=== PATIENT | female | born 2005 | race Caucasian/White ===

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

== ENCOUNTER 2025-01-28 19:41 | Outpatient (CLI) | payer BC, SELFPAY | END 2025-01-28 19:42 | disposition home or self-care (01) | LOC: AMB 01-31 10:42 | PROVIDERS: Visit Provider Family Medicine | DX: R45.851 Suicidal ideations (principal) | CPT/HCPCS: A0425; A0427 ==

== ENCOUNTER 2025-01-28 20:14 | Emergency (ER) | payer BC, SELFPAY ==
--- OUTSIDE RECORDS SUMMARY | 2025-01-28 20:16 | XMS_ITS | Encounter Summary ---
Author Organization [facility] Care Address [address] [place] [address] Phone Care Team Providers Care Meat Butcher Name Role Phone Che Williamson MD Primary Care Provider + [phone] Lynda Skelton MD Unavailable Chelsea Hensley MD Unavailable [phone] Prashanth Martinez MD Primary Care Provider [phone] Encounter Details Date Type Department Care Team (Late st Contact Info) Description 01/10/2021 Pharmacy Visit [facility] - Pharmacy - Surgery [address] [place] [address] Social History Tobacco Use Types Packs/Day Years Used Date Smoking Tobacco: Never Smokeless Tobacco: Never Alcohol Use Standard Drinks/Week Comments No 0 (1 standard drink = 0.6 oz pur e alcohol) Comments No Sex and Gender Information Value Date Recorded Sex Assigned at Female 07/13/2019 6:16 PM MANAGER TRANSFUSION Legal Sex Female 2:51 AM CDT Gender Identity Transgender Male 05/05/2019 1:23 PM CDT Sexual Orientation Pedraza 06/23/2023 10 :56 AM CDT documented as of this encounter Plan of Treatment Upcoming Encounters Date Type Department Care Team (Late st Contact Info) Description 04/21/2025 2:15 PM CDT Appointment [place] - [place] - [facility] [address] [phone] Prashanth Martinez MD [address] [place] [address] 05/02/2025 8:40 AM CDT Appointment [place] - [facility] - Ophthalmology - Optometry [address] [phone] Danuta Golden OD [address] [place] [address] documented as of this encounter Visit Diagnoses Not on filedocumented in this encounter Additional Health Concerns Infection Onset Date Last Indicated Resolved Time COVID-19 09/28/2021 09/28/2021 10/28/2021 9:44 PM MANAGER TRANSFUSION Assessment Noted Time PHQ-9 Depression Total Score: 9 11/25/19 18 2:15 PM CDT A fall risk assessment has been complete d for the patient 12/06/2020 2:18 PM CDT PHQ-2 Depression Total Score: 2 12/10/19 20 2:50 PM CDT documented as of this encounter Care Teams Meat Butcher Relationship Specialty Start Date End Date Che Williamson MD [address] [place] [address] PCP - General 08/27/12 03/20/22 Prashanth Martinez MD [address] [place] [address] PCP - General Pediatric Medicine 03/21/22 Lynda Skelton MD [facility] [place] [address] Provider Team Family Practice 06/10/17 Chelsea Hensley MD [address] [place], [place] [id number] Endocrinology 12/08/18 documented as of this encounter
--- OUTSIDE RECORDS SUMMARY | 2025-01-28 20:16 | XMS_ITS | Encounter Summary ---
Author Organization [facility] Care Address [address] [place] [address] Phone Care Team Providers Care Furnace Cooler Name Role Phone Che Williamson MD Primary Care Provider + [phone] Lynda Skelton MD Unavailable Franchesca Manley Unavailable Unavailable Chelsea Hensley MD Unavailable [phone] Prashanth Martinez MD Primary Care Provider [phone] Encounter Details Date Type Department Care Team (Late st Contact Info) Description 11/27/2018 Pharmacy Visit [facility] [address] [place] [address] Social History Tobacco Use Types Packs/Day Years Used Date Smoking Tobacco: Never Smokeless Tobacco: Never Alcohol Use Standard Drinks/Week Comments No 0 (1 standard drink = 0.6 oz pur e alcohol) Comments No Sex and Gender Information Value Date Recorded Sex Assigned at Female 07/13/2019 6:16 PM ONLINE BANKING SPECIALIST Legal Sex Female 2:51 AM CDT Gender Identity Transgender Male 05/05/2019 1:23 PM CDT Sexual Orientation Pedraza 06/23/2023 10 :56 AM CDT documented as of this encounter Plan of Treatment Upcoming Encounters Date Type Department Care Team (Late st Contact Info) Description 04/21/2025 2:15 PM CDT Appointment [place] - [facility] - Adolescent Clinic [address] [phone] Prashanth Martinez MD [address] [place] [address] 05/02/2025 8:40 AM CDT Appointment [facility] - Ophthalmology - Optometry [address] [phone] Danuta Golden OD [address] [place] [address] documented as of this encounter Visit Diagnoses Not on filedocumented in this encounter Additional Health Concerns Infection Onset Date Last Indicated Resolved Time COVID-19 09/28/2021 09/28/2021 10/28/2021 9:44 PM ONLINE BANKING SPECIALIST Assessment Noted Time PHQ-9 Depression Total Score: 9 11/25/19 18 2:15 PM CDT PHQ-2 Depression Total Score: 4 11/25/19 18 2:15 PM CDT documented as of this encounter Care Teams Furnace Cooler Relationship Specialty Start Date End Date Che Williamson MD [address] [place] [address] PCP - General 08/27/12 03/20/22 Prashanth Martinez MD [address] [place] [address] PCP - General Pediatric Medicine 03/21/22 Lynda Skelton MD [address] [place] [address] Provider Team Family Practice 06/10/17 Franchesca Manley 12/09/17 12/07/18 Chelsea Hensley MD [address] [place] [address] Endocrinology 12/08/18 documented as of this encounter
--- OUTSIDE RECORDS SUMMARY | 2025-01-28 20:16 | XMS_ITS | Encounter Summary ---
Author Organization [facility] Care Address [address] [place] [address] Phone Care Team Providers Care Proposal Development Manager Name Role Phone Che Williamson MD Primary Care Provider + [phone] Lynda Skelton MD Unavailable Franchesca Manley Unavailable Unavailable Chelsea Hensley MD Unavailable [phone] Prashanth Martinez MD Primary Care Provider Encounter Details Date Type Department Care Team (Late st Contact Info) Description 12/03/2018 Pharmacy Visit [facility] [address] [place] [address] Social History Tobacco Use Types Packs/Day Years Used Date Smoking Tobacco: Never Smokeless Tobacco: Never Alcohol Use Standard Drinks/Week Comments No 0 (1 standard drink = 0.6 oz pur e alcohol) Comments No Sex and Gender Information Value Date Recorded Sex Assigned at Female 07/13/2019 6:16 PM PRESIDENT AND CHIEF EXECUTIVE OFFICER Legal Sex Female 2:51 AM CDT Gender Identity Transgender Male 05/05/2019 1:23 PM CDT Sexual Orientation Pedraza 06/23/2023 10 :56 AM CDT documented as of this encounter Plan of Treatment Upcoming Encounters Date Type Department Care Team (Late st Contact Info) Description 04/21/2025 2:15 PM CDT Appointment [place] - [facility] - Adolescent Clinic [address] [phone] Prashanth Martinez MD [address] [place] [address] 05/02/2025 8:40 AM CDT Appointment [facility] - Ophthalmology - Optometry [address] [phone] Danuta Golden OD [address] [place] [address] documented as of this encounter Visit Diagnoses Not on filedocumented in this encounter Additional Health Concerns Infection Onset Date Last Indicated Resolved Time COVID-19 09/28/2021 09/28/2021 10/28/2021 9:44 PM PRESIDENT AND CHIEF EXECUTIVE OFFICER Assessment Noted Time PHQ-9 Depression Total Score: 9 11/25/19 18 2:15 PM CDT PHQ-2 Depression Total Score: 4 11/25/19 18 2:15 PM CDT documented as of this encounter Care Teams Proposal Development Manager Relationship Specialty Start Date End Date Che Williamson MD [address] [place] [address] PCP - General 08/27/12 03/20/22 Prashanth Martinez MD [address] [place] [address] PCP - General Pediatric Medicine 03/21/22 Lynda Skelton MD [address] [place] [address] Provider Team Family Practice 06/10/17 Franchesca Manley 12/09/17 12/07/18 Chelsea Hensley MD [address] [place] [address] Endocrinology 12/08/18 documented as of this encounter
--- OUTSIDE RECORDS SUMMARY | 2025-01-28 20:17 | XMS_ITS | Encounter Summary ---
Author Organization [facility] Care Address [address] [place] [address] Phone Care Team Providers Care Insole Stiffener Name Role Phone Che Williamson MD Primary Care Provider + [phone] Lynda Skelton MD Unavailable Chelsea Hensley MD Unavailable [phone] Prashanth Martinez MD Primary Care Provider [phone] Encounter Details Date Type Department Care Team (Late st Contact Info) Description 02/02/2021 Pharmacy Visit [facility] - Pharmacy - Specialty [address] [place] [address] Social History Tobacco Use Types Packs/Day Years Used Date Smoking Tobacco: Never Smokeless Tobacco: Never Alcohol Use Standard Drinks/Week Comments No 0 (1 standard drink = 0.6 oz pur e alcohol) Comments No Sex and Gender Information Value Date Recorded Sex Assigned at Female 07/13/2019 6:16 PM FLIGHT COMMUNICATIONS OPERATOR Legal Sex Female 2:51 AM CDT Gender Identity Transgender Male 05/05/2019 1:23 PM CDT Sexual Orientation Pedraza 06/23/2023 10 :56 AM CDT documented as of this encounter Plan of Treatment Upcoming Encounters Date Type Department Care Team (Late st Contact Info) Description 04/21/2025 2:15 PM CDT Appointment [place] [facility] [place] [facility] [address] [phone] Prashanth Martinez MD [address] [place] [address] 05/02/2025 8:40 AM CDT Appointment [place] [facility] - Optometry [address] [phone] Danuta Golden OD [address] [place] [address] documented as of this encounter Visit Diagnoses Not on filedocumented in this encounter Additional Health Concerns Infection Onset Date Last Indicated Resolved Time COVID-19 09/28/2021 09/28/2021 10/28/2021 9:44 PM FLIGHT COMMUNICATIONS OPERATOR Assessment Noted Time PHQ-9 Depression Total Score: 14 021 2:38 PM CDT A fall risk assessment has been complete d for the patient 01/31/2021 2:59 PM CDT PHQ-2 Depression Total Score: 5 01/25/20 21 2:38 PM CDT documented as of this encounter Care Teams Insole Stiffener Relationship Specialty Start Date End Date Che Williamson MD [address] [place] [address] PCP - General 08/27/12 03/20/22 Prashnath Martinez MD [address] [place] [address] PCP - General Pediatric Medicine 03/21/22 Lynda Skelton MD [facility] [place] [address] Provider Team Family Practice 06/10/17 Chelsea Hensley MD [address] [place] [address] Endocrinology 12/08/18 documented as of this encounter
--- OUTSIDE RECORDS SUMMARY | 2025-01-28 20:17 | XMS_ITS | Encounter Summary ---
Author Organization [facility] Care Address [address] [place] [address] Phone Care Team Providers Care Special Events Driver Name Role Phone Che Williamson MD Primary Care Provider + [phone] Lynda Skelton MD Unavailable Chelsea Hensley MD Unavailable [phone] Prashanth Martinez MD Primary Care Provider [phone] Encounter Details Date Type Department Care Team (Late st Contact Info) Description 01/07/2019 Pharmacy Visit [facility] - Pharmacy [address] [place] [address] Social History Tobacco Use Types Packs/Day Years Used Date Smoking Tobacco: Never Smokeless Tobacco: Never Alcohol Use Standard Drinks/Week Comments No 0 (1 standard drink = 0.6 oz pur e alcohol) Comments No Sex and Gender Information Value Date Recorded Sex Assigned at Female 07/13/2019 6:16 PM DETECTIVE YOUTH BUREAU Legal Sex Female 2:51 AM CDT Gender Identity Transgender Male 05/05/2019 1:23 PM CDT Sexual Orientation Pedraza 06/23/2023 10 :56 AM CDT documented as of this encounter Plan of Treatment Upcoming Encounters Date Type Department Care Team (Late st Contact Info) Description 04/21/2025 2:15 PM CDT Appointment [place] - [place] [facility] [address] [phone] Prashanth Martinez MD [address] [place] [address] 05/02/2025 8:40 AM CDT Appointment [facility] - Ophthalmology - Optometry [address] [phone] Danuta Golden OD [address] [place] [address] documented as of this encounter Visit Diagnoses Not on filedocumented in this encounter Additional Health Concerns Infection Onset Date Last Indicated Resolved Time COVID-19 09/28/2021 09/28/2021 10/28/2021 9:44 PM DETECTIVE YOUTH BUREAU Assessment Noted Time PHQ-9 Depression Total Score: 9 11/25/19 18 2:15 PM CDT PHQ-2 Depression Total Score: 4 11/25/19 18 2:15 PM CDT documented as of this encounter Care Teams Special Events Driver Relationship Specialty Start Date End Date Che Williamson MD [address] [place] [address] PCP - General 08/27/12 03/20/22 Prashanth Martinez MD [address] [place] [address] PCP - General Pediatric Medicine 03/21/22 Lynda Skelton MD [address] [place] [address] Provider Team Family Practice 06/10/17 Chelsea Hensley MD [address] [place] [address] Endocrinology 12/08/18 documented as of this encounter
--- OUTSIDE RECORDS SUMMARY | 2025-01-28 20:17 | XMS_ITS | Encounter Summary ---
Author Organization [facility] Care Address [address] [place] [address] Phone Care Team Providers Care Edger Machine Setter Name Role Phone Che Williamson MD Primary Care Provider + [phone] Lynda Skelton MD Unavailable Chelsea Hensley MD Unavailable [phone] Prashanth Martinez MD Primary Care Provider [phone] Encounter Details Date Type Department Care Team (Late st Contact Info) Description 01/08/2019 Pharmacy [facility] - Pharmacy - Specialty [address] [place] [address] Social History Tobacco Use Types Packs/Day Years Used Date Smoking Tobacco: Never Smokeless Tobacco: Never Alcohol Use Standard Drinks/Week Comments No 0 (1 standard drink = 0.6 oz pur e alcohol) Comments No Sex and Gender Information Value Date Recorded Sex Assigned at Female 07/13/2019 6:16 PM COMMISSIONING EDITOR Legal Sex Female 2:51 AM CDT Gender Identity Transgender Male 05/05/2019 1:23 PM CDT Sexual Orientation Pedraza 06/23/2023 10 :56 AM CDT documented as of this encounter Plan of Treatment Upcoming Encounters Date Type Department Care Team (Late st Contact Info) Description 04/21/2025 2:15 PM CDT Appointment [place] - [facility] - Adolescent Clinic [address] [phone] Prashanth Martinez MD [address] [place] [address] 05/02/2025 8:40 AM CDT Appointment [place] - [facility] - Ophthalmology - Optometry [address] [phone] Danuta Golden OD [address] [place] [address] documented as of this encounter Visit Diagnoses Not on filedocumented in this encounter Additional Health Concerns Infection Onset Date Last Indicated Resolved Time COVID-19 09/28/2021 09/28/2021 10/28/2021 9:44 PM COMMISSIONING EDITOR Assessment Noted Time PHQ-9 Depression Total Score: 9 11/25/19 18 2:15 PM CDT PHQ-2 Depression Total Score: 4 11/25/19 18 2:15 PM CDT documented as of this encounter Care Teams Edger Machine Setter Relationship Specialty Start Date End Date Che Williamson MD [address] [place] [address] PCP - General 08/27/12 03/20/22 Parshanth Martinez MD [address] [place] [address] PCP - General Pediatric Medicine 03/21/22 Lynda Skelton MD [address] [place] [address] Provider Team Family Practice 06/10/17 Chelsea Hensley MD [address] [place] [address] Endocrinology 12/08/18 documented as of this encounter
--- OUTSIDE RECORDS SUMMARY | 2025-01-28 20:17 | XMS_ITS | Encounter Summary ---
Author Organization [facility] Care Address [address] [place] [address] Phone Care Team Providers Care Food Tester Name Role Phone Che Williamson MD Primary Care Provider + [phone] Lynda Skelton MD Unavailable Chelsea Hensely MD Unavailable [phone] Prashanth Martinez MD Primary Care Provider [phone] Encounter Details Date Type Department Care Team (Late st Contact Info) Description 03/24/2019 Pharmacy Visit [facility] [address] [place] [address] Social History Tobacco Use Types Packs/Day Years Used Date Smoking Tobacco: Never Smokeless Tobacco: Never Alcohol Use Standard Drinks/Week Comments No 0 (1 standard drink = 0.6 oz pur e alcohol) Comments No Sex and Gender Information Value Date Recorded Sex Assigned at Female 07/13/2019 6:16 PM DIRECTOR CORRECTIONAL AGENCY Legal Sex Female 2:51 AM CDT Gender Identity Transgender Male 05/05/2019 1:23 PM CDT Sexual Orientation Pedraza 06/23/2023 10 :56 AM CDT documented as of this encounter Plan of Treatment Upcoming Encounters Date Type Department Care Team (Late st Contact Info) Description 04/21/2025 2:15 PM CDT Appointment [place] [facility] [address] [phone] Prashanth Martinez MD 200 [place] [address] 05/02/2025 8:40 AM CDT Appointment [place] - [facility] - Ophthalmology - Optometry [address] [phone] Danuta Golden OD 200 [place] [address] documented as of this encounter Visit Diagnoses Not on filedocumented in this encounter Additional Health Concerns Infection Onset Date Last Indicated Resolved Time COVID-19 09/28/2021 09/28/2021 10/28/2021 9:44 PM DIRECTOR CORRECTIONAL AGENCY Assessment Noted Time PHQ-9 Depression Total Score: 9 11/25/19 18 2:15 PM CDT PHQ-2 Depression Total Score: 4 11/25/19 18 2:15 PM CDT documented as of this encounter Care Teams Food Tester Relationship Specialty Start Date End Date Che Williamson MD [address] [place] [address] PCP - General 08/27/12 03/20/22 Prashanth Martinez MD 200 [place] [address] PCP - General Pediatric Medicine 03/21/22 Lynda Skelton MD [address] [place] [address] Provider Team Family Practice 06/10/17 Chelsea Hensley MD [address] [place] [address] Endocrinology 12/08/18 documented as of this encounter
--- OUTSIDE RECORDS SUMMARY | 2025-01-28 20:17 | XMS_ITS | Encounter Summary ---
Author Organization [facility] Care Address [address] [place] [address] Phone Care Team Providers Care Marine Pipefitter Name Role Phone Che Williamson MD Primary Care Provider + [phone] Lynda Skelton MD Unavailable [phone] Chelsea Hensley MD Unavailable [phone] Prashanth Martinez MD Primary Care Provider [phone] Encounter Details Date Type Department Care Team (Late st Contact Info) Description 05/25/2020 Pharmacy Visit [facility] [address] [place] [address] Social History Tobacco Use Types Packs/Day Years Used Date Smoking Tobacco: Never Smokeless Tobacco: Never Alcohol Use Standard Drinks/Week Comments No 0 (1 standard drink = 0.6 oz pur e alcohol) Comments No Sex and Gender Information Value Date Recorded Sex Assigned at Female 07/13/2019 6:16 PM DIRECTOR OF STRATEGIC INITIATIVES Legal Sex Female 2:51 AM CDT Gender Identity Transgender Male 05/05/2019 1:23 PM CDT Sexual Orientation Pedraza 06/23/2023 10 :56 AM CDT documented as of this encounter Plan of Treatment Upcoming Encounters Date Type Department Care Team (Late st Contact Info) Description 04/21/2025 2:15 PM CDT Appointment [place] - [facility] [address] [phone] Prashanth Martinez MD 200 [place] [address] 05/02/2025 8:40 AM CDT Appointment [place] [facility]ometry [address] [phone] Danuta Golden OD 200 [place] [address] documented as of this encounter Visit Diagnoses Not on filedocumented in this encounter Additional Health Concerns Infection Onset Date Last Indicated Resolved Time COVID-19 09/28/2021 09/28/2021 10/28/2021 9:44 PM DIRECTOR OF STRATEGIC INITIATIVES Assessment Noted Time PHQ-9 Depression Total Score: 9 11/25/19 18 2:15 PM CDT A fall risk assessment has been complete d for the patient 05/17/2020 3:45 PM CDT PHQ-2 Depression Total Score: 2 12/10/19 20 2:50 PM CDT documented as of this encounter Care Teams Marine Pipefitter Relationship Specialty Start Date End Date Che Williamson MD [address] [place] [address] PCP - General 08/27/12 03/20/22 Prashanth Martinez MD [address] [place] [address] PCP - General Pediatric Medicine 03/21/22 Lynda Skelton MD [facility] [place] [address] Provider Team Family Practice 06/10/17 Chelsea Hensley MD [address] [place] [address] Endocrinology 12/08/18 documented as of this encounter
--- OUTSIDE RECORDS SUMMARY | 2025-01-28 20:17 | XMS_ITS | Encounter Summary ---
Author Organization [facility] Care Address [address] [place] [address] Phone Care Team Providers Care Thinner Sprayer Name Role Phone Che Williamson MD Primary Care Provider + [phone] Lynda Skelton MD Unavailable Chelsea Hensley MD Unavailable [phone] Prashanth Martinez MD Primary Care Provider [phone] Encounter Details Date Type Department Care Team (Late st Contact Info) Description 12/10/2018 Pharmacy [facility] - Pharmacy - Specialty 200 [place] [address] Social History Tobacco Use Types Packs/Day Years Used Date Smoking Tobacco: Never Smokeless Tobacco: Never Alcohol Use Standard Drinks/Week Comments No 0 (1 standard drink = 0.6 oz pur e alcohol) Comments No Sex and Gender Information Value Date Recorded Sex Assigned at Female 07/13/2019 6:16 PM SAP PORTAL DEVELOPER Legal Sex Female 2:51 AM CDT Gender Identity Transgender Male 05/05/2019 1:23 PM CDT Sexual Orientation Pedraza 06/23/2023 10 :56 AM CDT documented as of this encounter Plan of Treatment Upcoming Encounters Date Type Department Care Team (Late st Contact Info) Description 04/21/2025 2:15 PM CDT Appointment [place] - [facility] [address] [phone] Prashanth Martinez MD 200 [place] [address] 05/02/2025 8:40 AM CDT Appointment [place] - [facility] - Ophthalmology - Optometry [address] [phone] Danuta Golden OD [address] [place] [address] documented as of this encounter Visit Diagnoses Not on filedocumented in this encounter Additional Health Concerns Infection Onset Date Last Indicated Resolved Time COVID-19 09/28/2021 09/28/2021 10/28/2021 9:44 PM SAP PORTAL DEVELOPER Assessment Noted Time PHQ-9 Depression Total Score: 9 11/25/19 18 2:15 PM CDT PHQ-2 Depression Total Score: 4 11/25/19 18 2:15 PM CDT documented as of this encounter Care Teams Thinner Sprayer Relationship Specialty Start Date End Date Che Williamson MD [address] [place] [address] PCP - General 08/27/12 03/20/22 Prashanth Martinez MD [address] [place] [address] PCP - General Pediatric Medicine 03/21/22 Lynda Skelton MD [address] [place] [address] Provider Team Family Practice 06/10/17 Chelsea Hensley MD [address] [place] [address] Endocrinology 12/08/18 documented as of this encounter
--- OUTSIDE RECORDS SUMMARY | 2025-01-28 20:17 | XMS_ITS | Encounter Summary ---
Author Organization [facility] Care Address [address] [place] [address] Phone Care Team Providers Care Fire Hydrant Operator Name Role Phone Che Williamson MD Primary Care Provider + [phone] Lynda Skelton MD Unavailable Chelsea Hensley MD Unavailable [phone] Prashanth Martinez MD Primary Care Provider [phone] Encounter Details Date Type Department Care Team (Late st Contact Info) Description 06/26/2020 Pharmacy Visit [facility] - Pharmacy - Specialty [address] [place] [address] Social History Tobacco Use Types Packs/Day Years Used Date Smoking Tobacco: Never Smokeless Tobacco: Never Alcohol Use Standard Drinks/Week Comments No 0 (1 standard drink = 0.6 oz pur e alcohol) Comments No Sex and Gender Information Value Date Recorded Sex Assigned at Female 07/13/2019 6:16 PM VOCATIONAL COUNSELOR Legal Sex Female 2:51 AM CDT Gender Identity Transgender Male 05/05/2019 1:23 PM CDT Sexual Orientation Pedraza 06/23/2023 10 :56 AM CDT documented as of this encounter Plan of Treatment Upcoming Encounters Date Type Department Care Team (Late st Contact Info) Description 04/21/2025 2:15 PM CDT Appointment [place] - [facility] [address] [phone] Prashanth Martinez MD [address] [place] [address] 05/02/2025 8:40 AM CDT Appointment [place] - [facility] - Ophthalmology - Optometry [address] [phone] Danuta Golden OD 200 [place] [address] documented as of this encounter Visit Diagnoses Not on filedocumented in this encounter Additional Health Concerns Infection Onset Date Last Indicated Resolved Time COVID-19 09/28/2021 09/28/2021 10/28/2021 9:44 PM VOCATIONAL COUNSELOR Assessment Noted Time PHQ-9 Depression Total Score: 9 11/25/19 18 2:15 PM CDT A fall risk assessment has been complete d for the patient 05/17/2020 3:45 PM CDT PHQ-2 Depression Total Score: 2 12/10/19 20 2:50 PM CDT documented as of this encounter Care Teams Fire Hydrant Operator Relationship Specialty Start Date End Date Che Williamson MD [address] [place] [address] PCP - General 08/27/12 03/20/22 Prashanth Martinez MD [address] [place] [address] PCP - General Pediatric Medicine 03/21/22 Lynda Skelton MD [facility] [place] [address] Provider Team Family Practice 06/10/17 Chelsea Hensley MD [address] [place] [address] Endocrinology 12/08/18 documented as of this encounter
--- OUTSIDE RECORDS SUMMARY | 2025-01-28 20:17 | XMS_ITS | Encounter Summary ---
Author Organization [facility] Care Address [address] [place] [address] Phone Care Team Providers Care Polisher Sand Name Role Phone Che Williamson MD Primary Care Provider + [phone] Lynda Skelton MD Unavailable Chelsea Hensley MD Unavailable [phone] Prashanth Martinez MD Primary Care Provider [phone] Encounter Details Date Type Department Care Team (Late st Contact Info) Description 04/02/2019 Pharmacy [facility] - Pharmacy - Specialty [address] [place] [address] Social History Tobacco Use Types Packs/Day Years Used Date Smoking Tobacco: Never Smokeless Tobacco: Never Alcohol Use Standard Drinks/Week Comments No 0 (1 standard drink = 0.6 oz pur e alcohol) Comments No Sex and Gender Information Value Date Recorded Sex Assigned at Female 07/13/2019 6:16 PM SMOOTH STUCCO RESURFACER Legal Sex Female 2:51 AM CDT Gender Identity Transgender Male 05/05/2019 1:23 PM CDT Sexual Orientation Pedraza 06/23/2023 10 :56 AM CDT documented as of this encounter Plan of Treatment Upcoming Encounters Date Type Department Care Team (Late st Contact Info) Description 04/21/2025 2:15 PM CDT Appointment [place] - [facility] [address] [phone] Prashanth Martinez MD [address] [place] [address] 05/02/2025 8:40 AM CDT Appointment [place] - [facility] - Ophthalmology - Optometry [address] [phone] Danuta Golden OD [address] [place] [address] documented as of this encounter Visit Diagnoses Not on filedocumented in this encounter Additional Health Concerns Infection Onset Date Last Indicated Resolved Time COVID-19 09/28/2021 09/28/2021 10/28/2021 9:44 PM SMOOTH STUCCO RESURFACER Assessment Noted Time PHQ-9 Depression Total Score: 9 11/25/19 18 2:15 PM CDT PHQ-2 Depression Total Score: 4 11/25/19 18 2:15 PM CDT documented as of this encounter Care Teams Polisher Sand Relationship Specialty Start Date End Date Che Williamson MD [address] [place] [address] PCP - General 08/27/12 03/20/22 Prashanth Martinez MD [address] [place] [address] PCP - General Pediatric Medicine 03/21/22 Lynda Skelton MD [address] [place] [address] Provider Team Family Practice 06/10/17 Chelsea Hensley MD [address] [place] [address] Endocrinology 12/08/18 documented as of this encounter
--- OUTSIDE RECORDS SUMMARY | 2025-01-28 20:17 | XMS_ITS | Encounter Summary ---
Author Organization [facility] Care Address [address] [place] [address] Phone Care Team Providers Care Mannequin Mounter Name Role Phone Che Williamson MD Primary Care Provider + [phone] Lynda Skelton MD Unavailable Chelsea Hensley MD Unavailable [phone] Prashanth Martinez MD Primary Care Provider [phone] Encounter Details Date Type Department Care Team (Late st Contact Info) Description 01/28/2019 Pharmacy [facility] - Pharmacy - Specialty 200 [place] [address] Social History Tobacco Use Types Packs/Day Years Used Date Smoking Tobacco: Never Smokeless Tobacco: Never Alcohol Use Standard Drinks/Week Comments No 0 (1 standard drink = 0.6 oz pur e alcohol) Comments No Sex and Gender Information Value Date Recorded Sex Assigned at Female 07/13/2019 6:16 PM RESIDENT ASSISTANT CNA Legal Sex Female 2:51 AM CDT Gender Identity Transgender Male 05/05/2019 1:23 PM CDT Sexual Orientation Pedraza 06/23/2023 10 :56 AM CDT documented as of this encounter Plan of Treatment Upcoming Encounters Date Type Department Care Team (Late st Contact Info) Description 04/21/2025 2:15 PM CDT Appointment [place] - [facility] [address] [phone] Prashanth Martinez MD 200 [place] [address] 05/02/2025 8:40 AM CDT Appointment [place] [facility] - Optometry [address] [phone] Danuta Golden OD [address] [place] [address] documented as of this encounter Visit Diagnoses Not on filedocumented in this encounter Additional Health Concerns Infection Onset Date Last Indicated Resolved Time COVID-19 09/28/2021 09/28/2021 10/28/2021 9:44 PM RESIDENT ASSISTANT CNA Assessment Noted Time PHQ-9 Depression Total Score: 9 11/25/19 18 2:15 PM CDT PHQ-2 Depression Total Score: 4 11/25/19 18 2:15 PM CDT documented as of this encounter Care Teams Mannequin Mounter Relationship Specialty Start Date End Date Che Williamson MD [address] [place] [address] PCP - General 08/27/12 03/20/22 Prashanth Martinez MD [address] [place] [address] PCP - General Pediatric Medicine 03/21/22 Lynda Skelton MD [address] [place] [address] Provider Team Family Practice 06/10/17 Chelsea Hensley MD [address] [place] [address] Endocrinology 12/08/18 documented as of this encounter
--- OUTSIDE RECORDS SUMMARY | 2025-01-28 20:17 | XMS_ITS | Encounter Summary ---
Author Organization [facility] Care Address [address] [place] [address] Phone Care Team Providers Care Executive Consultant Name Role Phone Che Williamson MD Primary Care Provider + [phone] Lynda Skelton MD Unavailable Chelsea Hensley MD Unavailable [phone] Prashanth Martinez MD Primary Care Provider [phone] Encounter Details Date Type Department Care Team (Late st Contact Info) Description 03/03/2019 Pharmacy [facility] - Pharmacy - Specialty 200 [place] [address] Social History Tobacco Use Types Packs/Day Years Used Date Smoking Tobacco: Never Smokeless Tobacco: Never Alcohol Use Standard Drinks/Week Comments No 0 (1 standard drink = 0.6 oz pur e alcohol) Comments No Sex and Gender Information Value Date Recorded Sex Assigned at Female 07/13/2019 6:16 PM TOWER EQUIPMENT REPAIRER Legal Sex Female 2:51 AM CDT Gender Identity Transgender Male 05/05/2019 1:23 PM CDT Sexual Orientation Pedraza 06/23/2023 10 :56 AM CDT documented as of this encounter Plan of Treatment Upcoming Encounters Date Type Department Care Team (Late st Contact Info) Description 04/21/2025 2:15 PM CDT Appointment [place] - [facility] [address] [phone] Prashanth Martinez MD 200 [place] [address] 05/02/2025 8:40 AM CDT Appointment [place] - [facility] - Ophthalmology - Optometry [address] [phone] Danuta Golden OD [address] [place] [address] documented as of this encounter Visit Diagnoses Not on filedocumented in this encounter Additional Health Concerns Infection Onset Date Last Indicated Resolved Time COVID-19 09/28/2021 09/28/2021 10/28/2021 9:44 PM TOWER EQUIPMENT REPAIRER Assessment Noted Time PHQ-9 Depression Total Score: 9 11/25/19 18 2:15 PM CDT PHQ-2 Depression Total Score: 4 11/25/19 18 2:15 PM CDT documented as of this encounter Care Teams Executive Consultant Relationship Specialty Start Date End Date Che Williamson MD [address] [place] [address] PCP - General 08/27/12 03/20/22 Prashanth Martinez MD [address] [place] [address] PCP - General Pediatric Medicine 03/21/22 Lynda Skelton MD [address] [place] [address] Provider Team Family Practice 06/10/17 Chelsea Hensley MD [address] [place] [address] Endocrinology 12/08/18 documented as of this encounter
--- OUTSIDE RECORDS SUMMARY | 2025-01-28 20:17 | XMS_ITS | Encounter Summary ---
Author Organization [facility] Care Address [address] [place] [address] Phone Care Team Providers Care Race Car Mechanic Name Role Phone Che Williamson MD Primary Care Provider + [phone] Lynda Skelton MD Unavailable Chelsea Hensley MD Unavailable [phone] Prashanth Martinez MD Primary Care Provider [phone] Encounter Details Date Type Department Care Team (Late st Contact Info) Description 06/09/2020 Pharmacy Visit [facility] - Pharmacy - Specialty [address] [place] [address] Social History Tobacco Use Types Packs/Day Years Used Date Smoking Tobacco: Never Smokeless Tobacco: Never Alcohol Use Standard Drinks/Week Comments No 0 (1 standard drink = 0.6 oz pur e alcohol) Comments No Sex and Gender Information Value Date Recorded Sex Assigned at Female 07/13/2019 6:16 PM TOP STOP ATTACHER Legal Sex Female 2:51 AM CDT Gender Identity Transgender Male 05/05/2019 1:23 PM CDT Sexual Orientation Pedraza 06/23/2023 10 :56 AM CDT documented as of this encounter Plan of Treatment Upcoming Encounters Date Type Department Care Team (Late st Contact Info) Description 04/21/2025 2:15 PM CDT Appointment [place] - [facility] [address] [phone] Prashanth Martinez MD [address] [place] [address] 05/02/2025 8:40 AM CDT Appointment [place] - [facility] - Ophthalmology - Optometry [address] [phone] Danuta Golden OD [address] [place] [address] documented as of this encounter Visit Diagnoses Not on filedocumented in this encounter Additional Health Concerns Infection Onset Date Last Indicated Resolved Time COVID-19 09/28/2021 09/28/2021 10/28/2021 9:44 PM TOP STOP ATTACHER Assessment Noted Time PHQ-9 Depression Total Score: 9 11/25/19 18 2:15 PM CDT A fall risk assessment has been complete d for the patient 05/17/2020 3:45 PM CDT PHQ-2 Depression Total Score: 2 12/10/19 20 2:50 PM CDT documented as of this encounter Care Teams Race Car Mechanic Relationship Specialty Start Date End Date Che Williamson MD [address] [place] [address] PCP - General 08/27/12 03/20/22 Prashanth Martinez MD [address] [place] [address] PCP - General Pediatric Medicine 03/21/22 Lynda Skelton MD [facility] [place] [address] Provider Team Family Practice 06/10/17 Chelsea Hensley MD [address] [place] [address] Endocrinology 12/08/18 documented as of this encounter
--- OUTSIDE RECORDS SUMMARY | 2025-01-28 20:17 | XMS_ITS | Encounter Summary ---
Author Organization [facility] Care Address [address] [place] [address] Phone Care Team Providers Care Supervisor Paint Name Role Phone Che Williamson MD Primary Care Provider + [phone] Lynda Skelton MD Unavailable Chelsea Hensley MD Unavailable [phone] Prashanth Martinez MD Primary Care Provider [phone] Encounter Details Date Type Department Care Team (Late st Contact Info) Description 12/09/[address] [facility] - Pharmacy - Specialty [address] [place] [address] Social History Tobacco Use Types Packs/Day Years Used Date Smoking Tobacco: Never Smokeless Tobacco: Never Alcohol Use Standard Drinks/Week Comments No 0 (1 standard drink = 0.6 oz pur e alcohol) Comments No Sex and Gender Information Value Date Recorded Sex Assigned at Female 07/13/2019 6:16 PM CHECKERER HAND Legal Sex Female 2:51 AM CDT Gender Identity Transgender Male 05/05/2019 1:23 PM CDT Sexual Orientation Pedraza 06/23/2023 10 :56 AM CDT documented as of this encounter Plan of Treatment Upcoming Encounters Date Type Department Care Team (Late st Contact Info) Description 04/21/2025 2:15 PM CDT Appointment [place] - [facility] [address] [phone] Prashanth Martinez MD 200 [place] [address] 05/02/2025 8:40 AM CDT Appointment [place] - [facility] - Ophthalmology - Optometry [address] [phone] Danuta Golden OD [address] [place] [address] documented as of this encounter Visit Diagnoses Not on filedocumented in this encounter Additional Health Concerns Infection Onset Date Last Indicated Resolved Time COVID-19 09/28/2021 09/28/2021 10/28/2021 9:44 PM CHECKERER HAND Assessment Noted Time PHQ-9 Depression Total Score: 9 11/25/19 18 2:15 PM CDT PHQ-2 Depression Total Score: 4 11/25/19 18 2:15 PM CDT documented as of this encounter Care Teams Supervisor Paint Relationship Specialty Start Date End Date Che Williamson MD [address] [place] [address] PCP - General 08/27/12 03/20/22 Prashanth Martinez MD [address] [place] [address] PCP - General Pediatric Medicine 03/21/22 Lynda Skelton MD [address] [place] [address] Provider Team Family Practice 06/10/17 Chelsea Hensley MD [address] [place] [address] Endocrinology 12/08/18 documented as of this encounter
--- OUTSIDE RECORDS SUMMARY | 2025-01-28 20:17 | XMS_ITS | Encounter Summary ---
Author Organization [facility] Care Address [address] [place] [address] Phone Care Team Providers Care Paving Plant Operator Name Role Phone Che Williamson MD Primary Care Provider + [phone] Lynda Skelton MD Unavailable [place] Hensley MD Unavailable [phone] Prashanth Martinez MD Primary Care Provider [phone] Encounter Details Date Type Department Care Team (Late st Contact Info) Description 02/17/2019 Pharmacy [facility] - Pharmacy - Specialty [address] [place] [address] Social History Tobacco Use Types Packs/Day Years Used Date Smoking Tobacco: Never Smokeless Tobacco: Never Alcohol Use Standard Drinks/Week Comments No 0 (1 standard drink = 0.6 oz pur e alcohol) Comments No Sex and Gender Information Value Date Recorded Sex Assigned at Female 07/13/2019 6:16 PM HOSE INSPECTOR AND PATCHER Legal Sex Female 2:51 AM CDT Gender Identity Transgender Male 05/05/2019 1:23 PM CDT Sexual Orientation Pedraza 06/23/2023 10 :56 AM CDT documented as of this encounter Plan of Treatment Upcoming Encounters Date Type Department Care Team (Late st Contact Info) Description 04/21/2025 2:15 PM CDT Appointment [place] [facility] [address] [phone] Prashanth Martinez MD 200 [place] [address] 05/02/2025 8:40 AM CDT Appointment [place] - [facility] - Ophthalmology - Optometry [address] [phone] Danuta Golden OD [address] [place] [address] documented as of this encounter Visit Diagnoses Not on filedocumented in this encounter Additional Health Concerns Infection Onset Date Last Indicated Resolved Time COVID-19 09/28/2021 09/28/2021 10/28/2021 9:44 PM HOSE INSPECTOR AND PATCHER Assessment Noted Time PHQ-9 Depression Total Score: 9 11/25/19 18 2:15 PM CDT PHQ-2 Depression Total Score: 4 11/25/19 18 2:15 PM CDT documented as of this encounter Care Teams Paving Plant Operator Relationship Specialty Start Date End Date Che Williamson MD [address] [place] [address] PCP - General 08/27/12 03/20/22 Prashanth Martinez MD [address] [place] [address] PCP - General Pediatric Medicine 03/21/22 Lynda Skelton MD [address] [place] [address] Provider Team Family Practice 06/10/17 [place] Hensley MD [address] [place] [address] Endocrinology 12/08/18 documented as of this encounter
--- OUTSIDE RECORDS SUMMARY | 2025-01-28 20:17 | XMS_ITS | Encounter Summary ---
Author Organization [facility] Care Address [address] [place] [address] Phone Care Team Providers Care Arch Pad Cementer Name Role Phone Che Williamson MD Primary Care Provider + [phone] Lynda Skelton MD Unavailable [place] Hensley MD Unavailable [phone] Prashanth Martinez MD Primary Care Provider [phone] Encounter Details Date Type Department Care Team (Late st Contact Info) Description 12/14/2018 Pharmacy [facility] - Pharmacy - Specialty [address] [place] [address] Social History Tobacco Use Types Packs/Day Years Used Date Smoking Tobacco: Never Smokeless Tobacco: Never Alcohol Use Standard Drinks/Week Comments No 0 (1 standard drink = 0.6 oz pur e alcohol) Comments No Sex and Gender Information Value Date Recorded Sex Assigned at Female 07/13/2019 6:16 PM JUNIOR ACCOUNT MANAGER Legal Sex Female 2:51 AM CDT Gender Identity Transgender Male 05/05/2019 1:23 PM CDT Sexual Orientation Pedraza 06/23/2023 10 :56 AM CDT documented as of this encounter Plan of Treatment Upcoming Encounters Date Type Department Care Team (Late st Contact Info) Description 04/21/2025 2:15 PM CDT Appointment [place] - [facility] [address] [phone] Prashanth Martinez MD [address] [place] [address] 05/02/2025 8:40 AM CDT Appointment [place] - [facility] - Ophthalmology - Optometry [address] [phone] Danuta Golden OD [address] [place] [address] documented as of this encounter Visit Diagnoses Not on filedocumented in this encounter Additional Health Concerns Infection Onset Date Last Indicated Resolved Time COVID-19 09/28/2021 09/28/2021 10/28/2021 9:44 PM JUNIOR ACCOUNT MANAGER Assessment Noted Time PHQ-9 Depression Total Score: 9 11/25/19 18 2:15 PM CDT PHQ-2 Depression Total Score: 4 11/25/19 18 2:15 PM CDT documented as of this encounter Care Teams Arch Pad Cementer Relationship Specialty Start Date End Date Che Williamson MD [address] [place] [address] PCP - General 08/27/12 03/20/22 Prashanth Martinez MD [address] [place] [address] PCP - General Pediatric Medicine 03/21/22 Lynda Skelton MD [address] [place] [address] Provider Team Family Practice 06/10/17 [place] Hensley MD [address] [place] [address] Endocrinology 12/08/18 documented as of this encounter
--- OUTSIDE RECORDS SUMMARY | 2025-01-28 20:17 | XMS_ITS | Encounter Summary ---
Author Organization [facility] Care Address [address] [place] [address] Phone Care Team Providers Care Interventional Radiology Technologist Name Role Phone Che Williamson MD Primary Care Provider + [phone] Lynda Skelton MD Unavailable [place] Hensley MD Unavailable [phone] Prashanth Martinez MD Primary Care Provider [phone] Encounter Details Date Type Department Care Team (Late st Contact Info) Description 01/07/2019 Pharmacy [facility] - Pharmacy - Specialty [address] [place] [address] Social History Tobacco Use Types Packs/Day Years Used Date Smoking Tobacco: Never Smokeless Tobacco: Never Alcohol Use Standard Drinks/Week Comments No 0 (1 standard drink = 0.6 oz pur e alcohol) Comments No Sex and Gender Information Value Date Recorded Sex Assigned at Female 07/13/2019 6:16 PM MANAGER PART Legal Sex Female 2:51 AM CDT Gender Identity Transgender Male 05/05/2019 1:23 PM CDT Sexual Orientation Pedraza 06/23/2023 10 :56 AM CDT documented as of this encounter Plan of Treatment Upcoming Encounters Date Type Department Care Team (Late st Contact Info) Description 04/21/2025 2:15 PM CDT Appointment [place] - [facility] [address] [phone] Prashanth Martinez MD 200 [place] [address] 05/02/2025 8:40 AM CDT Appointment [place] - [facility] - Ophthalmology - Optometry [address] [phone] Danuta Golden OD [address] [place] [address] documented as of this encounter Visit Diagnoses Not on filedocumented in this encounter Additional Health Concerns Infection Onset Date Last Indicated Resolved Time COVID-19 09/28/2021 09/28/2021 10/28/2021 9:44 PM MANAGER PART Assessment Noted Time PHQ-9 Depression Total Score: 9 11/25/19 18 2:15 PM CDT PHQ-2 Depression Total Score: 4 11/25/19 18 2:15 PM CDT documented as of this encounter Care Teams Interventional Radiology Technologist Relationship Specialty Start Date End Date Che Williamson MD [address] [place] [address] PCP - General 08/27/12 03/20/22 Prashanth Martinez MD [address] [place] [address] PCP - General Pediatric Medicine 03/21/22 Lynda Skelton MD [address] [place] [address] Provider Team Family Practice 06/10/17 [place] Hensley MD [address] [place] [address] Endocrinology 12/08/18 documented as of this encounter
--- OUTSIDE RECORDS SUMMARY | 2025-01-28 20:17 | XMS_ITS | Encounter Summary ---
Author Organization [facility] Care Address [address] [place] [address] Phone Care Team Providers Care Motor Pool Driver Name Role Phone Che Williamson MD Primary Care Provider + [phone] Lynda Skelton MD Unavailable [place] Hensley MD Unavailable [phone] Prashanth Martinez MD Primary Care Provider [phone] Encounter Details Date Type Department Care Team (Late st Contact Info) Description 03/15/2021 Pharmacy Visit [facility] - [facility] [address] [place] [address] Social History Tobacco Use Types Packs/Day Years Used Date Smoking Tobacco: Never Smokeless Tobacco: Never Alcohol Use Standard Drinks/Week Comments No 0 (1 standard drink = 0.6 oz pur e alcohol) Comments No Sex and Gender Information Value Date Recorded Sex Assigned at Female 07/13/2019 6:16 PM FOREIGN LANGUAGE INSTRUCTOR Legal Sex Female 2:51 AM CDT Gender Identity Transgender Male 05/05/2019 1:23 PM CDT Sexual Orientation Pedraza 06/23/2023 10 :56 AM CDT documented as of this encounter Plan of Treatment Upcoming Encounters Date Type Department Care Team (Late st Contact Info) Description 04/21/2025 2:15 PM CDT Appointment [place] - [facility] [address] [phone] Prashanth Martinez MD [address] [place] [address] 05/02/2025 8:40 AM CDT Appointment [place] - [facility] - Ophthalmology - Optometry [address] [phone] Danuta Golden OD [address] [place] [address] documented as of this encounter Visit Diagnoses Not on filedocumented in this encounter Additional Health Concerns Infection Onset Date Last Indicated Resolved Time COVID-19 09/28/2021 09/28/2021 10/28/2021 9:44 PM FOREIGN LANGUAGE INSTRUCTOR Assessment Noted Time PHQ-9 Depression Total Score: 14 021 2:38 PM CDT A fall risk assessment has been complete d for the patient 02/28/2021 3:15 PM CDT PHQ-2 Depression Total Score: 5 01/25/20 21 2:38 PM CDT documented as of this encounter Care Teams Motor Pool Driver Relationship Specialty Start Date End Date Che Williamson MD [address] [place] [address] PCP - General 08/27/12 03/20/22 Prashanth Martinez MD [address] [place] [address] PCP - General Pediatric Medicine 03/21/22 Lynda Skelton MD [facility] [place] [address] Provider Team Family Practice 06/10/17 [place] Hensley MD [address] [place] [phone] Endocrinology 12/08/18 documented as of this encounter
--- OUTSIDE RECORDS SUMMARY | 2025-01-28 20:17 | XMS_ITS | Encounter Summary ---
Author Organization [facility] Care Address [address] [place] [address] Phone Care Team Providers Care Imaging Technologist Name Role Phone Che Williamson MD Primary Care Provider + [phone] Lynda Skelton MD Unavailable [place] Hensley MD Unavailable [phone] Prashanth Martinez MD Primary Care Provider [phone] Encounter Details Date Type Department Care Team (Late st Contact Info) Description 02/02/2019 Pharmacy [facility] - Pharmacy - Specialty [address] [place] [address] Social History Tobacco Use Types Packs/Day Years Used Date Smoking Tobacco: Never Smokeless Tobacco: Never Alcohol Use Standard Drinks/Week Comments No 0 (1 standard drink = 0.6 oz pur e alcohol) Comments No Sex and Gender Information Value Date Recorded Sex Assigned at Female 07/13/2019 6:16 PM DIGITAL COMPOSER Legal Sex Female 2:51 AM CDT Gender Identity Transgender Male 05/05/2019 1:23 PM CDT Sexual Orientation Pedraza 06/23/2023 10 :56 AM CDT documented as of this encounter Plan of Treatment Upcoming Encounters Date Type Department Care Team (Late st Contact Info) Description 04/21/2025 2:15 PM CDT Appointment [place] - [facility] - [facility] [address] [phone] Prashanth Martinez MD [address] [place] [address] 05/02/2025 8:40 AM CDT Appointment [place] - [facility] - Ophthalmology - Optometry [address] [phone] Danuat Golden OD [address] [place] [address] documented as of this encounter Visit Diagnoses Not on filedocumented in this encounter Additional Health Concerns Infection Onset Date Last Indicated Resolved Time COVID-19 09/28/2021 09/28/2021 10/28/2021 9:44 PM DIGITAL COMPOSER Assessment Noted Time PHQ-9 Depression Total Score: 9 11/25/19 18 2:15 PM CDT PHQ-2 Depression Total Score: 4 11/25/19 18 2:15 PM CDT documented as of this encounter Care Teams Imaging Technologist Relationship Specialty Start Date End Date Che Williamson MD [address] [place] [address] PCP - General 08/27/12 03/20/22 Prashanth Martinez MD [address] [place] [address] PCP - General Pediatric Medicine 03/21/22 Lynda Skelton MD [address] [place] [address] Provider Team Family Practice 06/10/17 [place] Hensley MD [address] [place] [address] Endocrinology 12/08/18 documented as of this encounter
--- OUTSIDE RECORDS SUMMARY | 2025-01-28 20:17 | XMS_ITS | Encounter Summary ---
Author Organization [facility] Care Address [address] [place] [address] Phone Care Team Providers Care Fiscal Services Manager Name Role Phone Che Williamson MD Primary Care Provider + [phone] Lynda Skelton MD Unavailable [place] Hensley MD Unavailable [phone] Prashanth Martinez MD Primary Care Provider [phone] Encounter Details Date Type Department Care Team (Late st Contact Info) Description 02/12/2019 Pharmacy Visit [facility] - Pharmacy [address] [place] [address] Social History Tobacco Use Types Packs/Day Years Used Date Smoking Tobacco: Never Smokeless Tobacco: Never Alcohol Use Standard Drinks/Week Comments No 0 (1 standard drink = 0.6 oz pur e alcohol) Comments No Sex and Gender Information Value Date Recorded Sex Assigned at Female 07/13/2019 6:16 PM DETECTIVE CAPTAIN Legal Sex Female 2:51 AM CDT Gender Identity Transgender Male 05/05/2019 1:23 PM CDT Sexual Orientation Pedraza 06/23/2023 10 :56 AM CDT documented as of this encounter Plan of Treatment Upcoming Encounters Date Type Department Care Team (Late st Contact Info) Description 04/21/2025 2:15 PM CDT Appointment [place] - [facility] [address] [phone] Prashanth Martinez MD [address] [place] [address] 05/02/2025 8:40 AM CDT Appointment [facility] - Ophthalmology - Optometry [address] [phone] Danuta Golden OD [address] [place] [address] documented as of this encounter Visit Diagnoses Not on filedocumented in this encounter Additional Health Concerns Infection Onset Date Last Indicated Resolved Time COVID-19 09/28/2021 09/28/2021 10/28/2021 9:44 PM DETECTIVE CAPTAIN Assessment Noted Time PHQ-9 Depression Total Score: 9 11/25/19 18 2:15 PM CDT PHQ-2 Depression Total Score: 4 11/25/19 18 2:15 PM CDT documented as of this encounter Care Teams Fiscal Services Manager Relationship Specialty Start Date End Date Che Williamson MD [address] [place] [address] PCP - General 08/27/12 03/20/22 Prashanth Martinez MD [address] [place] [address] PCP - General Pediatric Medicine 03/21/22 Lynda Skelton MD [address] [place] [address] Provider Team Family Practice 06/10/17 [place] Hensley MD [address] [place] [address] Endocrinology 12/08/18 documented as of this encounter
--- OUTSIDE RECORDS SUMMARY | 2025-01-28 20:17 | XMS_ITS | Encounter Summary ---
Author Organization [facility] Care Address [address] [place] [address] Phone Care Team Providers Care Business Development Agent Name Role Phone Che Williamson MD Primary Care Provider + [phone] Lynda Skelton MD Unavailable [place] Hensley MD Unavailable [phone] Prashanth Martinez MD Primary Care Provider [phone] Encounter Details Date Type Department Care Team (Late st Contact Info) Description 02/08/2021 Pharmacy Visit [facility] - Pharmacy - Specialty [address] [place] [address] Social History Tobacco Use Types Packs/Day Years Used Date Smoking Tobacco: Never Smokeless Tobacco: Never Alcohol Use Standard Drinks/Week Comments No 0 (1 standard drink = 0.6 oz pur e alcohol) Comments No Sex and Gender Information Value Date Recorded Sex Assigned at Female 07/13/2019 6:16 PM PHYSICIAN COMPENSATION ANALYST Legal Sex Female 2:51 AM CDT Gender Identity Transgender Male 05/05/2019 1:23 PM CDT Sexual Orientation Pedraza 06/23/2023 10 :56 AM CDT documented as of this encounter Plan of Treatment Upcoming Encounters Date Type Department Care Team (Late st Contact Info) Description 04/21/2025 2:15 PM CDT Appointment [place] - [facility] - Adolescent Clinic [address] [phone] Prashanth Martinez MD [address] [place] [address] 05/02/2025 8:40 AM CDT Appointment [place] - [facility] - Ophthalmology - Optometry [address] [phone] Danuta oGlden OD [address] [place] [address] documented as of this encounter Visit Diagnoses Not on filedocumented in this encounter Additional Health Concerns Infection Onset Date Last Indicated Resolved Time COVID-19 09/28/2021 09/28/2021 10/28/2021 9:44 PM PHYSICIAN COMPENSATION ANALYST Assessment Noted Time PHQ-9 Depression Total Score: 14 021 2:38 PM CDT A fall risk assessment has been complete d for the patient 02/08/2021 3:24 PM CDT PHQ-2 Depression Total Score: 5 01/25/20 21 2:38 PM CDT documented as of this encounter Care Teams Business Development Agent Relationship Specialty Start Date End Date Che Williamson MD [address] [place] [address] PCP - General 08/27/12 03/20/22 Prashanth Martinez MD [address] [place] [address] PCP - General Pediatric Medicine 03/21/22 Lynda Skelton MD [facility]0 [place] [address] Provider Team Family Practice 06/10/17 [place] Hensley MD [address] [place] [address] Endocrinology 12/08/18 documented as of this encounter
--- OUTSIDE RECORDS SUMMARY | 2025-01-28 20:17 | XMS_ITS | Encounter Summary ---
Author Organization [facility] Care Address [address] [place] [address] Phone Care Team Providers Care Ear Machine Operator Name Role Phone Che Williamson MD Primary Care Provider + [phone] Lynda Skelton MD Unavailable [place] Hensley MD Unavailable [phone] Prashanth Martinez MD Primary Care Provider [phone] Encounter Details Date Type Department Care Team (Late st Contact Info) Description 03/23/2021 Pharmacy Visit [facility] - Pharmacy - Specialty [address] [place] [address] Social History Tobacco Use Types Packs/Day Years Used Date Smoking Tobacco: Never Smokeless Tobacco: Never Alcohol Use Standard Drinks/Week Comments No 0 (1 standard drink = 0.6 oz pur e alcohol) Comments No Sex and Gender Information Value Date Recorded Sex Assigned at Female 07/13/2019 6:16 PM MAIL SORTER Legal Sex Female 2:51 AM CDT Gender Identity Transgender Male 05/05/2019 1:23 PM CDT Sexual Orientation Pedraza 06/23/2023 10 :56 AM CDT documented as of this encounter Plan of Treatment Upcoming Encounters Date Type Department Care Team (Late st Contact Info) Description 04/21/2025 2:15 PM CDT Appointment [place] - [facility] - Ad[facility] [address] [phone] Prashanth Martinez MD [address] [place] [address] 05/02/2025 8:40 AM CDT Appointment [place] - [facility] - Ophthalmology - Optometry [address] [phone] Danuta Golden OD [address] [place] [address] documented as of this encounter Visit Diagnoses Not on filedocumented in this encounter Additional Health Concerns Infection Onset Date Last Indicated Resolved Time COVID-19 09/28/2021 09/28/2021 10/28/2021 9:44 PM MAIL SORTER Assessment Noted Time PHQ-9 Depression Total Score: 14 021 2:38 PM CDT A fall risk assessment has been complete d for the patient 03/23/2021 9:16 AM CDT PHQ-2 Depression Total Score: 5 01/25/20 21 2:38 PM CDT documented as of this encounter Care Teams Ear Machine Operator Relationship Specialty Start Date End Date Che Williamson MD [address] [place] [address] PCP - General 08/27/12 03/20/22 Prashanth Martinez MD [address] [place] [address] PCP - General Pediatric Medicine 03/21/22 Lynda Skelton MD [facility] [place] [address] Provider Team Family Practice 06/10/17 [place] Hensley MD [address] [place] [address] Endocrinology 12/08/18 documented as of this encounter
--- OUTSIDE RECORDS SUMMARY | 2025-01-28 20:17 | XMS_ITS | Encounter Summary ---
Author Organization [facility] Care Address [address] [place] [address] Phone Care Team Providers Care Chief Airport Guide Name Role Phone Che Williamson MD Primary Care Provider + [phone] Lynda Skelton MD Unavailable [place] Hensley MD Unavailable [phone] Prashanth Martinez MD Primary Care Provider [phone] Encounter Details Date Type Department Care Team (Late st Contact Info) Description 01/06/2019 Pharmacy [facility] - Pharmacy - Specialty [address] [place] [address] Social History Tobacco Use Types Packs/Day Years Used Date Smoking Tobacco: Never Smokeless Tobacco: Never Alcohol Use Standard Drinks/Week Comments No 0 (1 standard drink = 0.6 oz pur e alcohol) Comments No Sex and Gender Information Value Date Recorded Sex Assigned at Female 07/13/2019 6:16 PM BUSINESS ANALYST CONSULTANT Legal Sex Female 2:51 AM CDT Gender Identity Transgender Male 05/05/2019 1:23 PM CDT Sexual Orientation Pedraza 06/23/2023 10 :56 AM CDT documented as of this encounter Plan of Treatment Upcoming Encounters Date Type Department Care Team (Late st Contact Info) Description 04/21/2025 2:15 PM CDT Appointment [place] - [facility] - Ad[facility] [address] [phone] Prashanth Martinez MD [address] [place] [address] 05/02/2025 8:40 AM CDT Appointment [place] - [facility] - Ophthalmology - Optometry [address] [phone] Danuta Golden OD [address] [place] [address] documented as of this encounter Visit Diagnoses Not on filedocumented in this encounter Additional Health Concerns Infection Onset Date Last Indicated Resolved Time COVID-19 09/28/2021 09/28/2021 10/28/2021 9:44 PM BUSINESS ANALYST CONSULTANT Assessment Noted Time PHQ-9 Depression Total Score: 9 11/25/19 18 2:15 PM CDT PHQ-2 Depression Total Score: 4 11/25/19 18 2:15 PM CDT documented as of this encounter Care Teams Chief Airport Guide Relationship Specialty Start Date End Date Che Williamson MD [address] [place] [address] PCP - General 08/27/12 03/20/22 Prashanth Martinez MD [address] [place] [address] PCP - General Pediatric Medicine 03/21/22 Lynda Skelton MD [address] [place] [address] Provider Team Family Practice 06/10/17 [place] Hensley MD [address] [place] [address] Endocrinology 12/08/18 documented as of this encounter
--- OUTSIDE RECORDS SUMMARY | 2025-01-28 20:17 | XMS_ITS | Encounter Summary ---
Author Organization [facility] Care Address [address] [place] [address] Phone Care Team Providers Care Senior Research Project Manager Name Role Phone Che Williamson MD Primary Care Provider + [phone] Lynda Skelton MD Unavailable Chelsea Hensley MD Unavailable [phone] Prashanth Martinez MD Primary Care Provider [phone] Encounter Details Date Type Department Care Team (Late st Contact Info) Description 04/07/2019 Pharmacy [facility] - Pharmacy - Specialty [address] [place] [address] Social History Tobacco Use Types Packs/Day Years Used Date Smoking Tobacco: Never Smokeless Tobacco: Never Alcohol Use Standard Drinks/Week Comments No 0 (1 standard drink = 0.6 oz pur e alcohol) Comments No Sex and Gender Information Value Date Recorded Sex Assigned at Female 07/13/2019 6:16 PM SATELLITE INSTALLATION TECHNICIAN Legal Sex Female 2:51 AM CDT Gender Identity Transgender Male 05/05/2019 1:23 PM CDT Sexual Orientation Pedraza 06/23/2023 10 :56 AM CDT documented as of this encounter Plan of Treatment Upcoming Encounters Date Type Department Care Team (Late st Contact Info) Description 04/21/2025 2:15 PM CDT Appointment [place] [facility] [address] [phone] Prashanth Martinez MD 200 [place] [address] 05/02/2025 8:40 AM CDT Appointment [place] - [facility] - Ophthalmology - Optometry [address] [phone] Danuta Golden OD [address] [place] [address] documented as of this encounter Visit Diagnoses Not on filedocumented in this encounter Additional Health Concerns Infection Onset Date Last Indicated Resolved Time COVID-19 09/28/2021 09/28/2021 10/28/2021 9:44 PM SATELLITE INSTALLATION TECHNICIAN Assessment Noted Time PHQ-9 Depression Total Score: 9 11/25/19 18 2:15 PM CDT PHQ-2 Depression Total Score: 4 11/25/19 18 2:15 PM CDT documented as of this encounter Care Teams Senior Research Project Manager Relationship Specialty Start Date End Date Che Williamson MD [address] [place] [address] PCP - General 08/27/12 03/20/22 Prashanth Martinez MD [address] [place] [address] PCP - General Pediatric Medicine 03/21/22 Lynda Skelton MD [address] [place] [address] Provider Team Family Practice 06/10/17 Chelsea Hensley MD [address] [place] [address] Endocrinology 12/08/18 documented as of this encounter
--- OUTSIDE RECORDS SUMMARY | 2025-01-28 20:17 | XMS_ITS | Encounter Summary ---
Author Organization [facility] Care Address [address] [place] [address] Phone Care Team Providers Care Galvanometer Assembler Name Role Phone Che Williamson MD Primary Care Provider + [phone] Lynda Skelton MD Unavailable Chelsea Hensley MD Unavailable [phone] Prashanth Martinez MD Primary Care Provider [phone] Encounter Details Date Type Department Care Team (Late st Contact Info) Description 03/08/2019 Pharmacy [facility] - Pharmacy - Specialty [address] [place] [address] Social History Tobacco Use Types Packs/Day Years Used Date Smoking Tobacco: Never Smokeless Tobacco: Never Alcohol Use Standard Drinks/Week Comments No 0 (1 standard drink = 0.6 oz pur e alcohol) Comments No Sex and Gender Information Value Date Recorded Sex Assigned at Female 07/13/2019 6:16 PM STATISTICS INTERN Legal Sex Female 2:51 AM CDT Gender Identity Transgender Male 05/05/2019 1:23 PM CDT Sexual Orientation Pedraza 06/23/2023 10 :56 AM CDT documented as of this encounter Plan of Treatment Upcoming Encounters Date Type Department Care Team (Late st Contact Info) Description 04/21/2025 2:15 PM CDT Appointment [place] - [facility] [address] [phone] Prashanth Martinez MD [address] [place] [address] 05/02/2025 8:40 AM CDT Appointment [place] - [facility] - Ophthalmology - Optometry [address] [phone] Danuta Golden OD [address] [place] [address] documented as of this encounter Visit Diagnoses Not on filedocumented in this encounter Additional Health Concerns Infection Onset Date Last Indicated Resolved Time COVID-19 09/28/2021 09/28/2021 10/28/2021 9:44 PM STATISTICS INTERN Assessment Noted Time PHQ-9 Depression Total Score: 9 11/25/19 18 2:15 PM CDT PHQ-2 Depression Total Score: 4 11/25/19 18 2:15 PM CDT documented as of this encounter Care Teams Galvanometer Assembler Relationship Specialty Start Date End Date Che Williamson MD [address] [place] [address] PCP - General 08/27/12 03/20/22 Prashanth Martinez MD [address] [place] [address] PCP - General Pediatric Medicine 03/21/22 Lynda Skelton MD [address] [place] [address] Provider Team Family Practice 06/10/17 Chelsea Hensley MD [address] [place] [address] Endocrinology 12/08/18 documented as of this encounter
--- OUTSIDE RECORDS SUMMARY | 2025-01-28 20:17 | XMS_ITS | Encounter Summary ---
Author Organization [facility] Care Address [address] [place] [address] Phone Care Team Providers Care Pocket Setter Lockstitch Name Role Phone Che Williamson MD Primary Care Provider + [phone] Lynda Skelton MD Unavailable [phone] Chelsea Hensley MD Unavailable [phone] Prashanth Martinez MD Primary Care Provider [phone] Encounter Details Date Type Department Care Team (Late st Contact Info) Description 06/26/[address] [facility] [address] [place] [address] Social History Tobacco Use Types Packs/Day Years Used Date Smoking Tobacco: Never Smokeless Tobacco: Never Alcohol Use Standard Drinks/Week Comments No 0 (1 standard drink = 0.6 oz pur e alcohol) Comments No Sex and Gender Information Value Date Recorded Sex Assigned at Female 07/13/2019 6:16 PM WEB SERVICES MANAGER Legal Sex Female 2:51 AM CDT Gender Identity Transgender Male 05/05/2019 1:23 PM CDT Sexual Orientation Pedraza 06/23/2023 10 :56 AM CDT documented as of this encounter Plan of Treatment Upcoming Encounters Date Type Department Care Team (Late st Contact Info) Description 04/21/2025 2:15 PM CDT Appointment [place] - [facility] [address] [phone] Prashanth Martinez MD 200 [place] [address] 05/02/2025 8:40 AM CDT Appointment [place] - [facility] - Ophthalmology - Optometry [address] [phone] Danuta Golden OD [address] [place] [address] documented as of this encounter Visit Diagnoses Not on filedocumented in this encounter Additional Health Concerns Infection Onset Date Last Indicated Resolved Time COVID-19 09/28/2021 09/28/2021 10/28/2021 9:44 PM WEB SERVICES MANAGER Assessment Noted Time PHQ-9 Depression Total Score: 9 11/25/19 18 2:15 PM CDT A fall risk assessment has been complete d for the patient 05/17/2020 3:45 PM CDT PHQ-2 Depression Total Score: 2 12/10/19 20 2:50 PM CDT documented as of this encounter Care Teams Pocket Setter Lockstitch Relationship Specialty Start Date End Date Che Williamson MD [address] [place] [address] PCP - General 08/27/12 03/20/22 Prashanth Martinez MD [address] [place] [address] PCP - General Pediatric Medicine 03/21/22 Lynda Skelton MD [facility] [place] [address] Provider Team Family Practice 06/10/17 Chelsea Hensley MD [address] [place] [address] Endocrinology 12/08/18 documented as of this encounter
--- OUTSIDE RECORDS SUMMARY | 2025-01-28 20:17 | XMS_ITS | Encounter Summary ---
Author Organization [facility] Care Address [address] [place] [address] Phone Care Team Providers Care Health Care Consultant Name Role Phone Che Williamson MD Primary Care Provider + [phone] Lynda Skelton MD Unavailable Chelsea Hensley MD Unavailable [phone] Prashanth Martinez MD Primary Care Provider [phone] Encounter Details Date Type Department Care Team (Late st Contact Info) Description 01/04/2019 Pharmacy [facility] - Pharmacy - Specialty [address] [place] [address] Social History Tobacco Use Types Packs/Day Years Used Date Smoking Tobacco: Never Smokeless Tobacco: Never Alcohol Use Standard Drinks/Week Comments No 0 (1 standard drink = 0.6 oz pur e alcohol) Comments No Sex and Gender Information Value Date Recorded Sex Assigned at Female 07/13/2019 6:16 PM RETINA SUBSPECIALIST Legal Sex Female 2:51 AM CDT Gender Identity Transgender Male 05/05/2019 1:23 PM CDT Sexual Orientation Pedraza 06/23/2023 10 :56 AM CDT documented as of this encounter Plan of Treatment Upcoming Encounters Date Type Department Care Team (Late st Contact Info) Description 04/21/2025 2:15 PM CDT Appointment [place] - [facility] [address] [phone] Prashanth Martinez MD [address] [place] [address] 05/02/2025 8:40 AM CDT Appointment [place] - [facility] - Ophthalmology - Optometry [address] [phone] Danuta Golden OD [address] [place] [address] documented as of this encounter Visit Diagnoses Not on filedocumented in this encounter Additional Health Concerns Infection Onset Date Last Indicated Resolved Time COVID-19 09/28/2021 09/28/2021 10/28/2021 9:44 PM RETINA SUBSPECIALIST Assessment Noted Time PHQ-9 Depression Total Score: 9 11/25/19 18 2:15 PM CDT PHQ-2 Depression Total Score: 4 11/25/19 18 2:15 PM CDT documented as of this encounter Care Teams Health Care Consultant Relationship Specialty Start Date End Date Che Williamson MD [address] [place] [address] PCP - General 08/27/12 03/20/22 Prashanth Martinez MD [address] [place] [address] PCP - General Pediatric Medicine 03/21/22 Lynda Skelton MD [address] [place] [address] Provider Team Family Practice 06/10/17 Chelsea Hensley MD [address] [place] [address] Endocrinology 12/08/18 documented as of this encounter
--- OUTSIDE RECORDS SUMMARY | 2025-01-28 20:17 | XMS_ITS | Encounter Summary ---
Author Organization [facility] Care Address [address] [place] [address] Phone Care Team Providers Care Damage Cutter Name Role Phone Che Williamson MD Primary Care Provider + [phone] Lynda Skelton MD Unavailable Chelsea Hensley MD Unavailable [phone] Prashanth Martinez MD Primary Care Provider [phone] Encounter Details Date Type Department Care Team (Late st Contact Info) Description 03/10/2019 Pharmacy [facility] - Pharmacy - Specialty [address] [place] [address] Social History Tobacco Use Types Packs/Day Years Used Date Smoking Tobacco: Never Smokeless Tobacco: Never Alcohol Use Standard Drinks/Week Comments No 0 (1 standard drink = 0.6 oz pur e alcohol) Comments No Sex and Gender Information Value Date Recorded Sex Assigned at Female 07/13/2019 6:16 PM CORPORATE QUALITY ASSURANCE MANAGER Legal Sex Female 2:51 AM CDT Gender Identity Transgender Male 05/05/2019 1:23 PM CDT Sexual Orientation Pedraza 06/23/2023 10 :56 AM CDT documented as of this encounter Plan of Treatment Upcoming Encounters Date Type Department Care Team (Late st Contact Info) Description 04/21/2025 2:15 PM CDT Appointment [place] - [facility] - [facility] [address] [phone] Prashanth Martinez MD [address] [place] [address] 05/02/2025 8:40 AM CDT Appointment [place] - [facility] - Ophthalmology - Optometry [address] [phone] Danuta Golden OD [address] [place] [address] documented as of this encounter Visit Diagnoses Not on filedocumented in this encounter Additional Health Concerns Infection Onset Date Last Indicated Resolved Time COVID-19 09/28/2021 09/28/2021 10/28/2021 9:44 PM CORPORATE QUALITY ASSURANCE MANAGER Assessment Noted Time PHQ-9 Depression Total Score: 9 11/25/19 18 2:15 PM CDT PHQ-2 Depression Total Score: 4 11/25/19 18 2:15 PM CDT documented as of this encounter Care Teams Damage Cutter Relationship Specialty Start Date End Date Che Williamson MD [address] [place] [address] PCP - General 08/27/12 03/20/22 Prashanth Martinez MD [address] [place] [address] PCP - General Pediatric Medicine 03/21/22 Lynda Skelton MD [address] [place] [address] Provider Team Family Practice 06/10/17 Chelsea Hensley MD [address] [place] [address] Endocrinology 12/08/18 documented as of this encounter
--- OUTSIDE RECORDS SUMMARY | 2025-01-28 20:17 | XMS_ITS | Encounter Summary ---
Author Organization [facility] Care Address [address] [place] [address] Phone Care Team Providers Care Bellmaker Name Role Phone Che Williamson MD Primary Care Provider + [phone] Lynda Skelton MD Unavailable Chelsea Hensley MD Unavailable [phone] Prashanth Martinez MD Primary Care Provider [phone] Encounter Details Date Type Department Care Team (Late st Contact Info) Description 02/08/2019 Pharmacy [facility] - Pharmacy - Specialty [address] [place] [address] Social History Tobacco Use Types Packs/Day Years Used Date Smoking Tobacco: Never Smokeless Tobacco: Never Alcohol Use Standard Drinks/Week Comments No 0 (1 standard drink = 0.6 oz pur e alcohol) Comments No Sex and Gender Information Value Date Recorded Sex Assigned at Female 07/13/2019 6:16 PM PROCESS VALIDATION ENGINEER Legal Sex Female 2:51 AM CDT Gender Identity Transgender Male 05/05/2019 1:23 PM CDT Sexual Orientation Pedraza 06/23/2023 10 :56 AM CDT documented as of this encounter Plan of Treatment Upcoming Encounters Date Type Department Care Team (Late st Contact Info) Description 04/21/2025 2:15 PM CDT Appointment [place] - [facility] - [facility] [address] [phone] Prashanth Martinez MD [address] [place] [address] 05/02/2025 8:40 AM CDT Appointment [place] - [facility] - Ophthalmology - Optometry [address] [phone] Danuta Golden OD [address] [place] [address] documented as of this encounter Visit Diagnoses Not on filedocumented in this encounter Additional Health Concerns Infection Onset Date Last Indicated Resolved Time COVID-19 09/28/2021 09/28/2021 10/28/2021 9:44 PM PROCESS VALIDATION ENGINEER Assessment Noted Time PHQ-9 Depression Total Score: 9 11/25/19 18 2:15 PM CDT PHQ-2 Depression Total Score: 4 11/25/19 18 2:15 PM CDT documented as of this encounter Care Teams Bellmaker Relationship Specialty Start Date End Date Che Williamson MD [address] [place] [address] PCP - General 08/27/12 03/20/22 Prashanth Martinez MD [address] [place] [address] PCP - General Pediatric Medicine 03/21/22 Lynda Skelton MD [address] [place] [address] Provider Team Family Practice 06/10/17 Chelsea Hensley MD [address] [place] [address] Endocrinology 12/08/18 documented as of this encounter
--- OUTSIDE RECORDS SUMMARY | 2025-01-28 20:17 | XMS_ITS | Encounter Summary ---
Author Organization [facility] Care Address [address] [place] [address] Phone Care Team Providers Care Oil Well Fishing Tool Technician Name Role Phone Che Williamson MD Primary Care Provider + [phone] Lynda Skelton MD Unavailable Chelsea Hensley MD Unavailable [phone] Prashanth Martinez MD Primary Care Provider [phone] Encounter Details Date Type Department Care Team (Late st Contact Info) Description 05/22/2020 Pharmacy Visit [facility] - Pharmacy - Specialty [address] [place] [address] Social History Tobacco Use Types Packs/Day Years Used Date Smoking Tobacco: Never Smokeless Tobacco: Never Alcohol Use Standard Drinks/Week Comments No 0 (1 standard drink = 0.6 oz pur e alcohol) Comments No Sex and Gender Information Value Date Recorded Sex Assigned at Female 07/13/2019 6:16 PM MANAGEMENT PROFESSIONALS Legal Sex Female 2:51 AM CDT Gender Identity Transgender Male 05/05/2019 1:23 PM CDT Sexual Orientation Pedraza 06/23/2023 10 :56 AM CDT documented as of this encounter Plan of Treatment Upcoming Encounters Date Type Department Care Team (Late st Contact Info) Description 04/21/2025 2:15 PM CDT Appointment [place] - [facility] - [facility] [address] [phone] Prashanth Martinez MD 200 [place] [address] 05/02/2025 8:40 AM CDT Appointment [place] - [facility] - Ophthalmology - Optometry [address] [phone] Danuta Golden OD [address] [place] [address] documented as of this encounter Visit Diagnoses Not on filedocumented in this encounter Additional Health Concerns Infection Onset Date Last Indicated Resolved Time COVID-19 09/28/2021 09/28/2021 10/28/2021 9:44 PM MANAGEMENT PROFESSIONALS Assessment Noted Time PHQ-9 Depression Total Score: 9 11/25/19 18 2:15 PM CDT A fall risk assessment has been complete d for the patient 05/17/2020 3:45 PM CDT PHQ-2 Depression Total Score: 2 12/10/19 20 2:50 PM CDT documented as of this encounter Care Teams Oil Well Fishing Tool Technician Relationship Specialty Start Date End Date Che Williamson MD [address] [place] [address] PCP - General 08/27/12 03/20/22 Prashanth Martinez MD [address] [place] [address] PCP - General Pediatric Medicine 03/21/22 Lynda Skelton MD [facility] [place] [address] Provider Team Family Practice 06/10/17 Chelsea Hensley MD [address] [place] [address] Endocrinology 12/08/18 documented as of this encounter
--- OUTSIDE RECORDS SUMMARY | 2025-01-28 20:17 | XMS_ITS | Encounter Summary ---
Author Organization [facility] Care Address [address] [place] [address] Phone Care Team Providers Care Audiometric Technician Name Role Phone Che Williamson MD Primary Care Provider + [phone] Lynda Skelton MD Unavailable Chelsea Hensley MD Unavailable [phone] Prashanth Martinez MD Primary Care Provider [phone] Encounter Details Date Type Department Care Team (Late st Contact Info) Description 12/09/2018 Pharmacy Visit [facility] 200 [place] [address] Social History Tobacco Use Types Packs/Day Years Used Date Smoking Tobacco: Never Smokeless Tobacco: Never Alcohol Use Standard Drinks/Week Comments No 0 (1 standard drink = 0.6 oz pur e alcohol) Comments No Sex and Gender Information Value Date Recorded Sex Assigned at Female 07/13/2019 6:16 PM WEDDING DAY COORDINATOR Legal Sex Female 2:51 AM CDT Gender Identity Transgender Male 05/05/2019 1:23 PM CDT Sexual Orientation Pedraza 06/23/2023 10 :56 AM CDT documented as of this encounter Plan of Treatment Upcoming Encounters Date Type Department Care Team (Late st Contact Info) Description 04/21/2025 2:15 PM CDT Appointment [place] - [facility] [address] [phone] Prashanth Martinez MD [address] [place] [address] 05/02/2025 8:40 AM CDT Appointment [place] - [facility] - Ophthalmology - Optometry [address] [phone] Danuta Golden OD [address] [place] [address] documented as of this encounter Visit Diagnoses Not on filedocumented in this encounter Additional Health Concerns Infection Onset Date Last Indicated Resolved Time COVID-19 09/28/2021 09/28/2021 10/28/2021 9:44 PM WEDDING DAY COORDINATOR Assessment Noted Time PHQ-9 Depression Total Score: 9 11/25/19 18 2:15 PM CDT PHQ-2 Depression Total Score: 4 11/25/19 18 2:15 PM CDT documented as of this encounter Care Teams Audiometric Technician Relationship Specialty Start Date End Date Che Williamson MD [address] [place] [address] PCP - General 08/27/12 03/20/22 Prashanth Martinez MD [address] [place] [address] PCP - General Pediatric Medicine 03/21/22 Lynda Skelton MD [address] [place] [address] Provider Team Family Practice 06/10/17 Chelsea Hensley MD [address] [place] [address] Endocrinology 12/08/18 documented as of this encounter
--- OUTSIDE RECORDS SUMMARY | 2025-01-28 20:17 | XMS_ITS | Encounter Summary ---
Author Organization [facility] Care Address [address] [place] [address] Phone Care Team Providers Care Compressor Station Engineer Chief Name Role Phone Che Williamson MD Primary Care Provider + [phone] Lynda Skelton MD Unavailable Chelsea Hensley MD Unavailable [phone] Prashanth Martinez MD Primary Care Provider [phone] Encounter Details Date Type Department Care Team (Late st Contact Info) Description 02/12/2019 Pharmacy Visit [facility] 200 [place] [address] Social History Tobacco Use Types Packs/Day Years Used Date Smoking Tobacco: Never Smokeless Tobacco: Never Alcohol Use Standard Drinks/Week Comments No 0 (1 standard drink = 0.6 oz pur e alcohol) Comments No Sex and Gender Information Value Date Recorded Sex Assigned at Female 07/13/2019 6:16 PM PATROL SERGEANT Legal Sex Female 2:51 AM CDT Gender Identity Transgender Male 05/05/2019 1:23 PM CDT Sexual Orientation Pedraza 06/23/2023 10 :56 AM CDT documented as of this encounter Plan of Treatment Upcoming Encounters Date Type Department Care Team (Late st Contact Info) Description 04/21/2025 2:15 PM CDT Appointment [place] - [facility] [address] [phone] Prashanth Martinez MD [address] [place] [address] 05/02/2025 8:40 AM CDT Appointment [place] - [facility] - Ophthalmology - Optometry [address] [phone] Danuta Golden OD [address] [place] [address] documented as of this encounter Visit Diagnoses Not on filedocumented in this encounter Additional Health Concerns Infection Onset Date Last Indicated Resolved Time COVID-19 09/28/2021 09/28/2021 10/28/2021 9:44 PM PATROL SERGEANT Assessment Noted Time PHQ-9 Depression Total Score: 9 11/25/19 18 2:15 PM CDT PHQ-2 Depression Total Score: 4 11/25/19 18 2:15 PM CDT documented as of this encounter Care Teams Compressor Station Engineer Chief Relationship Specialty Start Date End Date Che Williamson MD [address] [place] [address] PCP - General 08/27/12 03/20/22 Prashanth Martinez MD [address] [place] [address] PCP - General Pediatric Medicine 03/21/22 Lynda Skelton MD [address] [place] [address] Provider Team Family Practice 06/10/17 Chelsea Hensley MD [address] [place] [address] Endocrinology 12/08/18 documented as of this encounter
--- OUTSIDE RECORDS SUMMARY | 2025-01-28 20:17 | XMS_ITS | Encounter Summary ---
Author Organization [facility] Care Address [address] [place] [address] Phone Care Team Providers Care Credit Risk Associate Name Role Phone Che Williamson MD Primary Care Provider + [phone] Lynda Skelton MD Unavailable Chelsea Hensley MD Unavailable [phone] Prashanth Martinez MD Primary Care Provider [phone] Encounter Details Date Type Department Care Team (Late st Contact Info) Description 02/11/2019 Pharmacy [facility] - Pharmacy - Specialty [address] [place] [address] Social History Tobacco Use Types Packs/Day Years Used Date Smoking Tobacco: Never Smokeless Tobacco: Never Alcohol Use Standard Drinks/Week Comments No 0 (1 standard drink = 0.6 oz pur e alcohol) Comments No Sex and Gender Information Value Date Recorded Sex Assigned at Female 07/13/2019 6:16 PM EDGING MACHINE FEEDER Legal Sex Female 2:51 AM CDT Gender Identity Transgender Male 05/05/2019 1:23 PM CDT Sexual Orientation Pedraza 06/23/2023 10 :56 AM CDT documented as of this encounter Plan of Treatment Upcoming Encounters Date Type Department Care Team (Late st Contact Info) Description 04/21/2025 2:15 PM CDT Appointment [place] [facility] [address] [phone] Prashanth Martinez MD [address] [place] [address] 05/02/2025 8:40 AM CDT Appointment [place] - [facility] - Ophthalmology - Optometry [address] [phone] Danuta Golden OD [address] [place] [address] documented as of this encounter Visit Diagnoses Not on filedocumented in this encounter Additional Health Concerns Infection Onset Date Last Indicated Resolved Time COVID-19 09/28/2021 09/28/2021 10/28/2021 9:44 PM EDGING MACHINE FEEDER Assessment Noted Time PHQ-9 Depression Total Score: 9 11/25/19 18 2:15 PM CDT PHQ-2 Depression Total Score: 4 11/25/19 18 2:15 PM CDT documented as of this encounter Care Teams Credit Risk Associate Relationship Specialty Start Date End Date Che Williamson MD [address] [place] [address] PCP - General 08/27/12 03/20/22 Prashanth Martinez MD [address] [place] [address] PCP - General Pediatric Medicine 03/21/22 Lynda Skelton MD [address] [place] [address] Provider Team Family Practice 06/10/17 Chelsea Hensley MD [address] [place] [address] Endocrinology 12/08/18 documented as of this encounter
--- OUTSIDE RECORDS SUMMARY | 2025-01-28 20:17 | XMS_ITS | Encounter Summary ---
Author Organization [facility] Care Address [address] [place] [address] Phone Care Team Providers Care Senior Tableau Developer Name Role Phone Che Williamson MD Primary Care Provider + [phone] Lynda Skelton MD Unavailable Chelsea Hensley MD Unavailable [phone] Prashanth Martinez MD Primary Care Provider [phone] Encounter Details Date Type Department Care Team (Late st Contact Info) Description 02/12/2019 Pharmacy Visit [facility] - Pharmacy - Specialty [address] [place] [address] Social History Tobacco Use Types Packs/Day Years Used Date Smoking Tobacco: Never Smokeless Tobacco: Never Alcohol Use Standard Drinks/Week Comments No 0 (1 standard drink = 0.6 oz pur e alcohol) Comments No Sex and Gender Information Value Date Recorded Sex Assigned at Female 07/13/2019 6:16 PM TUG BOAT ENGINEER Legal Sex Female 2:51 AM CDT Gender Identity Transgender Male 05/05/2019 1:23 PM CDT Sexual Orientation Pedraza 06/23/2023 10 :56 AM CDT documented as of this encounter Plan of Treatment Upcoming Encounters Date Type Department Care Team (Late st Contact Info) Description 04/21/2025 2:15 PM CDT Appointment [place] - [facility] [address] [phone] Prashanth Martinez MD 200 [place] [address] 05/02/2025 8:40 AM CDT Appointment [place] - [facility] - Ophthalmology - Optometry [address] [phone] Danuta Golden OD [address] [place] [address] documented as of this encounter Visit Diagnoses Not on filedocumented in this encounter Additional Health Concerns Infection Onset Date Last Indicated Resolved Time COVID-19 09/28/2021 09/28/2021 10/28/2021 9:44 PM TUG BOAT ENGINEER Assessment Noted Time PHQ-9 Depression Total Score: 9 11/25/19 18 2:15 PM CDT PHQ-2 Depression Total Score: 4 11/25/19 18 2:15 PM CDT documented as of this encounter Care Teams Senior Tableau Developer Relationship Specialty Start Date End Date Che Williamson MD [address] [place] [address] PCP - General 08/27/12 03/20/22 Prashanth Martinez MD [address] [place] [address] PCP - General Pediatric Medicine 03/21/22 Lynda Skelton MD [address] [place] [address] Provider Team Family Practice 06/10/17 Chelsea Hensley MD [address] [place] [address] Endocrinology 12/08/18 documented as of this encounter
--- OUTSIDE RECORDS SUMMARY | 2025-01-28 20:17 | XMS_ITS | Encounter Summary ---
Author Organization [facility] Care Address [address] [place] [address] Phone Care Team Providers Care Assistant Boiler Operator Name Role Phone Che Williamson MD Primary Care Provider + [phone] Lynda Skelton MD Unavailable Chelsea Hensley MD Unavailable [phone] Prashanth Martinez MD Primary Care Provider [phone] Encounter Details Date Type Department Care Team (Late st Contact Info) Description 03/18/2019 Pharmacy [facility] - Pharmacy - Specialty [address] [place] [address] Social History Tobacco Use Types Packs/Day Years Used Date Smoking Tobacco: Never Smokeless Tobacco: Never Alcohol Use Standard Drinks/Week Comments No 0 (1 standard drink = 0.6 oz pur e alcohol) Comments No Sex and Gender Information Value Date Recorded Sex Assigned at Female 07/13/2019 6:16 PM MANAGER MARKET DEVELOPMENT Legal Sex Female 2:51 AM CDT Gender Identity Transgender Male 05/05/2019 1:23 PM CDT Sexual Orientation Pedraza 06/23/2023 10 :56 AM CDT documented as of this encounter Plan of Treatment Upcoming Encounters Date Type Department Care Team (Late st Contact Info) Description 04/21/2025 2:15 PM CDT Appointment [place] - [facility] [address] [phone] Prashanth Martinez MD 200 [place] [address] 05/02/2025 8:40 AM CDT Appointment [place] - [facility] - Ophthalmology - Optometry [address] [phone] Danuta Golden OD [address] [place] [address] documented as of this encounter Visit Diagnoses Not on filedocumented in this encounter Additional Health Concerns Infection Onset Date Last Indicated Resolved Time COVID-19 09/28/2021 09/28/2021 10/28/2021 9:44 PM MANAGER MARKET DEVELOPMENT Assessment Noted Time PHQ-9 Depression Total Score: 9 11/25/19 18 2:15 PM CDT PHQ-2 Depression Total Score: 4 11/25/19 18 2:15 PM CDT documented as of this encounter Care Teams Assistant Boiler Operator Relationship Specialty Start Date End Date Che Williamson MD [address] [place] [address] PCP - General 08/27/12 03/20/22 Prashanth Martinez MD [address] [place] [address] PCP - General Pediatric Medicine 03/21/22 Lynda Skelton MD [address] [place] [address] Provider Team Family Practice 06/10/17 Chelsea Hensley MD [address] [place] [address] Endocrinology 12/08/18 documented as of this encounter
--- OUTSIDE RECORDS SUMMARY | 2025-01-28 20:17 | XMS_ITS | Encounter Summary ---
Author Organization [facility] Care Address [address] [place] [address] Phone Care Team Providers Care Show Host Name Role Phone Che Williamson MD Primary Care Provider + [phone] Lynda Skelton MD Unavailable Chelsea Hensley MD Unavailable [phone] Prashanth Martinez MD Primary Care Provider [phone] Encounter Details Date Type Department Care Team (Late st Contact Info) Description 12/08/2018 Pharmacy [facility] - Pharmacy - Specialty [address] [place] [address] Social History Tobacco Use Types Packs/Day Years Used Date Smoking Tobacco: Never Smokeless Tobacco: Never Alcohol Use Standard Drinks/Week Comments No 0 (1 standard drink = 0.6 oz pur e alcohol) Comments No Sex and Gender Information Value Date Recorded Sex Assigned at Female 07/13/2019 6:16 PM URANIUM PROCESSING SUPERVISOR Legal Sex Female 2:51 AM CDT Gender Identity Transgender Male 05/05/2019 1:23 PM CDT Sexual Orientation Pedraza 06/23/2023 10 :56 AM CDT documented as of this encounter Plan of Treatment Upcoming Encounters Date Type Department Care Team (Late st Contact Info) Description 04/21/2025 2:15 PM CDT Appointment [place] - [facility] [address] [phone] Prashanth Martinez MD [address] [place] [address] 05/02/2025 8:40 AM CDT Appointment [place] - [facility] - Ophthalmology - Optometry [address] [phone] Danuta Golden OD [address] [place] [address] documented as of this encounter Visit Diagnoses Not on filedocumented in this encounter Additional Health Concerns Infection Onset Date Last Indicated Resolved Time COVID-19 09/28/2021 09/28/2021 10/28/2021 9:44 PM URANIUM PROCESSING SUPERVISOR Assessment Noted Time PHQ-9 Depression Total Score: 9 11/25/19 18 2:15 PM CDT PHQ-2 Depression Total Score: 4 11/25/19 18 2:15 PM CDT documented as of this encounter Care Teams Show Host Relationship Specialty Start Date End Date Che Williamson MD [address] [place] [address] PCP - General 08/27/12 03/20/22 Prashanth Martinez MD [address] [place] [address] PCP - General Pediatric Medicine 03/21/22 Lynda Skelton MD [address] [place] [address] Provider Team Family Practice 06/10/17 Chelsea Hensley MD [address] [place] [address] Endocrinology 12/08/18 documented as of this encounter
--- OUTSIDE RECORDS SUMMARY | 2025-01-28 20:17 | XMS_ITS | Encounter Summary ---
Author Organization [facility] Care Address [address] [place] [address] Phone Care Team Providers Care Grape Grower Name Role Phone Che Williamson MD Primary Care Provider + [phone] Lynda Skelton MD Unavailable Chelsea Hensley MD Unavailable [phone] Prashanth Martinez MD Primary Care Provider [phone] Encounter Details Date Type Department Care Team (Late st Contact Info) Description 01/10/2021 Pharmacy Visit [facility] - Pharmacy [address] [place] [address] Social History Tobacco Use Types Packs/Day Years Used Date Smoking Tobacco: Never Smokeless Tobacco: Never Alcohol Use Standard Drinks/Week Comments No 0 (1 standard drink = 0.6 oz pur e alcohol) Comments No Sex and Gender Information Value Date Recorded Sex Assigned at Female 07/13/2019 6:16 PM INTERACTIVE WEB DEVELOPER Legal Sex Female 2:51 AM CDT Gender Identity Transgender Male 05/05/2019 1:23 PM CDT Sexual Orientation Pedraza 06/23/2023 10 :56 AM CDT documented as of this encounter Plan of Treatment Upcoming Encounters Date Type Department Care Team (Late st Contact Info) Description 04/21/2025 2:15 PM CDT Appointment [place] - [facility] [address] [phone] Prashanth Martinez MD 200 [place] [address] 05/02/2025 8:40 AM CDT Appointment [place] [facility] - [facility] - [facility]ometry [address] [phone] Danuta Golden OD [address] [place] [address] documented as of this encounter Visit Diagnoses Not on filedocumented in this encounter Additional Health Concerns Infection Onset Date Last Indicated Resolved Time COVID-19 09/28/2021 09/28/2021 10/28/2021 9:44 PM INTERACTIVE WEB DEVELOPER Assessment Noted Time PHQ-9 Depression Total Score: 9 11/25/19 18 2:15 PM CDT A fall risk assessment has been complete d for the patient 12/06/2020 2:18 PM CDT PHQ-2 Depression Total Score: 2 12/10/19 20 2:50 PM CDT documented as of this encounter Care Teams Grape Grower Relationship Specialty Start Date End Date Che Williamson MD [address] [place] [address] PCP - General 08/27/12 03/20/22 Prashanth Martinez MD [address] [place] [address] PCP - General Pediatric Medicine 03/21/22 Lynda Skelton MD On [facility] of [facility] [place] [address] Provider Team Family Practice 06/10/17 Chelsea Hensley MD [address] [place], [place] [phone] Endocrinology 12/08/18 documented as of this encounter
--- OUTSIDE RECORDS SUMMARY | 2025-01-28 20:17 | XMS_ITS | Encounter Summary ---
Author Organization [facility] Care Address [address] [place] [address] Phone Care Team Providers Care Game Author Name Role Phone Che Williamson MD Primary Care Provider + [phone] Lynda Skelton MD Unavailable Chelsea Hensley MD Unavailable [phone] Prashanth Martinez MD Primary Care Provider [phone] Encounter Details Date Type Department Care Team (Late st Contact Info) Description 03/18/[address] [facility] [address] [place] [address] Social History Tobacco Use Types Packs/Day Years Used Date Smoking Tobacco: Never Smokeless Tobacco: Never Alcohol Use Standard Drinks/Week Comments No 0 (1 standard drink = 0.6 oz pur e alcohol) Comments No Sex and Gender Information Value Date Recorded Sex Assigned at Female 07/13/2019 6:16 PM SEGMENTAL PAVING SUPERVISOR Legal Sex Female 2:51 AM CDT Gender Identity Transgender Male 05/05/2019 1:23 PM CDT Sexual Orientation Pedraza 06/23/2023 10 :56 AM CDT documented as of this encounter Plan of Treatment Upcoming Encounters Date Type Department Care Team (Late st Contact Info) Description 04/21/2025 2:15 PM CDT Appointment [place] - [facility] [address] [phone] Prashanth Martinez MD [address] [place] [address] 05/02/2025 8:40 AM CDT Appointment [place] - [facility] - Ophthalmology - Optometry [address] [phone] Danuta Golden OD [address] [place] [address] documented as of this encounter Visit Diagnoses Not on filedocumented in this encounter Additional Health Concerns Infection Onset Date Last Indicated Resolved Time COVID-19 09/28/2021 09/28/2021 10/28/2021 9:44 PM SEGMENTAL PAVING SUPERVISOR Assessment Noted Time PHQ-9 Depression Total Score: 9 11/25/19 18 2:15 PM CDT PHQ-2 Depression Total Score: 4 11/25/19 18 2:15 PM CDT documented as of this encounter Care Teams Game Author Relationship Specialty Start Date End Date Che Williamson MD [address] [place] [address] PCP - General 08/27/12 03/20/22 Prashanth Martinez MD [address] [place] [address] PCP - General Pediatric Medicine 03/21/22 Lynda Skelton MD [address] [place] [address] Provider Team Family Practice 06/10/17 Chelsea Hensley MD [address] [place] [address] Endocrinology 12/08/18 documented as of this encounter
--- OUTSIDE RECORDS SUMMARY | 2025-01-28 20:18 | XMS_ITS | Encounter Summary ---
Author Organization [facility] Care Address [address] [place] [address] Phone Care Team Providers Care Loan Specialist Name Role Phone Che Williamson MD Primary Care Provider Lynda Skelton MD Unavailable Franchesca Manley Unavailable Unavailable Chelsea Hensley MD Unavailable [phone] Prashanth Martinez MD Primary Care Provider [phone] Encounter Details Date Type Department Care Team (Late st Contact Info) Description 07/07/2018 Pharmacy Visit [facility] - Pharmacy - Specialty [address] [place] [address] Social History Tobacco Use Types Packs/Day Years Used Date Smoking Tobacco: Never Smokeless Tobacco: Never Alcohol Use Standard Drinks/Week Comments No 0 (1 standard drink = 0.6 oz pur e alcohol) Comments No Sex and Gender Information Value Date Recorded Sex Assigned at Female 07/13/2019 6:16 PM FRAMING SPECIALIST Legal Sex Female 2:51 AM CDT Gender Identity Transgender Male 05/05/2019 1:23 PM CDT Sexual Orientation Pedraza 06/23/2023 10 :56 AM CDT documented as of this encounter Plan of Treatment Upcoming Encounters Date Type Department Care Team (Late st Contact Info) Description 04/21/2025 2:15 PM CDT Appointment [place] - [facility] - Adolescent Clinic [address] [phone] Prashanth Martinez MD [address] [place] [address] 05/02/2025 8:40 AM CDT Appointment [facility] - Ophthalmology - Optometry [address] [phone] Danuta Golden OD [address] [place] [address] documented as of this encounter Visit Diagnoses Not on filedocumented in this encounter Additional Health Concerns Infection Onset Date Last Indicated Resolved Time COVID-19 09/28/2021 09/28/2021 10/28/2021 9:44 PM FRAMING SPECIALIST Assessment Noted Time PHQ-9 Depression Total Score: 9 11/25/19 18 2:15 PM CDT PHQ-2 Depression Total Score: 4 11/25/19 18 2:15 PM CDT documented as of this encounter Care Teams Loan Specialist Relationship Specialty Start Date End Date Che Williamson MD [address] [place] [address] PCP - General 08/27/12 03/20/22 Prashanth Martinez MD [address] [place] [address] PCP - General Pediatric Medicine 03/21/22 Lynda Skelton MD [address] [place] [address] Provider Team Family Practice 06/10/17 Franchesca Manley 12/09/17 12/07/18 Chelsea Hensley MD [address] [place] [address] Endocrinology 12/08/18 documented as of this encounter
--- OUTSIDE RECORDS SUMMARY | 2025-01-28 20:18 | XMS_ITS | Encounter Summary ---
Author Organization [facility] Care Address [address] [place] [address] Phone Care Team Providers Care Welding Machine Operator Gas Metal Arc Name Role Phone Che Williamson MD Primary Care Provider + [phone] Lynda Skelton MD Unavailable Chelsea Hensley MD Unavailable [phone] Prashanth Martinez MD Primary Care Provider [phone] Encounter Details Date Type Department Care Team (Late st Contact Info) Description 10/31/2020 Pharmacy Visit [facility] 200 [place] [address] Social History Tobacco Use Types Packs/Day Years Used Date Smoking Tobacco: Never Smokeless Tobacco: Never Alcohol Use Standard Drinks/Week Comments No 0 (1 standard drink = 0.6 oz pur e alcohol) Comments No Sex and Gender Information Value Date Recorded Sex Assigned at Female 07/13/2019 6:16 PM LAB SPECIALIST Legal Sex Female 2:51 AM CDT Gender Identity Transgender Male 05/05/2019 1:23 PM CDT Sexual Orientation Pedraza 06/23/2023 10 :56 AM CDT documented as of this encounter Plan of Treatment Upcoming Encounters Date Type Department Care Team (Late st Contact Info) Description 04/21/2025 2:15 PM CDT Appointment [place] - [facility] - [facility] [address] [phone] Prashanth Martinez MD 200 [place] [address] 05/02/2025 8:40 AM CDT Appointment [place] - [facility] - Ophthalmology - Optometry [address] [phone] Danuta Golden OD [address] [place] [address] documented as of this encounter Visit Diagnoses Not on filedocumented in this encounter Additional Health Concerns Infection Onset Date Last Indicated Resolved Time COVID-19 09/28/2021 09/28/2021 10/28/2021 9:44 PM LAB SPECIALIST Assessment Noted Time PHQ-9 Depression Total Score: 9 11/25/19 18 2:15 PM CDT A fall risk assessment has been complete d for the patient 10/09/2020 2:45 PM LAB SPECIALIST PHQ-2 Depression Total Score: 2 12/10/19 20 2:50 PM CDT documented as of this encounter Care Teams Welding Machine Operator Gas Metal Arc Relationship Specialty Start Date End Date Che Williamson MD [address] [place] [address] PCP - General 08/27/12 03/20/22 Prashanth Martinez MD [address] [place] [address] PCP - General Pediatric Medicine 03/21/22 Lynda Skelton MD [facility] [place] [address] Provider Team Family Practice 06/10/17 Chelsea Hensley MD [address] [place] [phone] Endocrinology 12/08/18 documented as of this encounter
--- OUTSIDE RECORDS SUMMARY | 2025-01-28 20:18 | XMS_ITS | Encounter Summary ---
Author Organization [facility] Care Address [address] [place] [address] Phone Care Team Providers Care Machine Inspector Name Role Phone Che Williamson MD Primary Care Provider Lynda Skelton MD Unavailable Franchesca Manley Unavailable Unavailable Chelsea Hensley MD Unavailable [phone] Prashanth Martinez MD Primary Care Provider [phone] Encounter Details Date Type Department Care Team (Late st Contact Info) Description 08/13/2018 Pharmacy Visit [facility] - Pharmacy - Specialty [address] [place] [address] Social History Tobacco Use Types Packs/Day Years Used Date Smoking Tobacco: Never Smokeless Tobacco: Never Alcohol Use Standard Drinks/Week Comments No 0 (1 standard drink = 0.6 oz pur e alcohol) Comments No Sex and Gender Information Value Date Recorded Sex Assigned at Female 07/13/2019 6:16 PM MOTOR AND GENERATOR ASSEMBLER Legal Sex Female 2:51 AM CDT Gender Identity Transgender Male 05/05/2019 1:23 PM CDT Sexual Orientation Pedraza 06/23/2023 10 :56 AM CDT documented as of this encounter Plan of Treatment Upcoming Encounters Date Type Department Care Team (Late st Contact Info) Description 04/21/2025 2:15 PM CDT Appointment [place] - [facility] - Adolescent Clinic [address] [phone] Prashanth Martinez MD [address] [place] [address] 05/02/2025 8:40 AM CDT Appointment [facility] - Ophthalmology - Optometry [address] [phone] Danuta Golden OD 200 [place] [address] documented as of this encounter Visit Diagnoses Not on filedocumented in this encounter Additional Health Concerns Infection Onset Date Last Indicated Resolved Time COVID-19 09/28/2021 09/28/2021 10/28/2021 9:44 PM MOTOR AND GENERATOR ASSEMBLER Assessment Noted Time PHQ-9 Depression Total Score: 9 11/25/19 18 2:15 PM CDT PHQ-2 Depression Total Score: 4 11/25/19 18 2:15 PM CDT documented as of this encounter Care Teams Machine Inspector Relationship Specialty Start Date End Date Che Williamson MD [address] [place] [address] PCP - General 08/27/12 03/20/22 Prashanth Martinez MD [address] [place] [address] PCP - General Pediatric Medicine 03/21/22 Lynda Skelton MD [address] [place] [address] Provider Team Family Practice 06/10/17 Franchesca Manley 12/09/17 12/07/18 Chelsea Hensley MD [address] [place] [address] Endocrinology 12/08/18 documented as of this encounter
--- OUTSIDE RECORDS SUMMARY | 2025-01-28 20:18 | XMS_ITS | Encounter Summary ---
Author Organization [facility] Care Address [address] [place] [address] Phone Care Team Providers Care Fuel Oil Truck Driver Name Role Phone Che Williamson MD Primary Care Provider + [phone] Lynda Skelton MD Unavailable Chelsea Hensley MD Unavailable [phone] Prashanth Martinez MD Primary Care Provider [phone] Encounter Details Date Type Department Care Team (Late st Contact Info) Description 08/09/[address] [facility] 200 [place] [address] Social History Tobacco Use Types Packs/Day Years Used Date Smoking Tobacco: Never Smokeless Tobacco: Never Alcohol Use Standard Drinks/Week Comments No 0 (1 standard drink = 0.6 oz pur e alcohol) Comments No Sex and Gender Information Value Date Recorded Sex Assigned at Female 07/13/2019 6:16 PM PIN MAKER Legal Sex Female 2:51 AM CDT Gender Identity Transgender Male 05/05/2019 1:23 PM CDT Sexual Orientation Pedraza 06/23/2023 10 :56 AM CDT documented as of this encounter Plan of Treatment Upcoming Encounters Date Type Department Care Team (Late st Contact Info) Description 04/21/2025 2:15 PM CDT Appointment [place] [facility] [address] [phone] Prashanth Martinez MD 200 [place] [address] 05/02/2025 8:40 AM CDT Appointment [place] [facility] - Ophthalmology - Optometry [address] [phone] Danuta Golden OD 200 [place] [address] documented as of this encounter Visit Diagnoses Not on filedocumented in this encounter Additional Health Concerns Infection Onset Date Last Indicated Resolved Time COVID-19 09/28/2021 09/28/2021 10/28/2021 9:44 PM PIN MAKER Assessment Noted Time PHQ-9 Depression Total Score: 9 11/25/19 18 2:15 PM CDT A fall risk assessment has been complete d for the patient 07/11/2020 3:01 PM PIN MAKER PHQ-2 Depression Total Score: 2 12/10/19 20 2:50 PM CDT documented as of this encounter Care Teams Fuel Oil Truck Driver Relationship Specialty Start Date End Date Che Williamson MD [address] [place] [address] PCP - General 08/27/12 03/20/22 Prashanth Martinez MD 200 [place] [address] PCP - General Pediatric Medicine 03/21/22 Lynda Skelton MD [address] [place] [address] Provider Team Family Practice 06/10/17 Chelsea Hensley MD [address] [place] [address] Endocrinology 12/08/18 documented as of this encounter
--- OUTSIDE RECORDS SUMMARY | 2025-01-28 20:18 | XMS_ITS | Encounter Summary ---
Author Organization [facility] Care Address [address] [place] [address] Phone Care Team Providers Care Tutoring Manager Name Role Phone Che Williamson MD Primary Care Provider + [phone] Lynda Skelton MD Unavailable Franchesca Manley Unavailable Unavailable Chelsea Hensley MD Unavailable [phone] Prashanth Martinez MD Primary Care Provider [phone] Encounter Details Date Type Department Care Team (Late st Contact Info) Description 11/11/2018 Pharmacy Visit [facility] - Pharmacy - Specialty 200 [place] [address] Social History Tobacco Use Types Packs/Day Years Used Date Smoking Tobacco: Never Smokeless Tobacco: Never Alcohol Use Standard Drinks/Week Comments No 0 (1 standard drink = 0.6 oz pur e alcohol) Comments No Sex and Gender Information Value Date Recorded Sex Assigned at Female 07/13/2019 6:16 PM CAN CLEANER Legal Sex Female 2:51 AM CDT Gender Identity Transgender Male 05/05/2019 1:23 PM CDT Sexual Orientation Pedraza 06/23/2023 10 :56 AM CDT documented as of this encounter Plan of Treatment Upcoming Encounters Date Type Department Care Team (Late st Contact Info) Description 04/21/2025 2:15 PM CDT Appointment [place] [facility] - Adolescent Clinic [address] [phone] Prashanth Martinez MD 200 [place] [address] 05/02/2025 8:40 AM CDT Appointment [facility] - Ophthalmology - Optometry [address] [phone] Danuta Golden OD 200 [place] [address] documented as of this encounter Visit Diagnoses Not on filedocumented in this encounter Additional Health Concerns Infection Onset Date Last Indicated Resolved Time COVID-19 09/28/2021 09/28/2021 10/28/2021 9:44 PM CAN CLEANER Assessment Noted Time PHQ-9 Depression Total Score: 9 11/25/19 18 2:15 PM CDT PHQ-2 Depression Total Score: 4 11/25/19 18 2:15 PM CDT documented as of this encounter Care Teams Tutoring Manager Relationship Specialty Start Date End Date Che Williamson MD [address] [place] [address] PCP - General 08/27/12 03/20/22 Prashanth Martinez MD 200 [place] [address] PCP - General Pediatric Medicine 03/21/22 Lynda Skelton MD [address] [place] [address] Provider Team Family Practice 06/10/17 Franchesca Manley 12/09/17 12/07/18 Chelsea Hensley MD [address] [place] [address] Endocrinology 12/08/18 documented as of this encounter
--- OUTSIDE RECORDS SUMMARY | 2025-01-28 20:18 | XMS_ITS | Encounter Summary ---
Author Organization [facility] Care Address [address] [place] [address] Phone Care Team Providers Care Electronic Scanner Operator Name Role Phone Che Williamson MD Primary Care Provider Lynda Skelton MD Unavailable Franchesca Manley Unavailable Unavailable Chelsea Hensley MD Unavailable [phone] Prashanth Martinez MD Primary Care Provider [phone] Encounter Details Date Type Department Care Team (Late st Contact Info) Description 10/02/2018 Pharmacy Visit [facility] - Pharmacy - Specialty 200 [place] [address] Social History Tobacco Use Types Packs/Day Years Used Date Smoking Tobacco: Never Smokeless Tobacco: Never Alcohol Use Standard Drinks/Week Comments No 0 (1 standard drink = 0.6 oz pur e alcohol) Comments No Sex and Gender Information Value Date Recorded Sex Assigned at Female 07/13/2019 6:16 PM DYE WORKER Legal Sex Female 2:51 AM CDT Gender Identity Transgender Male 05/05/2019 1:23 PM CDT Sexual Orientation Pedraza 06/23/2023 10 :56 AM CDT documented as of this encounter Plan of Treatment Upcoming Encounters Date Type Department Care Team (Late st Contact Info) Description 04/21/2025 2:15 PM CDT App[facility]ment [place] [facility] [address] [phone] Prashanth Martinez MD 200 [place] [address] 05/02/2025 8:40 AM CDT Appointment [facility] - Ophthalmology - Optometry [address] [phone] Danuta Golden OD 200 [place] [address] documented as of this encounter Visit Diagnoses Not on filedocumented in this encounter Additional Health Concerns Infection Onset Date Last Indicated Resolved Time COVID-19 09/28/2021 09/28/2021 10/28/2021 9:44 PM DYE WORKER Assessment Noted Time PHQ-9 Depression Total Score: 9 11/25/19 18 2:15 PM CDT PHQ-2 Depression Total Score: 4 11/25/19 18 2:15 PM CDT documented as of this encounter Care Teams Electronic Scanner Operator Relationship Specialty Start Date End Date Che Williamson MD [address] [place] [address] PCP - General 08/27/12 03/20/22 Prashanth Martinez MD 200 [place] [address] PCP - General Pediatric Medicine 03/21/22 Lynda Skelton MD [address] [place] [address] Provider Team Family Practice 06/10/17 Franchesca Manley 12/09/17 12/07/18 Chelsea Hensley MD [address] [place] [address] Endocrinology 12/08/18 documented as of this encounter
--- OUTSIDE RECORDS SUMMARY | 2025-01-28 20:18 | XMS_ITS | Encounter Summary ---
Author Organization [facility] Care Address [address] [place] [address] Phone Care Team Providers Care Midwife Practitioner Name Role Phone Che Williamson MD Primary Care Provider + [phone] Lynda Skelton MD Unavailable [phone] Franchesca Manley Unavailable Unavailable Chelsea Hensley MD Unavailable [phone] Prashanth Martinez MD Primary Care Provider [phone] Encounter Details Date Type Department Care Team (Late st Contact Info) Description 11/09/2018 Pharmacy Visit [facility] - Pharmacy - Business Office 200 [place] [address] Social History Tobacco Use Types Packs/Day Years Used Date Smoking Tobacco: Never Smokeless Tobacco: Never Alcohol Use Standard Drinks/Week Comments No 0 (1 standard drink = 0.6 oz pur e alcohol) Comments No Sex and Gender Information Value Date Recorded Sex Assigned at Female 07/13/2019 6:16 PM TALENT ACQUISITION ADMINISTRATOR Legal Sex Female 2:51 AM CDT Gender Identity Transgender Male 05/05/2019 1:23 PM CDT Sexual Orientation Pedraza 06/23/2023 10 :56 AM CDT documented as of this encounter Plan of Treatment Upcoming Encounters Date Type Department Care Team (Late st Contact Info) Description 04/21/2025 2:15 PM CDT Appointment [place] - [facility] [address] [phone] Prashanth Martinez MD 200 [place] [address] 05/02/2025 8:40 AM CDT Appointment [facility] - Ophthalmology - Optometry [address] [phone] Danuta Golden OD 200 [place] [address] documented as of this encounter Visit Diagnoses Not on filedocumented in this encounter Additional Health Concerns Infection Onset Date Last Indicated Resolved Time COVID-19 09/28/2021 09/28/2021 10/28/2021 9:44 PM TALENT ACQUISITION ADMINISTRATOR Assessment Noted Time PHQ-9 Depression Total Score: 9 11/25/19 18 2:15 PM CDT PHQ-2 Depression Total Score: 4 11/25/19 18 2:15 PM CDT documented as of this encounter Care Teams Midwife Practitioner Relationship Specialty Start Date End Date Che Williamson MD [address] [place] [address] PCP - General 08/27/12 03/20/22 Prashanth Martinez MD [address] [place] [address] PCP - General Pediatric Medicine 03/21/22 Lynda Skelton MD [address] [place] [address] Provider Team Family Practice 06/10/17 Franchesca Manley 12/09/17 12/07/18 Chelsea Hensley MD 200 [place] [address] Endocrinology 12/08/18 documented as of this encounter
--- OUTSIDE RECORDS SUMMARY | 2025-01-28 20:18 | XMS_ITS | Encounter Summary ---
Author Organization [facility] Care Address [address] [place] [address] Phone Care Team Providers Care Type Soldering Machine Tender Name Role Phone Che Williamson MD Primary Care Provider Lynda Skelton MD Unavailable Franchesca Manley Unavailable Unavailable Chelsea Hensley MD Unavailable [phone] Prashanth Martinez MD Primary Care Provider [phone] Encounter Details Date Type Department Care Team (Late st Contact Info) Description 09/21/2018 Pharmacy Visit [facility] - Pharmacy - Specialty [address] [place] [address] Social History Tobacco Use Types Packs/Day Years Used Date Smoking Tobacco: Never Smokeless Tobacco: Never Alcohol Use Standard Drinks/Week Comments No 0 (1 standard drink = 0.6 oz pur e alcohol) Comments No Sex and Gender Information Value Date Recorded Sex Assigned at Female 07/13/2019 6:16 PM CAR RENTAL MANAGER Legal Sex Female 2:51 AM CDT Gender Identity Transgender Male 05/05/2019 1:23 PM CDT Sexual Orientation Pedraza 06/23/2023 10 :56 AM CDT documented as of this encounter Plan of Treatment Upcoming Encounters Date Type Department Care Team (Late st Contact Info) Description 04/21/2025 2:15 PM CDT Appointment [place] - [facility] - Adolescent Clinic [address] [phone] Prashanth Martinez MD 200 [place] [address] 05/02/2025 8:40 AM CDT Appointment [facility] - Ophthalmology - Optometry [address] [phone] Danuta Golden OD 200 [place] [address] documented as of this encounter Visit Diagnoses Not on filedocumented in this encounter Additional Health Concerns Infection Onset Date Last Indicated Resolved Time COVID-19 09/28/2021 09/28/2021 10/28/2021 9:44 PM CAR RENTAL MANAGER Assessment Noted Time PHQ-9 Depression Total Score: 9 11/25/19 18 2:15 PM CDT PHQ-2 Depression Total Score: 4 11/25/19 18 2:15 PM CDT documented as of this encounter Care Teams Type Soldering Machine Tender Relationship Specialty Start Date End Date Che Williamson MD [address] [place] [address] PCP - General 08/27/12 03/20/22 Prashanth Martinez MD [address] [place] [address] PCP - General Pediatric Medicine 03/21/22 Lynda Skelton MD [address] [place] [address] Provider Team Family Practice 06/10/17 Franchesca Manley 12/09/17 12/07/18 Chelsea Hensley MD [address] [place] [address] Endocrinology 12/08/18 documented as of this encounter
--- OUTSIDE RECORDS SUMMARY | 2025-01-28 20:18 | XMS_ITS | Encounter Summary ---
Author Organization [facility] Care Address [address] [place] [address] Phone Care Team Providers Care Mica Plate Layer Hand Name Role Phone Che Williamson MD Primary Care Provider + [phone] Lynda Skelton MD Unavailable Franchesca aMnley Unavailable Unavailable Chelsea Hensley MD Unavailable [phone] Prashanth Martinez MD Primary Care Provider [phone] Encounter Details Date Type Department Care Team (Late st Contact Info) Description 10/14/2018 Pharmacy Visit [facility] - Pharmacy - Specialty 200 [place] [address] Social History Tobacco Use Types Packs/Day Years Used Date Smoking Tobacco: Never Smokeless Tobacco: Never Alcohol Use Standard Drinks/Week Comments No 0 (1 standard drink = 0.6 oz pur e alcohol) Comments No Sex and Gender Information Value Date Recorded Sex Assigned at Female 07/13/2019 6:16 PM MANGLE OPERATOR GARMENTS Legal Sex Female 2:51 AM CDT Gender Identity Transgender Male 05/05/2019 1:23 PM CDT Sexual Orientation Pedraza 06/23/2023 10 :56 AM CDT documented as of this encounter Plan of Treatment Upcoming Encounters Date Type Department Care Team (Late st Contact Info) Description 04/21/2025 2:15 PM CDT Appointment [place] [facility] Adoles[facility] [address] [phone] Prashanth Martinez MD [address] [place] [address] 05/02/2025 8:40 AM CDT Appointment [facility] - Ophthalmology - Optometry [address] [phone] Danuta Golden OD [address] [place] [address] documented as of this encounter Visit Diagnoses Not on filedocumented in this encounter Additional Health Concerns Infection Onset Date Last Indicated Resolved Time COVID-19 09/28/2021 09/28/2021 10/28/2021 9:44 PM MANGLE OPERATOR GARMENTS Assessment Noted Time PHQ-9 Depression Total Score: 9 11/25/19 18 2:15 PM CDT PHQ-2 Depression Total Score: 4 11/25/19 18 2:15 PM CDT documented as of this encounter Care Teams Mica Plate Layer Hand Relationship Specialty Start Date End Date Che Williamson MD [address] [place] [address] PCP - General 08/27/12 03/20/22 Prashanth Martinez MD [address] [place] [address] PCP - General Pediatric Medicine 03/21/22 Lynda Skelton MD [address] [place] [address] Provider Team Family Practice 06/10/17 Franchesca Manley 12/09/17 12/07/18 Chelsea Hensley MD [address] [place] [address] Endocrinology 12/08/18 documented as of this encounter
--- OUTSIDE RECORDS SUMMARY | 2025-01-28 20:18 | XMS_ITS | Encounter Summary ---
Author Organization [facility] Care Address [address] [place] [address] Phone Care Team Providers Care Health Sciences Dean Name Role Phone Che Williamson MD Primary Care Provider + [phone] Lynda Skelton MD Unavailable [phone] Chelsea Hensley MD Unavailable [phone] Prashanth Martinez MD Primary Care Provider [phone] Encounter Details Date Type Department Care Team (Late st Contact Info) Description 07/10/[address] [facility] 200 [place] [address] Social History Tobacco Use Types Packs/Day Years Used Date Smoking Tobacco: Never Smokeless Tobacco: Never Alcohol Use Standard Drinks/Week Comments No 0 (1 standard drink = 0.6 oz pur e alcohol) Comments No Sex and Gender Information Value Date Recorded Sex Assigned at Female 07/13/2019 6:16 PM PROFESSOR OF MECHANICAL ENGINEERING Legal Sex Female 2:51 AM CDT Gender Identity Transgender Male 05/05/2019 1:23 PM CDT Sexual Orientation Pedraza 06/23/2023 10 :56 AM CDT documented as of this encounter Plan of Treatment Upcoming Encounters Date Type Department Care Team (Late st Contact Info) Description 04/21/2025 2:15 PM CDT Appointment [place] - [facility] - [facility] [address] [phone] Prashanth Martinez MD 200 [place] [address] 05/02/2025 8:40 AM CDT Appointment [place] [facility] - Ophthalmology - Optometry [address] [phone] Danuta Golden OD [address] [place] [address] documented as of this encounter Visit Diagnoses Not on filedocumented in this encounter Additional Health Concerns Infection Onset Date Last Indicated Resolved Time COVID-19 09/28/2021 09/28/2021 10/28/2021 9:44 PM PROFESSOR OF MECHANICAL ENGINEERING Assessment Noted Time PHQ-9 Depression Total Score: 9 11/25/19 18 2:15 PM CDT A fall risk assessment has been complete d for the patient 05/17/2020 3:45 PM CDT PHQ-2 Depression Total Score: 2 12/10/19 20 2:50 PM CDT documented as of this encounter Care Teams Health Sciences Dean Relationship Specialty Start Date End Date Che Williamson MD [address] [place] [address] PCP - General 08/27/12 03/20/22 Prashanth Mratinez MD [address] [place] [address] PCP - General Pediatric Medicine 03/21/22 Lynda Skelton MD [facility] [place] [address] Provider Team Family Practice 06/10/17 Chelsea Hensley MD [address] [place] [address] Endocrinology 12/08/18 documented as of this encounter
--- OUTSIDE RECORDS SUMMARY | 2025-01-28 20:18 | XMS_ITS | Encounter Summary ---
Author Organization [facility] Care Address [address] [place] [address] Phone Care Team Providers Care Toll Booth Operator Name Role Phone Che Williamson MD Primary Care Provider + [phone] Lynda Skelton MD Unavailable Franchesca Manley Unavailable Unavailable Chelsea Hensley MD Unavailable [phone] Prashanth Martinez MD Primary Care Provider [phone] Encounter Details Date Type Department Care Team (Late st Contact Info) Description 09/17/2018 Pharmacy [facility] - Pharmacy - Specialty [address] [place] [address] Social History Tobacco Use Types Packs/Day Years Used Date Smoking Tobacco: Never Smokeless Tobacco: Never Alcohol Use Standard Drinks/Week Comments No 0 (1 standard drink = 0.6 oz pur e alcohol) Comments No Sex and Gender Information Value Date Recorded Sex Assigned at Female 07/13/2019 6:16 PM CLERICAL PRODUCTION WORKER Legal Sex Female 2:51 AM CDT Gender Identity Transgender Male 05/05/2019 1:23 PM CDT Sexual Orientation Pedraza 06/23/2023 10 :56 AM CDT documented as of this encounter Plan of Treatment Upcoming Encounters Date Type Department Care Team (Late st Contact Info) Description 04/21/2025 2:15 PM CDT Appointment [place] - [facility] - Adolescent Clinic [address] [phone] Prashanth Martinez MD 200 [place] [address] 05/02/2025 8:40 AM CDT Appointment [facility] - Ophthalmology - Optometry [address] [phone] Danuta Golden OD 200 [place] [address] documented as of this encounter Visit Diagnoses Not on filedocumented in this encounter Additional Health Concerns Infection Onset Date Last Indicated Resolved Time COVID-19 09/28/2021 09/28/2021 10/28/2021 9:44 PM CLERICAL PRODUCTION WORKER Assessment Noted Time PHQ-9 Depression Total Score: 9 11/25/19 18 2:15 PM CDT PHQ-2 Depression Total Score: 4 11/25/19 18 2:15 PM CDT documented as of this encounter Care Teams Toll Booth Operator Relationship Specialty Start Date End Date Che Williamson MD [address] [place] [address] PCP - General 08/27/12 03/20/22 Prashanth Martinez MD [address] [place] [address] PCP - General Pediatric Medicine 03/21/22 Lynda Skelton MD [address] [place] [address] Provider Team Family Practice 06/10/17 Franchesca Manley 12/09/17 12/07/18 Chelsea Hensley MD [address] [place] [address] Endocrinology 12/08/18 documented as of this encounter
--- OUTSIDE RECORDS SUMMARY | 2025-01-28 20:18 | XMS_ITS | Encounter Summary ---
Author Organization [facility] Care Address [address] [place] [address] Phone Care Team Providers Care Tinter Photograph Name Role Phone Che Williamson MD Primary Care Provider + [phone] Lynda Skelton MD Unavailable [phone] Franchesca Manley Unavailable Unavailable Chelsea Hensley MD Unavailable [phone] Prashanth Martinez MD Primary Care Provider [phone] Encounter Details Date Type Department Care Team (Late st Contact Info) Description 10/01/2018 Pharmacy Visit [facility] - Pharmacy - Business Office [address] [place] [address] Social History Tobacco Use Types Packs/Day Years Used Date Smoking Tobacco: Never Smokeless Tobacco: Never Alcohol Use Standard Drinks/Week Comments No 0 (1 standard drink = 0.6 oz pur e alcohol) Comments No Sex and Gender Information Value Date Recorded Sex Assigned at Female 07/13/2019 6:16 PM POWER PLANT ASSISTANT Legal Sex Female 2:51 AM CDT Gender Identity Transgender Male 05/05/2019 1:23 PM CDT Sexual Orientation Pedraza 06/23/2023 10 :56 AM CDT documented as of this encounter Plan of Treatment Upcoming Encounters Date Type Department Care Team (Late st Contact Info) Description 04/21/2025 2:15 PM CDT Appointment [place] - [facility] - Ad[facility]cent Clinic [address] [phone] Prashanth Martinez MD [address] [place] [address] 05/02/2025 8:40 AM CDT Appointment [facility] - Ophthalmology - Optometry [address] [phone] Danuta Golden OD [address] [place] [address] documented as of this encounter Visit Diagnoses Not on filedocumented in this encounter Additional Health Concerns Infection Onset Date Last Indicated Resolved Time COVID-19 09/28/2021 09/28/2021 10/28/2021 9:44 PM POWER PLANT ASSISTANT Assessment Noted Time PHQ-9 Depression Total Score: 9 11/25/19 18 2:15 PM CDT PHQ-2 Depression Total Score: 4 11/25/19 18 2:15 PM CDT documented as of this encounter Care Teams Tinter Photograph Relationship Specialty Start Date End Date Che Williamson MD [address] [place] [address] PCP - General 08/27/12 03/20/22 Prashanth Martinez MD [address] [place] [address] PCP - General Pediatric Medicine 03/21/22 Lynda Skelton MD [address] [place] [address] Provider Team Family Practice 06/10/17 Franchesca Manley 12/09/17 12/07/18 Chelsea Hensley MD [address] [place] [address] Endocrinology 12/08/18 documented as of this encounter
--- OUTSIDE RECORDS SUMMARY | 2025-01-28 20:18 | XMS_ITS | Encounter Summary ---
Author Organization [facility] Care Address [address] [place] [address] Phone Care Team Providers Care Medical Support Specialist Name Role Phone Che Williamson MD Primary Care Provider + [phone] Lynda Skelton MD Unavailable Franchesca Manley Unavailable Unavailable Chelsea Hensley MD Unavailable [phone] Prashanth Martinez MD Primary Care Provider [phone] Encounter Details Date Type Department Care Team (Late st Contact Info) Description 08/12/2018 Pharmacy Visit [facility] - Pharmacy - Specialty [address] [place] [address] Social History Tobacco Use Types Packs/Day Years Used Date Smoking Tobacco: Never Smokeless Tobacco: Never Alcohol Use Standard Drinks/Week Comments No 0 (1 standard drink = 0.6 oz pur e alcohol) Comments No Sex and Gender Information Value Date Recorded Sex Assigned at Female 07/13/2019 6:16 PM RENAL DIALYSIS RN Legal Sex Female 2:51 AM CDT Gender Identity Transgender Male 05/05/2019 1:23 PM CDT Sexual Orientation Pedraza 06/23/2023 10 :56 AM CDT documented as of this encounter Plan of Treatment Upcoming Encounters Date Type Department Care Team (Late st Contact Info) Description 04/21/2025 2:15 PM CDT Appointment [place] [facility] - Adolescent Clinic [address] [phone] Prashanth Martinez MD [address] [place] [address] 05/02/2025 8:40 AM CDT Appointment [facility] - Ophthalmology - Optometry [address] [phone] Danuta Golden OD [address] [place] [address] documented as of this encounter Visit Diagnoses Not on filedocumented in this encounter Additional Health Concerns Infection Onset Date Last Indicated Resolved Time COVID-19 09/28/2021 09/28/2021 10/28/2021 9:44 PM RENAL DIALYSIS RN Assessment Noted Time PHQ-9 Depression Total Score: 9 11/25/19 18 2:15 PM CDT PHQ-2 Depression Total Score: 4 11/25/19 18 2:15 PM CDT documented as of this encounter Care Teams Medical Support Specialist Relationship Specialty Start Date End Date Che Williamson MD [address] [place] [address] PCP - General 08/27/12 03/20/22 Prashanth Martinez MD [address] [place] [address] PCP - General Pediatric Medicine 03/21/22 Lynda Skelton MD [address] [place] [address] Provider Team Family Practice 06/10/17 Franchesca Manley 12/09/17 12/07/18 Chelsea Hensley MD [address] [place] [address] Endocrinology 12/08/18 documented as of this encounter
--- OUTSIDE RECORDS SUMMARY | 2025-01-28 20:18 | XMS_ITS | Encounter Summary ---
Author Organization [facility] Care Address [address] [place] [address] Phone Care Team Providers Care Electrotype Molder Name Role Phone Che Williamson MD Primary Care Provider + [phone] Lynda Skelton MD Unavailable [phone] Franchesca Manley Unavailable Unavailable Chelsea Hensley MD Unavailable [phone] Prashanth Martinez MD Primary Care Provider [phone] Encounter Details Date Type Department Care Team (Late st Contact Info) Description 09/16/2018 Pharmacy Visit [facility] - Pharmacy - Business Office [address] [place] [address] Social History Tobacco Use Types Packs/Day Years Used Date Smoking Tobacco: Never Smokeless Tobacco: Never Alcohol Use Standard Drinks/Week Comments No 0 (1 standard drink = 0.6 oz pur e alcohol) Comments No Sex and Gender Information Value Date Recorded Sex Assigned at Female 07/13/2019 6:16 PM CERTIFIED OPHTHALMIC MEDICAL TECHNICIAN Legal Sex Female 2:51 AM CDT Gender Identity Transgender Male 05/05/2019 1:23 PM CDT Sexual Orientation Pderaza 06/23/2023 10 :56 AM CDT documented as of this encounter Plan of Treatment Upcoming Encounters Date Type Department Care Team (Late st Contact Info) Description 04/21/2025 2:15 PM CDT Appointment [place] [facility] [place] - Adolescent Clinic [address] [phone] Prashanth Martinez MD [address] [place] [address] 05/02/2025 8:40 AM CDT Appointment [facility] - Ophthalmology - Optometry [address] [phone] Danuta Golden OD [address] [place] [address] documented as of this encounter Visit Diagnoses Not on filedocumented in this encounter Additional Health Concerns Infection Onset Date Last Indicated Resolved Time COVID-19 09/28/2021 09/28/2021 10/28/2021 9:44 PM CERTIFIED OPHTHALMIC MEDICAL TECHNICIAN Assessment Noted Time PHQ-9 Depression Total Score: 9 11/25/19 18 2:15 PM CDT PHQ-2 Depression Total Score: 4 11/25/19 18 2:15 PM CDT documented as of this encounter Care Teams Electrotype Molder Relationship Specialty Start Date End Date Che Williamson MD [address] [place] [address] PCP - General 08/27/12 03/20/22 Prashanth Martinez MD [address] [place] [address] PCP - General Pediatric Medicine 03/21/22 Lynda Skelton MD [address] [place] [address] Provider Team Family Practice 06/10/17 Franchesca Manley 12/09/17 12/07/18 Chelsea Hensley MD [address] [place] [address] Endocrinology 12/08/18 documented as of this encounter
--- OUTSIDE RECORDS SUMMARY | 2025-01-28 20:18 | XMS_ITS | Encounter Summary ---
Author Organization [facility] Care Address [address] [place] [address] Phone Care Team Providers Care Sausage Maker Name Role Phone Che Williamson MD Primary Care Provider Lynda Skelton MD Unavailable Franchesca Manley Unavailable Unavailable Chelsea Hensley MD Unavailable [phone] Prashanth Martinez MD Primary Care Provider [phone] Encounter Details Date Type Department Care Team (Late st Contact Info) Description 08/03/2018 Pharmacy Visit [facility] - Pharmacy - Specialty [address] [place] [address] Social History Tobacco Use Types Packs/Day Years Used Date Smoking Tobacco: Never Smokeless Tobacco: Never Alcohol Use Standard Drinks/Week Comments No 0 (1 standard drink = 0.6 oz pur e alcohol) Comments No Sex and Gender Information Value Date Recorded Sex Assigned at Female 07/13/2019 6:16 PM MANAGEMENT LEAD Legal Sex Female 2:51 AM CDT Gender Identity Transgender Male 05/05/2019 1:23 PM CDT Sexual Orientation Pedraza 06/23/2023 10 :56 AM CDT documented as of this encounter Plan of Treatment Upcoming Encounters Date Type Department Care Team (Late st Contact Info) Description 04/21/2025 2:15 PM CDT Appointment [place] [facility] - Adolescent Clinic [address] [phone] Prashanth Martinez MD 200 [place] [address] 05/02/2025 8:40 AM CDT Appointment [facility] - Ophthalmology - Optometry [address] [phone] Danuta Golden OD [address] [place] [address] documented as of this encounter Visit Diagnoses Not on filedocumented in this encounter Additional Health Concerns Infection Onset Date Last Indicated Resolved Time COVID-19 09/28/2021 09/28/2021 10/28/2021 9:44 PM MANAGEMENT LEAD Assessment Noted Time PHQ-9 Depression Total Score: 9 11/25/19 18 2:15 PM CDT PHQ-2 Depression Total Score: 4 11/25/19 18 2:15 PM CDT documented as of this encounter Care Teams Sausage Maker Relationship Specialty Start Date End Date Che Williamson MD [address] [place] [address] PCP - General 08/27/12 03/20/22 Prashanth Martinez MD [address] [place] [address] PCP - General Pediatric Medicine 03/21/22 Lynda Skelton MD [address] [place] [address] Provider Team Family Practice 06/10/17 Franchesca Manley 12/09/17 12/07/18 Chelsea Hensley MD [address] [place] [address] Endocrinology 12/08/18 documented as of this encounter
--- OUTSIDE RECORDS SUMMARY | 2025-01-28 20:18 | XMS_ITS | Encounter Summary ---
Author Organization [facility] Care Address [address] [place] [address] Phone Care Team Providers Care Foundry Worker Name Role Phone Che Williamson MD Primary Care Provider + [phone] Lynda Skelton MD Unavailable Chelsea Hensley MD Unavailable [phone] Prashanth Martinez MD Primary Care Provider [phone] Encounter Details Date Type Department Care Team (Late st Contact Info) Description 07/04/2020 Pharmacy Visit [facility] - Pharmacy - Specialty [address] [place] [address] Social History Tobacco Use Types Packs/Day Years Used Date Smoking Tobacco: Never Smokeless Tobacco: Never Alcohol Use Standard Drinks/Week Comments No 0 (1 standard drink = 0.6 oz pur e alcohol) Comments No Sex and Gender Information Value Date Recorded Sex Assigned at Female 07/13/2019 6:16 PM CONTINUOUS PROCESS TANNER ROTARY DRUM Legal Sex Female 2:51 AM CDT Gender Identity Transgender Male 05/05/2019 1:23 PM CDT Sexual Orientation Pedraza 06/23/2023 10 :56 AM CDT documented as of this encounter Plan of Treatment Upcoming Encounters Date Type Department Care Team (Late st Contact Info) Description 04/21/2025 2:15 PM CDT Appointment [place] [facility] [place] - Adolescent Clinic [address] [phone] Prashanth Martinez MD [address] [place] [address] 05/02/2025 8:40 AM CDT Appointment [place] - [facility] - Ophthalmology - Optometry [address] [phone] Danuta Golden OD [address] [place] [address] documented as of this encounter Visit Diagnoses Not on filedocumented in this encounter Additional Health Concerns Infection Onset Date Last Indicated Resolved Time COVID-19 09/28/2021 09/28/2021 10/28/2021 9:44 PM CONTINUOUS PROCESS TANNER ROTARY DRUM Assessment Noted Time PHQ-9 Depression Total Score: 9 11/25/19 18 2:15 PM CDT A fall risk assessment has been complete d for the patient 05/17/2020 3:45 PM CDT PHQ-2 Depression Total Score: 2 12/10/19 20 2:50 PM CDT documented as of this encounter Care Teams Foundry Worker Relationship Specialty Start Date End Date Che Williamson MD [address] [place] [address] PCP - General 08/27/12 03/20/22 Prashanth Martinez MD [address] [place] [address] PCP - General Pediatric Medicine 03/21/22 Lynda Skelton MD [facility] [place] [address] Provider Team Family Practice 06/10/17 Chelsea Hensley MD [address] [place] [address] Endocrinology 12/08/18 documented as of this encounter
--- OUTSIDE RECORDS SUMMARY | 2025-01-28 20:18 | XMS_ITS | Encounter Summary ---
Author Organization [facility] Care Address [address] [place] [address] Phone Care Team Providers Care Regional Planner Name Role Phone Che Williamson MD Primary Care Provider + [phone] Lynda Skelton MD Unavailable Chelsea Hensley MD Unavailable [phone] Prashanth Martinez MD Primary Care Provider [phone] Encounter Details Date Type Department Care Team (Late st Contact Info) Description 11/29/2020 Pharmacy Visit [facility] - [facility] [address] [place] [address] Social History Tobacco Use Types Packs/Day Years Used Date Smoking Tobacco: Never Smokeless Tobacco: Never Alcohol Use Standard Drinks/Week Comments No 0 (1 standard drink = 0.6 oz pur e alcohol) Comments No Sex and Gender Information Value Date Recorded Sex Assigned at Female 07/13/2019 6:16 PM DINING SERVICES MANAGER Legal Sex Female 2:51 AM CDT Gender Identity Transgender Male 05/05/2019 1:23 PM CDT Sexual Orientation Pedraza 06/23/2023 10 :56 AM CDT documented as of this encounter Plan of Treatment Upcoming Encounters Date Type Department Care Team (Late st Contact Info) Description 04/21/2025 2:15 PM CDT Appointment [place] [facility] [place] - Adolescent Clinic [address] [phone] Prashanth Martinez MD [address] [place] [address] 05/02/2025 8:40 AM CDT Appointment [place] [facility] - Ophthalmology - Optometry [address] [phone] Danuta Golden OD [address] [place] [address] documented as of this encounter Visit Diagnoses Not on filedocumented in this encounter Additional Health Concerns Infection Onset Date Last Indicated Resolved Time COVID-19 09/28/2021 09/28/2021 10/28/2021 9:44 PM DINING SERVICES MANAGER Assessment Noted Time PHQ-9 Depression Total Score: 9 11/25/19 18 2:15 PM CDT A fall risk assessment has been complete d for the patient 11/06/2020 2:25 PM DINING SERVICES MANAGER PHQ-2 Depression Total Score: 2 12/10/19 20 2:50 PM CDT documented as of this encounter Care Teams Regional Planner Relationship Specialty Start Date End Date Che Williamson MD [address] [place] [address] PCP - General 08/27/12 03/20/22 Prashanth Martinez MD [address] [place] [address] PCP - General Pediatric Medicine 03/21/22 Lynda Skelton MD [facility] [place] [address] Provider Team Family Practice 06/10/17 Chelsea Hensley MD [address] [place] [id number] Endocrinology 12/08/18 documented as of this encounter
--- OUTSIDE RECORDS SUMMARY | 2025-01-28 20:18 | XMS_ITS | Encounter Summary ---
Author Organization [facility] Care Address [address] [place] [address] Phone Care Team Providers Care Imaging Technician Name Role Phone Che Williamson MD Primary Care Provider + [phone] Lynda Skelton MD Unavailable Chelsea Hensley MD Unavailable [phone] Prashanth Martinez MD Primary Care Provider [phone] Encounter Details Date Type Department Care Team (Late st Contact Info) Description 07/10/2020 Pharmacy Visit [facility] - Pharmacy - Specialty [address] [place] [address] Social History Tobacco Use Types Packs/Day Years Used Date Smoking Tobacco: Never Smokeless Tobacco: Never Alcohol Use Standard Drinks/Week Comments No 0 (1 standard drink = 0.6 oz pur e alcohol) Comments No Sex and Gender Information Value Date Recorded Sex Assigned at Female 07/13/2019 6:16 PM SLUICE TENDER Legal Sex Female 2:51 AM CDT Gender Identity Transgender Male 05/05/2019 1:23 PM CDT Sexual Orientation Pedraza 06/23/2023 10 :56 AM CDT documented as of this encounter Plan of Treatment Upcoming Encounters Date Type Department Care Team (Late st Contact Info) Description 04/21/2025 2:15 PM CDT Appointment [place] - [place] - Adolescent Clinic [address] [phone] Prashanth Martinez MD [address] [place] [address] 05/02/2025 8:40 AM CDT Appointment [place] - [facility]EDS AT [facility] - Ophthalmology - Optometry [address] [phone] Danuta Golden OD [address] [place] [address] documented as of this encounter Visit Diagnoses Not on filedocumented in this encounter Additional Health Concerns Infection Onset Date Last Indicated Resolved Time COVID-19 09/28/2021 09/28/2021 10/28/2021 9:44 PM SLUICE TENDER Assessment Noted Time PHQ-9 Depression Total Score: 9 11/25/19 18 2:15 PM CDT A fall risk assessment has been complete d for the patient 05/17/2020 3:45 PM CDT PHQ-2 Depression Total Score: 2 12/10/19 20 2:50 PM CDT documented as of this encounter Care Teams Imaging Technician Relationship Specialty Start Date End Date Che Williamson MD [address] [place] [address] PCP - General 08/27/12 03/20/22 Prashanth Martinez MD [address] [place] [address] PCP - General Pediatric Medicine 03/21/22 Lynda Skelton MD [facility] [place] [address] Provider Team Family Practice 06/10/17 Chelsea Hensley MD [address] [place] [address] Endocrinology 12/08/18 documented as of this encounter
--- OUTSIDE RECORDS SUMMARY | 2025-01-28 20:18 | XMS_ITS | Encounter Summary ---
Author Organization [facility] Care Address [address] [place] [address] Phone Care Team Providers Care Cloth Baler Name Role Phone Che Williamson MD Primary Care Provider + [phone] Lynda Skelton MD Unavailable Franchesca Manley Unavailable Unavailable Chelsea Hensley MD Unavailable [phone] Prashanth Martinez MD Primary Care Provider [phone] Encounter Details Date Type Department Care Team (Late st Contact Info) Description 11/09/2018 Pharmacy Visit [facility] - Pharmacy - Specialty [address] [place] [address] Social History Tobacco Use Types Packs/Day Years Used Date Smoking Tobacco: Never Smokeless Tobacco: Never Alcohol Use Standard Drinks/Week Comments No 0 (1 standard drink = 0.6 oz pur e alcohol) Comments No Sex and Gender Information Value Date Recorded Sex Assigned at Female 07/13/2019 6:16 PM FEED RESEARCH AIDE Legal Sex Female 2:51 AM CDT Gender Identity Transgender Male 05/05/2019 1:23 PM CDT Sexual Orientation Pedraza 06/23/2023 10 :56 AM CDT documented as of this encounter Plan of Treatment Upcoming Encounters Date Type Department Care Team (Late st Contact Info) Description 04/21/2025 2:15 PM CDT Appointment [place] [facility] - Adolescent Clinic [address] [phone] Prashanth Martinez MD [address] [place] [address] 05/02/2025 8:40 AM CDT Appointment [facility] [place] - Ophthalmology - Optometry [address] [phone] Danuta Golden OD [address] [place] [address] documented as of this encounter Visit Diagnoses Not on filedocumented in this encounter Additional Health Concerns Infection Onset Date Last Indicated Resolved Time COVID-19 09/28/2021 09/28/2021 10/28/2021 9:44 PM FEED RESEARCH AIDE Assessment Noted Time PHQ-9 Depression Total Score: 9 11/25/19 18 2:15 PM CDT PHQ-2 Depression Total Score: 4 11/25/19 18 2:15 PM CDT documented as of this encounter Care Teams Cloth Baler Relationship Specialty Start Date End Date Che Williamson MD [address] [place] [address] PCP - General 08/27/12 03/20/22 Prashanth Martinez MD [address] [place] [address] PCP - General Pediatric Medicine 03/21/22 Lynda Skelton MD [address] [place] [address] Provider Team Family Practice 06/10/17 Franchesca Manley 12/09/17 12/07/18 Chelsea Hensley MD [address] [place] [address] Endocrinology 12/08/18 documented as of this encounter
--- OUTSIDE RECORDS SUMMARY | 2025-01-28 20:18 | XMS_ITS | Encounter Summary ---
Author Organization [facility] Care Address [address] [place] [address] Phone Care Team Providers Care Tire Molder Name Role Phone Che Williamson MD Primary Care Provider + [phone] Lynda Skelton MD Unavailable Chelsea Hensley MD Unavailable [phone] Prashanth Martinez MD Primary Care Provider [phone] Encounter Details Date Type Department Care Team (Late st Contact Info) Description 09/13/2020 Pharmacy Visit [facility] - Pharmacy - Specialty [address] [place] [address] Social History Tobacco Use Types Packs/Day Years Used Date Smoking Tobacco: Never Smokeless Tobacco: Never Alcohol Use Standard Drinks/Week Comments No 0 (1 standard drink = 0.6 oz pur e alcohol) Comments No Sex and Gender Information Value Date Recorded Sex Assigned at Female 07/13/2019 6:16 PM MANAGER BILLING Legal Sex Female 2:51 AM CDT Gender Identity Transgender Male 05/05/2019 1:23 PM CDT Sexual Orientation Pedraza 06/23/2023 10 :56 AM CDT documented as of this encounter Plan of Treatment Upcoming Encounters Date Type Department Care Team (Late st Contact Info) Description 04/21/2025 2:15 PM CDT Appointment [place] - [place] - Adolescent Clinic [address] [phone] Prashanth Martinez MD [address] [place] [address] 05/02/2025 8:40 AM CDT Appointment [place] - [facility] - Ophthalmology - Optometry [address] [phone] Danuta Golden OD [address] [place] [address] documented as of this encounter Visit Diagnoses Not on filedocumented in this encounter Additional Health Concerns Infection Onset Date Last Indicated Resolved Time COVID-19 09/28/2021 09/28/2021 10/28/2021 9:44 PM MANAGER BILLING Assessment Noted Time PHQ-9 Depression Total Score: 9 11/25/19 18 2:15 PM CDT A fall risk assessment has been complete d for the patient 09/11/2020 2:32 PM MANAGER BILLING PHQ-2 Depression Total Score: 2 12/10/19 20 2:50 PM CDT documented as of this encounter Care Teams Tire Molder Relationship Specialty Start Date End Date Che Williamson MD [address] [place] [address] PCP - General 08/27/12 03/20/22 Prashanth Martinez MD [address] [place] [address] PCP - General Pediatric Medicine 03/21/22 Lynda Skelton MD [facility] [place] [address] Provider Team Family Practice 06/10/17 Chelsea Hensley MD [address] [place] [address] Endocrinology 12/08/18 documented as of this encounter
--- OUTSIDE RECORDS SUMMARY | 2025-01-28 20:18 | XMS_ITS | Encounter Summary ---
Author Organization [facility] Care Address [address] [place] [address] Phone Care Team Providers Care Syrup Maker Name Role Phone Che Williamson MD Primary Care Provider Lynda Skelton MD Unavailable Franchesca Manley Unavailable Unavailable Chelsea Hensley MD Unavailable [phone] Prashanth Martinez MD Primary Care Provider [phone] Encounter Details Date Type Department Care Team (Late st Contact Info) Description 08/04/2018 Pharmacy Visit [facility] - Pharmacy - Specialty [address] [place] [address] Social History Tobacco Use Types Packs/Day Years Used Date Smoking Tobacco: Never Smokeless Tobacco: Never Alcohol Use Standard Drinks/Week Comments No 0 (1 standard drink = 0.6 oz pur e alcohol) Comments No Sex and Gender Information Value Date Recorded Sex Assigned at Female 07/13/2019 6:16 PM VACUUM METALIZER OPERATOR Legal Sex Female 2:51 AM CDT Gender Identity Transgender Male 05/05/2019 1:23 PM CDT Sexual Orientation Pedraza 06/23/2023 10 :56 AM CDT documented as of this encounter Plan of Treatment Upcoming Encounters Date Type Department Care Team (Late st Contact Info) Description 04/21/2025 2:15 PM CDT Appointment [place] [facility] - Adolescent Clinic [address] [phone] Prashanth Martinez MD [address] [place] [address] 05/02/2025 8:40 AM CDT Appointment [facility] - Ophthalmology - Optometry [address] [phone] Danuta Golden OD 200 [place] [address] documented as of this encounter Visit Diagnoses Not on filedocumented in this encounter Additional Health Concerns Infection Onset Date Last Indicated Resolved Time COVID-19 09/28/2021 09/28/2021 10/28/2021 9:44 PM VACUUM METALIZER OPERATOR Assessment Noted Time PHQ-9 Depression Total Score: 9 11/25/19 18 2:15 PM CDT PHQ-2 Depression Total Score: 4 11/25/19 18 2:15 PM CDT documented as of this encounter Care Teams Syrup Maker Relationship Specialty Start Date End Date Che Williamson MD [address] [place] [address] PCP - General 08/27/12 03/20/22 Prashanth Martinez MD 200 [place] [address] PCP - General Pediatric Medicine 03/21/22 Lynda Skelton MD [address] [place] [address] Provider Team Family Practice 06/10/17 Franchesca Manley 12/09/17 12/07/18 Chelsea Hensley MD [address] [place] [address] Endocrinology 12/08/18 documented as of this encounter
--- OUTSIDE RECORDS SUMMARY | 2025-01-28 20:18 | XMS_ITS | Encounter Summary ---
Author Organization [facility] Care Address [address] [place] [address] Phone Care Team Providers Care Material Control Analyst Name Role Phone Che Williamson MD Primary Care Provider + [phone] Lynda Skelton MD Unavailable Chelsea Hensley MD Unavailable [phone] Prashanth Martinez MD Primary Care Provider [phone] Encounter Details Date Type Department Care Team (Late st Contact Info) Description 09/29/2020 Pharmacy Visit [facility] - Pharmacy - Specialty [address] [place] [address] Social History Tobacco Use Types Packs/Day Years Used Date Smoking Tobacco: Never Smokeless Tobacco: Never Alcohol Use Standard Drinks/Week Comments No 0 (1 standard drink = 0.6 oz pur e alcohol) Comments No Sex and Gender Information Value Date Recorded Sex Assigned at Female 07/13/2019 6:16 PM GRIDDLE COOK Legal Sex Female 2:51 AM CDT Gender Identity Transgender Male 05/05/2019 1:23 PM CDT Sexual Orientation Pedraza 06/23/2023 10 :56 AM CDT documented as of this encounter Plan of Treatment Upcoming Encounters Date Type Department Care Team (Late st Contact Info) Description 04/21/2025 2:15 PM CDT Appointment [place] [facility] [address] [phone] Prashanth Martinez MD [address] [place] [address] 05/02/2025 8:40 AM CDT Appointment [facility] [facility] - Ophthalmology - Optometry [address] [phone] Danuta Golden OD [address] [place] [address] documented as of this encounter Visit Diagnoses Not on filedocumented in this encounter Additional Health Concerns Infection Onset Date Last Indicated Resolved Time COVID-19 09/28/2021 09/28/2021 10/28/2021 9:44 PM GRIDDLE COOK Assessment Noted Time PHQ-9 Depression Total Score: 9 11/25/19 18 2:15 PM CDT A fall risk assessment has been complete d for the patient 09/14/2020 7:24 PM GRIDDLE COOK PHQ-2 Depression Total Score: 2 12/10/19 20 2:50 PM CDT documented as of this encounter Care Teams Material Control Analyst Relationship Specialty Start Date End Date Che Williamson MD [address] [place] [address] PCP - General 08/27/12 03/20/22 Prashanth Martinez MD [address] [place] [address] PCP - General Pediatric Medicine 03/21/22 Lynda Skelton MD [facility] [place] [address] Provider Team Family Practice 06/10/17 Chelsea Hensley MD [address] [place] [address] Endocrinology 12/08/18 documented as of this encounter
--- OUTSIDE RECORDS SUMMARY | 2025-01-28 20:18 | XMS_ITS | Encounter Summary ---
Author Organization [facility] Care Address [address] [place] [address] Phone Care Team Providers Care Supervisor Blood Donor Recruiters Name Role Phone Che Williamson MD Primary Care Provider + [phone] Lynda Skelton MD Unavailable Franchesca Manley Unavailable Unavailable Chelsea Hensley MD Unavailable [phone] Prashanth Martinez MD Primary Care Provider [phone] Encounter Details Date Type Department Care Team (Late st Contact Info) Description 11/13/2018 Pharmacy Visit [facility] - Pharmacy - Specialty [address] [place] [address] Social History Tobacco Use Types Packs/Day Years Used Date Smoking Tobacco: Never Smokeless Tobacco: Never Alcohol Use Standard Drinks/Week Comments No 0 (1 standard drink = 0.6 oz pur e alcohol) Comments No Sex and Gender Information Value Date Recorded Sex Assigned at Female 07/13/2019 6:16 PM UNLOADER OPERATOR Legal Sex Female 2:51 AM CDT Gender Identity Transgender Male 05/05/2019 1:23 PM CDT Sexual Orientation Pedraza 06/23/2023 10 :56 AM CDT documented as of this encounter Plan of Treatment Upcoming Encounters Date Type Department Care Team (Late st Contact Info) Description 04/21/2025 2:15 PM CDT Appointment [place] [facility] - Adolescent Clinic [address] [phone] Prashanth Martinez MD [address] [place] [address] 05/02/2025 8:40 AM CDT Appointment [facility] - Ophthalmology - Optometry [address] [phone] Danuta Golden OD [address] [place] [address] documented as of this encounter Visit Diagnoses Not on filedocumented in this encounter Additional Health Concerns Infection Onset Date Last Indicated Resolved Time COVID-19 09/28/2021 09/28/2021 10/28/2021 9:44 PM UNLOADER OPERATOR Assessment Noted Time PHQ-9 Depression Total Score: 9 11/25/19 18 2:15 PM CDT PHQ-2 Depression Total Score: 4 11/25/19 18 2:15 PM CDT documented as of this encounter Care Teams Supervisor Blood Donor Recruiters Relationship Specialty Start Date End Date Che Williamson MD [address] [place] [address] PCP - General 08/27/12 03/20/22 Prashanth Martinez MD [address] [place] [address] PCP - General Pediatric Medicine 03/21/22 Lynda Skelton MD [address] [place] [address] Provider Team Family Practice 06/10/17 Franchesca Manley 12/09/17 12/07/18 Chelsea Hensley MD [address] [place] [address] Endocrinology 12/08/18 documented as of this encounter
--- OUTSIDE RECORDS SUMMARY | 2025-01-28 20:18 | XMS_ITS | Encounter Summary ---
Author Organization [facility] Care Address [address] [place] [address] Phone Care Team Providers Care Computer Game Designer Name Role Phone Che Williamson MD Primary Care Provider Lynda Skelton MD Unavailable Franchesca Manley Unavailable Unavailable Chelsea Hensley MD Unavailable [phone] Prashanth Martinez MD Primary Care Provider [phone] Encounter Details Date Type Department Care Team (Late st Contact Info) Description 07/08/2018 Pharmacy Visit [facility] - Pharmacy - Specialty [address] [place] [address] Social History Tobacco Use Types Packs/Day Years Used Date Smoking Tobacco: Never Smokeless Tobacco: Never Alcohol Use Standard Drinks/Week Comments No 0 (1 standard drink = 0.6 oz pur e alcohol) Comments No Sex and Gender Information Value Date Recorded Sex Assigned at Female 07/13/2019 6:16 PM MACHINE CLERICAL VERIFIER Legal Sex Female 2:51 AM CDT Gender Identity Transgender Male 05/05/2019 1:23 PM CDT Sexual Orientation Pedraza 06/23/2023 10 :56 AM CDT documented as of this encounter Plan of Treatment Upcoming Encounters Date Type Department Care Team (Late st Contact Info) Description 04/21/2025 2:15 PM CDT Appointment [place] [facility] - Adolescent Clinic [address] [phone] Prashanth Martinez MD [address] [place] [address] 05/02/2025 8:40 AM CDT Appointment [facility] - Ophthalmology - Optometry [address] [phone] Danuta Golden OD [address] [place] [address] documented as of this encounter Visit Diagnoses Not on filedocumented in this encounter Additional Health Concerns Infection Onset Date Last Indicated Resolved Time COVID-19 09/28/2021 09/28/2021 10/28/2021 9:44 PM MACHINE CLERICAL VERIFIER Assessment Noted Time PHQ-9 Depression Total Score: 9 11/25/19 18 2:15 PM CDT PHQ-2 Depression Total Score: 4 11/25/19 18 2:15 PM CDT documented as of this encounter Care Teams Computer Game Designer Relationship Specialty Start Date End Date Che Williamson MD [address] [place] [address] PCP - General 08/27/12 03/20/22 Prashanth Martinez MD [address] [place] [address] PCP - General Pediatric Medicine 03/21/22 Lynda Skelton MD [address] [place] [address] Provider Team Family Practice 06/10/17 Franchesca Manley 12/09/17 12/07/18 Chelsea Hensley MD [address] [place] [address] Endocrinology 12/08/18 documented as of this encounter
--- OUTSIDE RECORDS SUMMARY | 2025-01-28 20:18 | XMS_ITS | Encounter Summary ---
Author Organization [facility] Care Address [address] [place] [address] Phone Care Team Providers Care Electrical Accessories I Assembler Name Role Phone Che Williamson MD Primary Care Provider + [phone] Lynda Skelton MD Unavailable Franchesca Manley Unavailable Unavailable Chelsea Hensley MD Unavailable [phone] Prashanth Martinez MD Primary Care Provider [phone] Encounter Details Date Type Department Care Team (Late st Contact Info) Description 09/15/2018 Pharmacy Visit [facility] - Pharmacy - Specialty [address] [place] [address] Social History Tobacco Use Types Packs/Day Years Used Date Smoking Tobacco: Never Smokeless Tobacco: Never Alcohol Use Standard Drinks/Week Comments No 0 (1 standard drink = 0.6 oz pur e alcohol) Comments No Sex and Gender Information Value Date Recorded Sex Assigned at Female 07/13/2019 6:16 PM SUPERVISOR WATER TREATMENT PLANT Legal Sex Female 2:51 AM CDT Gender Identity Transgender Male 05/05/2019 1:23 PM CDT Sexual Orientation Pedraza 06/23/2023 10 :56 AM CDT documented as of this encounter Plan of Treatment Upcoming Encounters Date Type Department Care Team (Late st Contact Info) Description 04/21/2025 2:15 PM CDT Appointment [place] [facility] - Adolescent Clinic [address] [phone] Prashanth Martinez MD [address] [place] [address] 05/02/2025 8:40 AM CDT Appointment [facility] - Ophthalmology - Optometry [address] [phone] Danuta Golden OD [address] [place] [address] documented as of this encounter Visit Diagnoses Not on filedocumented in this encounter Additional Health Concerns Infection Onset Date Last Indicated Resolved Time COVID-19 09/28/2021 09/28/2021 10/28/2021 9:44 PM SUPERVISOR WATER TREATMENT PLANT Assessment Noted Time PHQ-9 Depression Total Score: 9 11/25/19 18 2:15 PM CDT PHQ-2 Depression Total Score: 4 11/25/19 18 2:15 PM CDT documented as of this encounter Care Teams Electrical Accessories I Assembler Relationship Specialty Start Date End Date Che Williamson MD [address] [place] [address] PCP - General 08/27/12 03/20/22 Prashanth Martinez MD [address] [place] [address] PCP - General Pediatric Medicine 03/21/22 Lynad Skelton MD [address] [place] [address] Provider Team Family Practice 06/10/17 Franchesca Manley 12/09/17 12/07/18 Chelsea Hensley MD [address] [place] [address] Endocrinology 12/08/18 documented as of this encounter
--- OUTSIDE RECORDS SUMMARY | 2025-01-28 20:18 | XMS_ITS | Encounter Summary ---
Author Organization [facility] Care Address [address] [place] [address] Phone Care Team Providers Care Clinical Research Monitor Name Role Phone Che Williamson MD Primary Care Provider + [phone] Lynda Skelton MD Unavailable Chelsea Hensley MD Unavailable [phone] Prashanth Martinez MD Primary Care Provider [phone] Encounter Details Date Type Department Care Team (Late st Contact Info) Description 11/01/2020 Pharmacy Visit [facility] [address] [place] [address] Social History Tobacco Use Types Packs/Day Years Used Date Smoking Tobacco: Never Smokeless Tobacco: Never Alcohol Use Standard Drinks/Week Comments No 0 (1 standard drink = 0.6 oz pur e alcohol) Comments No Sex and Gender Information Value Date Recorded Sex Assigned at Female 07/13/2019 6:16 PM ENERGY PROJECTS LEAD Legal Sex Female 2:51 AM CDT Gender Identity Transgender Male 05/05/2019 1:23 PM CDT Sexual Orientation Pedraza 06/23/2023 10 :56 AM CDT documented as of this encounter Plan of Treatment Upcoming Encounters Date Type Department Care Team (Late st Contact Info) Description 04/21/2025 2:15 PM CDT Appointment [place] - [facility] - [facility] [address] [phone] Prashanth Martinez MD [address] [place] [address] 05/02/2025 8:40 AM CDT Appointment [place] [facility] - Ophthalmology - Optometry [address] [phone] Danuta Golden OD [address] [place] [address] documented as of this encounter Visit Diagnoses Not on filedocumented in this encounter Additional Health Concerns Infection Onset Date Last Indicated Resolved Time COVID-19 09/28/2021 09/28/2021 10/28/2021 9:44 PM ENERGY PROJECTS LEAD Assessment Noted Time PHQ-9 Depression Total Score: 9 11/25/19 18 2:15 PM CDT A fall risk assessment has been complete d for the patient 10/09/2020 2:45 PM ENERGY PROJECTS LEAD PHQ-2 Depression Total Score: 2 12/10/19 20 2:50 PM CDT documented as of this encounter Care Teams Clinical Research Monitor Relationship Specialty Start Date End Date Che Williamson MD [address] [place] [address] PCP - General 08/27/12 03/20/22 Prashanth Martinez MD [address] [place] [address] PCP - General Pediatric Medicine 03/21/22 Lynda Skelton MD [facility] [place] [address] Provider Team Family Practice 06/10/17 Chelsea Hensley MD [address] [place] [address] Endocrinology 12/08/18 documented as of this encounter
--- OUTSIDE RECORDS SUMMARY | 2025-01-28 20:18 | XMS_ITS | Encounter Summary ---
Author Organization [facility] Care Address [address] [place] [address] Phone Care Team Providers Care Needle Straightener Name Role Phone Che Williamson MD Primary Care Provider Lynda Skelton MD Unavailable Franchesca Manley Unavailable Unavailable Chelsea Hensley MD Unavailable [phone] Prashanth Martinez MD Primary Care Provider [phone] Encounter Details Date Type Department Care Team (Late st Contact Info) Description 07/06/2018 Pharmacy Visit [facility] - Pharmacy - Specialty [address] [place] [address] Social History Tobacco Use Types Packs/Day Years Used Date Smoking Tobacco: Never Smokeless Tobacco: Never Alcohol Use Standard Drinks/Week Comments No 0 (1 standard drink = 0.6 oz pur e alcohol) Comments No Sex and Gender Information Value Date Recorded Sex Assigned at Female 07/13/2019 6:16 PM COLLECTIONS AND ARCHIVES DIRECTOR Legal Sex Female 2:51 AM CDT Gender Identity Transgender Male 05/05/2019 1:23 PM CDT Sexual Orientation Pedraza 06/23/2023 10 :56 AM CDT documented as of this encounter Plan of Treatment Upcoming Encounters Date Type Department Care Team (Late st Contact Info) Description 04/21/2025 2:15 PM CDT Appointment [place] [facility] - Adolescent Clinic [address] [phone] Prashanth Martinez MD [address] [place] [address] 05/02/2025 8:40 AM CDT Appointment [facility] - Ophthalmology - Optometry [address] [phone] Danuta Golden OD [address] [place] [address] documented as of this encounter Visit Diagnoses Not on filedocumented in this encounter Additional Health Concerns Infection Onset Date Last Indicated Resolved Time COVID-19 09/28/2021 09/28/2021 10/28/2021 9:44 PM COLLECTIONS AND ARCHIVES DIRECTOR Assessment Noted Time PHQ-9 Depression Total Score: 9 11/25/19 18 2:15 PM CDT PHQ-2 Depression Total Score: 4 11/25/19 18 2:15 PM CDT documented as of this encounter Care Teams Needle Straightener Relationship Specialty Start Date End Date Che Williamson MD [address] [place] [address] PCP - General 08/27/12 03/20/22 Prashanth Martinez MD [address] [place] [address] PCP - General Pediatric Medicine 03/21/22 Lynda Skelton MD [address] [place] [address] Provider Team Family Practice 06/10/17 Franchesca Manley 12/09/17 12/07/18 Chelsea Hensley MD [address] [place] [address] Endocrinology 12/08/18 documented as of this encounter
--- OUTSIDE RECORDS SUMMARY | 2025-01-28 20:18 | XMS_ITS | Encounter Summary ---
Author Organization [facility] Care Address [address] [place] [address] Phone Care Team Providers Care Sample Collector Name Role Phone Che Williamson MD Primary Care Provider + [phone] Lynda Skelton MD Unavailable Chelsea Hensley MD Unavailable [phone] Prashanth Martinez MD Primary Care Provider [phone] Encounter Details Date Type Department Care Team (Late st Contact Info) Description 10/31/2020 Pharmacy Visit [facility] [address] [place] [address] Social History Tobacco Use Types Packs/Day Years Used Date Smoking Tobacco: Never Smokeless Tobacco: Never Alcohol Use Standard Drinks/Week Comments No 0 (1 standard drink = 0.6 oz pur e alcohol) Comments No Sex and Gender Information Value Date Recorded Sex Assigned at Female 07/13/2019 6:16 PM PAINTER DECORATOR Legal Sex Female 2:51 AM CDT Gender Identity Transgender Male 05/05/2019 1:23 PM CDT Sexual Orientation Pedraza 06/23/2023 10 :56 AM CDT documented as of this encounter Plan of Treatment Upcoming Encounters Date Type Department Care Team (Late st Contact Info) Description 04/21/2025 2:15 PM CDT Appointment [place] - [facility] - Adolescent Clinic [address] [phone] Prashanth Martinez MD [address] [place] [address] 05/02/2025 8:40 AM CDT Appointment [place] [facility] - Ophthalmology - Optometry [address] [phone] Danuta Golden OD [address] [place] [address] documented as of this encounter Visit Diagnoses Not on filedocumented in this encounter Additional Health Concerns Infection Onset Date Last Indicated Resolved Time COVID-19 09/28/2021 09/28/2021 10/28/2021 9:44 PM PAINTER DECORATOR Assessment Noted Time PHQ-9 Depression Total Score: 9 11/25/19 18 2:15 PM CDT A fall risk assessment has been complete d for the patient 10/09/2020 2:45 PM PAINTER DECORATOR PHQ-2 Depression Total Score: 2 12/10/19 20 2:50 PM CDT documented as of this encounter Care Teams Sample Collector Relationship Specialty Start Date End Date Che Williamson MD [address] [place] [address] PCP - General 08/27/12 03/20/22 Prashanth Martinez MD [address] [place] [address] PCP - General Pediatric Medicine 03/21/22 Lynda Skelton MD [facility] [place] [address] Provider Team Family Practice 06/10/17 Chelsea Hensley MD [address] [place] [address] Endocrinology 12/08/18 documented as of this encounter
--- OUTSIDE RECORDS SUMMARY | 2025-01-28 20:18 | XMS_ITS | Encounter Summary ---
Author Organization [facility] Care Address [address] [place] [address] Phone Care Team Providers Care Food Dehydrator Operator Name Role Phone Che Williamson MD Primary Care Provider Lynda Skelton MD Unavailable Franchesca Manley Unavailable Unavailable Chelsea Hensley MD Unavailable [phone] Prashanth Martinez MD Primary Care Provider [phone] Encounter Details Date Type Department Care Team (Late st Contact Info) Description 08/11/2018 Pharmacy Visit [facility] - Pharmacy - Specialty [address] [place] [address] Social History Tobacco Use Types Packs/Day Years Used Date Smoking Tobacco: Never Smokeless Tobacco: Never Alcohol Use Standard Drinks/Week Comments No 0 (1 standard drink = 0.6 oz pur e alcohol) Comments No Sex and Gender Information Value Date Recorded Sex Assigned at Female 07/13/2019 6:16 PM LAY OUT MACHINE OPERATOR Legal Sex Female 2:51 AM CDT Gender Identity Transgender Male 05/05/2019 1:23 PM CDT Sexual Orientation Pedraza 06/23/2023 10 :56 AM CDT documented as of this encounter Plan of Treatment Upcoming Encounters Date Type Department Care Team (Late st Contact Info) Description 04/21/2025 2:15 PM CDT Appointment [place] [facility] - Adolescent Clinic [address] [phone] Prashanth Martinez MD [address] [place] [address] 05/02/2025 8:40 AM CDT Appointment [facility] - Ophthalmology - Optometry [address] [phone] Danuta Golden OD [address] [place] [address] documented as of this encounter Visit Diagnoses Not on filedocumented in this encounter Additional Health Concerns Infection Onset Date Last Indicated Resolved Time COVID-19 09/28/2021 09/28/2021 10/28/2021 9:44 PM LAY OUT MACHINE OPERATOR Assessment Noted Time PHQ-9 Depression Total Score: 9 11/25/19 18 2:15 PM CDT PHQ-2 Depression Total Score: 4 11/25/19 18 2:15 PM CDT documented as of this encounter Care Teams Food Dehydrator Operator Relationship Specialty Start Date End Date Che Williamson MD [address] [place] [address] PCP - General 08/27/12 03/20/22 Prashanth Martinez MD [address] [place] [address] PCP - General Pediatric Medicine 03/21/22 Lynda Skelton MD [address] [place] [address] Provider Team Family Practice 06/10/17 Franchesca Manley 12/09/17 12/07/18 Chelsea Hensley MD [address] [place] [address] Endocrinology 12/08/18 documented as of this encounter
--- OUTSIDE RECORDS SUMMARY | 2025-01-28 20:18 | XMS_ITS | Encounter Summary ---
Author Organization [facility] Care Address [address] [place] [address] Phone Care Team Providers Care Drugless Doctor Name Role Phone Che Williamson MD Primary Care Provider Lynda Skelton MD Unavailable Franchesca Manley Unavailable Unavailable Chelsea Hensley MD Unavailable [phone] Prashanth Martinez MD Primary Care Provider [phone] Encounter Details Date Type Department Care Team (Late st Contact Info) Description 08/10/2018 Pharmacy Visit [facility] - Pharmacy - Specialty [address] [place] [address] Social History Tobacco Use Types Packs/Day Years Used Date Smoking Tobacco: Never Smokeless Tobacco: Never Alcohol Use Standard Drinks/Week Comments No 0 (1 standard drink = 0.6 oz pur e alcohol) Comments No Sex and Gender Information Value Date Recorded Sex Assigned at Female 07/13/2019 6:16 PM HOUSING ASSISTANT Legal Sex Female 2:51 AM CDT Gender Identity Transgender Male 05/05/2019 1:23 PM CDT Sexual Orientation Pedraza 06/23/2023 10 :56 AM CDT documented as of this encounter Plan of Treatment Upcoming Encounters Date Type Department Care Team (Late st Contact Info) Description 04/21/2025 2:15 PM CDT Appointment [place] [facility] - Adolescent Clinic [address] [phone] Prashanth Martinez MD [address] [place] [address] 05/02/2025 8:40 AM CDT Appointment [facility] - Ophthalmology - Optometry [address] [phone] Danuta Golden OD [address] [place] [address] documented as of this encounter Visit Diagnoses Not on filedocumented in this encounter Additional Health Concerns Infection Onset Date Last Indicated Resolved Time COVID-19 09/28/2021 09/28/2021 10/28/2021 9:44 PM HOUSING ASSISTANT Assessment Noted Time PHQ-9 Depression Total Score: 9 11/25/19 18 2:15 PM CDT PHQ-2 Depression Total Score: 4 11/25/19 18 2:15 PM CDT documented as of this encounter Care Teams Drugless Doctor Relationship Specialty Start Date End Date Che Williamson MD [address] [place] [address] PCP - General 08/27/12 03/20/22 Prashanth Martinez MD [address] [place] [address] PCP - General Pediatric Medicine 03/21/22 Lynda Skelton MD [address] [place] [address] Provider Team Family Practice 06/10/17 Franchesca Manley 12/09/17 12/07/18 Chelsea Hensley MD [address] [place] [address] Endocrinology 12/08/18 documented as of this encounter
--- OUTSIDE RECORDS SUMMARY | 2025-01-28 20:18 | XMS_ITS | Encounter Summary ---
Author Organization [facility] Care Address [address] [place] [address] Phone Care Team Providers Care Income Tax Expert Name Role Phone Che Williamson MD Primary Care Provider + [phone] Lynda Skelton MD Unavailable Franchesca Manley Unavailable Unavailable Chelsea Hensley MD Unavailable +[phone] Prashanth Martinez MD Primary Care Provider [phone] Encounter Details Date Type Department Care Team (Late st Contact Info) Description 07/09/2018 Pharmacy Visit [facility] - Pharmacy - Specialty [address] [place] [address] Social History Tobacco Use Types Packs/Day Years Used Date Smoking Tobacco: Never Smokeless Tobacco: Never Alcohol Use Standard Drinks/Week Comments No 0 (1 standard drink = 0.6 oz pur e alcohol) Comments No Sex and Gender Information Value Date Recorded Sex Assigned at Female 07/13/2019 6:16 PM TOOL AND DIE TECHNICIAN Legal Sex Female 2:51 AM CDT Gender Identity Transgender Male 05/05/2019 1:23 PM CDT Sexual Orientation Pedraza 06/23/2023 10 :56 AM CDT documented as of this encounter Plan of Treatment Upcoming Encounters Date Type Department Care Team (Late st Contact Info) Description 04/21/2025 2:15 PM CDT Appointment [place] - [facility] - Adolescent Clinic [address] [phone] Prashanth Martinez MD 200 [place] [address] 05/02/2025 8:40 AM CDT Appointment [facility] - Ophthalmology - Optometry [address] [phone] Danuta Golden OD 200 [place] [address] documented as of this encounter Visit Diagnoses Not on filedocumented in this encounter Additional Health Concerns Infection Onset Date Last Indicated Resolved Time COVID-19 09/28/2021 09/28/2021 10/28/2021 9:44 PM TOOL AND DIE TECHNICIAN Assessment Noted Time PHQ-9 Depression Total Score: 9 11/25/19 18 2:15 PM CDT PHQ-2 Depression Total Score: 4 11/25/19 18 2:15 PM CDT documented as of this encounter Care Teams Income Tax Expert Relationship Specialty Start Date End Date Che Williamson MD [address] [place] [address] PCP - General 08/27/12 03/20/22 Prashanth Martinez MD [address] [place] [address] PCP - General Pediatric Medicine 03/21/22 Lynda Skelton MD [address] [place] [address] Provider Team Family Practice 06/10/17 Franchesca Manley 12/09/17 12/07/18 Chelsea Hensley MD [address] [place] [address] Endocrinology 12/08/18 documented as of this encounter
--- OUTSIDE RECORDS SUMMARY | 2025-01-28 20:18 | XMS_ITS | Encounter Summary ---
Author Organization [facility] Care Address [address] [place] [address] Phone Care Team Providers Care Loan Service Officer Name Role Phone Che Williamson MD Primary Care Provider + [phone] Lynda Skelton MD Unavailable Franchesca Manley Unavailable Unavailable Chelsea Hensley MD Unavailable [phone] Prashanth Martinez MD Primary Care Provider [phone] Encounter Details Date Type Department Care Team (Late st Contact Info) Description 07/17/2018 Pharmacy Visit [facility] - Pharmacy - Specialty [address] [place] [address] Social History Tobacco Use Types Packs/Day Years Used Date Smoking Tobacco: Never Smokeless Tobacco: Never Alcohol Use Standard Drinks/Week Comments No 0 (1 standard drink = 0.6 oz pur e alcohol) Comments No Sex and Gender Information Value Date Recorded Sex Assigned at Female 07/13/2019 6:16 PM DIRECTOR TELEMETRY Legal Sex Female 2:51 AM CDT Gender Identity Transgender Male 05/05/2019 1:23 PM CDT Sexual Orientation Pedraza 06/23/2023 10 :56 AM CDT documented as of this encounter Plan of Treatment Upcoming Encounters Date Type Department Care Team (Late st Contact Info) Description 04/21/2025 2:15 PM CDT Appointment [place] - [facility] - Adolescent Clinic [address] [phone] Prashanth Martinez MD 200 [place] [address] 05/02/2025 8:40 AM CDT Appointment [facility] - Ophthalmology - Optometry [address] [phone] Danuta Golden OD 200 [place] [address] documented as of this encounter Visit Diagnoses Not on filedocumented in this encounter Additional Health Concerns Infection Onset Date Last Indicated Resolved Time COVID-19 09/28/2021 09/28/2021 10/28/2021 9:44 PM DIRECTOR TELEMETRY Assessment Noted Time PHQ-9 Depression Total Score: 9 11/25/19 18 2:15 PM CDT PHQ-2 Depression Total Score: 4 11/25/19 18 2:15 PM CDT documented as of this encounter Care Teams Loan Service Officer Relationship Specialty Start Date End Date Che Williamson MD [address] [place] [address] PCP - General 08/27/12 03/20/22 Prashanth Martinez MD [address] [place] [address] PCP - General Pediatric Medicine 03/21/22 Lynda Skelton MD [address] [place] [address] Provider Team Family Practice 06/10/17 Franchesca Manley 12/09/17 12/07/18 Chelsea Hensley MD [address] [place] [address] Endocrinology 12/08/18 documented as of this encounter
--- OUTSIDE RECORDS SUMMARY | 2025-01-28 20:18 | XMS_ITS | Encounter Summary ---
Author Organization [facility] Care Address [address] [place] [address] Phone Care Team Providers Care Roof Fitter Name Role Phone Che Williamson MD Primary Care Provider + [phone] Lynda Skelton MD Unavailable [phone] Franchesca Manley Unavailable Unavailable Chelsea Hensley MD Unavailable [phone] Prashanth Martinez MD Primary Care Provider [phone] Encounter Details Date Type Department Care Team (Late st Contact Info) Description 11/12/2018 Pharmacy Visit [facility] - Pharmacy - Business Office 200 [place] [address] Social History Tobacco Use Types Packs/Day Years Used Date Smoking Tobacco: Never Smokeless Tobacco: Never Alcohol Use Standard Drinks/Week Comments No 0 (1 standard drink = 0.6 oz pur e alcohol) Comments No Sex and Gender Information Value Date Recorded Sex Assigned at Female 07/13/2019 6:16 PM BALANCE CLERK Legal Sex Female 2:51 AM CDT Gender Identity Transgender Male 05/05/2019 1:23 PM CDT Sexual Orientation Pedraza 06/23/2023 10 :56 AM CDT documented as of this encounter Plan of Treatment Upcoming Encounters Date Type Department Care Team (Late st Contact Info) Description 04/21/2025 2:15 PM CDT Appointment [place] [facility] [place] - Adolescent Clinic [address] [phone] Prashanth Martinez MD 200 [place] [address] 05/02/2025 8:40 AM CDT Appointment [facility] - Ophthalmology - Optometry [address] [phone] Danuta Golden OD 200 [place] [address] documented as of this encounter Visit Diagnoses Not on filedocumented in this encounter Additional Health Concerns Infection Onset Date Last Indicated Resolved Time COVID-19 09/28/2021 09/28/2021 10/28/2021 9:44 PM BALANCE CLERK Assessment Noted Time PHQ-9 Depression Total Score: 9 11/25/19 18 2:15 PM CDT PHQ-2 Depression Total Score: 4 11/25/19 18 2:15 PM CDT documented as of this encounter Care Teams Roof Fitter Relationship Specialty Start Date End Date Che Williamson MD [address] [place] [address] PCP - General 08/27/12 03/20/22 Prashanth Martinez MD [address] [place] [address] PCP - General Pediatric Medicine 03/21/22 Lynda Skelton MD [address] [place] [address] Provider Team Family Practice 06/10/17 Franchesca Manley 12/09/17 12/07/18 Chelsea Hensley MD [address] [place] [address] Endocrinology 12/08/18 documented as of this encounter
--- OUTSIDE RECORDS SUMMARY | 2025-01-28 20:18 | XMS_ITS | Encounter Summary ---
Author Organization [facility] Care Address [address] [place] [address] Phone Care Team Providers Care Lawnmower Repair Mechanic Name Role Phone Che Williamson MD Primary Care Provider + [phone] Lynda Skelton MD Unavailable [phone] Chelsea Hensley MD Unavailable [phone] Prashanth Martinez MD Primary Care Provider [phone] Encounter Details Date Type Department Care Team (Late st Contact Info) Description 07/28/2020 Pharmacy Visit [facility] 200 [place] [address] Social History Tobacco Use Types Packs/Day Years Used Date Smoking Tobacco: Never Smokeless Tobacco: Never Alcohol Use Standard Drinks/Week Comments No 0 (1 standard drink = 0.6 oz pur e alcohol) Comments No Sex and Gender Information Value Date Recorded Sex Assigned at Female 07/13/2019 6:16 PM RETAIL ASSISTANT Legal Sex Female 2:51 AM CDT Gender Identity Transgender Male 05/05/2019 1:23 PM CDT Sexual Orientation Pedraza 06/23/2023 10 :56 AM CDT documented as of this encounter Plan of Treatment Upcoming Encounters Date Type Department Care Team (Late st Contact Info) Description 04/21/2025 2:15 PM CDT Appointment [place] - [place] - Adolescent Clinic [address] [phone] Prashanth Martinez MD 200 [place] [address] 05/02/2025 8:40 AM CDT Appointment [place] [facility] - Ophthalmology - Optometry [address] [phone] Danuta Golden OD [address] [place] [address] documented as of this encounter Visit Diagnoses Not on filedocumented in this encounter Additional Health Concerns Infection Onset Date Last Indicated Resolved Time COVID-19 09/28/2021 09/28/2021 10/28/2021 9:44 PM RETAIL ASSISTANT Assessment Noted Time PHQ-9 Depression Total Score: 9 11/25/19 18 2:15 PM CDT A fall risk assessment has been complete d for the patient 07/11/2020 3:01 PM RETAIL ASSISTANT PHQ-2 Depression Total Score: 2 12/10/19 20 2:50 PM CDT documented as of this encounter Care Teams Lawnmower Repair Mechanic Relationship Specialty Start Date End Date Che Williamson MD [address] [place] [address] PCP - General 08/27/12 03/20/22 Prashanth Martinez MD [address] [place] [address] PCP - General Pediatric Medicine 03/21/22 Lynda Skelton MD [facility] [place] [address] Provider Team Family Practice 06/10/17 Chelsea Hensley MD [address] [place] [address] Endocrinology 12/08/18 documented as of this encounter
--- OUTSIDE RECORDS SUMMARY | 2025-01-28 20:18 | XMS_ITS | Encounter Summary ---
Author Organization [facility] Care Address [address] [place] [address] Phone Care Team Providers Care Nut Threader Name Role Phone Che Williamson MD Primary Care Provider + [phone] Lynda Skelton MD Unavailable Franchesca Manley Unavailable Unavailable Chelsea Hensley MD Unavailable [phone] Prashanth Martinez MD Primary Care Provider [phone] Encounter Details Date Type Department Care Team (Late st Contact Info) Description 10/13/2018 Pharmacy Visit [facility] - Pharmacy - Specialty [address] [place] [address] Social History Tobacco Use Types Packs/Day Years Used Date Smoking Tobacco: Never Smokeless Tobacco: Never Alcohol Use Standard Drinks/Week Comments No 0 (1 standard drink = 0.6 oz pur e alcohol) Comments No Sex and Gender Information Value Date Recorded Sex Assigned at Female 07/13/2019 6:16 PM GILL TENDER Legal Sex Female 2:51 AM CDT Gender Identity Transgender Male 05/05/2019 1:23 PM CDT Sexual Orientation Pedraza 06/23/2023 10 :56 AM CDT documented as of this encounter Plan of Treatment Upcoming Encounters Date Type Department Care Team (Late st Contact Info) Description 04/21/2025 2:15 PM CDT Appointment [place] - [facility] - Adolescent Clinic [address] [phone] Prashanth Martinez MD 200 [place] [address] 05/02/2025 8:40 AM CDT Appointment [facility] - Ophthalmology - Optometry [address] [phone] Danuta Golden OD 200 [place] [address] documented as of this encounter Visit Diagnoses Not on filedocumented in this encounter Additional Health Concerns Infection Onset Date Last Indicated Resolved Time COVID-19 09/28/2021 09/28/2021 10/28/2021 9:44 PM GILL TENDER Assessment Noted Time PHQ-9 Depression Total Score: 9 11/25/19 18 2:15 PM CDT PHQ-2 Depression Total Score: 4 11/25/19 18 2:15 PM CDT documented as of this encounter Care Teams Nut Threader Relationship Specialty Start Date End Date Che Williamson MD [address] [place] [address] PCP - General 08/27/12 03/20/22 Prashanth Martinez MD [address] [place] [address] PCP - General Pediatric Medicine 03/21/22 Lynda Skelton MD [address] [place] [address] Provider Team Family Practice 06/10/17 Franchesca Manley 12/09/17 12/07/18 Chelsea Hensley MD [address] [place] [address] Endocrinology 12/08/18 documented as of this encounter
--- OUTSIDE RECORDS SUMMARY | 2025-01-28 20:18 | XMS_ITS | Encounter Summary ---
Author Organization [facility] Care Address [address] [place] [address] Phone Care Team Providers Care Rotor Balancer Name Role Phone Che Williamson MD Primary Care Provider + [phone] Lynda Skelton MD Unavailable Franchesca Manley Unavailable Unavailable Chelsea Hensley MD Unavailable [phone] Prashanth Martinez MD Primary Care Provider [phone] Encounter Details Date Type Department Care Team (Late st Contact Info) Description 08/12/2018 Pharmacy Visit [facility] - Pharmacy [address] [place] [address] Social History Tobacco Use Types Packs/Day Years Used Date Smoking Tobacco: Never Smokeless Tobacco: Never Alcohol Use Standard Drinks/Week Comments No 0 (1 standard drink = 0.6 oz pur e alcohol) Comments No Sex and Gender Information Value Date Recorded Sex Assigned at Female 07/13/2019 6:16 PM PROJECT ASSOCIATE Legal Sex Female 2:51 AM CDT Gender Identity Transgender Male 05/05/2019 1:23 PM CDT Sexual Orientation Pedraza 06/23/2023 10 :56 AM CDT documented as of this encounter Plan of Treatment Upcoming Encounters Date Type Department Care Team (Late st Contact Info) Description 04/21/2025 2:15 PM CDT Appointment [place] - [facility] - Adolescent Clinic [address] [phone] Prashanth Martinez MD 200 [place] [address] 05/02/2025 8:40 AM CDT Appointment [facility] - Ophthalmology - Optometry [address] [phone] Danuta Golden OD [address] [place] [address] documented as of this encounter Visit Diagnoses Not on filedocumented in this encounter Additional Health Concerns Infection Onset Date Last Indicated Resolved Time COVID-19 09/28/2021 09/28/2021 10/28/2021 9:44 PM PROJECT ASSOCIATE Assessment Noted Time PHQ-9 Depression Total Score: 9 11/25/19 18 2:15 PM CDT PHQ-2 Depression Total Score: 4 11/25/19 18 2:15 PM CDT documented as of this encounter Care Teams Rotor Balancer Relationship Specialty Start Date End Date Che Williamson MD [address] [place] [address] PCP - General 08/27/12 03/20/22 Prashanth Martinez MD [address] [place] [address] PCP - General Pediatric Medicine 03/21/22 Lynda Skelton MD [facility] [place] [address] Provider Team Family Practice 06/10/17 Franchesca Manley 12/09/17 12/07/18 Chelsea Hensley MD [address] [place], [place] [phone] Endocrinology 12/08/18 documented as of this encounter
--- OUTSIDE RECORDS SUMMARY | 2025-01-28 20:19 | XMS_ITS | Encounter Summary ---
Author Organization [facility] Care Address [address] [place] [address] Phone Care Team Providers Care Lathe Sander Name Role Phone Che Williamson MD Primary Care Provider + [phone] Lynda Skelton MD Unavailable Chelsea Hensley MD Unavailable [phone] Prashanth Martinez MD Primary Care Provider [phone] Encounter Details Date Type Department Care Team (Late st Contact Info) Description 05/11/2020 Pharmacy Visit [facility] - Pharmacy - Specialty [address] [place] [address] Social History Tobacco Use Types Packs/Day Years Used Date Smoking Tobacco: Never Smokeless Tobacco: Never Alcohol Use Standard Drinks/Week Comments No 0 (1 standard drink = 0.6 oz pur e alcohol) Comments No Sex and Gender Information Value Date Recorded Sex Assigned at Female 07/13/2019 6:16 PM AIRPORT OPERATIONS SUPERVISOR Legal Sex Female 2:51 AM CDT Gender Identity Transgender Male 05/05/2019 1:23 PM CDT Sexual Orientation Pedraza 06/23/2023 10 :56 AM CDT documented as of this encounter Plan of Treatment Upcoming Encounters Date Type Department Care Team (Late st Contact Info) Description 04/21/2025 2:15 PM CDT Appointment [place] - [place] - Adolescent Clinic [address] [phone] Prashanth Martinez MD [address] [place] [address] 05/02/2025 8:40 AM CDT Appointment [place] - [facility] - Ophthalmology - Optometry [address] [phone] Danuta Golden OD [address] [place] [address] documented as of this encounter Visit Diagnoses Not on filedocumented in this encounter Additional Health Concerns Infection Onset Date Last Indicated Resolved Time COVID-19 09/28/2021 09/28/2021 10/28/2021 9:44 PM AIRPORT OPERATIONS SUPERVISOR Assessment Noted Time PHQ-9 Depression Total Score: 9 11/25/19 18 2:15 PM CDT A fall risk assessment has been complete d for the patient 04/18/2020 3:35 PM CDT PHQ-2 Depression Total Score: 2 12/10/19 20 2:50 PM CDT documented as of this encounter Care Teams Lathe Sander Relationship Specialty Start Date End Date Che Williamson MD [address] [place] [address] PCP - General 08/27/12 03/20/22 Prashanth Martinez MD [address] [place] [address] PCP - General Pediatric Medicine 03/21/22 Lynda Skelton MD [facility] [place] [address] Provider Team Family Practice 06/10/17 Chelsea Hensley MD [address] [place] [address] Endocrinology 12/08/18 documented as of this encounter
--- OUTSIDE RECORDS SUMMARY | 2025-01-28 20:19 | XMS_ITS | Encounter Summary ---
Author Organization [facility] Care Address [address] [place] [address] Phone Care Team Providers Care Pole Peeler Name Role Phone Che Williamson MD Primary Care Provider + [phone] Lynda Skelton MD Unavailable Chelsea Hensley MD Unavailable [phone] Prashanth Martinez MD Primary Care Provider [phone] Encounter Details Date Type Department Care Team (Late st Contact Info) Description 01/10/2020 Pharmacy Visit [facility] - Pharmacy - Specialty [address] [place] [address] Social History Tobacco Use Types Packs/Day Years Used Date Smoking Tobacco: Never Smokeless Tobacco: Never Alcohol Use Standard Drinks/Week Comments No 0 (1 standard drink = 0.6 oz pur e alcohol) Comments No Sex and Gender Information Value Date Recorded Sex Assigned at Female 07/13/2019 6:16 PM COSTUME DESIGN TEACHER Legal Sex Female 2:51 AM CDT Gender Identity Transgender Male 05/05/2019 1:23 PM CDT Sexual Orientation Pedraza 06/23/2023 10 :56 AM CDT documented as of this encounter Plan of Treatment Upcoming Encounters Date Type Department Care Team (Late st Contact Info) Description 04/21/2025 2:15 PM CDT Appointment [place] - [place] - Adolescent Clinic [address] [phone] Prashanth Martinez MD [address] [place] [address] 05/02/2025 8:40 AM CDT Appointment [place] - [facility] - Ophthalmology - Optometry [address] [phone] Danuta Golden OD [address] [place] [address] documented as of this encounter Visit Diagnoses Not on filedocumented in this encounter Additional Health Concerns Infection Onset Date Last Indicated Resolved Time COVID-19 09/28/2021 09/28/2021 10/28/2021 9:44 PM COSTUME DESIGN TEACHER Assessment Noted Time PHQ-9 Depression Total Score: 9 11/25/19 18 2:15 PM CDT A fall risk assessment has been complete d for the patient 12/13/2019 4:01 PM CDT PHQ-2 Depression Total Score: 2 12/10/19 20 2:50 PM CDT documented as of this encounter Care Teams Pole Peeler Relationship Specialty Start Date End Date Che Williamson MD [address] [place] [address] PCP - General 08/27/12 03/20/22 Prashanth Martinez MD [address] [place] [address] PCP - General Pediatric Medicine 03/21/22 Lynda Skelton MD [facility] [place] [address] Provider Team Family Practice 06/10/17 Chelsea Hensley MD [address] [place] [address] Endocrinology 12/08/18 documented as of this encounter
--- OUTSIDE RECORDS SUMMARY | 2025-01-28 20:19 | XMS_ITS | Encounter Summary ---
Author Organization [facility] Care Address [address] [place] [address] Phone Care Team Providers Care Curriculum Assistant Principal Name Role Phone Che Williamson MD Primary Care Provider + [phone] Lynda Skelton MD Unavailable Franchesca Manley Unavailable Unavailable Chelsea Hensley MD Unavailable [phone] Prashanth Martinez MD Primary Care Provider [phone] Encounter Details Date Type Department Care Team (Late st Contact Info) Description 03/10/2018 Pharmacy Visit [facility] - Pharmacy - Specialty [address] [place] [address] Social History Tobacco Use Types Packs/Day Years Used Date Smoking Tobacco: Never Smokeless Tobacco: Never Alcohol Use Standard Drinks/Week Comments No 0 (1 standard drink = 0.6 oz pur e alcohol) Comments No Sex and Gender Information Value Date Recorded Sex Assigned at Female 07/13/2019 6:16 PM TEST FIXTURE ASSEMBLER Legal Sex Female 2:51 AM CDT Gender Identity Transgender Male 05/05/2019 1:23 PM CDT Sexual Orientation Pedraza 06/23/2023 10 :56 AM CDT documented as of this encounter Plan of Treatment Upcoming Encounters Date Type Department Care Team (Late st Contact Info) Description 04/21/2025 2:15 PM CDT Appointment [place] - [facility] - Adolescent Clinic [address] [phone] Prashanth Martinez MD 200 [place] [address] 05/02/2025 8:40 AM CDT Appointment [facility] - Ophthalmology - Optometry [address] [phone] Danuta Golden OD [address] [place] [address] documented as of this encounter Visit Diagnoses Not on filedocumented in this encounter Additional Health Concerns Infection Onset Date Last Indicated Resolved Time COVID-19 09/28/2021 09/28/2021 10/28/2021 9:44 PM TEST FIXTURE ASSEMBLER Assessment Noted Time PHQ-9 Depression Total Score: 9 11/25/19 18 2:15 PM CDT PHQ-2 Depression Total Score: 4 11/25/19 18 2:15 PM CDT documented as of this encounter Care Teams Curriculum Assistant Principal Relationship Specialty Start Date End Date Che Williamson MD [address] [place] [address] PCP - General 08/27/12 03/20/22 Prashanth Martinez MD [address] [place] [address] PCP - General Pediatric Medicine 03/21/22 Lynda Skelton MD [address] [place] [address] Provider Team Family Practice 06/10/17 Franchesca Manley 12/09/17 12/07/18 Chelsea Hensley MD [address] [place] [address] Endocrinology 12/08/18 documented as of this encounter
--- OUTSIDE RECORDS SUMMARY | 2025-01-28 20:19 | XMS_ITS | Encounter Summary ---
Author Organization [facility] Care Address [address] [place] [address] Phone Care Team Providers Care Cna Gna Name Role Phone Che Williamson MD Primary Care Provider + [phone] Lynda Skelton MD Unavailable [phone] Franchesca Manley Unavailable Unavailable Chelsea Hensley MD Unavailable [phone] Prashanth Mratinez MD Primary Care Provider [phone] Encounter Details Date Type Department Care Team (Late st Contact Info) Description 02/26/2018 Pharmacy Visit [facility] - Pharmacy - Business Office [address] [place] [address] Social History Tobacco Use Types Packs/Day Years Used Date Smoking Tobacco: Never Smokeless Tobacco: Never Alcohol Use Standard Drinks/Week Comments No 0 (1 standard drink = 0.6 oz pur e alcohol) Comments No Sex and Gender Information Value Date Recorded Sex Assigned at Female 07/13/2019 6:16 PM BRIDGE OPERATOR Legal Sex Female 2:51 AM CDT Gender Identity Transgender Male 05/05/2019 1:23 PM CDT Sexual Orientation Pedraza 06/23/2023 10 :56 AM CDT documented as of this encounter Plan of Treatment Upcoming Encounters Date Type Department Care Team (Late st Contact Info) Description 04/21/2025 2:15 PM CDT Appointment [place] [facility] [place] [facility] [address] [phone] Prashanth Martinez MD 200 [place] [address] 05/02/2025 8:[address] [facility] - Ophthalmology - Optometry [address] [phone] Danuta Golden OD 200 [place] [address] documented as of this encounter Visit Diagnoses Not on filedocumented in this encounter Additional Health Concerns Infection Onset Date Last Indicated Resolved Time COVID-19 09/28/2021 09/28/2021 10/28/2021 9:44 PM BRIDGE OPERATOR Assessment Noted Time PHQ-9 Depression Total Score: 9 11/25/19 18 2:15 PM CDT PHQ-2 Depression Total Score: 4 11/25/19 18 2:15 PM CDT documented as of this encounter Care Teams Cna Gna Relationship Specialty Start Date End Date Che Williamson MD [address] [place] [address] PCP - General 08/27/12 03/20/22 Prashanth Martinez MD [address] [place] [address] PCP - General Pediatric Medicine 03/21/22 Lynda Skelton MD [address] [place] [address] Provider Team Family Practice 06/10/17 Franchesca Manley 12/09/17 12/07/18 Chelsea Hensley MD 200 [place] [address] Endocrinology 12/08/18 documented as of this encounter
--- OUTSIDE RECORDS SUMMARY | 2025-01-28 20:19 | XMS_ITS | Encounter Summary ---
Author Organization [facility] Care Address [address] [place] [address] Phone Care Team Providers Care Shoe Lay Out Planner Name Role Phone Che Williamson MD Primary Care Provider + [phone] Lynda Skelton MD Unavailable Chelsea Hensley MD Unavailable [phone] Prashanth Martinez MD Primary Care Provider [phone] Encounter Details Date Type Department Care Team (Late st Contact Info) Description 02/29/2020 Pharmacy Visit [facility] - Pharmacy - Specialty [address] [place] [address] Social History Tobacco Use Types Packs/Day Years Used Date Smoking Tobacco: Never Smokeless Tobacco: Never Alcohol Use Standard Drinks/Week Comments No 0 (1 standard drink = 0.6 oz pur e alcohol) Comments No Sex and Gender Information Value Date Recorded Sex Assigned at Female 07/13/2019 6:16 PM CONTROL CENTER OPERATOR Legal Sex Female 2:51 AM CDT Gender Identity Transgender Male 05/05/2019 1:23 PM CDT Sexual Orientation Pedraza 06/23/2023 10 :56 AM CDT documented as of this encounter Plan of Treatment Upcoming Encounters Date Type Department Care Team (Late st Contact Info) Description 04/21/2025 2:15 PM CDT Appointment [place] - [facility] - [facility] [address] [phone] Prashanth Martinez MD 200 [place] [address] 05/02/2025 8:40 AM CDT Appointment [place] [facility] - Ophthalmology - Optometry [address] [phone] Danuta Golden OD [address] [place] [address] documented as of this encounter Visit Diagnoses Not on filedocumented in this encounter Additional Health Concerns Infection Onset Date Last Indicated Resolved Time COVID-19 09/28/2021 09/28/2021 10/28/2021 9:44 PM CONTROL CENTER OPERATOR Assessment Noted Time PHQ-9 Depression Total Score: 9 11/25/19 18 2:15 PM CDT A fall risk assessment has been complete d for the patient 02/28/2020 8:25 AM CDT PHQ-2 Depression Total Score: 2 12/10/19 20 2:50 PM CDT documented as of this encounter Care Teams Shoe Lay Out Planner Relationship Specialty Start Date End Date Che Williamson MD [address] [place] [address] PCP - General 08/27/12 03/20/22 Prashanth Martinez MD [address] [place] [address] PCP - General Pediatric Medicine 03/21/22 Lynda Skelton MD [facility] [place] [address] Provider Team Family Practice 06/10/17 Chelsea Hensley MD [address] [place] [address] Endocrinology 12/08/18 documented as of this encounter
--- OUTSIDE RECORDS SUMMARY | 2025-01-28 20:19 | XMS_ITS | Encounter Summary ---
Author Organization [facility] Care Address [address] [place] [address] Phone Care Team Providers Care Fish Egg Packer Name Role Phone Che Williamson MD Primary Care Provider + [phone] Lynda Skelton MD Unavailable Franchesca Manley Unavailable Unavailable Chelsea Hensley MD Unavailable [phone] Prashanth Martinez MD Primary Care Provider [phone] Encounter Details Date Type Department Care Team (Late st Contact Info) Description 04/13/2018 Pharmacy Visit [facility] - Pharmacy - Specialty [address] [place] [address] Social History Tobacco Use Types Packs/Day Years Used Date Smoking Tobacco: Never Smokeless Tobacco: Never Alcohol Use Standard Drinks/Week Comments No 0 (1 standard drink = 0.6 oz pur e alcohol) Comments No Sex and Gender Information Value Date Recorded Sex Assigned at Female 07/13/2019 6:16 PM MANAGED CARE DIRECTOR Legal Sex Female 2:51 AM CDT Gender Identity Transgender Male 05/05/2019 1:23 PM CDT Sexual Orientation Pedraza 06/23/2023 10 :56 AM CDT documented as of this encounter Plan of Treatment Upcoming Encounters Date Type Department Care Team (Late st Contact Info) Description 04/21/2025 2:15 PM CDT Appointment [place] [facility] - Adolescent Clinic [address] [phone] Prashanth Martinez MD 200 [place] [address] 05/02/2025 8:40 AM CDT Appointment [facility] - Ophthalmology - Optometry [address] [phone] Danuta Golden OD [address] [place] [address] documented as of this encounter Visit Diagnoses Not on filedocumented in this encounter Additional Health Concerns Infection Onset Date Last Indicated Resolved Time COVID-19 09/28/2021 09/28/2021 10/28/2021 9:44 PM MANAGED CARE DIRECTOR Assessment Noted Time PHQ-9 Depression Total Score: 9 11/25/19 18 2:15 PM CDT PHQ-2 Depression Total Score: 4 11/25/19 18 2:15 PM CDT documented as of this encounter Care Teams Fish Egg Packer Relationship Specialty Start Date End Date Che Williamson MD [address] [place] [address] PCP - General 08/27/12 03/20/22 Prashanth Martinez MD [address] [place] [address] PCP - General Pediatric Medicine 03/21/22 Lynda Skelton MD [address] [place] [address] Provider Team Family Practice 06/10/17 Franchesca Manley 12/09/17 12/07/18 Chelsea Hensley MD [address] [place] [address] Endocrinology 12/08/18 documented as of this encounter
--- OUTSIDE RECORDS SUMMARY | 2025-01-28 20:19 | XMS_ITS | Encounter Summary ---
Author Organization [facility] Care Address [address] [place] [address] Phone Care Team Providers Care Hiv Counselor Name Role Phone Che Williamson MD Primary Care Provider + [phone] Lynda Skelton MD Unavailable [phone] Chelsea Hensley MD Unavailable [phone] Prashanth Martinez MD Primary Care Provider [phone] Encounter Details Date Type Department Care Team (Late st Contact Info) Description 03/20/2020 [facility] Specialty [address] [place] [address] Maday Natarajan [address] [place], [place] [id number] Social History Tobacco Use Types Packs/Day Years Used Date Smoking Tobacco: Never Smokeless Tobacco: Never Alcohol Use Standard Drinks/Week Comments No 0 (1 standard drink = 0.6 oz pur e alcohol) Comments No Sex and Gender Information Value Date Recorded Sex Assigned at Female 07/13/2019 6:16 PM DRUM CARRIER Legal Sex Female 2:51 AM CDT Gender Identity Transgender Male 05/05/2019 1:23 PM CDT Sexual Orientation Pedraza 06/23/2023 10 :56 AM CDT documented as of this encounter Miscellaneous Notes * Telephone Encounter - Maday Natarajan E - 03/20/2020 12:16 PM CDT Prescreening Telephone Call For patients under 18 years of age and their Parent/Guardian: This is Maday Natarajan calling from the [facility] at the [facility]. I amcalling to complete a pre-visit screening prior to your child's scheduled visit on 03/20/20. Visitor Restrictions To keep everyone safe and help stop the spread of coronavirus, new restrictions to our hospitals and clinics are in effect starting December 22, 2019. Adult patients must attend their appointment on their own. Pediatric patients are allowed one parent or legal guardian. We apologize for any inconvenience this may cause. Infection Screening Do you/ Does the patient have a current fever >= 37.8 C or 100 F? : No Have you/ Has the patient had any COVID-19 symptoms in the last 7 days?: None Infection Screening Questions: Did the patient report a fever or any COVID-19 symptoms in the Infection Screening? No The next questions are for the parent or guardian that will be accompanying the child to their scheduled visit: What is the name of the person who will accompany the patient to the appointment? Cherry Soriano Do you have a positive or pending test for COVID-19? No In the past week, have you had any new illnesses that include any of these symptoms: Fever (100.0??F or 37.8?? C), cough, difficulty breathing, or sore throat? No Instructions to be provided to the patients: Screening When you come for your visit, you will also be asked these screening questions again at the entrance to the facility as well as when you check-in to the clinic. To ensure the health and safety of ourpatients and staff, please call us at [phone] if you develop a fever (100.0??F / 37.8??C or greater) or new or worsening symptoms (cough, difficulty breathing, sore throat) before your visit. Masks All patients and visitors must wear a face covering. You are encouraged to bring your own mask. If you do not have a mask, one will be provided for you at the entrance to the facility. Mobile device If you have a straight truck driver, it will be helpful if you both have cell phones to communicate when your visit is over to coordinate a pickup spot. If you would like your care team to discuss your care with a family member during your visit, we encourage use of your own phone or device. Drop off information for [facility] We have only certain public entrances for patients to enter the [facility] facility: ??? Main Hospital Entrance, including skyway from Ramps 2 and 3 ([facility]): 31/03 ??? [facility] Entrance: 31/03 ??? [facility], Level 2 from Parking Ramp [address] Skyway: 31/03 ??? [facility] Main Entrance: Friday-Friday, 5 a.m. to 7 p.m. We will have greeters and patient transporters to assist outside. If you need lifting assistance getting out of your vehicle, please go to either the [facility] or [facility] Entrances for assistance. If you are being dropped off, your straight truck driver will be provided instructions/directions on where to parkand wait for you to complete your visit. Download a PDF of this [facility] map Please know that the safety of our patients and staff is our top priority. Your health is importantto us, and we will continue to provide the care and expertise you expect. We are here for you--please contact us if you have any questions or concerns. Resource if asked: COVID-19 General Questions For general questions about 2019 Novel Coronavirus (COVID-19), call [phone]. You can also [email or web address] on how [facility] Health Care is prepared by visiting [email or web address]. documented in this encounter Plan of Treatment Upcoming Encounters Date Type Department Care Team (Late st Contact Info) Description 04/21/2025 2:15 PM CDT Appointment [facility] - Adolescent Clinic [address] [place] [address] Prashanth Martinez MD [address] [place] [address] 05/02/2025 8:40 AM CDT Appointment [place] - [place] - Ophthalmology - Optometry [address] [place] [phone] Danuta Golden OD [address] [place] [address] documented as of this encounter Visit Diagnoses Not on filedocumented in this encounter Additional Health Concerns Infection Onset Date Last Indicated Resolved Time COVID-19 09/28/2021 09/28/2021 10/28/2021 9:44 PM DRUM CARRIER Assessment Noted Time PHQ-9 Depression Total Score: 9 11/25/19 18 2:15 PM CDT A fall risk assessment has been complete d for the patient 02/28/2020 8:25 AM CDT PHQ-2 Depression Total Score: 2 12/10/19 20 2:50 PM CDT documented as of this encounter Care Teams Hiv Counselor Relationship Specialty Start Date End Date Che Williamson MD [address] [place] [address] PCP - General 08/27/12 03/20/22 Prashanth Martinez MD [address] [place] [address] PCP - General Pediatric Medicine 03/21/22 Lynda Skelton MD [address] [place] [address] Provider Team Family Practice 06/10/17 Chelsea Hensley MD [address] [place] [address] Endocrinology 12/08/18 documented as of this encounter
--- OUTSIDE RECORDS SUMMARY | 2025-01-28 20:19 | XMS_ITS | Encounter Summary ---
Author Organization [facility] Care Address [address] [place] [address] Phone Care Team Providers Care Pole Tester Name Role Phone Che Williamson MD Primary Care Provider + [phone] Lynda Skelton MD Unavailable Chelsea Hensley MD Unavailable [phone] Prashanth Martinez MD Primary Care Provider [phone] Encounter Details Date Type Department Care Team (Late st Contact Info) Description 01/10/2021 Pharmacy Visit [facility] - Pharmacy - Specialty [address] [place] [address] Social History Tobacco Use Types Packs/Day Years Used Date Smoking Tobacco: Never Smokeless Tobacco: Never Alcohol Use Standard Drinks/Week Comments No 0 (1 standard drink = 0.6 oz pur e alcohol) Comments No Sex and Gender Information Value Date Recorded Sex Assigned at Female 07/13/2019 6:16 PM 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 Legal Sex Female 2:51 AM CDT Gender Identity Transgender Male 05/05/2019 1:23 PM CDT Sexual Orientation Pedraza 06/23/2023 10 :56 AM CDT documented as of this encounter Plan of Treatment Upcoming Encounters Date Type Department Care Team (Late st Contact Info) Description 04/21/2025 2:15 PM CDT Appointment [place] - IR - Adolescent Clinic [address] [phone] Prashanth Martinez MD [address] [place] [address] 05/02/2025 8:40 AM CDT Appointment [place] [facility] - Ophthalmology - Optometry [address] [phone] Danuta Golden OD [address] [place] [address] documented as of this encounter Visit Diagnoses Not on filedocumented in this encounter Additional Health Concerns Infection Onset Date Last Indicated Resolved Time COVID-19 09/28/2021 09/28/2021 10/28/2021 9:44 PM 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 Assessment Noted Time PHQ-9 Depression Total Score: 9 11/25/19 18 2:15 PM CDT A fall risk assessment has been complete d for the patient 12/06/2020 2:18 PM CDT PHQ-2 Depression Total Score: 2 12/10/19 20 2:50 PM CDT documented as of this encounter Care Teams Pole Tester Relationship Specialty Start Date End Date Che Williamson MD [address] [place] [address] PCP - General 08/27/12 03/20/22 Prashanth Martinez MD [address] [place] [address] PCP - General Pediatric Medicine 03/21/22 Lynda Skelton MD [facility] [place] [address] Provider Team Family Practice 06/10/17 Chelsea Hensley MD [address] [place] [address] Endocrinology 12/08/18 documented as of this encounter
--- OUTSIDE RECORDS SUMMARY | 2025-01-28 20:19 | XMS_ITS | Encounter Summary ---
Author Organization [facility] Care Address [address] [place] [address] Phone Care Team Providers Care Inspector Filter Tip Name Role Phone Che Williamson MD Primary Care Provider + [phone] Lynda Skelton MD Unavailable Chelsea Hensley MD Unavailable [phone] Prashanth Martinez MD Primary Care Provider [phone] Encounter Details Date Type Department Care Team (Late st Contact Info) Description 02/09/2020 Pharmacy Visit [facility] - Pharmacy - Specialty [address] [place] [address] Social History Tobacco Use Types Packs/Day Years Used Date Smoking Tobacco: Never Smokeless Tobacco: Never Alcohol Use Standard Drinks/Week Comments No 0 (1 standard drink = 0.6 oz pur e alcohol) Comments No Sex and Gender Information Value Date Recorded Sex Assigned at Female 07/13/2019 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 Sex Female 2:51 AM CDT Gender Identity Transgender Male 05/05/2019 1:23 PM CDT Sexual Orientation Pedraza 06/23/2023 10 :56 AM CDT documented as of this encounter Plan of Treatment Upcoming Encounters Date Type Department Care Team (Late st Contact Info) Description 04/21/2025 2:15 PM CDT Appointment [place] - [place] - Adolescent Clinic [address] [phone] Prashanth Martinez MD [address] [place] [address] 05/02/2025 8:40 AM CDT Appointment [place] [facility] - Ophthalmology - Optometry [address] [phone] Danuta Golden OD [address] [place] [address] documented as of this encounter Visit Diagnoses Not on filedocumented in this encounter Additional Health Concerns Infection Onset Date Last Indicated Resolved Time COVID-19 09/28/2021 09/28/2021 10/28/2021 9:44 PM NAILING MACHINE FEEDER Assessment Noted Time PHQ-9 Depression Total Score: 9 11/25/19 18 2:15 PM CDT A fall risk assessment has been complete d for the patient 02/07/2020 3:44 PM CDT PHQ-2 Depression Total Score: 2 12/10/19 20 2:50 PM CDT documented as of this encounter Care Teams Inspector Filter Tip Relationship Specialty Start Date End Date Che Williamson MD [address] [place] [address] PCP - General 08/27/12 03/20/22 Prashanth Martinez MD [address] [place] [address] PCP - General Pediatric Medicine 03/21/22 Lynda Skelton MD [facility] [place] [address] Provider Team Family Practice 06/10/17 Chelsea Hensley MD [address] [place] [address] Endocrinology 12/08/18 documented as of this encounter
--- OUTSIDE RECORDS SUMMARY | 2025-01-28 20:19 | XMS_ITS | Encounter Summary ---
Author Organization [facility] Care Address [address] [place] [address] Phone Care Team Providers Care Maintenance Parts Technician Name Role Phone Che Williamson MD Primary Care Provider + [phone] Lynda Skelton MD Unavailable Chelsea Hensley MD Unavailable [phone] Prashanth Martinez MD Primary Care Provider [phone] Encounter Details Date Type Department Care Team (Late st Contact Info) Description 02/08/2020 Pharmacy Visit [facility] [address] [place] [address] Social History Tobacco Use Types Packs/Day Years Used Date Smoking Tobacco: Never Smokeless Tobacco: Never Alcohol Use Standard Drinks/Week Comments No 0 (1 standard drink = 0.6 oz pur e alcohol) Comments No Sex and Gender Information Value Date Recorded Sex Assigned at Female 07/13/2019 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 Legal Sex Female 2:51 AM CDT Gender Identity Transgender Male 05/05/2019 1:23 PM CDT Sexual Orientation Pedraza 06/23/2023 10 :56 AM CDT documented as of this encounter Plan of Treatment Upcoming Encounters Date Type Department Care Team (Late st Contact Info) Description 04/21/2025 2:15 PM CDT Appointment [place] - [facility] - Adolescent Clinic [address] [phone] Prashanth Martinez MD [address] [place] [address] 05/02/2025 8:40 AM CDT Appointment [place] [facility] - Optometry [address] [phone] Danuta Golden OD [address] [place] [address] documented as of this encounter Visit Diagnoses Not on filedocumented in this encounter Additional Health Concerns Infection Onset Date Last Indicated Resolved Time COVID-19 09/28/2021 09/28/2021 10/28/2021 9:44 PM SUPERVISOR BRAIDING Assessment Noted Time PHQ-9 Depression Total Score: 9 11/25/19 18 2:15 PM CDT A fall risk assessment has been complete d for the patient 02/07/2020 3:44 PM CDT PHQ-2 Depression Total Score: 2 12/10/19 20 2:50 PM CDT documented as of this encounter Care Teams Maintenance Parts Technician Relationship Specialty Start Date End Date Che Williamson MD [address] [place] [address] PCP - General 08/27/12 03/20/22 Prashanth Martinez MD [address] [place] [address] PCP - General Pediatric Medicine 03/21/22 Lynda Skelton MD [facility] [place] [address] Provider Team Family Practice 06/10/17 Chelsea Hensley MD [address] [place] [address] Endocrinology 12/08/18 documented as of this encounter
--- OUTSIDE RECORDS SUMMARY | 2025-01-28 20:19 | XMS_ITS | Encounter Summary ---
Author Organization [facility] Care Address [address] [place] [address] Phone Care Team Providers Care Rn Home Care Name Role Phone Che Williamson MD Primary Care Provider + [phone] Lynda Skelton MD Unavailable [phone] Franchesca Manley Unavailable Unavailable Chelsea Hensley MD Unavailable [phone] Prashanth Martinez MD Primary Care Provider [phone] Encounter Details Date Type Department Care Team (Late st Contact Info) Description 03/02/2018 Pharmacy Visit [facility] - Pharmacy - Business Office [address] [place] [address] Social History Tobacco Use Types Packs/Day Years Used Date Smoking Tobacco: Never Smokeless Tobacco: Never Alcohol Use Standard Drinks/Week Comments No 0 (1 standard drink = 0.6 oz pur e alcohol) Comments No Sex and Gender Information Value Date Recorded Sex Assigned at Female 07/13/2019 6:16 PM 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 Legal Sex Female 2:51 AM CDT Gender Identity Transgender Male 05/05/2019 1:23 PM CDT Sexual Orientation Pedraza 06/23/2023 10 :56 AM CDT documented as of this encounter Plan of Treatment Upcoming Encounters Date Type Department Care Team (Late st Contact Info) Description 04/21/2025 2:15 PM CDT Appointment [place] - [facility] - Adolescent Clinic [address] [phone] Prashanth Martinez MD [address] [place] [address] 05/02/2025 8:40 AM CDT Appointment [facility] - Ophthalmology - Optometry [address] [phone] Danuta Golden OD [address] [place] [address] documented as of this encounter Visit Diagnoses Not on filedocumented in this encounter Additional Health Concerns Infection Onset Date Last Indicated Resolved Time COVID-19 09/28/2021 09/28/2021 10/28/2021 9:44 PM 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 Assessment Noted Time PHQ-9 Depression Total Score: 9 11/25/19 18 2:15 PM CDT PHQ-2 Depression Total Score: 4 11/25/19 18 2:15 PM CDT documented as of this encounter Care Teams Rn Home Care Relationship Specialty Start Date End Date Che Williamson MD [address] [place] [address] PCP - General 08/27/12 03/20/22 Prashanth Martinez MD [address] [place] [address] PCP - General Pediatric Medicine 03/21/22 Lynda Skelton MD [address] [place] [address] Provider Team Family Practice 06/10/17 Franchesca Manley 12/09/17 12/07/18 Chelsea Hensley MD [address] [place] [address] Endocrinology 12/08/18 documented as of this encounter
--- OUTSIDE RECORDS SUMMARY | 2025-01-28 20:19 | XMS_ITS | Encounter Summary ---
Author Organization [facility] Care Address [address] [place] [address] Phone Care Team Providers Care Cake Stripper Name Role Phone Che Williamson MD Primary Care Provider Lynda Skelton MD Unavailable Franchesca Manley Unavailable Unavailable Chelsea Hensley MD Unavailable [phone] Prashanth Martinez MD Primary Care Provider [phone] Encounter Details Date Type Department Care Team (Late st Contact Info) Description 04/07/2018 Pharmacy Visit [facility] - Pharmacy - Specialty [address] [place] [address] Social History Tobacco Use Types Packs/Day Years Used Date Smoking Tobacco: Never Smokeless Tobacco: Never Alcohol Use Standard Drinks/Week Comments No 0 (1 standard drink = 0.6 oz pur e alcohol) Comments No Sex and Gender Information Value Date Recorded Sex Assigned at Female 07/13/2019 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 Legal Sex Female 2:51 AM CDT Gender Identity Transgender Male 05/05/2019 1:23 PM CDT Sexual Orientation Pedraza 06/23/2023 10 :56 AM CDT documented as of this encounter Plan of Treatment Upcoming Encounters Date Type Department Care Team (Late st Contact Info) Description 04/21/2025 2:15 PM CDT Appointment [place] [facility] - Adolescent Clinic [address] [phone] Prashanth Martinez MD [address] [place] [address] 05/02/2025 8:40 AM CDT Appointment [facility] - Ophthalmology - Optometry [address] [phone] Danuta Golden OD [address] [place] [address] documented as of this encounter Visit Diagnoses Not on filedocumented in this encounter Additional Health Concerns Infection Onset Date Last Indicated Resolved Time COVID-19 09/28/2021 09/28/2021 10/28/2021 9:44 PM ELECTRICAL TECH Assessment Noted Time PHQ-9 Depression Total Score: 9 11/25/19 18 2:15 PM CDT PHQ-2 Depression Total Score: 4 11/25/19 18 2:15 PM CDT documented as of this encounter Care Teams Cake Stripper Relationship Specialty Start Date End Date Che Williamson MD [address] [place] [address] PCP - General 08/27/12 03/20/22 Prashanth Martinez MD [address] [place] [address] PCP - General Pediatric Medicine 03/21/22 Lynda Skelton MD [address] [place] [address] Provider Team Family Practice 06/10/17 Franchesca Manley 12/09/17 12/07/18 Chelsea Hensley MD [address] [place] [address] Endocrinology 12/08/18 documented as of this encounter
--- OUTSIDE RECORDS SUMMARY | 2025-01-28 20:19 | XMS_ITS | Clinical Summary ---
Author Organization [facility] Address [address] [place] [address] Care Team Providers Care Rib Trim Separator Name Role Phone Lynda Skelton MD Unavailable Chelsea Hensley MD Unavailable Prashanth Martinez MD Primary Care Provider [phone] Source Comments This disclosure is being made pursuant to the Care Everywhere program,applicable federal and state laws, and may not contain all informationavailable regarding this patient.[facility] Practices Allergies Active Allergy Reactions Criticality Noted Date Comments Cephalexin Urticaria (Hives) 04/01/2021 04/01/2021 Cotrim Double-Strength Urticaria (Hives) 202004/01/2021 Medications etonogestrel (NEXPLANON) 68 mg subdermal implantIndicatio ns:Nexplanon insertion Inject 1 implant under the skin once. 1 implant 3 09/29/19 26 Active emtricitabine-te nofovir disoproxil fumarate (TRUVADA) 200-300 mg per tabletIndication s:Gender dysphoria,Endocr ine disorder,Encount er for HIV pre-exposure prophylaxis Take 1 tablet by mouth daily. 90 tablet 1 4 Active doxycycline monohydrate (ADOXA) 100 mg tabletIndication s:Encounter for HIV pre-exposure prophylaxis Take 2 tablets (200 mg total) by mouth as needed for Other (within 72 hours of sex). Within 72 hours (best results within 24 hours) of sex that places individual at risk for sexually transmitted infection 60 tablet 1 4 Active testosterone (VOGELXO) 1% (12.5 mg/1.25 g) per actuation topical gel pumpIndications: Endocrine Disorder, NOS Apply 4 actuations (50 mg total) topically every morning. 150 g 2 5 Active busPIRone (BUSPAR) 10 mg tabletIndication s:Anxiety Take 1 tablet (10 mg total) by mouth daily. 30 tablet 3 5 Active ARIPiprazole (ABILIFY) 5 mg tabletIndication s:Moderate episode of recurrent major depressive disorder (HCC) Take 1 tablet (5 mg total) by mouth daily. 90 tablet 1 5 Active ARIPiprazole (ABILIFY) 2 mg tabletIndication s:Moderate episode of recurrent major depressive disorder (HCC) Take 1 tablet (2 mg total) by mouth daily. 90 tablet 1 5 Active escitalopram oxalate (LEXAPRO) 20 mg tabletIndication s:Anxiety,Modera te episode of recurrent major depressive disorder (HCC) Take 1.5 tablets (30 mg total) by mouth daily. 135 tablet 1 5 Active Active Problems Problem Noted Date Diagnosed Date Class 3 obesity 12/22/2023 Implantable subdermal contra ceptive (Nexplanon placed 09/30/2022) 12/23/2022 Recurrent major depressive disorder 02/04/2022 History of suicide attempt, intentional overdose (Tylenol) in 06/11/2021 06/10/2021 Overview (05/05/2023): Established: Child & Adolescent Psychiatry - Concurrent diagnoses: Anxiety, Depression, Gender dysphoria - Psychotherapy: Kaushal is seeing Heydi Machuca at [facility] for therapy as of 03/21/22 Safety Plan: Parents Psychiatric History: - History of non-suicidal self-injurious behaviors: Cutting - Prior psychiatric hospitalization(s): None - History of suicide attempt(s): 06/2021 intentional overdose Myopia, 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 Chelsea Hilliard [facility] Gender Affirming Medical Care: - Pubertal Avinash: history of Lupron use - Hormonal: 11/10/2019 T-Birthday - Surgical: -- Top: double incision mastectomy with free nipple grafts on 01/10/[address] Spring of [facility] Family history of thyroid disease in mother 09/2016 Anxiety 05/06/2017 Overview (05/06/2017): No hospitalizations. Endocrine disorder 05/06/2017 Resolved Problems Problem Noted Date Diagnosed Date Resolved Date Suicidal ideation 06/10/2021 03/30/2022 Disorder of puberty 06/08/2017 03/30/20 22 Spasm of accommodation 06/11/201301/10 Hyperopia 06/11/2013 01/10/2017 Unspecified hearing loss 01/05/2008 Routine or child health check 07/03/2005 07/06/2009 Encounters Date Type Department Care Team Description 12/07/2024 1:30 PM CDT Office Visit [facility] - Psychiatry [address] [place] [address] Nick Pepe MD Rock, Melanie S, ARNP 12/07/2024 Travel 12/02/2024 Travel 11/29/2024 Refill [facility] - Psychiatry [address] [place] [address] Elis Pearl ARNP from Last 3 Months Immunizations Immunization Administration Dates Next Due COVID-19, mRNA 12+ yo (PFIZE R) 30mcg/0.3mL 08/25/2021,12/26/2020,12/05/2020 COVID-19, mRNA, BIVALENT 12+ yo (PFIZER) 30mcg/0.3mL 06/02/2022 COVID-19, mRNA, PF 30mcg/0.3 mL (COMIRNATY) 08/26/2024,12/04/2023 COVID-19, mRNA, PF 50mcg/0.5 mL (SPIKEVAX) 06/21/2023 DTaP 06/30/2008,10/02/2005 DTaP-Hep B-IPV (Pediarix) 2004,2004, 2004 HPV, 9 valent (Gardasil 9) 05/08/2016,01/04/2016 ,11/01/2015 Hepatitis A, unspecified 07/02/2006,10/02/2005 Hib, HbOC (Hibtiter) 2004,2004,08/27 Hib, PRP-T 10/02/2005 Influenza 06/10/2024 Influenza, MDCK quadrivalent PF 06/02/2022 Influenza, PF 07/16/2011 Influenza, live attenuated nasal 07/10/2010,06/09,06/30/2008 Influenza, quadrivalent 06/08/2023 Influenza, quadrivalent PF 06/21/2023,06/13/2017 Influenza, unspecified 06/02/2022,2015,07/01/2007,07/02,08/05/2005,07/03/2005 Influenza, unspecified nasal 06/26/2014 MMR 06/30/2008,07/03/2005 Meningococcal B, OMV adjuvan ascencion (Bexsero) 12/23/2022,03/21/2022 Meningococcal Conjugate, MCV 4P (Menactra) 01/24/2021,11/01/2015 Pneumococcal Conjugate, PCV7 (Prevnar 7) 07/03/2005,2004,2004,08/27 Polio/IPV 06/30/2008 Tdap 11/01/2015 Varicella 06/30/2008,10/02/2005 Family History Medical History Relation Comments Alcohol abuse Maternal Grandfather Cancer Maternal Grandfather lung, pancr eatic Cataract Maternal Grandfather Cataract Maternal Grandmother Diabetes Maternal Grandmother Diabetes Mother type 1.5 Thyroid Disease Mother hypothyroidism Relation Status Comments Maternal Grandfather Maternal Grandmother Alive Mother Social History Tobacco Use Types Packs/Day Years Used Date Smoking Tobacco: Never Passive Smoke Exposure: Never Smokeless Tobacco: Never Tobacco Cessation:Counseling Given: Not Answered Alcohol Use Standard Drinks/Week Comments No 0 (1 standard drink = 0.6 oz pur e alcohol) PHQ-2 Answer Date Recorded Total score/PHQ-2 2 12/07/2024 PHQ-9 Answer Date Recorded Total Score (PHQ-9 includes PHQ-2 questions/scor e) 11 12/07/2024 Abuse Risk Answer Date Recorded Are you in an UNsafe relationship? Not on file 11/12/2023 Does your partner/boyfriend or girlfriend hit, kick, hurt, or threaten you? Not on file 11/12/2023 Have you suffered any injury as a result of abuse in the past year? Not on file 11/12/2023 Does your partner/boyfriend or girlfriend ever try to control you by threatening you or your family? Not on file 024 Are you currently being forc ed to engage in sexual activity? Not on file 11/12/2023 Are you being abused or thre atened in your work or home environment? Not on file 11/12/2023 Are you being forced to work? Not on file Is the patient a d ependent adult ? Not on file 11/12/2023 Do you feel unsafe at home? Does not apply 02/2024 Has anyone tried to force yo u to sign papers or to use your money against your will? Does not apply 11/12/2023 Comments No Sex and Gender Information Value Date Recorded Sex Assigned at Female 07/13/2019 6:16 PM RENTAL BOATS CARETAKER Legal Sex Female 2:51 AM CDT Gender Identity Transgender Male 05/05/2019 1:23 PM CDT Sexual Orientation Pedraza 06/23/2023 10 :56 AM CDT Last Filed Vital Signs Vital Sign Reading Time Taken Comments Blood Pressure 111/72 12/07/2024 1:19 PM CDT Pulse 90 12/07/2024 1:19 PM CDT Temperature 35.7 C (96.3 F) 12/07/2024 1:19 PM CDT Respiratory Rate 18 08/27/2024 10:33 AM RENTAL BOATS CARETAKER Oxygen Saturation 97% 12/07/2024 1:19 PM CDT Inhaled Oxygen Concentration - - Weight 133.3 kg (293 lb 14 oz) 12/07/2024 1:19 P M CDT Height 180 cm (5' 10.87) 08/26/2024 8:32 AM RENTAL BOATS CARETAKER Body Mass Index 41.14 08/26/2024 8:32 AM RENTAL BOATS CARETAKER Plan of Treatment Upcoming Encounters Date Type Department Care Team (Late st Contact Info) Description 04/21/2025 2:15 PM CDT Appointment [place] - [place] - Adolescent Clinic [address] [address] Prashanth Martinez MD [address] [place], [place] [phone] 05/02/2025 8:40 AM CDT Appointment [facility] - Ophthalmology - Optometry [address] [phone] Danuta Golden OD [address] [place], [place] [phone] Health Maintenance Due Date Last Done Comments Annual Physical Visit 08/26/2025 08/26/2024 , 08/26/2024, 05/05/2023, Additional history exists Tetanus Diphtheria Pertussis (7 - Td or Tdap) 11/01/2025 11/01/2015, 06/30/2008, 10/02/2005, Additional history exists Hepatitis B Vaccine Completed 2004, 2004, 2004 Varicella Vaccine Completed 06/30/2008, 10/02/2005 HPV Vaccine Completed 05/08/2016, 12/08, 11/01/2015 MenACWY Meningococcal Vaccine Completed 01/24/2021, 11/01/2015 Chlamydia Screening Discontinued 12/23/2022 MSM : Gonorrhea and Chlamydi a Screening Discontinued 12/23/2022, 12/23/2022 MenB Meningococcal Vaccine Completed 12/23/2022, Influenza Vaccine: Seasonal Completed 11/2023, 06/21/2023, 06/08/2023, Additional history exists [id number]-PCNR-QeM-2 Vaccine Completed 024, 12/04/2023, 06/21/2023, Additional history exists Dyslipidemia [place] Screening Completed 08/26/2024, 12/06/2023, 05/05/2023, Additional history exists HCV Screening Completed 08/26/2024, 05/05/2023 HIV [place] Screening Completed 08/26/2024, 05/05 Medical Devices Implanted Type Area House Mother Device Identifier Shelf Expiration Date Model / Serial / Lot Etonogestrel Implant 68 Mg - Nexplanon - [id number] Implanted:Qty: 1 on 09/30/2022 by Fransisca Purvis MD at [facility] Left: Arm ORGANON_PHARM [id number] 07/01/2024 [id number] / [id number] / [id number] Procedures Procedure Name Priority Date/Time Associated Diagnosis Comments LIPID PANEL Routine 08/26/2024 9:29 AM RENTAL BOATS CARETAKER Gender dysphoria Endocrine disorder Encounter for HIV pre-exposure prophylaxis HIV ANTIGEN/ANTIBODY COMBO (HIV-1 AND HIV-2) Routine 08/26/2024 9:29 AM RENTAL BOATS CARETAKER Gender dysphoria Endocrine disorder Encounter for HIV pre-exposure prophylaxis HEPATITIS C ANTIBODY Routine 08/26/2024 9:29 AM RENTAL BOATS CARETAKER Gender dysphoria Endocrine disorder Encounter for HIV pre-exposure prophylaxis CHLAMYDIA TRACHOMATIS DETECTION BY PCR Routine 12/23/2022 9:10 AM CDT Irregular bleeding NEISSERIA GONORRHOEAE PCR Routine 12/23/2022 9:10 AM CDT Irregular bleeding from Last 3 Months or Most Recently Relevant to Health Maintenance Results * HIV ANTIGEN/ANTIBODY COMBO (HIV-1 AND HIV-2) (08/26/2024 9:29 AM RENTAL BOATS CARETAKER) HIV Antigen/Antibod y, Qualitative Negative Negative, See Note 08/26/2024 3:29 PM RENTAL BOATS CARETAKER [facility] Comment:Assay switched to th e [place] [employer] HIV Duo assay on 09/25/2021. Blood Venipuncture / Unknown 08/26/2024 9:29 AM RENTAL BOATS CARETAKER 08/26/2024 9:42 AM RENTAL BOATS CARETAKER us Prashanth Martinez MD CHEMISTRY ORDERABLES Final Result [facility] [address] [place] [address] * HEPATITIS C ANTIBODY (08/26/2024 9:29 AM RENTAL BOATS CARETAKER) Hepatitis C Antibody Negative Negative 08/26/2024 10:20 AM RENTAL BOATS CARETAKER [facility] Comment: Assay updated with increased tolerance to biotin on 01/20/2024. Blood Venipuncture / Unknown 08/26/2024 9:29 AM RENTAL BOATS CARETAKER 08/26/2024 9:42 AM RENTAL BOATS CARETAKER us Prashanth Martinez MD CHEMISTRY ORDERABLES Final Result Performing Organization Address City/[facility] Co de Phone Number [facility] [address] [address] * (ABNORMAL) LIPID PANEL (08/26/2024 9:29 AM RENTAL BOATS CARETAKER) Specimen Type Not specified 08/26/20 10:09 AM RENTAL BOATS CARETAKER [facility] Cholesterol 148 mg/dL 08/26/2024 10:09 AM RENTAL BOATS CARETAKER [facility] Comment: Guidelines from the National Lipid Association and the National Cholesterol Education Program for cardiovascular risk for adults 18 years of age and older: Desirable: <200 mg/dL Borderline High: 200-239 mg/dL High: > or =240 mg/dL Triglycerides 191(H) 0 - 149 mg/dL 08/26/2024 10:09 AM RENTAL BOATS CARETAKER [facility] Comment: Guidelines from the National Lipid Association and the National Cholesterol Education Program for cardiovascular risk for adults 18 years of age and older: Normal: <150 mg/dL Borderline-high: 150-199 mg/dL High: 200-499 mg/dL Very high: > or = 500 mg/dL HDL Cholesterol 40 mg/dL 10:09 AM RENTAL BOATS CARETAKER [facility] Comment: Guidelines from the National Lipid Association and the National Cholesterol Education Program for cardiovascular risk for adults 18 years of age and older: Males: 40 mg/dL or higher Females: 50 mg/dL or higher LDL Cholesterol, Calculated 70 <=130 mg/dL 08/26/2024 10:09 AM RENTAL BOATS CARETAKER [facility] Comment: Guidelines from the National Lipid Association and the National Cholesterol Education Program for cardiovascular risk for adults 18 years of age and older: Desirable: <100 mg/dL Above Desirable: 100-129 mg/dL Borderline High: 130-159 mg/dL High: 160-189 mg/dL Very High: > or =190 mg/dL Non-HDL Cholesterol, Calculated 108 mg/dL 08/26/2024 10:09 AM RENTAL BOATS CARETAKER [facility] Comment: Guidelines from the National Lipid Association and the National Cholesterol Education Program for cardiovascular risk for adults 18 years of age and older: Desirable: <130 mg/dL Above Desirable: 130-159 mg/dL Borderline High: 160-189 mg/dL High: 190-219 mg/dL Very High: > or =220 mg/dL Blood Venipuncture / Unknown 08/26/2024 9:29 AM RENTAL BOATS CARETAKER 08/26/2024 9:42 AM RENTAL BOATS CARETAKER Prashanth Martinez MD CHEMISTRY ORDERABLES Final Result [facility] [address] [address] * NEISSERIA GONORRHOEAE PCR (12/23/2022 9:10 AM CDT) Gonorrhea PCR Not Detected Not Detected [facility] 12/23/2022 12:28 PM CDT [facility] Other URINE SPECIMEN / Unknown 12/23/2022 9:10 AM CDT 12/23/2022 9:22 AM CDT Narrative [facility] - 12/23/2022 12:28 PM CDT Test methodology: PCR amplification; Xpert CT/NG Assay ([employer]) Prashanth Martinez MD MICROBIOLOGY - GENERAL ORDE RABLES Final Result [facility] [address] [place] [address] * CHLAMYDIA TRACHOMATIS DETECTION BY PCR (12/23/2022 9:10 AM CDT) Chlamydia trachomatis PCR Not Detected Not Detected LAB [facility] 12/23/2022 12:28 PM CDT [facility] Other URINE SPECIMEN / Unknown 12/23/2022 9:10 AM CDT 12/23/2022 9:22 AM CDT Narrative [facility] - 12/23/2022 12:28 PM CDT Test methodology: PCR amplification; Xpert CT/NG Assay ([employer]) us Prashanth Martinez MD MICROBIOLOGY - GENERAL ROBIN JARAMILLO Final Result [facility] [address] [place] [address] from Last 3 Months or Most Recently Relevant to Health Maintenance Insurance [facility] Advance Directives For more information, please contact: [phone] Documents on File Type Date Recorded Patient Bulker Expl anation External-Legal Documents 07/17/2020 5:10 PM [facility] for Change of Name of Minor Child * Full Code (Latest Code Status on File) Date Activated Date Inactivated Comments 04/26/2022 2:46 PM 05/02/2022 3:18 PM * Full Code Date Activated Date Inactivated Comments 04/26/2022 8:50 AM 04/26/2022 2:46 PM * Full Code Date Activated Date Inactivated Comments 04/25/2022 7:10 PM 04/26/2022 8:50 AM * Full Code Date Activated Date Inactivated Comments 04/25/2022 3:25 PM 04/25/2022 7:10 PM * Full Code Date Activated Date Inactivated Comments 02/04/2022 6:15 PM 02/04/2022 9:19 PM Care Teams Rib Trim Separator Relationship Specialty Start Date End Date Prashanth Martinez MD [address] [place] [address] PCP - General Pediatric Medicine 03/21/22 Lynda Skelton MD [facility] [place] [address] Provider Team Family Practice 06/10/17 Chelsea Hensley MD [address] [place] [address] Endocrinology 12/08/18
--- OUTSIDE RECORDS SUMMARY | 2025-01-28 20:19 | XMS_ITS | Encounter Summary ---
Author Organization [facility] Address [address] [place] [address] Phone Care Team Providers Care Oil Truck Driver Name Role Phone Che Williamson MD Primary Care Provider + [phone] Lynda Skelton MD Unavailable Franchesca Manley Unavailable Unavailable Chelsea Hensley MD Unavailable [phone] Prashanth Martinez MD Primary Care Provider [phone] Encounter Details Date Type Department Care Team (Late st Contact Info) Description 03/16/2018 Pharmacy Visit [facility] - Pharmacy - Specialty [address] [place] [address] Social History Tobacco Use Types Packs/Day Years Used Date Smoking Tobacco: Never Smokeless Tobacco: Never Alcohol Use Standard Drinks/Week Comments No 0 (1 standard drink = 0.6 oz pur e alcohol) Comments No Sex and Gender Information Value Date Recorded Sex Assigned at Female 07/13/2019 6:16 PM LOW PRESSURE KETTLE OPERATOR Legal Sex Female 2:51 AM CDT Gender Identity Transgender Male 05/05/2019 1:23 PM CDT Sexual Orientation Pedraza 06/23/2023 10 :56 AM CDT documented as of this encounter Plan of Treatment Upcoming Encounters Date Type Department Care Team (Late st Contact Info) Description 04/21/2025 2:15 PM CDT Appointment [place] [facility] - Adolescent Clinic [address] [phone] Prashanth Martinez MD [address] [place] [address] 05/02/2025 8:40 AM CDT Appointment [facility] - Ophthalmology - Optometry [address] [phone] Danuta Golden OD [address] [place] [address] documented as of this encounter Visit Diagnoses Not on filedocumented in this encounter Additional Health Concerns Infection Onset Date Last Indicated Resolved Time COVID-19 09/28/2021 09/28/2021 10/28/2021 9:44 PM LOW PRESSURE KETTLE OPERATOR Assessment Noted Time PHQ-9 Depression Total Score: 9 11/25/19 18 2:15 PM CDT PHQ-2 Depression Total Score: 4 11/25/19 18 2:15 PM CDT documented as of this encounter Care Teams Oil Truck Driver Relationship Specialty Start Date End Date Che Williamson MD [address] [place] [address] PCP - General 08/27/12 03/20/22 Prashanth Martinez MD [address] [place] [address] PCP - General Pediatric Medicine 03/21/22 Lynda Skelton MD [address] [place] [address] Provider Team Family Practice 06/10/17 Franchesca Manley 12/09/17 12/07/18 Chelsea Hensley MD [address] [place] [address] Endocrinology 12/08/18 documented as of this encounter
--- OUTSIDE RECORDS SUMMARY | 2025-01-28 20:19 | XMS_ITS | Encounter Summary ---
Author Organization [facility] Care Address [address] [place] [address] Phone Care Team Providers Care Turret Press Operator Name Role Phone Che Williamson MD Primary Care Provider + [phone] Lynda Skelton MD Unavailable Chelsea Hensley MD Unavailable [phone] Prashanth Martinez MD Primary Care Provider [phone] Encounter Details Date Type Department Care Team (Late st Contact Info) Description 02/24/2020 Pharmacy Visit [facility] - Pharmacy - Specialty [address] [place] [address] Social History Tobacco Use Types Packs/Day Years Used Date Smoking Tobacco: Never Smokeless Tobacco: Never Alcohol Use Standard Drinks/Week Comments No 0 (1 standard drink = 0.6 oz pur e alcohol) Comments No Sex and Gender Information Value Date Recorded Sex Assigned at Female 07/13/2019 6:16 PM HOTEL MAINTENANCE TECHNICIAN Legal Sex Female 2:51 AM CDT Gender Identity Transgender Male 05/05/2019 1:23 PM CDT Sexual Orientation Pedraza 06/23/2023 10 :56 AM CDT documented as of this encounter Plan of Treatment Upcoming Encounters Date Type Department Care Team (Late st Contact Info) Description 04/21/2025 2:15 PM CDT Appointment [place] - [place] - Adolescent Clinic [address] [phone] Prashanth Martinez MD [address] [place] [address] 05/02/2025 8:40 AM CDT Appointment [place] [facility] - Ophthalmology - Optometry [address] [phone] Danuta Golden OD [address] [place] [address] documented as of this encounter Visit Diagnoses Not on filedocumented in this encounter Additional Health Concerns Infection Onset Date Last Indicated Resolved Time COVID-19 09/28/2021 09/28/2021 10/28/2021 9:44 PM HOTEL MAINTENANCE TECHNICIAN Assessment Noted Time PHQ-9 Depression Total Score: 9 11/25/19 18 2:15 PM CDT A fall risk assessment has been complete d for the patient 02/11/2020 3:07 PM CDT PHQ-2 Depression Total Score: 2 12/10/19 20 2:50 PM CDT documented as of this encounter Care Teams Turret Press Operator Relationship Specialty Start Date End Date Che Williamson MD [address] [place] [address] PCP - General 08/27/12 03/20/22 Prashanth Martinez MD [address] [place] [address] PCP - General Pediatric Medicine 03/21/22 Lynda Skelton MD [facility] [place] [address] Provider Team Family Practice 06/10/17 Chelsea Hensley MD [address] [place] [address] Endocrinology 12/08/18 documented as of this encounter
--- OUTSIDE RECORDS SUMMARY | 2025-01-28 20:19 | XMS_ITS | Encounter Summary ---
Author Organization [facility] Care Address [address] [place] [address] Phone Care Team Providers Care Tire Inspector Name Role Phone Che Williamson MD Primary Care Provider + [phone] Lynda Skelton MD Unavailable Chelsea Hensley MD Unavailable [phone] Prashanth Martinez MD Primary Care Provider [phone] Encounter Details Date Type Department Care Team (Late st Contact Info) Description 04/13/2020 Pharmacy Visit [facility] - Pharmacy - Specialty [address] [place] [address] Social History Tobacco Use Types Packs/Day Years Used Date Smoking Tobacco: Never Smokeless Tobacco: Never Alcohol Use Standard Drinks/Week Comments No 0 (1 standard drink = 0.6 oz pur e alcohol) Comments No Sex and Gender Information Value Date Recorded Sex Assigned at Female 07/13/2019 6:16 PM EXCELLENCE CONSULTANT Legal Sex Female 2:51 AM CDT Gender Identity Transgender Male 05/05/2019 1:23 PM CDT Sexual Orientation Pedraza 06/23/2023 10 :56 AM CDT documented as of this encounter Plan of Treatment Upcoming Encounters Date Type Department Care Team (Late st Contact Info) Description 04/21/2025 2:15 PM CDT Appointment [place] [facility] [address] [phone] Prashanth Martinez MD [address] [place] [address] 05/02/2025 8:40 AM CDT Appointment [facility] - [facility] - Ophthalmology - Optometry [address] [phone] Danuta Golden OD [address] [place] [address] documented as of this encounter Visit Diagnoses Not on filedocumented in this encounter Additional Health Concerns Infection Onset Date Last Indicated Resolved Time COVID-19 09/28/2021 09/28/2021 10/28/2021 9:44 PM EXCELLENCE CONSULTANT Assessment Noted Time PHQ-9 Depression Total Score: 9 11/25/19 18 2:15 PM CDT A fall risk assessment has been complete d for the patient 03/21/2020 3:05 PM CDT PHQ-2 Depression Total Score: 2 12/10/19 20 2:50 PM CDT documented as of this encounter Care Teams Tire Inspector Relationship Specialty Start Date End Date Che Williamson MD [address] [place] [address] PCP - General 08/27/12 03/20/22 Prashanth Martinez MD [address] [place] [address] PCP - General Pediatric Medicine 03/21/22 Lynda Skelton MD [facility] [place] [address] Provider Team Family Practice 06/10/17 Chelsea Hensley MD [address] [place] [address] Endocrinology 12/08/18 documented as of this encounter
--- OUTSIDE RECORDS SUMMARY | 2025-01-28 20:19 | XMS_ITS | Encounter Summary ---
Author Organization [facility] Care Address [address] [place] [address] Phone Care Team Providers Care Popped Corn Oven Attendant Name Role Phone Che Williamson MD Primary Care Provider + [phone] Lynda Skelton MD Unavailable Chelsea Hensley MD Unavailable [phone] Prashanth Martinez MD Primary Care Provider [phone] Encounter Details Date Type Department Care Team (Late st Contact Info) Description 01/03/2020 Pharmacy Visit [facility] - Pharmacy - Specialty [address] [place] [address] Social History Tobacco Use Types Packs/Day Years Used Date Smoking Tobacco: Never Smokeless Tobacco: Never Alcohol Use Standard Drinks/Week Comments No 0 (1 standard drink = 0.6 oz pur e alcohol) Comments No Sex and Gender Information Value Date Recorded Sex Assigned at Female 07/13/2019 6:16 PM BACK JOINER Legal Sex Female 2:51 AM CDT Gender Identity Transgender Male 05/05/2019 1:23 PM CDT Sexual Orientation Pedraza 06/23/2023 10 :56 AM CDT documented as of this encounter Plan of Treatment Upcoming Encounters Date Type Department Care Team (Late st Contact Info) Description 04/21/2025 2:15 PM CDT Appointment [facility] - [facility] - [facility] [address] [phone] Prashanth Martinez MD [address] [place] [address] 05/02/2025 8:40 AM CDT Appointment [facility] - [facility] - Ophthalmology - Optometry [address] [phone] Danuta Golden OD [address] [place] [address] documented as of this encounter Visit Diagnoses Not on filedocumented in this encounter Additional Health Concerns Infection Onset Date Last Indicated Resolved Time COVID-19 09/28/2021 09/28/2021 10/28/2021 9:44 PM BACK JOINER Assessment Noted Time PHQ-9 Depression Total Score: 9 11/25/19 18 2:15 PM CDT A fall risk assessment has been complete d for the patient 12/13/2019 4:01 PM CDT PHQ-2 Depression Total Score: 2 12/10/19 20 2:50 PM CDT documented as of this encounter Care Teams Popped Corn Oven Attendant Relationship Specialty Start Date End Date Che Williamson MD [address] [place] [address] PCP - General 08/27/12 03/20/22 Prashanth Martinez MD [address] [place] [address] PCP - General Pediatric Medicine 03/21/22 Lynda Skelton MD [facility] [place] [address] Provider Team Family Practice 06/10/17 Chelsea Hensley MD [address] [place] [address] Endocrinology 12/08/18 documented as of this encounter
--- OUTSIDE RECORDS SUMMARY | 2025-01-28 20:19 | XMS_ITS | Encounter Summary ---
Author Organization [facility] Care Address [address] [place] [address] Phone Care Team Providers Care Chimney Builder Helper Name Role Phone Che Williamson MD Primary Care Provider + [phone] Lynda Skelton MD Unavailable Franchesca Manley Unavailable Unavailable Chelsea Hensley MD Unavailable [phone] Prashanth Martinez MD Primary Care Provider [phone] Encounter Details Date Type Department Care Team (Late st Contact Info) Description 11/12/2018 Pharmacy Visit [facility] - Pharmacy - Specialty [address] [place] [address] Social History Tobacco Use Types Packs/Day Years Used Date Smoking Tobacco: Never Smokeless Tobacco: Never Alcohol Use Standard Drinks/Week Comments No 0 (1 standard drink = 0.6 oz pur e alcohol) Comments No Sex and Gender Information Value Date Recorded Sex Assigned at Female 07/13/2019 6:16 PM PAPER SLITTER Legal Sex Female 2:51 AM CDT Gender Identity Transgender Male 05/05/2019 1:23 PM CDT Sexual Orientation Pedraza 06/23/2023 10 :56 AM CDT documented as of this encounter Plan of Treatment Upcoming Encounters Date Type Department Care Team (Late st Contact Info) Description 04/21/2025 2:15 PM CDT Appointment [place] - [facility] - Adolescent Clinic [address] [phone] Prashanth Martinez MD [address] [place] [address] 05/02/2025 8:40 AM CDT Appointment [facility] - Ophthalmology - Optometry [address] [phone] Danuta Golden OD [address] [place] [address] documented as of this encounter Visit Diagnoses Not on filedocumented in this encounter Additional Health Concerns Infection Onset Date Last Indicated Resolved Time COVID-19 09/28/2021 09/28/2021 10/28/2021 9:44 PM PAPER SLITTER Assessment Noted Time PHQ-9 Depression Total Score: 9 11/25/19 18 2:15 PM CDT PHQ-2 Depression Total Score: 4 11/25/19 18 2:15 PM CDT documented as of this encounter Care Teams Chimney Builder Helper Relationship Specialty Start Date End Date Che Williamson MD [address] [place] [address] PCP - General 08/27/12 03/20/22 Prashanth Martinez MD [address] [place] [address] PCP - General Pediatric Medicine 03/21/22 Lynda Skelton MD [address] [place] [address] Provider Team Family Practice 06/10/17 Franchesca Manley 12/09/17 12/07/18 Chelsea Hensley MD [address] [place] [address] Endocrinology 12/08/18 documented as of this encounter
--- OUTSIDE RECORDS SUMMARY | 2025-01-28 20:19 | XMS_ITS | Encounter Summary ---
Author Organization [facility] Care Address [address] [place] [address] Phone Care Team Providers Care Analytics Director Name Role Phone Che Williamson MD Primary Care Provider + [phone] Lynda Skelton MD Unavailable [phone] Chelsea Hensley MD Unavailable [phone] Prashanth Martinez MD Primary Care Provider [phone] Encounter Details Date Type Department Care Team (Late st Contact Info) Description 05/12/2020 Pharmacy Visit [facility] [address] [place] [address] Social History Tobacco Use Types Packs/Day Years Used Date Smoking Tobacco: Never Smokeless Tobacco: Never Alcohol Use Standard Drinks/Week Comments No 0 (1 standard drink = 0.6 oz pur e alcohol) Comments No Sex and Gender Information Value Date Recorded Sex Assigned at Female 07/13/2019 6:16 PM ASSISTANT DIRECTOR OF SECURITY Legal Sex Female 2:51 AM CDT Gender Identity Transgender Male 05/05/2019 1:23 PM CDT Sexual Orientation Pedraza 06/23/2023 10 :56 AM CDT documented as of this encounter Plan of Treatment Upcoming Encounters Date Type Department Care Team (Late st Contact Info) Description 04/21/2025 2:15 PM CDT Appointment [facility] - [facility] - Ad[facility]cent Clinic [address] [phone] Prashanth Martinez MD [address] [place] [address] 05/02/2025 8:40 AM CDT Appointment [facility] - Ophthalmology - Optometry [address] [phone] Danuta Golden OD [address] [place] [address] documented as of this encounter Visit Diagnoses Not on filedocumented in this encounter Additional Health Concerns Infection Onset Date Last Indicated Resolved Time COVID-19 09/28/2021 09/28/2021 10/28/2021 9:44 PM ASSISTANT DIRECTOR OF SECURITY Assessment Noted Time PHQ-9 Depression Total Score: 9 11/25/19 18 2:15 PM CDT A fall risk assessment has been complete d for the patient 04/18/2020 3:35 PM CDT PHQ-2 Depression Total Score: 2 12/10/19 20 2:50 PM CDT documented as of this encounter Care Teams Analytics Director Relationship Specialty Start Date End Date Che Williamson MD [address] [place] [address] PCP - General 08/27/12 03/20/22 Prashanth Martinez MD [address] [place] [address] PCP - General Pediatric Medicine 03/21/22 Lynda Skelton MD [facility] [place] [address] Provider Team Family Practice 06/10/17 Chelsea Hensley MD [address] [place] [address] Endocrinology 12/08/18 documented as of this encounter
--- OUTSIDE RECORDS SUMMARY | 2025-01-28 20:19 | XMS_ITS | Referral Summary ---
Author Organization [facility] Address [address] [place] [address] Care Team Providers Care Tufting Machine Operator Name Role Phone Lynda Skelton MD Unavailable [phone] Chelsea Hensley MD Unavailable [phone] Prashanth Martinez MD Primary Care Provider Source Comments This disclosure is being made pursuant to the Care Everywhere program,applicable federal and state laws, and may not contain all informationavailable regarding this patient.[facility] Encounters Date Type Department Care Team Description 12/07/2024 Travel 12/07/2024 1:30 PM CDT Office Visit [facility] - Psychiatry [address] [place], [place] [phone] Nick Pepe MD Rock, Melanie S, ARNP 12/02/2024 Travel 11/29/2024 Refill [facility] [address] [place], [place] [phone] Elis Pearl ARNP from Last 3 Months Allergies Active Allergy Reactions Criticality Noted Date [...] Psychotherapy: Kaushal is seeing Heydi Machuca at [facility] for therapy as of 03/21/22 Safety Plan: Parents Psychiatric History: - History of non-suicidal self-injurious behaviors: Cutting - Prior psychiatric hospitalization(s): None - History of suicide attempt(s): 06/2021 intentional overdose Myopia, 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 Chelsea Hilliard of [facility] Pediatric Endocrinology Gender Affirming Medical Care: - Pubertal Avinash: history of Lupron use - Hormonal: 11/10/2019 T-Birthday - Surgical: -- Top: double incision mastectomy with free nipple grafts on 01/10/[address] Spring of [facility] Family history of thyroid disease in mother 09/2016 Anxiety 05/06/2017 Overview (05/06/2017): No hospitalizations. Endocrine disorder 05/06/2017 Resolved Problems Problem Noted Date Diagnosed Date Resolved Date Suicidal ideation 06/10/2021 03/30/2022 Disorder of puberty 06/08/2017 03/30/20 22 Spasm of accommodation 06/11/201301/10 Hyperopia 06/11/2013 01/10/2017 Unspecified hearing loss 01/05/2008 Routine or child health check 07/03/2005 07/06/2009 Immunizations Immunization Administration Dates Next Due COVID-19, [...] 07/03/2005,2004,2004,08/27 Polio/IPV 06/30/2008 Tdap 11/01/2015 Varicella 06/30/2008,10/02/2005 Social History Tobacco Use Types Packs/Day Years [...] Sex Assigned at Female 07/13/2019 6:16 PM EMBEDDED SYSTEMS DESIGNER Legal Sex Female 2:51 AM CDT Gender Identity Transgender Male 05/05/2019 1:23 PM CDT Sexual Orientation Pedraza 06/23/2023 10 :56 AM CDT Last Filed Vital Signs Vital Sign Reading Time Taken Comments Blood Pressure 111/72 12/07/2024 1:19 PM CDT Pulse 90 12/07/2024 1:19 PM CDT Temperature 35.7 C (96.3 F) 12/07/2024 1:19 PM CDT Respiratory Rate 18 08/27/2024 10:33 AM EMBEDDED SYSTEMS DESIGNER Oxygen Saturation 97% 12/07/2024 1:19 PM CDT Inhaled Oxygen Concentration - - Weight 133.3 kg (293 lb 14 oz) 12/07/2024 1:19 P M CDT Height 180 cm (5' 10.87) 08/26/2024 8:32 AM EMBEDDED SYSTEMS DESIGNER Body Mass Index 41.14 08/26/2024 8:32 AM EMBEDDED SYSTEMS DESIGNER Plan of Treatment Upcoming Encounters Date Type Department Care Team (Late st Contact Info) Description 04/21/2025 2:15 PM CDT Appointment [facility] - Adolescent Clinic [address] [phone] Prashanth Martinez MD [address] [place], [place] [phone] 05/02/2025 8:40 AM CDT Appointment [facility] - Ophthalmology - Optometry [address] [phone] Danuta Golden OD [address] [place], [place] [phone] Medical Devices Implanted Type Area Mold Yarn Supervisor Device Identifier Shelf Expiration Date Model / Serial / Lot Etonogestrel Implant 68 Mg - Nexplanon - [id number] Implanted:Qty: 1 on 09/30/2022 by Fransisca Purvis MD at [facility] Left: Arm [employer] [id number] 07/01/2024 [id number] / [id number] / [id number] Procedures Procedure Name Priority Date/Time Associated Diagnosis Comments LIPID PANEL Routine 08/26/2024 9:29 AM EMBEDDED SYSTEMS DESIGNER Gender dysphoria Endocrine disorder Encounter for HIV pre-exposure prophylaxis HIV ANTIGEN/ANTIBODY COMBO (HIV-1 AND HIV-2) Routine 08/26/2024 9:29 AM EMBEDDED SYSTEMS DESIGNER Gender dysphoria Endocrine disorder Encounter for HIV pre-exposure prophylaxis HEPATITIS C ANTIBODY Routine 08/26/2024 9:29 AM EMBEDDED SYSTEMS DESIGNER Gender dysphoria Endocrine disorder Encounter for HIV pre-exposure prophylaxis CHLAMYDIA TRACHOMATIS DETECTION BY PCR Routine 12/23/2022 9:10 AM CDT Irregular bleeding NEISSERIA GONORRHOEAE PCR Routine 12/23/2022 9:10 AM CDT Irregular bleeding from Last 3 Months or Most Recently Relevant to Health Maintenance Results * HIV ANTIGEN/ANTIBODY COMBO (HIV-1 AND HIV-2) (08/26/2024 9:29 AM EMBEDDED SYSTEMS DESIGNER) HIV Antigen/Antibod y, Qualitative Negative Negative, See Note 08/26/2024 3:29 PM EMBEDDED SYSTEMS DESIGNER [facility] Comment:Assay switched to th e [place] [employer] HIV Duo assay on 09/25/2021. Blood Venipuncture / Unknown 08/26/2024 9:29 AM EMBEDDED SYSTEMS DESIGNER 08/26/2024 9:42 AM EMBEDDED SYSTEMS DESIGNER Prashanth Martinez MD CHEMISTRY ORDERABLES Final Result [facility] [address] [place] [address] * HEPATITIS C ANTIBODY (08/26/2024 9:29 AM EMBEDDED SYSTEMS DESIGNER) Hepatitis C Antibody Negative Negative 08/26/2024 10:20 AM EMBEDDED SYSTEMS DESIGNER [facility] Comment: Assay updated with increased tolerance to biotin on 01/20/2024. Blood Venipuncture / Unknown 08/26/2024 9:29 AM EMBEDDED SYSTEMS DESIGNER 08/26/2024 9:42 AM EMBEDDED SYSTEMS DESIGNER Prashanth Martinez MD CHEMISTRY ORDERABLES Final Result [facility] [address] [address] * (ABNORMAL) LIPID PANEL (08/26/2024 9:29 AM EMBEDDED SYSTEMS DESIGNER) Specimen Type Not specified 08/26/20 10:09 AM EMBEDDED SYSTEMS DESIGNER [facility] Cholesterol 148 mg/dL 08/26/2024 10:09 AM EMBEDDED SYSTEMS DESIGNER [facility] Comment: Guidelines from the National Lipid Association and the National Cholesterol Education Program for cardiovascular risk for adults 18 years of age and older: Desirable: <200 mg/dL Borderline High: 200-239 mg/dL High: > or =240 mg/dL Triglycerides 191(H) 0 - 149 mg/dL 08/26/2024 10:09 AM EMBEDDED SYSTEMS DESIGNER [facility] Comment: Guidelines from the National Lipid Association and the National Cholesterol Education Program for cardiovascular risk for adults 18 years of age and older: Normal: <150 mg/dL Borderline-high: 150-199 mg/dL High: 200-499 mg/dL Very high: > or = 500 mg/dL HDL Cholesterol 40 mg/dL 10:09 AM EMBEDDED SYSTEMS DESIGNER [facility] Comment: Guidelines from the National Lipid Association and the National Cholesterol Education Program for cardiovascular risk for adults 18 years of age and older: Males: 40 mg/dL or higher Females: 50 mg/dL or higher LDL Cholesterol, Calculated 70 <=130 mg/dL 08/26/2024 10:09 AM EMBEDDED SYSTEMS DESIGNER [facility] Comment: Guidelines from the National Lipid Association and the National Cholesterol Education Program for cardiovascular risk for adults 18 years of age and older: Desirable: <100 mg/dL Above Desirable: 100-129 mg/dL Borderline High: 130-159 mg/dL High: 160-189 mg/dL Very High: > or =190 mg/dL Non-HDL Cholesterol, Calculated 108 mg/dL 08/26/2024 10:09 AM EMBEDDED SYSTEMS DESIGNER [facility] Comment: Guidelines from the National Lipid Association and the National Cholesterol Education Program for cardiovascular risk for adults 18 years of age and older: Desirable: <130 mg/dL Above Desirable: 130-159 mg/dL Borderline High: 160-189 mg/dL High: 190-219 mg/dL Very High: > or =220 mg/dL Blood Venipuncture / Unknown 08/26/2024 9:29 AM EMBEDDED SYSTEMS DESIGNER 08/26/2024 9:42 AM EMBEDDED SYSTEMS DESIGNER Prashanth Martinez MD CHEMISTRY ORDERABLES Final Result [facility] [address] [address] * NEISSERIA GONORRHOEAE PCR (12/23/2022 9:10 AM CDT) Gonorrhea PCR Not Detected Not Detected LAB CEPHID INFINITY 12/23/2022 12:28 PM CDT [facility] Other URINE SPECIMEN / Unknown 12/23/2022 9:10 AM CDT 12/23/2022 9:22 AM CDT Narrative [facility] - 12/23/2022 12:28 PM CDT Test methodology: PCR amplification; Xpert CT/NG Assay (Cepheid) Prashanth Martinez MD MICROBIOLOGY - GENERAL ORDAbram JARAMILLO Final Result [facility] [address] [place] [address] * CHLAMYDIA TRACHOMATIS DETECTION BY PCR (12/23/2022 9:10 AM CDT) Chlamydia trachomatis PCR Not Detected Not Detected LAB CEPHID INFINITY 12/23/2022 12:28 PM CDT [facility] Other URINE SPECIMEN / Unknown 12/23/2022 9:10 AM CDT 12/23/2022 9:22 AM CDT Narrative [facility] - 12/23/2022 12:28 PM CDT Test methodology: PCR amplification; Xpert CT/NG Assay (Cepheid) Prashanth Martinez MD MICROBIOLOGY - GENERAL ROBIN JARAMILLO Final Result [facility] [address] [place] [address] from Last 3 Months or Most Recently Relevant to Health Maintenance Insurance [facility] Advance Directives For more information, please contact: [phone] Documents on File Type Date Recorded Patient Orthotic Technician Expl anation External-Legal Documents 07/17/2020 5:10 PM [facility] for Change of Name of Minor Child [...] 6:15 PM 02/04/2022 9:19 PM Care Teams Tufting Machine Operator Relationship Specialty Start Date End Date Prashanth Martinez MD [address] [place] [address] PCP - General Pediatric Medicine 03/21/22 Lynda Skelton MD [address] [place] [address] Provider Team Family Practice 06/10/17 Chelsea Hensley MD [address] [place] [address] Endocrinology 12/08/18
--- OUTSIDE RECORDS SUMMARY | 2025-01-28 20:19 | XMS_ITS | Encounter Summary ---
Author Organization [facility] Care Address [address] [place] [address] Phone Care Team Providers Care Whitesmith Name Role Phone Che Williamson MD Primary Care Provider + [phone] Lynda Skelton MD Unavailable Chelsea Hensley MD Unavailable [phone] Prashanth Martinez MD Primary Care Provider [phone] Encounter Details Date Type Department Care Team (Late st Contact Info) Description 01/21/2020 [facility] - Specialty [address] [place] [address] Social History Tobacco Use Types Packs/Day Years Used Date Smoking Tobacco: Never Smokeless Tobacco: Never Alcohol Use Standard Drinks/Week Comments No 0 (1 standard drink = 0.6 oz pur e alcohol) Comments No Sex and Gender Information Value Date Recorded Sex Assigned at Female 07/13/2019 6:16 PM PLATEN GRINDER Legal Sex Female 2:51 AM CDT Gender Identity Transgender Male 05/05/2019 1:23 PM CDT Sexual Orientation Pedraza 06/23/2023 10 :56 AM CDT documented as of this encounter Plan of Treatment Upcoming Encounters Date Type Department Care Team (Late st Contact Info) Description 04/21/2025 2:15 PM CDT Appointment [facility] - [facility] - Adolescent Clinic [address] [phone] Prashanth Martinez MD [address] [place] [address] 05/02/2025 8:40 AM CDT Appointment [facility] - [facility] - Ophthalmology - Optometry [address] [phone] Danuta Golden OD [address] [place] [address] documented as of this encounter Visit Diagnoses Not on filedocumented in this encounter Additional Health Concerns Infection Onset Date Last Indicated Resolved Time COVID-19 09/28/2021 09/28/2021 10/28/2021 9:44 PM PLATEN GRINDER Assessment Noted Time PHQ-9 Depression Total Score: 9 11/25/19 18 2:15 PM CDT A fall risk assessment has been complete d for the patient 12/13/2019 4:01 PM CDT PHQ-2 Depression Total Score: 2 12/10/19 20 2:50 PM CDT documented as of this encounter Care Teams Whitesmith Relationship Specialty Start Date End Date Che Williamson MD [address] [place] [address] PCP - General 08/27/12 03/20/22 Prashanth Martinez MD [address] [place] [address] PCP - General Pediatric Medicine 03/21/22 Lynda Skelton MD [facility] [place] [address] Provider Team Family Practice 06/10/17 Chelsea Hensley MD [address] [place] [address] Endocrinology 12/08/18 documented as of this encounter
--- OUTSIDE RECORDS SUMMARY | 2025-01-28 20:19 | XMS_ITS | Encounter Summary ---
Author Organization [facility] Care Address [address] [place] [address] Phone Care Team Providers Care Automotive Finance Manager Name Role Phone Che Williamson MD Primary Care Provider + [phone] Lynda Skelton MD Unavailable Franchesca Manley Unavailable Unavailable Chelsea Hensley MD Unavailable [phone] Prashanth Martinez MD Primary Care Provider Encounter Details Date Type Department Care Team (Late st Contact Info) Description 02/13/[address] [facility] [address] [place] [address] Social History Tobacco Use Types Packs/Day Years Used Date Smoking Tobacco: Never Smokeless Tobacco: Never Alcohol Use Standard Drinks/Week Comments No 0 (1 standard drink = 0.6 oz pur e alcohol) Comments No Sex and Gender Information Value Date Recorded Sex Assigned at Female 07/13/2019 6:16 PM SUPERVISOR SMALL APPLIANCE ASSEMBLY Legal Sex Female 2:51 AM CDT Gender Identity Transgender Male 05/05/2019 1:23 PM CDT Sexual Orientation Pedraza 06/23/2023 10 :56 AM CDT documented as of this encounter Plan of Treatment Upcoming Encounters Date Type Department Care Team (Late st Contact Info) Description 04/21/2025 2:15 PM CDT Appointment [place] - [facility] - [facility] [address] [phone] Prashanth Martinez MD 200 [place] [address] 05/02/2025 8:40 AM CDT Appointment [facility] - Ophthalmology - Optometry [address] [phone] Danuta Golden OD 200 [place] [address] documented as of this encounter Visit Diagnoses Not on filedocumented in this encounter Additional Health Concerns Infection Onset Date Last Indicated Resolved Time COVID-19 09/28/2021 09/28/2021 10/28/2021 9:44 PM SUPERVISOR SMALL APPLIANCE ASSEMBLY Assessment Noted Time PHQ-9 Depression Total Score: 9 11/25/19 18 2:15 PM CDT PHQ-2 Depression Total Score: 4 11/25/19 18 2:15 PM CDT documented as of this encounter Care Teams Automotive Finance Manager Relationship Specialty Start Date End Date Che Williamson MD [address] [place] [address] PCP - General 08/27/12 03/20/22 Prashanth Martinez MD [address] [place] [address] PCP - General Pediatric Medicine 03/21/22 Lynda Skelton MD [address] [place] [address] Provider Team Family Practice 06/10/17 Franchesca Manley 12/09/17 12/07/18 Chelsea Hensley MD [address] [place] [address] Endocrinology 12/08/18 documented as of this encounter
--- OUTSIDE RECORDS SUMMARY | 2025-01-28 20:19 | XMS_ITS | Encounter Summary ---
Author Organization [facility] Care Address [address] [place] [address] Phone Care Team Providers Care Detector Car Operator Name Role Phone Che Williamson MD Primary Care Provider + [phone] Lynda Skelton MD Unavailable [phone] Franchesca Manley Unavailable Unavailable Chelsea Hensley MD Unavailable [phone] Prashanth Martinez MD Primary Care Provider [phone] Encounter Details Date Type Department Care Team (Late st Contact Info) Description 03/18/2018 Pharmacy Visit [facility] - Pharmacy - Business Office [address] [place] [address] Social History Tobacco Use Types Packs/Day Years Used Date Smoking Tobacco: Never Smokeless Tobacco: Never Alcohol Use Standard Drinks/Week Comments No 0 (1 standard drink = 0.6 oz pur e alcohol) Comments No Sex and Gender Information Value Date Recorded Sex Assigned at Female 07/13/2019 6:16 PM ADMINISTRATIVE ASSISTANT COORDINATOR Legal Sex Female 2:51 AM CDT Gender Identity Transgender Male 05/05/2019 1:23 PM CDT Sexual Orientation Pedraza 06/23/2023 10 :56 AM CDT documented as of this encounter Plan of Treatment Upcoming Encounters Date Type Department Care Team (Late st Contact Info) Description 04/21/2025 2:15 PM CDT Appointment [place] [facility] - [facility] [address] [phone] Prashanth Martinez MD [address] [place] [address] 05/02/2025 8:40 AM CDT Appointment [facility] - Ophthalmology - Optometry [address] [phone] Danuta Golden OD [address] [place] [address] documented as of this encounter Visit Diagnoses Not on filedocumented in this encounter Additional Health Concerns Infection Onset Date Last Indicated Resolved Time COVID-19 09/28/2021 09/28/2021 10/28/2021 9:44 PM ADMINISTRATIVE ASSISTANT COORDINATOR Assessment Noted Time PHQ-9 Depression Total Score: 9 11/25/19 18 2:15 PM CDT PHQ-2 Depression Total Score: 4 11/25/19 18 2:15 PM CDT documented as of this encounter Care Teams Detector Car Operator Relationship Specialty Start Date End Date Che Williamson MD [address] [place] [address] PCP - General 08/27/12 03/20/22 Prashanth Martinez MD [address] [place] [address] PCP - General Pediatric Medicine 03/21/22 Lynda Skelton MD [address] [place] [address] Provider Team Family Practice 06/10/17 Franchesca Manley 12/09/17 12/07/18 Chelsea Hensley MD [address] [place] [address] Endocrinology 12/08/18 documented as of this encounter
--- OUTSIDE RECORDS SUMMARY | 2025-01-28 20:19 | XMS_ITS | Encounter Summary ---
Author Organization [facility] Care Address [address] [place] [address] Phone Care Team Providers Care Antique Clocks Repairer Name Role Phone Che Williamson MD Primary Care Provider + [phone] Lynda Skelton MD Unavailable Chelsea Hensley MD Unavailable [phone] Prashanth Martinez MD Primary Care Provider [phone] Encounter Details Date Type Department Care Team (Late st Contact Info) Description 01/14/2020 Pharmacy Visit [facility] - Pharmacy - Specialty 200 [place] [address] Social History Tobacco Use Types Packs/Day Years Used Date Smoking Tobacco: Never Smokeless Tobacco: Never Alcohol Use Standard Drinks/Week Comments No 0 (1 standard drink = 0.6 oz pur e alcohol) Comments No Sex and Gender Information Value Date Recorded Sex Assigned at Female 07/13/2019 6:16 PM GELATIN MAKER UTILITY Legal Sex Female 2:51 AM CDT Gender Identity Transgender Male 05/05/2019 1:23 PM CDT Sexual Orientation Pedraza 06/23/2023 10 :56 AM CDT documented as of this encounter Plan of Treatment Upcoming Encounters Date Type Department Care Team (Late st Contact Info) Description 04/21/2025 2:15 PM CDT Appointment [place] - [place] - [facility] [address] [phone] Prashanth Martinez MD 200 [place] [address] 05/02/2025 8:40 AM CDT Appointment [place] - [facility] - Ophthalmology - Optometry [address] [phone] Danuta Golden OD [address] [place] [address] documented as of this encounter Visit Diagnoses Not on filedocumented in this encounter Additional Health Concerns Infection Onset Date Last Indicated Resolved Time COVID-19 09/28/2021 09/28/2021 10/28/2021 9:44 PM GELATIN MAKER UTILITY Assessment Noted Time PHQ-9 Depression Total Score: 9 11/25/19 18 2:15 PM CDT A fall risk assessment has been complete d for the patient 12/13/2019 4:01 PM CDT PHQ-2 Depression Total Score: 2 12/10/19 20 2:50 PM CDT documented as of this encounter Care Teams Antique Clocks Repairer Relationship Specialty Start Date End Date Che Williamson MD [address] [place] [address] PCP - General 08/27/12 03/20/22 Prashanth Martinez MD [address] [place] [address] PCP - General Pediatric Medicine 03/21/22 Lynda Skelton MD [facility] [place] [address] Provider Team Family Practice 06/10/17 Chelsea Hensley MD [address] [place] [address] Endocrinology 12/08/18 documented as of this encounter
--- OUTSIDE RECORDS SUMMARY | 2025-01-28 20:20 | XMS_ITS | Encounter Summary ---
Author Organization [facility] Care Address [address] [place] [address] Phone Care Team Providers Care Steel Fabricator Name Role Phone Che Williamson MD Primary Care Provider + [phone] Lynda Skelton MD Unavailable Chelsea Hensley MD Unavailable [phone] Prashanth Martinez MD Primary Care Provider [phone] Encounter Details Date Type Department Care Team (Late st Contact Info) Description 10/15/2019 Pharmacy Visit [facility] - Pharmacy - Specialty 200 [place] [address] Social History Tobacco Use Types Packs/Day Years Used Date Smoking Tobacco: Never Smokeless Tobacco: Never Alcohol Use Standard Drinks/Week Comments No 0 (1 standard drink = 0.6 oz pur e alcohol) Comments No Sex and Gender Information Value Date Recorded Sex Assigned at Female 07/13/2019 6:16 PM CURATOR OF MANUSCRIPTS Legal Sex Female 2:51 AM CDT Gender Identity Transgender Male 05/05/2019 1:23 PM CDT Sexual Orientation Pedraza 06/23/2023 10 :56 AM CDT documented as of this encounter Plan of Treatment Upcoming Encounters Date Type Department Care Team (Late st Contact Info) Description 04/21/2025 2:15 PM CDT Appointment [place] - [facility] - [facility] [address] [phone] Prashanth Martinez MD 200 [place] [address] 05/02/2025 8:40 AM CDT Appointment [place] - [facility] - Ophthalmology - Optometry [address] [phone] Danuta Golden OD 200 [place] [address] documented as of this encounter Visit Diagnoses Not on filedocumented in this encounter Additional Health Concerns Infection Onset Date Last Indicated Resolved Time COVID-19 09/28/2021 09/28/2021 10/28/2021 9:44 PM CURATOR OF MANUSCRIPTS Assessment Noted Time PHQ-9 Depression Total Score: 9 11/25/19 18 2:15 PM CDT A fall risk assessment has been complete d for the patient 08/19/2019 4:16 PM CURATOR OF MANUSCRIPTS PHQ-2 Depression Total Score: 4 11/25/19 18 2:15 PM CDT documented as of this encounter Care Teams Steel Fabricator Relationship Specialty Start Date End Date Che Williamson MD [address] [place] [address] PCP - General 08/27/12 03/20/22 Prashanth Martinez MD [address] [place] [address] PCP - General Pediatric Medicine 03/21/22 Lynda Skelton MD [address] [place] [address] Provider Team Family Practice 06/10/17 Chelsea Hensley MD [address] [place] [address] Endocrinology 12/08/18 documented as of this encounter
--- OUTSIDE RECORDS SUMMARY | 2025-01-28 20:20 | XMS_ITS | Encounter Summary ---
Author Organization [facility] Care Address [address] [place] [address] Phone Care Team Providers Care Grain Elevator Clerk Name Role Phone Che Williamson MD Primary Care Provider Lynda Skelton MD Unavailable Franchesca Manley Unavailable Unavailable Chelsea Hensley MD Unavailable [phone] Prashanth Martinez MD Primary Care Provider [phone] Encounter Details Date Type Department Care Team (Late st Contact Info) Description 12/04/2017 Pharmacy Visit [facility] - Pharmacy - Specialty [address] [place] [address] Social History Tobacco Use Types Packs/Day Years Used Date Smoking Tobacco: Never Smokeless Tobacco: Never Alcohol Use Standard Drinks/Week Comments No 0 (1 standard drink = 0.6 oz pur e alcohol) Comments No Sex and Gender Information Value Date Recorded Sex Assigned at Female 07/13/2019 6:16 PM SANITARIAN Legal Sex Female 2:51 AM CDT Gender Identity Transgender Male 05/05/2019 1:23 PM CDT Sexual Orientation Pedraza 06/23/2023 10 :56 AM CDT documented as of this encounter Plan of Treatment Upcoming Encounters Date Type Department Care Team (Late st Contact Info) Description 04/21/2025 2:15 PM CDT Appointment [place] - [facility] - Adolescent Clinic [address] [phone] Prashanth Martinez MD 200 [place] [address] 05/02/2025 8:40 AM CDT Appointment [facility] - Ophthalmology - Optometry [address] [phone] Danuta Golden OD 200 [place] [address] documented as of this encounter Visit Diagnoses Not on filedocumented in this encounter Additional Health Concerns Infection Onset Date Last Indicated Resolved Time COVID-19 09/28/2021 09/28/2021 10/28/2021 9:44 PM SANITARIAN Assessment Noted Time PHQ-9 Depression Total Score: 9 11/25/19 18 2:15 PM CDT PHQ-2 Depression Total Score: 4 11/25/19 18 2:15 PM CDT documented as of this encounter Care Teams Grain Elevator Clerk Relationship Specialty Start Date End Date Che Williamson MD [address] [place] [address] PCP - General 08/27/12 03/20/22 Prashanth Martinez MD 200 [place] [address] PCP - General Pediatric Medicine 03/21/22 Lynda Skelton MD [address] [place] [address] Provider Team Family Practice 06/10/17 Franchesca Manley 12/09/17 12/07/18 Chelsea Hensley MD [address] [place] [address] Endocrinology 12/08/18 documented as of this encounter
--- OUTSIDE RECORDS SUMMARY | 2025-01-28 20:20 | XMS_ITS | Encounter Summary ---
Author Organization [facility] Care Address [address] [place] [address] Phone Care Team Providers Care Flotation Tank Operator Name Role Phone Che Williamson MD Primary Care Provider + [phone] Lynda Skelton MD Unavailable Franchesca Manley Unavailable Unavailable Chelsea Hensley MD Unavailable [phone] Prashanth Martinez MD Primary Care Provider [phone] Encounter Details Date Type Department Care Team (Late st Contact Info) Description 05/13/2018 Pharmacy Visit [facility] - Pharmacy - Specialty [address] [place] [address] Social History Tobacco Use Types Packs/Day Years Used Date Smoking Tobacco: Never Smokeless Tobacco: Never Alcohol Use Standard Drinks/Week Comments No 0 (1 standard drink = 0.6 oz pur e alcohol) Comments No Sex and Gender Information Value Date Recorded Sex Assigned at Female 07/13/2019 6:16 PM BENCH TOOL MAKER Legal Sex Female 2:51 AM CDT Gender Identity Transgender Male 05/05/2019 1:23 PM CDT Sexual Orientation Pedraza 06/23/2023 10 :56 AM CDT documented as of this encounter Plan of Treatment Upcoming Encounters Date Type Department Care Team (Late st Contact Info) Description 04/21/2025 2:15 PM CDT Appointment [place] - [facility] - Adolescent Clinic [address] [phone] Prashanth Martinez MD [address] [place] [address] 05/02/2025 8:40 AM CDT Appointment [facility] - Ophthalmology - Optometry [address] [phone] Danuta Golden OD 200 [place] [address] documented as of this encounter Visit Diagnoses Not on filedocumented in this encounter Additional Health Concerns Infection Onset Date Last Indicated Resolved Time COVID-19 09/28/2021 09/28/2021 10/28/2021 9:44 PM BENCH TOOL MAKER Assessment Noted Time PHQ-9 Depression Total Score: 9 11/25/19 18 2:15 PM CDT PHQ-2 Depression Total Score: 4 11/25/19 18 2:15 PM CDT documented as of this encounter Care Teams Flotation Tank Operator Relationship Specialty Start Date End Date Che Williamson MD [address] [place] [address] PCP - General 08/27/12 03/20/22 Prashanth Martinez MD [address] [place] [address] PCP - General Pediatric Medicine 03/21/22 Lynda Skelton MD [address] [place] [address] Provider Team Family Practice 06/10/17 Franchesca Manley 12/09/17 12/07/18 Chelsea Hensley MD [address] [place] [address] Endocrinology 12/08/18 documented as of this encounter
--- OUTSIDE RECORDS SUMMARY | 2025-01-28 20:20 | XMS_ITS | Encounter Summary ---
Author Organization [facility] Care Address [address] [place] [address] Phone Care Team Providers Care Band Builder Name Role Phone Che Williamson MD Primary Care Provider Lynda Skelton MD Unavailable Franchesca Manley Unavailable Unavailable Chelsea Hensley MD Unavailable [phone] Prashanth Martinez MD Primary Care Provider [phone] Encounter Details Date Type Department Care Team (Late st Contact Info) Description 11/21/2017 Pharmacy Visit [facility] - Pharmacy - Specialty [address] [place] [address] Social History Tobacco Use Types Packs/Day Years Used Date Smoking Tobacco: Never Smokeless Tobacco: Never Alcohol Use Standard Drinks/Week Comments No 0 (1 standard drink = 0.6 oz pur e alcohol) Comments No Sex and Gender Information Value Date Recorded Sex Assigned at Female 07/13/2019 6:16 PM PARTS MANAGER Legal Sex Female 2:51 AM CDT Gender Identity Transgender Male 05/05/2019 1:23 PM CDT Sexual Orientation Pedraza 06/23/2023 10 :56 AM CDT documented as of this encounter Plan of Treatment Upcoming Encounters Date Type Department Care Team (Late st Contact Info) Description 04/21/2025 2:15 PM CDT Appointment [place] - [facility] - Adolescent Clinic [address] [phone] Prashanth Martinez MD 200 [place] [address] 05/02/2025 8:40 AM CDT Appointment [facility] - Ophthalmology - Optometry [address] [phone] Danuta Golden OD 200 [place] [address] documented as of this encounter Visit Diagnoses Not on filedocumented in this encounter Additional Health Concerns Infection Onset Date Last Indicated Resolved Time COVID-19 09/28/2021 09/28/2021 10/28/2021 9:44 PM PARTS MANAGER Assessment Noted Time PHQ-2 Depression Total Score: 2 05/06/20 17 5:10 PM CDT documented as of this encounter Care Teams Band Builder Relationship Specialty Start Date End Date Che Williamson MD [address] [place] [address] PCP - General 08/27/12 03/20/22 Prashanth Martinez MD [address] [place] [address] PCP - General Pediatric Medicine 03/21/22 Lynda Skelton MD [address] [place] [address] Provider Team Family Practice 06/10/17 Franchesca Manley 12/09/17 12/07/18 Chelsea Hensley MD [address] [place] [address] Endocrinology 12/08/18 documented as of this encounter
--- OUTSIDE RECORDS SUMMARY | 2025-01-28 20:20 | XMS_ITS | Encounter Summary ---
Author Organization [facility] Care Address [address] [place] [address] Phone Care Team Providers Care Factory Representative Name Role Phone Che Williamson MD Primary Care Provider + [phone] Lynda Skelton MD Unavailable Chelsea Hensley MD Unavailable [phone] Prashanth Martinez MD Primary Care Provider [phone] Encounter Details Date Type Department Care Team (Late st Contact Info) Description 11/11/2019 Pharmacy Visit [facility] - Pharmacy - Specialty [address] [place] [address] Social History Tobacco Use Types Packs/Day Years Used Date Smoking Tobacco: Never Smokeless Tobacco: Never Alcohol Use Standard Drinks/Week Comments No 0 (1 standard drink = 0.6 oz pur e alcohol) Comments No Sex and Gender Information Value Date Recorded Sex Assigned at Female 07/13/2019 6:16 PM FLATWORK PRESSER Legal Sex Female 2:51 AM CDT Gender Identity Transgender Male 05/05/2019 1:23 PM CDT Sexual Orientation Pedraza 06/23/2023 10 :56 AM CDT documented as of this encounter Plan of Treatment Upcoming Encounters Date Type Department Care Team (Late st Contact Info) Description 04/21/2025 2:15 PM CDT Appointment [place] - [facility] - Adolescent Clinic [address] [phone] Prashanth Martinez MD 200 [place] [address] 05/02/2025 8:40 AM CDT Appointment [place] - [facility] - Ophthalmology - Optometry [address] [phone] Danuta Golden OD [address] [place] [address] documented as of this encounter Visit Diagnoses Not on filedocumented in this encounter Additional Health Concerns Infection Onset Date Last Indicated Resolved Time COVID-19 09/28/2021 09/28/2021 10/28/2021 9:44 PM FLATWORK PRESSER Assessment Noted Time PHQ-9 Depression Total Score: 9 11/25/19 18 2:15 PM CDT A fall risk assessment has been complete d for the patient 11/10/2019 10:30 AM FLATWORK PRESSER PHQ-2 Depression Total Score: 4 11/25/19 18 2:15 PM CDT documented as of this encounter Care Teams Factory Representative Relationship Specialty Start Date End Date Che Williamson MD 200 [place] [address] PCP - General 08/27/12 03/20/22 Prashanth Martinez MD [address] [place] [address] PCP - General Pediatric Medicine 03/21/22 Lynda Skelton MD [address] [place] [address] Provider Team Family Practice 06/10/17 Chelsea Hensley MD 200 [place] [address] Endocrinology 12/08/18 documented as of this encounter
--- OUTSIDE RECORDS SUMMARY | 2025-01-28 20:20 | XMS_ITS | Encounter Summary ---
Author Organization [facility] Care Address [address] [place] [address] Phone Care Team Providers Care Kiln Car Unloader Name Role Phone Che Williamson MD Primary Care Provider + [phone] Lynda Skelton MD Unavailable Chelsea Hensley MD Unavailable [phone] Prashanth Martinez MD Primary Care Provider [phone] Encounter Details Date Type Department Care Team (Late st Contact Info) Description 10/18/2019 Pharmacy [facility] - Pharmacy - Specialty [address] [place] [address] Social History Tobacco Use Types Packs/Day Years Used Date Smoking Tobacco: Never Smokeless Tobacco: Never Alcohol Use Standard Drinks/Week Comments No 0 (1 standard drink = 0.6 oz pur e alcohol) Comments No Sex and Gender Information Value Date Recorded Sex Assigned at Female 07/13/2019 6:16 PM LABORATORY INSPECTOR Legal Sex Female 2:51 AM CDT Gender Identity Transgender Male 05/05/2019 1:23 PM CDT Sexual Orientation Pedraza 06/23/2023 10 :56 AM CDT documented as of this encounter Plan of Treatment Upcoming Encounters Date Type Department Care Team (Late st Contact Info) Description 04/21/2025 2:15 PM CDT Appointment [place] - [facility] - Adolescent Clinic [address] [phone] Prashanth Martinez MD 200 [place] [address] 05/02/2025 8:40 AM CDT Appointment [place] - [facility] - Ophthalmology - Optometry [address] [phone] Danuta Golden OD [address] [place] [address] documented as of this encounter Visit Diagnoses Not on filedocumented in this encounter Additional Health Concerns Infection Onset Date Last Indicated Resolved Time COVID-19 09/28/2021 09/28/2021 10/28/2021 9:44 PM LABORATORY INSPECTOR Assessment Noted Time PHQ-9 Depression Total Score: 9 11/25/19 18 2:15 PM CDT A fall risk assessment has been complete d for the patient 08/19/2019 4:16 PM LABORATORY INSPECTOR PHQ-2 Depression Total Score: 4 11/25/19 18 2:15 PM CDT documented as of this encounter Care Teams Kiln Car Unloader Relationship Specialty Start Date End Date Che Williamson MD [address] [place] [address] PCP - General 08/27/12 03/20/22 Prashanth Martinez MD [address] [place] [address] PCP - General Pediatric Medicine 03/21/22 Lynda Skelton MD [address] [place] [address] Provider Team Family Practice 06/10/17 Chelsea Hensley MD [address] [place] [address] Endocrinology 12/08/18 documented as of this encounter
--- OUTSIDE RECORDS SUMMARY | 2025-01-28 20:20 | XMS_ITS | Encounter Summary ---
Author Organization [facility] Care Address [address] [place] [address] Phone Care Team Providers Care Geophysical Laboratory Supervisor Name Role Phone Che Williamson MD Primary Care Provider Lynda Skelton MD Unavailable Franchesca Manley Unavailable Unavailable Chelsea Hensley MD Unavailable [phone] Prashanth Martinez MD Primary Care Provider [phone] Encounter Details Date Type Department Care Team (Late st Contact Info) Description 05/04/2018 Pharmacy Visit [facility] - Pharmacy - Specialty [address] [place] [address] Social History Tobacco Use Types Packs/Day Years Used Date Smoking Tobacco: Never Smokeless Tobacco: Never Alcohol Use Standard Drinks/Week Comments No 0 (1 standard drink = 0.6 oz pur e alcohol) Comments No Sex and Gender Information Value Date Recorded Sex Assigned at Female 07/13/2019 6:16 PM CHIEF BANK EXAMINER Legal Sex Female 2:51 AM CDT Gender Identity Transgender Male 05/05/2019 1:23 PM CDT Sexual Orientation Pedraza 06/23/2023 10 :56 AM CDT documented as of this encounter Plan of Treatment Upcoming Encounters Date Type Department Care Team (Late st Contact Info) Description 04/21/2025 2:15 PM CDT Appointment [place] [facility] - Adolescent Clinic [address] [phone] Prashanth Martinez MD 200 [place] [address] 05/02/2025 8:40 AM CDT Appointment [facility] - Ophthalmology - Optometry [address] [phone] Danuta Golden OD 200 [place] [address] documented as of this encounter Visit Diagnoses Not on filedocumented in this encounter Additional Health Concerns Infection Onset Date Last Indicated Resolved Time COVID-19 09/28/2021 09/28/2021 10/28/2021 9:44 PM CHIEF BANK EXAMINER Assessment Noted Time PHQ-9 Depression Total Score: 9 11/25/19 18 2:15 PM CDT PHQ-2 Depression Total Score: 4 11/25/19 18 2:15 PM CDT documented as of this encounter Care Teams Geophysical Laboratory Supervisor Relationship Specialty Start Date End Date Che Williamson MD [address] [place] [address] PCP - General 08/27/12 03/20/22 Prashanth Martinez MD [address] [place] [address] PCP - General Pediatric Medicine 03/21/22 Lynda Skelton MD [address] [place] [address] Provider Team Family Practice 06/10/17 Franchesca Manley 12/09/17 12/07/18 Chelsea Hensley MD [address] [place] [address] Endocrinology 12/08/18 documented as of this encounter
--- OUTSIDE RECORDS SUMMARY | 2025-01-28 20:20 | XMS_ITS | Encounter Summary ---
Author Organization [facility] Care Address [address] [place] [address] Phone Care Team Providers Care Streets And Buildings Decorator Name Role Phone Che Williamson MD Primary Care Provider Lynda Skelton MD Unavailable Franchesca Manley Unavailable Unavailable Chelsea Hensley MD Unavailable [phone] Prashanth Martinez MD Primary Care Provider [phone] Encounter Details Date Type Department Care Team (Late st Contact Info) Description 05/07/2018 Pharmacy Visit [facility] - Pharmacy - Specialty [address] [place] [address] Social History Tobacco Use Types Packs/Day Years Used Date Smoking Tobacco: Never Smokeless Tobacco: Never Alcohol Use Standard Drinks/Week Comments No 0 (1 standard drink = 0.6 oz pur e alcohol) Comments No Sex and Gender Information Value Date Recorded Sex Assigned at Female 07/13/2019 6:16 PM LINE MAINTENANCE TECHNICIAN Legal Sex Female 2:51 AM CDT Gender Identity Transgender Male 05/05/2019 1:23 PM CDT Sexual Orientation Pedraza 06/23/2023 10 :56 AM CDT documented as of this encounter Plan of Treatment Upcoming Encounters Date Type Department Care Team (Late st Contact Info) Description 04/21/2025 2:15 PM CDT Appointment [place] - [facility] - Adolescent Clinic [address] [phone] Prashanth Martinez MD 200 [place] [address] 05/02/2025 8:40 AM CDT Appointment [facility] - Ophthalmology - Optometry [address] [phone] Danuta Golden OD 200 [place] [address] documented as of this encounter Visit Diagnoses Not on filedocumented in this encounter Additional Health Concerns Infection Onset Date Last Indicated Resolved Time COVID-19 09/28/2021 09/28/2021 10/28/2021 9:44 PM LINE MAINTENANCE TECHNICIAN Assessment Noted Time PHQ-9 Depression Total Score: 9 11/25/19 18 2:15 PM CDT PHQ-2 Depression Total Score: 4 11/25/19 18 2:15 PM CDT documented as of this encounter Care Teams Streets And Buildings Decorator Relationship Specialty Start Date End Date Che Williamson MD [address] [place] [address] PCP - General 08/27/12 03/20/22 Prashanth Martinez MD [address] [place] [address] PCP - General Pediatric Medicine 03/21/22 Lynda Skelton MD [address] [place] [address] Provider Team Family Practice 06/10/17 Franchesca Manley 12/09/17 12/07/18 Chelsea Hensley MD [address] [place] [address] Endocrinology 12/08/18 documented as of this encounter
--- OUTSIDE RECORDS SUMMARY | 2025-01-28 20:20 | XMS_ITS | Encounter Summary ---
Author Organization [facility] Care Address [address] [place] [address] Phone Care Team Providers Care Color Stripper Name Role Phone Che Williamson MD Primary Care Provider + [phone] Lynda Skelton MD Unavailable Franchesca Manley Unavailable Unavailable Chelsea Hensley MD Unavailable [phone] Prashanth Martinez MD Primary Care Provider [phone] Encounter Details Date Type Department Care Team (Late st Contact Info) Description 11/13/2017 Pharmacy Visit [facility] - Pharmacy - Specialty [address] [place] [address] Social History Tobacco Use Types Packs/Day Years Used Date Smoking Tobacco: Never Smokeless Tobacco: Never Alcohol Use Standard Drinks/Week Comments No 0 (1 standard drink = 0.6 oz pur e alcohol) Comments No Sex and Gender Information Value Date Recorded Sex Assigned at Female 07/13/2019 6:16 PM RESIDENCY PROGRAM COORDINATOR Legal Sex Female 2:51 AM CDT Gender Identity Transgender Male 05/05/2019 1:23 PM CDT Sexual Orientation Pedraza 06/23/2023 10 :56 AM CDT documented as of this encounter Plan of Treatment Upcoming Encounters Date Type Department Care Team (Late st Contact Info) Description 04/21/2025 2:15 PM CDT Appointment [place] - [facility] - Adolescent Clinic [address] [phone] Prashanth Martinez MD 200 [place] [address] 05/02/2025 8:40 AM CDT Appointment [facility] - Ophthalmology - Optometry [address] [phone] Danuta Golden OD 200 [place] [address] documented as of this encounter Visit Diagnoses Not on filedocumented in this encounter Additional Health Concerns Infection Onset Date Last Indicated Resolved Time COVID-19 09/28/2021 09/28/2021 10/28/2021 9:44 PM RESIDENCY PROGRAM COORDINATOR Assessment Noted Time PHQ-2 Depression Total Score: 2 05/06/20 17 5:10 PM CDT documented as of this encounter Care Teams Color Stripper Relationship Specialty Start Date End Date Che Williamson MD [address] [place] [address] PCP - General 08/27/12 03/20/22 Prashanth Martinez MD [address] [place] [address] PCP - General Pediatric Medicine 03/21/22 Lynda Skelton MD [address] [place] [address] Provider Team Family Practice 06/10/17 Franchesca Manley 12/09/17 12/07/18 Chelsea Hensley MD [address] [place] [address] Endocrinology 12/08/18 documented as of this encounter
--- OUTSIDE RECORDS SUMMARY | 2025-01-28 20:20 | XMS_ITS | Encounter Summary ---
Author Organization [facility] Care Address [address] [place] [address] Phone Care Team Providers Care Overhead Cleaner Maintainer Name Role Phone Che Williamson MD Primary Care Provider + [phone] Lynda Skelton MD Unavailable Franchesca Manley Unavailable Unavailable Chelsea Hensley MD Unavailable [phone] Prashanth Martinez MD Primary Care Provider [phone] Encounter Details Date Type Department Care Team (Late st Contact Info) Description 04/10/2018 Pharmacy Visit [facility] - Pharmacy - Specialty [address] [place] [address] Social History Tobacco Use Types Packs/Day Years Used Date Smoking Tobacco: Never Smokeless Tobacco: Never Alcohol Use Standard Drinks/Week Comments No 0 (1 standard drink = 0.6 oz pur e alcohol) Comments No Sex and Gender Information Value Date Recorded Sex Assigned at Female 07/13/2019 6:16 PM SHIPPING/RECEIVING MANAGER Legal Sex Female 2:51 AM CDT Gender Identity Transgender Male 05/05/2019 1:23 PM CDT Sexual Orientation Pedraza 06/23/2023 10 :56 AM CDT documented as of this encounter Plan of Treatment Upcoming Encounters Date Type Department Care Team (Late st Contact Info) Description 04/21/2025 2:15 PM CDT Appointment [place] [facility] [address] [phone] Prashanth Martinez MD [address] [place] [address] 05/02/2025 8:40 AM CDT Appointment [facility] - Ophthalmology - Optometry [address] [phone] Danuta Golden OD [address] [place] [address] documented as of this encounter Visit Diagnoses Not on filedocumented in this encounter Additional Health Concerns Infection Onset Date Last Indicated Resolved Time COVID-19 09/28/2021 09/28/2021 10/28/2021 9:44 PM SHIPPING/RECEIVING MANAGER Assessment Noted Time PHQ-9 Depression Total Score: 9 11/25/19 18 2:15 PM CDT PHQ-2 Depression Total Score: 4 11/25/19 18 2:15 PM CDT documented as of this encounter Care Teams Overhead Cleaner Maintainer Relationship Specialty Start Date End Date Che Williamson MD [address] [place] [address] PCP - General 08/27/12 03/20/22 Prashanth Martinez MD [address] [place] [address] PCP - General Pediatric Medicine 03/21/22 Lynda Skelton MD [address] [place] [address] Provider Team Family Practice 06/10/17 Franchesca Manley 12/09/17 12/07/18 Chelsea Hensley MD [address] [place] [address] Endocrinology 12/08/18 documented as of this encounter
--- OUTSIDE RECORDS SUMMARY | 2025-01-28 20:20 | XMS_ITS | Encounter Summary ---
Author Organization [facility] Care Address [address] [place] [address] Phone Care Team Providers Care Aerial Applicator Pilot Name Role Phone Che Williamson MD Primary Care Provider + [phone] Lynda Skelton MD Unavailable [phone] Franchesca Manley Unavailable Unavailable Chelsea Hensley MD Unavailable [phone] Prashanth Martinez MD Primary Care Provider [phone] Encounter Details Date Type Department Care Team (Late st Contact Info) Description 11/14/2017 Pharmacy Visit [facility] - Pharmacy - Business Office [address] [place] [address] Social History Tobacco Use Types Packs/Day Years Used Date Smoking Tobacco: Never Smokeless Tobacco: Never Alcohol Use Standard Drinks/Week Comments No 0 (1 standard drink = 0.6 oz pur e alcohol) Comments No Sex and Gender Information Value Date Recorded Sex Assigned at Female 07/13/2019 6:16 PM PROSTHETIC AIDES TEACHER Legal Sex Female 2:51 AM CDT Gender Identity Transgender Male 05/05/2019 1:23 PM CDT Sexual Orientation Pedraza 06/23/2023 10 :56 AM CDT documented as of this encounter Plan of Treatment Upcoming Encounters Date Type Department Care Team (Late st Contact Info) Description 04/21/2025 2:15 PM CDT Appointment [place] [facility] [place] - [facility] [address] [phone] Prashanth Martinez MD [address] [place] [address] 05/02/2025 8:40 AM CDT Appointment [place] - [facility] - Ophthalmology - Optometry [address] [phone] Danuta Golden OD [address] [place] [address] documented as of this encounter Visit Diagnoses Not on filedocumented in this encounter Additional Health Concerns Infection Onset Date Last Indicated Resolved Time COVID-19 09/28/2021 09/28/2021 10/28/2021 9:44 PM PROSTHETIC AIDES TEACHER Assessment Noted Time PHQ-2 Depression Total Score: 2 05/06/20 17 5:10 PM CDT documented as of this encounter Care Teams Aerial Applicator Pilot Relationship Specialty Start Date End Date Che Williamson MD [address] [place] [address] PCP - General 08/27/12 03/20/22 Prashanth Martinez MD [address] [place] [address] PCP - General Pediatric Medicine 03/21/22 Lynda Skelton MD [facility] [place] [address] Provider Team Family Practice 06/10/17 Franchesca Manley 12/09/17 12/07/18 Chelsea Hensley MD [address] [place] [address] Endocrinology 12/08/18 documented as of this encounter
--- OUTSIDE RECORDS SUMMARY | 2025-01-28 20:20 | XMS_ITS | Encounter Summary ---
Author Organization [facility] Care Address [address] [place] [address] Phone Care Team Providers Care Gang Sawyer Name Role Phone Che Williamson MD Primary Care Provider + [phone] Lynda Skelton MD Unavailable Chelsea Hensley MD Unavailable [phone] Prashanth Martinez MD Primary Care Provider [phone] Encounter Details Date Type Department Care Team (Late st Contact Info) Description 10/21/2019 Pharmacy Visit [facility] - Pharmacy - Specialty [address] [place] [address] Social History Tobacco Use Types Packs/Day Years Used Date Smoking Tobacco: Never Smokeless Tobacco: Never Alcohol Use Standard Drinks/Week Comments No 0 (1 standard drink = 0.6 oz pur e alcohol) Comments No Sex and Gender Information Value Date Recorded Sex Assigned at Female 07/13/2019 6:16 PM SENIOR SOLUTIONS ENGINEER Legal Sex Female 2:51 AM CDT Gender Identity Transgender Male 05/05/2019 1:23 PM CDT Sexual Orientation Pedraza 06/23/2023 10 :56 AM CDT documented as of this encounter Plan of Treatment Upcoming Encounters Date Type Department Care Team (Late st Contact Info) Description 04/21/2025 2:15 PM CDT Appointment [place] [facility] [place] - [facility] [address] [phone] Prashanth Martinez MD [address] [place] [address] 05/02/2025 8:40 AM CDT Appointment [place] [facility] - Ophthalmology - Optometry [address] [phone] Danuta Golden OD [address] [place] [address] documented as of this encounter Visit Diagnoses Not on filedocumented in this encounter Additional Health Concerns Infection Onset Date Last Indicated Resolved Time COVID-19 09/28/2021 09/28/2021 10/28/2021 9:44 PM SENIOR SOLUTIONS ENGINEER Assessment Noted Time PHQ-9 Depression Total Score: 9 11/25/19 18 2:15 PM CDT A fall risk assessment has been complete d for the patient 08/19/2019 4:16 PM SENIOR SOLUTIONS ENGINEER PHQ-2 Depression Total Score: 4 11/25/19 18 2:15 PM CDT documented as of this encounter Care Teams Gang Sawyer Relationship Specialty Start Date End Date Che Williamson MD [address] [place] [address] PCP - General 08/27/12 03/20/22 Prashanth Martinez MD [address] [place] [address] PCP - General Pediatric Medicine 03/21/22 Lynda Skelton MD [address] [place] [address] Provider Team Family Practice 06/10/17 Chelsea Hensley MD [address] [place] [address] Endocrinology 12/08/18 documented as of this encounter
--- OUTSIDE RECORDS SUMMARY | 2025-01-28 20:20 | XMS_ITS | Encounter Summary ---
Author Organization [facility] Care Address [address] [place] [address] Phone Care Team Providers Care Signs And Displays Sales Representative Name Role Phone Che Williamson MD Primary Care Provider + [phone] Lynda Skelton MD Unavailable Chelsea Hensley MD Unavailable [phone] Prashanth Martinez MD Primary Care Provider [phone] Encounter Details Date Type Department Care Team (Late st Contact Info) Description 10/19/2019 Pharmacy Visit [facility] - Pharmacy - Specialty [address] [place] [address] Social History Tobacco Use Types Packs/Day Years Used Date Smoking Tobacco: Never Smokeless Tobacco: Never Alcohol Use Standard Drinks/Week Comments No 0 (1 standard drink = 0.6 oz pur e alcohol) Comments No Sex and Gender Information Value Date Recorded Sex Assigned at Female 07/13/2019 6:16 PM CANE STRIPPER Legal Sex Female 2:51 AM CDT Gender Identity Transgender Male 05/05/2019 1:23 PM CDT Sexual Orientation Pedraza 06/23/2023 10 :56 AM CDT documented as of this encounter Plan of Treatment Upcoming Encounters Date Type Department Care Team (Late st Contact Info) Description 04/21/2025 2:15 PM CDT Appointment [place] [facility] [place] - [facility] [address] [phone] Prashanth Martinez MD 200 [place] [address] 05/02/2025 8:40 AM CDT Appointment [place] [facility] - Ophthalmology - Optometry [address] [phone] Danuta Golden OD [address] [place] [address] documented as of this encounter Visit Diagnoses Not on filedocumented in this encounter Additional Health Concerns Infection Onset Date Last Indicated Resolved Time COVID-19 09/28/2021 09/28/2021 10/28/2021 9:44 PM CANE STRIPPER Assessment Noted Time PHQ-9 Depression Total Score: 9 11/25/19 18 2:15 PM CDT A fall risk assessment has been complete d for the patient 08/19/2019 4:16 PM CANE STRIPPER PHQ-2 Depression Total Score: 4 11/25/19 18 2:15 PM CDT documented as of this encounter Care Teams Signs And Displays Sales Representative Relationship Specialty Start Date End Date Che Williamson MD [address] [place] [address] PCP - General 08/27/12 03/20/22 Prashanth Martinez MD [address] [place] [address] PCP - General Pediatric Medicine 03/21/22 Lynda Skelton MD [address] [place] [address] Provider Team Family Practice 06/10/17 Chelsea Hensley MD [address] [place] [address] Endocrinology 12/08/18 documented as of this encounter
--- OUTSIDE RECORDS SUMMARY | 2025-01-28 20:20 | XMS_ITS | Encounter Summary ---
Author Organization [facility] Care Address [address] [place] [address] Phone Care Team Providers Care Relocation Specialist Name Role Phone Che Williamson MD Primary Care Provider + [phone] Lynda Skelton MD Unavailable Franchesca Manley Unavailable Unavailable Chelsea Hensley MD Unavailable [phone] Prashanth Martinez MD Primary Care Provider [phone] Encounter Details Date Type Department Care Team (Late st Contact Info) Description 06/09/2018 Pharmacy Visit [facility] - Pharmacy - Specialty [address] [place] [address] Social History Tobacco Use Types Packs/Day Years Used Date Smoking Tobacco: Never Smokeless Tobacco: Never Alcohol Use Standard Drinks/Week Comments No 0 (1 standard drink = 0.6 oz pur e alcohol) Comments No Sex and Gender Information Value Date Recorded Sex Assigned at Female 07/13/2019 6:16 PM ANIMAL CYTOLOGIST Legal Sex Female 2:51 AM CDT Gender Identity Transgender Male 05/05/2019 1:23 PM CDT Sexual Orientation Pedraza 06/23/2023 10 :56 AM CDT documented as of this encounter Plan of Treatment Upcoming Encounters Date Type Department Care Team (Late st Contact Info) Description 04/21/2025 2:15 PM CDT Appointment [place] - [facility] - Adolescent Clinic [address] [phone] Prashanth Martinez MD [address] [place] [address] 05/02/2025 8:40 AM CDT Appointment [facility] - Ophthalmology - Optometry [address] [phone] Danuta Golden OD [address] [place] [address] documented as of this encounter Visit Diagnoses Not on filedocumented in this encounter Additional Health Concerns Infection Onset Date Last Indicated Resolved Time COVID-19 09/28/2021 09/28/2021 10/28/2021 9:44 PM ANIMAL CYTOLOGIST Assessment Noted Time PHQ-9 Depression Total Score: 9 11/25/19 18 2:15 PM CDT PHQ-2 Depression Total Score: 4 11/25/19 18 2:15 PM CDT documented as of this encounter Care Teams Relocation Specialist Relationship Specialty Start Date End Date Che Williamson MD [address] [place] [address] PCP - General 08/27/12 03/20/22 Prashanth Martinez MD [address] [place] [address] PCP - General Pediatric Medicine 03/21/22 Lynda Skelton MD [address] [place] [address] Provider Team Family Practice 06/10/17 Franchesca Manley 12/09/17 12/07/18 Chelsea Hensley MD [address] [place] [address] Endocrinology 12/08/18 documented as of this encounter
--- OUTSIDE RECORDS SUMMARY | 2025-01-28 20:20 | XMS_ITS | Encounter Summary ---
Author Organization [facility] Care Address [address] [place] [address] Phone Care Team Providers Care Advertising Sales Consultant Name Role Phone Che Williamson MD Primary Care Provider Lynda Skelton MD Unavailable Franchesca Manley Unavailable Unavailable Chelsea Hensley MD Unavailable [phone] Prashanth Martinez MD Primary Care Provider [phone] Encounter Details Date Type Department Care Team (Late st Contact Info) Description 04/29/2018 Pharmacy Visit [facility] - Pharmacy - Specialty [address] [place] [address] Social History Tobacco Use Types Packs/Day Years Used Date Smoking Tobacco: Never Smokeless Tobacco: Never Alcohol Use Standard Drinks/Week Comments No 0 (1 standard drink = 0.6 oz pur e alcohol) Comments No Sex and Gender Information Value Date Recorded Sex Assigned at Female 07/13/2019 6:16 PM NITRATING ACID MIXER Legal Sex Female 2:51 AM CDT Gender Identity Transgender Male 05/05/2019 1:23 PM CDT Sexual Orientation Pedraza 06/23/2023 10 :56 AM CDT documented as of this encounter Plan of Treatment Upcoming Encounters Date Type Department Care Team (Late st Contact Info) Description 04/21/2025 2:15 PM CDT Appointment [facility] - Adolescent Clinic [address] [phone] Prashanth Martinez MD 200 [place] [address] 05/02/2025 8:40 AM CDT Appointment [facility] - Ophthalmology - Optometry [address] [phone] Danuta Golden OD 200 [place] [address] documented as of this encounter Visit Diagnoses Not on filedocumented in this encounter Additional Health Concerns Infection Onset Date Last Indicated Resolved Time COVID-19 09/28/2021 09/28/2021 10/28/2021 9:44 PM NITRATING ACID MIXER Assessment Noted Time PHQ-9 Depression Total Score: 9 11/25/19 18 2:15 PM CDT PHQ-2 Depression Total Score: 4 11/25/19 18 2:15 PM CDT documented as of this encounter Care Teams Advertising Sales Consultant Relationship Specialty Start Date End Date Che Williamson MD [address] [place] [address] PCP - General 08/27/12 03/20/22 Prashanth Martinez MD [address] [place] [address] PCP - General Pediatric Medicine 03/21/22 Lynda Skelton MD [address] [place] [address] Provider Team Family Practice 06/10/17 Franchesca Manley 12/09/17 12/07/18 Chelsea Hensley MD [address] [place] [address] Endocrinology 12/08/18 documented as of this encounter
--- OUTSIDE RECORDS SUMMARY | 2025-01-28 20:20 | XMS_ITS | Encounter Summary ---
Author Organization [facility] Care Address [address] [place] [address] Phone Care Team Providers Care Fishing Lure Assembler Name Role Phone Che Williamson MD Primary Care Provider + [phone] Lynda Skelton MD Unavailable Franchesca Manley Unavailable Unavailable Chelsea Hensley MD Unavailable [phone] Prashanth Martinez MD Primary Care Provider Encounter Details Date Type Department Care Team (Late st Contact Info) Description 11/13/2017 Pharmacy Visit [facility] 200 [place] [address] Social History Tobacco Use Types Packs/Day Years Used Date Smoking Tobacco: Never Smokeless Tobacco: Never Alcohol Use Standard Drinks/Week Comments No 0 (1 standard drink = 0.6 oz pur e alcohol) Comments No Sex and Gender Information Value Date Recorded Sex Assigned at Female 07/13/2019 6:16 PM FISH MACHINE FEEDER Legal Sex Female 2:51 AM CDT Gender Identity Transgender Male 05/05/2019 1:23 PM CDT Sexual Orientation Pedraza 06/23/2023 10 :56 AM CDT documented as of this encounter Plan of Treatment Upcoming Encounters Date Type Department Care Team (Late st Contact Info) Description 04/21/2025 2:15 PM CDT Appointment [place] - [facility] - Adolescent Clinic [address] [phone] Prashanth Martinez MD 200 [place] [address] 05/02/2025 8:40 AM CDT Appointment [facility] - Ophthalmology - Optometry [address] [phone] Danuta Golden OD 200 [place] [address] documented as of this encounter Visit Diagnoses Not on filedocumented in this encounter Additional Health Concerns Infection Onset Date Last Indicated Resolved Time COVID-19 09/28/2021 09/28/2021 10/28/2021 9:44 PM FISH MACHINE FEEDER Assessment Noted Time PHQ-2 Depression Total Score: 2 05/06/20 17 5:10 PM CDT documented as of this encounter Care Teams Fishing Lure Assembler Relationship Specialty Start Date End Date Che Williamson MD [address] [place] [address] PCP - General 08/27/12 03/20/22 Prashanth Martinez MD [address] [place] [address] PCP - General Pediatric Medicine 03/21/22 Lynda Skelton MD [facility]0 [place] [address] Provider Team Family Practice 06/10/17 Franchesca Manley 12/09/17 12/07/18 Chelsea Hensley MD [address] [place] [address] Endocrinology 12/08/18 documented as of this encounter
--- OUTSIDE RECORDS SUMMARY | 2025-01-28 20:20 | XMS_ITS | Encounter Summary ---
Author Organization [facility] Care Address [address] [place] [address] Phone Care Team Providers Care Damper Fitter Name Role Phone Che Williamson MD Primary Care Provider Lynda Skelton MD Unavailable Franchesca Manley Unavailable Unavailable Chelsea Hensley MD Unavailable [phone] Prahsanth Martinez MD Primary Care Provider [phone] Encounter Details Date Type Department Care Team (Late st Contact Info) Description 04/23/2018 Pharmacy Visit [facility] - Pharmacy - Specialty 200 [place] [address] Social History Tobacco Use Types Packs/Day Years Used Date Smoking Tobacco: Never Smokeless Tobacco: Never Alcohol Use Standard Drinks/Week Comments No 0 (1 standard drink = 0.6 oz pur e alcohol) Comments No Sex and Gender Information Value Date Recorded Sex Assigned at Female 07/13/2019 6:16 PM CUSHION PADDER Legal Sex Female 2:51 AM CDT Gender Identity Transgender Male 05/05/2019 1:23 PM CDT Sexual Orientation Pedraza 06/23/2023 10 :56 AM CDT documented as of this encounter Plan of Treatment Upcoming Encounters Date Type Department Care Team (Late st Contact Info) Description 04/21/2025 2:15 PM CDT Appointment [place] - [facility] - Adolescent Clinic [address] [phone] Prashanth Martinez MD 200 [place] [address] 05/02/2025 8:40 AM CDT Appointment [facility] - Ophthalmology - Optometry [address] [phone] Danuta Golden OD 200 [place] [address] documented as of this encounter Visit Diagnoses Not on filedocumented in this encounter Additional Health Concerns Infection Onset Date Last Indicated Resolved Time COVID-19 09/28/2021 09/28/2021 10/28/2021 9:44 PM CUSHION PADDER Assessment Noted Time PHQ-9 Depression Total Score: 9 11/25/19 18 2:15 PM CDT PHQ-2 Depression Total Score: 4 11/25/19 18 2:15 PM CDT documented as of this encounter Care Teams Damper Fitter Relationship Specialty Start Date End Date Che Williamson MD [address] [place] [address] PCP - General 08/27/12 03/20/22 Prashanth Martinez MD [address] [place] [address] PCP - General Pediatric Medicine 03/21/22 Lynda Skelton MD [address] [place] [address] Provider Team Family Practice 06/10/17 Franchesca Manley 12/09/17 12/07/18 Chelsea Hensley MD [address] [place] [address] Endocrinology 12/08/18 documented as of this encounter
--- OUTSIDE RECORDS SUMMARY | 2025-01-28 20:20 | XMS_ITS | Encounter Summary ---
Author Organization [facility] Care Address [address] [place] [address] Phone Care Team Providers Care Engineering Drafter Name Role Phone Che Williamson MD Primary Care Provider Lynda Skelton MD Unavailable Franchesca Manley Unavailable Unavailable Chelsea Hensley MD Unavailable [phone] Prashanth Martinez MD Primary Care Provider [phone] Encounter Details Date Type Department Care Team (Late st Contact Info) Description 05/18/2018 Pharmacy Visit [facility] - Pharmacy - Specialty 200 [place] [address] Social History Tobacco Use Types Packs/Day Years Used Date Smoking Tobacco: Never Smokeless Tobacco: Never Alcohol Use Standard Drinks/Week Comments No 0 (1 standard drink = 0.6 oz pur e alcohol) Comments No Sex and Gender Information Value Date Recorded Sex Assigned at Female 07/13/2019 6:16 PM ENVIRONMENTAL QUALITY ANALYST Legal Sex Female 2:51 AM CDT Gender Identity Transgender Male 05/05/2019 1:23 PM CDT Sexual Orientation Pedraza 06/23/2023 10 :56 AM CDT documented as of this encounter Plan of Treatment Upcoming Encounters Date Type Department Care Team (Late st Contact Info) Description 04/21/2025 2:15 PM CDT Appointment [place] - [facility] - Adolescent Clinic [address] [phone] Prashanth Martinez MD 200 [place] [address] 05/02/2025 8:40 AM CDT Appointment [facility] - Ophthalmology - Optometry [address] [phone] Danuta Golden OD 200 [place] [address] documented as of this encounter Visit Diagnoses Not on filedocumented in this encounter Additional Health Concerns Infection Onset Date Last Indicated Resolved Time COVID-19 09/28/2021 09/28/2021 10/28/2021 9:44 PM ENVIRONMENTAL QUALITY ANALYST Assessment Noted Time PHQ-9 Depression Total Score: 9 11/25/19 18 2:15 PM CDT PHQ-2 Depression Total Score: 4 11/25/19 18 2:15 PM CDT documented as of this encounter Care Teams Engineering Drafter Relationship Specialty Start Date End Date Che Williamson MD [address] [place] [address] PCP - General 08/27/12 03/20/22 Prashanth Martinez MD [address] [place] [address] PCP - General Pediatric Medicine 03/21/22 Lynda Skelton MD [address] [place] [address] Provider Team Family Practice 06/10/17 Franchesca Manley 12/09/17 12/07/18 Chelsea Hensley MD [address] [place] [address] Endocrinology 12/08/18 documented as of this encounter
--- OUTSIDE RECORDS SUMMARY | 2025-01-28 20:20 | XMS_ITS | Encounter Summary ---
Author Organization [facility] Care Address [address] [place] [address] Phone Care Team Providers Care Machine Hamper Maker Name Role Phone Che Williamson MD Primary Care Provider + [phone] Lynda Skelton MD Unavailable Chelsea Hensley MD Unavailable [phone] Prashanth Martinez MD Primary Care Provider [phone] Encounter Details Date Type Department Care Team (Late st Contact Info) Description 11/10/2019 Pharmacy Visit [facility] - Pharmacy - Specialty [address] [place] [address] Social History Tobacco Use Types Packs/Day Years Used Date Smoking Tobacco: Never Smokeless Tobacco: Never Alcohol Use Standard Drinks/Week Comments No 0 (1 standard drink = 0.6 oz pur e alcohol) Comments No Sex and Gender Information Value Date Recorded Sex Assigned at Female 07/13/2019 6:16 PM EMPLOYEE DEVELOPMENT DIRECTOR Legal Sex Female 2:51 AM CDT Gender Identity Transgender Male 05/05/2019 1:23 PM CDT Sexual Orientation Pedraza 06/23/2023 10 :56 AM CDT documented as of this encounter Plan of Treatment Upcoming Encounters Date Type Department Care Team (Late st Contact Info) Description 04/21/2025 2:15 PM CDT Appointment [place] - [facility] - Adolescent Clinic [address] [phone] Prashanth Martinez MD 200 [place] [address] 05/02/2025 8:40 AM CDT Appointment [place] - [facility] - Ophthalmology - Optometry [address] [phone] Danuta Golden OD 200 [place] [address] documented as of this encounter Visit Diagnoses Not on filedocumented in this encounter Additional Health Concerns Infection Onset Date Last Indicated Resolved Time COVID-19 09/28/2021 09/28/2021 10/28/2021 9:44 PM EMPLOYEE DEVELOPMENT DIRECTOR Assessment Noted Time PHQ-9 Depression Total Score: 9 11/25/19 18 2:15 PM CDT A fall risk assessment has been complete d for the patient 11/10/2019 10:30 AM EMPLOYEE DEVELOPMENT DIRECTOR PHQ-2 Depression Total Score: 4 11/25/19 18 2:15 PM CDT documented as of this encounter Care Teams Machine Hamper Maker Relationship Specialty Start Date End Date Che Williamson MD [address] [place] [address] PCP - General 08/27/12 03/20/22 Prashanth Martinez MD [address] [place] [address] PCP - General Pediatric Medicine 03/21/22 Lynda Skelton MD [address] [place] [address] Provider Team Family Practice 06/10/17 Chelsea Hensley MD [address] [place] [address] Endocrinology 12/08/18 documented as of this encounter
--- OUTSIDE RECORDS SUMMARY | 2025-01-28 20:20 | XMS_ITS | Encounter Summary ---
Author Organization [facility] Care Address [address] [place] [address] Phone Care Team Providers Care Home Advisor Name Role Phone Che Williamson MD Primary Care Provider + [phone] Lynda Skelton MD Unavailable Chelsea Hensley MD Unavailable [phone] Prashanth Martinez MD Primary Care Provider [phone] Encounter Details Date Type Department Care Team (Late st Contact Info) Description 11/08/2019 Pharmacy Visit [facility] 200 [place] [address] Social History Tobacco Use Types Packs/Day Years Used Date Smoking Tobacco: Never Smokeless Tobacco: Never Alcohol Use Standard Drinks/Week Comments No 0 (1 standard drink = 0.6 oz pur e alcohol) Comments No Sex and Gender Information Value Date Recorded Sex Assigned at Female 07/13/2019 6:16 PM SAP ENTERPRISE PORTAL CONSULTANT Legal Sex Female 2:51 AM CDT Gender Identity Transgender Male 05/05/2019 1:23 PM CDT Sexual Orientation Pedraza 06/23/2023 10 :56 AM CDT documented as of this encounter Plan of Treatment Upcoming Encounters Date Type Department Care Team (Late st Contact Info) Description 04/21/2025 2:15 PM CDT Appointment [place] - [facility] - Adolescent Clinic [address] [phone] Prashanth Martinez MD 200 [place] [address] 05/02/2025 8:40 AM CDT Appointment [place] [facility] - Ophthalmology - Optometry [address] [phone] Danuta Golden OD 200 [place] [address] documented as of this encounter Visit Diagnoses Not on filedocumented in this encounter Additional Health Concerns Infection Onset Date Last Indicated Resolved Time COVID-19 09/28/2021 09/28/2021 10/28/2021 9:44 PM SAP ENTERPRISE PORTAL CONSULTANT Assessment Noted Time PHQ-9 Depression Total Score: 9 11/25/19 18 2:15 PM CDT A fall risk assessment has been complete d for the patient 08/19/2019 4:16 PM SAP ENTERPRISE PORTAL CONSULTANT PHQ-2 Depression Total Score: 4 11/25/19 18 2:15 PM CDT documented as of this encounter Care Teams Home Advisor Relationship Specialty Start Date End Date Che Williamson MD [address] [place] [address] PCP - General 08/27/12 03/20/22 Prashanth Martinez MD [address] [place] [address] PCP - General Pediatric Medicine 03/21/22 Lynda Skelton MD [address] [place] [address] Provider Team Family Practice 06/10/17 Chelsea Hensley MD [address] [place] [address] Endocrinology 12/08/18 documented as of this encounter
--- OUTSIDE RECORDS SUMMARY | 2025-01-28 20:20 | XMS_ITS | Encounter Summary ---
Author Organization [facility] Care Address [address] [place] [address] Phone Care Team Providers Care Hand Bindery Assembly Worker Name Role Phone Che Williamson MD Primary Care Provider + [phone] Lynda Skelton MD Unavailable Franchesca Manley Unavailable Unavailable Chelsea Hensley MD Unavailable [phone] Prashanth Martinez MD Primary Care Provider [phone] Encounter Details Date Type Department Care Team (Late st Contact Info) Description 12/09/2017 Pharmacy Visit [facility] - Pharmacy - Specialty [address] [place] [address] Social History Tobacco Use Types Packs/Day Years Used Date Smoking Tobacco: Never Smokeless Tobacco: Never Alcohol Use Standard Drinks/Week Comments No 0 (1 standard drink = 0.6 oz pur e alcohol) Comments No Sex and Gender Information Value Date Recorded Sex Assigned at Female 07/13/2019 6:16 PM PHOTO MASK PATTERN GENERATOR Legal Sex Female 2:51 AM CDT Gender Identity Transgender Male 05/05/2019 1:23 PM CDT Sexual Orientation Pedraza 06/23/2023 10 :56 AM CDT documented as of this encounter Plan of Treatment Upcoming Encounters Date Type Department Care Team (Late st Contact Info) Description 04/21/2025 2:15 PM CDT Appointment [place] - [facility] - Adolescent Clinic [address] [phone] Prashanth Martinez MD 200 [place] [address] 05/02/2025 8:40 AM CDT Appointment [facility] - Ophthalmology - Optometry [address] [phone] Danuta Golden OD 200 [place] [address] documented as of this encounter Visit Diagnoses Not on filedocumented in this encounter Additional Health Concerns Infection Onset Date Last Indicated Resolved Time COVID-19 09/28/2021 09/28/2021 10/28/2021 9:44 PM PHOTO MASK PATTERN GENERATOR Assessment Noted Time PHQ-9 Depression Total Score: 9 11/25/19 18 2:15 PM CDT PHQ-2 Depression Total Score: 4 11/25/19 18 2:15 PM CDT documented as of this encounter Care Teams Hand Bindery Assembly Worker Relationship Specialty Start Date End Date Che Williamson MD [address] [place] [address] PCP - General 08/27/12 03/20/22 Prashanth Martinez MD [address] [place] [address] PCP - General Pediatric Medicine 03/21/22 Lynda Skelton MD [address] [place] [address] Provider Team Family Practice 06/10/17 Franchesca Manley 12/09/17 12/07/18 Chelsea Hensley MD [address] [place] [address] Endocrinology 12/08/18 documented as of this encounter
--- OUTSIDE RECORDS SUMMARY | 2025-01-28 20:20 | XMS_ITS | Encounter Summary ---
Author Organization [facility] Care Address [address] [place] [address] Phone Care Team Providers Care Industrial Economist Name Role Phone Che Williamson MD Primary Care Provider Lynda Skelton MD Unavailable Franchesca Manley Unavailable Unavailable Chelsea Hensley MD Unavailable [phone] Prashanth Martinez MD Primary Care Provider [phone] Encounter Details Date Type Department Care Team (Late st Contact Info) Description 12/08/2017 Pharmacy Visit [facility] - Pharmacy - Specialty [address] [place] [address] Social History Tobacco Use Types Packs/Day Years Used Date Smoking Tobacco: Never Smokeless Tobacco: Never Alcohol Use Standard Drinks/Week Comments No 0 (1 standard drink = 0.6 oz pur e alcohol) Comments No Sex and Gender Information Value Date Recorded Sex Assigned at Female 07/13/2019 6:16 PM NET MAKER Legal Sex Female 2:51 AM CDT Gender Identity Transgender Male 05/05/2019 1:23 PM CDT Sexual Orientation Pedraza 06/23/2023 10 :56 AM CDT documented as of this encounter Plan of Treatment Upcoming Encounters Date Type Department Care Team (Late st Contact Info) Description 04/21/2025 2:15 PM CDT Appointment [place] - [facility] - Adolescent Clinic [address] [phone] Prashanth Martinez MD 200 [place] [address] 05/02/2025 8:40 AM CDT Appointment [facility] - Ophthalmology - Optometry [address] [phone] Danuta Golden OD 200 [place] [address] documented as of this encounter Visit Diagnoses Not on filedocumented in this encounter Additional Health Concerns Infection Onset Date Last Indicated Resolved Time COVID-19 09/28/2021 09/28/2021 10/28/2021 9:44 PM NET MAKER Assessment Noted Time PHQ-9 Depression Total Score: 9 11/25/19 18 2:15 PM CDT PHQ-2 Depression Total Score: 4 11/25/19 18 2:15 PM CDT documented as of this encounter Care Teams Industrial Economist Relationship Specialty Start Date End Date Che Williamson MD [address] [place] [address] PCP - General 08/27/12 03/20/22 Prashanth Martinez MD [address] [place] [address] PCP - General Pediatric Medicine 03/21/22 Lynda Skelton MD [address] [place] [address] Provider Team Family Practice 06/10/17 Franchesca Manley 12/09/17 12/07/18 Chelsea Hensley MD [address] [place] [address] Endocrinology 12/08/18 documented as of this encounter
--- OUTSIDE RECORDS SUMMARY | 2025-01-28 20:20 | XMS_ITS | Encounter Summary ---
Author Organization [facility] Care Address [address] [place] [address] Phone Care Team Providers Care Machine Operator Assistant Name Role Phone Che Williamson MD Primary Care Provider + [phone] Lynda Skelton MD Unavailable Chelsea Hensley MD Unavailable [phone] Prashanth Martinez MD Primary Care Provider [phone] Encounter Details Date Type Department Care Team (Late st Contact Info) Description 11/08/2019 Pharmacy Visit [facility] - Pharmacy - Specialty [address] [place] [address] Social History Tobacco Use Types Packs/Day Years Used Date Smoking Tobacco: Never Smokeless Tobacco: Never Alcohol Use Standard Drinks/Week Comments No 0 (1 standard drink = 0.6 oz pur e alcohol) Comments No Sex and Gender Information Value Date Recorded Sex Assigned at Female 07/13/2019 6:16 PM FLOUR BLENDER Legal Sex Female 2:51 AM CDT Gender Identity Transgender Male 05/05/2019 1:23 PM CDT Sexual Orientation Pedraza 06/23/2023 10 :56 AM CDT documented as of this encounter Plan of Treatment Upcoming Encounters Date Type Department Care Team (Late st Contact Info) Description 04/21/2025 2:15 PM CDT Appointment [place] - [place] - Adolescent Clinic [address] [phone] Prashanth Martinez MD 200 [place] [address] 05/02/2025 8:40 AM CDT Appointment [place] - [facility] - Ophthalmology - Optometry [address] [phone] Danuta Golden OD [address] [place] [address] documented as of this encounter Visit Diagnoses Not on filedocumented in this encounter Additional Health Concerns Infection Onset Date Last Indicated Resolved Time COVID-19 09/28/2021 09/28/2021 10/28/2021 9:44 PM FLOUR BLENDER Assessment Noted Time PHQ-9 Depression Total Score: 9 11/25/19 18 2:15 PM CDT A fall risk assessment has been complete d for the patient 08/19/2019 4:16 PM FLOUR BLENDER PHQ-2 Depression Total Score: 4 11/25/19 18 2:15 PM CDT documented as of this encounter Care Teams Machine Operator Assistant Relationship Specialty Start Date End Date Che Williamson MD [address] [place] [address] PCP - General 08/27/12 03/20/22 Prashanth Martinez MD [address] [place] [address] PCP - General Pediatric Medicine 03/21/22 Lynda Skelton MD [address] [place] [address] Provider Team Family Practice 06/10/17 Chelsea Hensley MD [address] [place] [address] Endocrinology 12/08/18 documented as of this encounter
--- OUTSIDE RECORDS SUMMARY | 2025-01-28 20:20 | XMS_ITS | Encounter Summary ---
Author Organization [facility] Care Address [address] [place] [address] Phone Care Team Providers Care Lab Courier Name Role Phone Che Williamson MD Primary Care Provider + [phone] Lynda Skelton MD Unavailable Chelsea Hensley MD Unavailable [phone] Prashanth Martinez MD Primary Care Provider [phone] Encounter Details Date Type Department Care Team (Late st Contact Info) Description 10/14/2019 Pharmacy Visit [facility] - Pharmacy - Specialty [address] [place] [address] Social History Tobacco Use Types Packs/Day Years Used Date Smoking Tobacco: Never Smokeless Tobacco: Never Alcohol Use Standard Drinks/Week Comments No 0 (1 standard drink = 0.6 oz pur e alcohol) Comments No Sex and Gender Information Value Date Recorded Sex Assigned at Female 07/13/2019 6:16 PM HAT BLOCKING OPERATOR Legal Sex Female 2:51 AM CDT Gender Identity Transgender Male 05/05/2019 1:23 PM CDT Sexual Orientation Pedraza 06/23/2023 10 :56 AM CDT documented as of this encounter Plan of Treatment Upcoming Encounters Date Type Department Care Team (Late st Contact Info) Description 04/21/2025 2:15 PM CDT Appointment [place] - [place] - Adolescent Clinic [address] [phone] Prashanth Martinez MD [address] [place] [address] 05/02/2025 8:40 AM CDT Appointment [place] - [facility] - Ophthalmology - Optometry [address] [phone] Danuta Golden OD [address] [place] [address] documented as of this encounter Visit Diagnoses Not on filedocumented in this encounter Additional Health Concerns Infection Onset Date Last Indicated Resolved Time COVID-19 09/28/2021 09/28/2021 10/28/2021 9:44 PM HAT BLOCKING OPERATOR Assessment Noted Time PHQ-9 Depression Total Score: 9 11/25/19 18 2:15 PM CDT A fall risk assessment has been complete d for the patient 08/19/2019 4:16 PM HAT BLOCKING OPERATOR PHQ-2 Depression Total Score: 4 11/25/19 18 2:15 PM CDT documented as of this encounter Care Teams Lab Courier Relationship Specialty Start Date End Date Che Williamson MD [address] [place] [address] PCP - General 08/27/12 03/20/22 Prashanth Martinez MD [address] [place] [address] PCP - General Pediatric Medicine 03/21/22 Lynda Skelton MD [address] [place] [address] Provider Team Family Practice 06/10/17 Chelsea Hensley MD [address] [place] [address] Endocrinology 12/08/18 documented as of this encounter
--- OUTSIDE RECORDS SUMMARY | 2025-01-28 20:20 | XMS_ITS | Encounter Summary ---
Author Organization [facility] Care Address [address] [place] [address] Phone Care Team Providers Care Multiple Wire Sawyer Name Role Phone Che Williamson MD Primary Care Provider + [phone] Lynda Skelton MD Unavailable Franchesca Manley Unavailable Unavailable Chelsea Hensley MD Unavailable +[phone] Prashanth Martinez MD Primary Care Provider [phone] Encounter Details Date Type Department Care Team (Late st Contact Info) Description 05/15/2018 Pharmacy Visit [facility] - Pharmacy - Specialty 200 [place] [address] Social History Tobacco Use Types Packs/Day Years Used Date Smoking Tobacco: Never Smokeless Tobacco: Never Alcohol Use Standard Drinks/Week Comments No 0 (1 standard drink = 0.6 oz pur e alcohol) Comments No Sex and Gender Information Value Date Recorded Sex Assigned at Female 07/13/2019 6:16 PM CHILD DEVELOPMENT SPECIALIST Legal Sex Female 2:51 AM CDT Gender Identity Transgender Male 05/05/2019 1:23 PM CDT Sexual Orientation Pedraza 06/23/2023 10 :56 AM CDT documented as of this encounter Plan of Treatment Upcoming Encounters Date Type Department Care Team (Late st Contact Info) Description 04/21/2025 2:15 PM CDT Appointment [place] [facility] - Adolescent Clinic [address] [phone] Prashanth Martinez MD 200 [place] [address] 05/02/2025 8:40 AM CDT Appointment [facility] - Ophthalmology - Optometry [address] [phone] Danuta Golden OD 200 [place] [address] documented as of this encounter Visit Diagnoses Not on filedocumented in this encounter Additional Health Concerns Infection Onset Date Last Indicated Resolved Time COVID-19 09/28/2021 09/28/2021 10/28/2021 9:44 PM CHILD DEVELOPMENT SPECIALIST Assessment Noted Time PHQ-9 Depression Total Score: 9 11/25/19 18 2:15 PM CDT PHQ-2 Depression Total Score: 4 11/25/19 18 2:15 PM CDT documented as of this encounter Care Teams Multiple Wire Sawyer Relationship Specialty Start Date End Date Che Williamson MD [address] [place] [address] PCP - General 08/27/12 03/20/22 Prashanth Martinez MD 200 [place] [address] PCP - General Pediatric Medicine 03/21/22 Lynda Skelton MD [address] [place] [address] Provider Team Family Practice 06/10/17 Franchesca Manley 12/09/17 12/07/18 Chelsea Hensley MD [address] [place] [address] Endocrinology 12/08/18 documented as of this encounter
--- OUTSIDE RECORDS SUMMARY | 2025-01-28 20:20 | XMS_ITS | Encounter Summary ---
Author Organization [facility] Care Address [address] [place] [address] Phone Care Team Providers Care Reverberatory Furnace Supervisor Name Role Phone Che Williamson MD Primary Care Provider Lynda Skelton MD Unavailable Franchesca Manley Unavailable Unavailable Chelsea Hensley MD Unavailable [phone] Prashanth Martinez MD Primary Care Provider [phone] Encounter Details Date Type Department Care Team (Late st Contact Info) Description 06/26/2018 Pharmacy Visit [facility] - Pharmacy - Specialty [address] [place] [address] Social History Tobacco Use Types Packs/Day Years Used Date Smoking Tobacco: Never Smokeless Tobacco: Never Alcohol Use Standard Drinks/Week Comments No 0 (1 standard drink = 0.6 oz pur e alcohol) Comments No Sex and Gender Information Value Date Recorded Sex Assigned at Female 07/13/2019 6:16 PM PSS DELIVERY PROFESSIONAL Legal Sex Female 2:51 AM CDT Gender Identity Transgender Male 05/05/2019 1:23 PM CDT Sexual Orientation Pedraza 06/23/2023 10 :56 AM CDT documented as of this encounter Plan of Treatment Upcoming Encounters Date Type Department Care Team (Late st Contact Info) Description 04/21/2025 2:15 PM CDT Appointment [place] - [facility] - Adolescent Clinic [address] [phone] Prashanth Martinez MD 200 [place] [address] 05/02/2025 8:40 AM CDT Appointment [facility] - Ophthalmology - Optometry [address] [phone] Danuta Golden OD [address] [place] [address] documented as of this encounter Visit Diagnoses Not on filedocumented in this encounter Additional Health Concerns Infection Onset Date Last Indicated Resolved Time COVID-19 09/28/2021 09/28/2021 10/28/2021 9:44 PM PSS DELIVERY PROFESSIONAL Assessment Noted Time PHQ-9 Depression Total Score: 9 11/25/19 18 2:15 PM CDT PHQ-2 Depression Total Score: 4 11/25/19 18 2:15 PM CDT documented as of this encounter Care Teams Reverberatory Furnace Supervisor Relationship Specialty Start Date End Date Che Williamson MD [address] [place] [address] PCP - General 08/27/12 03/20/22 Prashanth Martinez MD [address] [place] [address] PCP - General Pediatric Medicine 03/21/22 Lynda Skelton MD [address] [place] [address] Provider Team Family Practice 06/10/17 Franchesca Manley 12/09/17 12/07/18 Chelsea Hensley MD [address] [place] [address] Endocrinology 12/08/18 documented as of this encounter
--- OUTSIDE RECORDS SUMMARY | 2025-01-28 20:20 | XMS_ITS | Encounter Summary ---
Author Organization [facility] Care Address [address] [place] [address] Phone Care Team Providers Care Overcoil Stepper Name Role Phone Che Williamson MD Primary Care Provider + [phone] Lynda Skelton MD Unavailable [phone] Franchesca Manley Unavailable Unavailable Chelsea Hensley MD Unavailable [phone] Prashanth Martinez MD Primary Care Provider [phone] Encounter Details Date Type Department Care Team (Late st Contact Info) Description 06/24/2018 Pharmacy Visit [facility] - Pharmacy - Business Office [address] [place] [address] Social History Tobacco Use Types Packs/Day Years Used Date Smoking Tobacco: Never Smokeless Tobacco: Never Alcohol Use Standard Drinks/Week Comments No 0 (1 standard drink = 0.6 oz pur e alcohol) Comments No Sex and Gender Information Value Date Recorded Sex Assigned at Female 07/13/2019 6:16 PM COAT BASTER Legal Sex Female 2:51 AM CDT Gender Identity Transgender Male 05/05/2019 1:23 PM CDT Sexual Orientation Pedraza 06/23/2023 10 :56 AM CDT documented as of this encounter Plan of Treatment Upcoming Encounters Date Type Department Care Team (Late st Contact Info) Description 04/21/2025 2:15 PM CDT Appointment [place] - [facility] [address] [phone] Prashanth Martinez MD 200 [place] [address] 05/02/2025 8:[address] [facility] - Ophthalmology - Optometry [address] [phone] Danuta Golden OD [address] [place] [address] documented as of this encounter Visit Diagnoses Not on filedocumented in this encounter Additional Health Concerns Infection Onset Date Last Indicated Resolved Time COVID-19 09/28/2021 09/28/2021 10/28/2021 9:44 PM COAT BASTER Assessment Noted Time PHQ-9 Depression Total Score: 9 11/25/19 18 2:15 PM CDT PHQ-2 Depression Total Score: 4 11/25/19 18 2:15 PM CDT documented as of this encounter Care Teams Overcoil Stepper Relationship Specialty Start Date End Date Che Williamson MD [address] [place] [address] PCP - General 08/27/12 03/20/22 Prashanth Martinez MD [address] [place] [address] PCP - General Pediatric Medicine 03/21/22 Lynda Skelton MD [address] [place] [address] Provider Team Family Practice 06/10/17 Franchesca Manley 12/09/17 12/07/18 Chelsea Hensley MD [address] [place] [address] Endocrinology 12/08/18 documented as of this encounter
--- OUTSIDE RECORDS SUMMARY | 2025-01-28 20:20 | XMS_ITS | Encounter Summary ---
Author Organization [facility] Care Address [address] [place] [address] Phone Care Team Providers Care Ring Cutter Lathe Operator Name Role Phone Che Williamson MD Primary Care Provider + [phone] Lynad Skelton MD Unavailable Franchesca Manley Unavailable Unavailable Chelsea Hensley MD Unavailable [phone] Prashanth Martinez MD Primary Care Provider [phone] Encounter Details Date Type Department Care Team (Late st Contact Info) Description 06/10/2018 Pharmacy Visit [facility] - Pharmacy - Specialty [address] [place] [address] Social History Tobacco Use Types Packs/Day Years Used Date Smoking Tobacco: Never Smokeless Tobacco: Never Alcohol Use Standard Drinks/Week Comments No 0 (1 standard drink = 0.6 oz pur e alcohol) Comments No Sex and Gender Information Value Date Recorded Sex Assigned at Female 07/13/2019 6:16 PM INSPECTOR TESTER SORTER Legal Sex Female 2:51 AM CDT Gender Identity Transgender Male 05/05/2019 1:23 PM CDT Sexual Orientation Pedraza 06/23/2023 10 :56 AM CDT documented as of this encounter Plan of Treatment Upcoming Encounters Date Type Department Care Team (Late st Contact Info) Description 04/21/2025 2:15 PM CDT Appointment [place] - [facility] - Adolescent Clinic [address] [phone] Prashanth Martinez MD 200 [place] [address] 05/02/2025 8:40 AM CDT Appointment [facility] - Ophthalmology - Optometry [address] [phone] Danuta Golden OD [address] [place] [address] documented as of this encounter Visit Diagnoses Not on filedocumented in this encounter Additional Health Concerns Infection Onset Date Last Indicated Resolved Time COVID-19 09/28/2021 09/28/2021 10/28/2021 9:44 PM INSPECTOR TESTER SORTER Assessment Noted Time PHQ-9 Depression Total Score: 9 11/25/19 18 2:15 PM CDT PHQ-2 Depression Total Score: 4 11/25/19 18 2:15 PM CDT documented as of this encounter Care Teams Ring Cutter Lathe Operator Relationship Specialty Start Date End Date Che Williamson MD [address] [place] [address] PCP - General 08/27/12 03/20/22 Prashanth Martinez MD [address] [place] [address] PCP - General Pediatric Medicine 03/21/22 Lynda Skelton MD [address] [place] [address] Provider Team Family Practice 06/10/17 Franchesca Manley 12/09/17 12/07/18 Chelsea Hensley MD [address] [place] [address] Endocrinology 12/08/18 documented as of this encounter
--- OUTSIDE RECORDS SUMMARY | 2025-01-28 20:20 | XMS_ITS | Encounter Summary ---
Author Organization [facility] Care Address [address] [place] [address] Phone Care Team Providers Care Military Science Teacher Name Role Phone Che Williamson MD Primary Care Provider + [phone] Lynda Skelton MD Unavailable [phone] Franchesca Manley Unavailable Unavailable Chelsea Hensley MD Unavailable [phone] Prashanth Martinez MD Primary Care Provider [phone] Encounter Details Date Type Department Care Team (Late st Contact Info) Description 11/28/2017 Pharmacy Visit [facility] - Pharmacy - Business Office [address] [place] [address] Social History Tobacco Use Types Packs/Day Years Used Date Smoking Tobacco: Never Smokeless Tobacco: Never Alcohol Use Standard Drinks/Week Comments No 0 (1 standard drink = 0.6 oz pur e alcohol) Comments No Sex and Gender Information Value Date Recorded Sex Assigned at Female 07/13/2019 6:16 PM TC OPERATOR Legal Sex Female 2:51 AM CDT Gender Identity Transgender Male 05/05/2019 1:23 PM CDT Sexual Orientation Pedraza 06/23/2023 10 :56 AM CDT documented as of this encounter Plan of Treatment Upcoming Encounters Date Type Department Care Team (Late st Contact Info) Description 04/21/2025 2:15 PM CDT Appointment [place] - [facility] [address] [phone] Prashanth Martinez MD 200 [place] [address] 05/02/2025 8:40 AM CDT Appointment [facility] - Ophthalmology - Optometry [address] [phone] Danuta Golden OD [address] [place] [address] documented as of this encounter Visit Diagnoses Not on filedocumented in this encounter Additional Health Concerns Infection Onset Date Last Indicated Resolved Time COVID-19 09/28/2021 09/28/2021 10/28/2021 9:44 PM TC OPERATOR Assessment Noted Time PHQ-9 Depression Total Score: 9 11/25/19 18 2:15 PM CDT PHQ-2 Depression Total Score: 4 11/25/19 18 2:15 PM CDT documented as of this encounter Care Teams Military Science Teacher Relationship Specialty Start Date End Date Che Williamson MD [address] [place] [address] PCP - General 08/27/12 03/20/22 Prashanth Martinez MD [address] [place] [address] PCP - General Pediatric Medicine 03/21/22 Lynda Skelton MD [address] [place] [address] Provider Team Family Practice 06/10/17 Franchesca Manley 12/09/17 12/07/18 Chelsea Hensley MD [address] [place] [address] Endocrinology 12/08/18 documented as of this encounter
--- OUTSIDE RECORDS SUMMARY | 2025-01-28 20:20 | XMS_ITS | Encounter Summary ---
Author Organization [facility] Care Address [address] [place] [address] Phone Care Team Providers Care Surgical Technologist Name Role Phone Che Williamson MD Primary Care Provider + [phone] Lynda Skelton MD Unavailable [phone] Franchesca Manley Unavailable Unavailable Chelsea Hensley MD Unavailable [phone] Prashanth Martinez MD Primary Care Provider [phone] Encounter Details Date Type Department Care Team (Late st Contact Info) Description 04/29/2018 Pharmacy Visit [facility] - Pharmacy - Business Office [address] [place] [address] Social History Tobacco Use Types Packs/Day Years Used Date Smoking Tobacco: Never Smokeless Tobacco: Never Alcohol Use Standard Drinks/Week Comments No 0 (1 standard drink = 0.6 oz pur e alcohol) Comments No Sex and Gender Information Value Date Recorded Sex Assigned at Female 07/13/2019 6:16 PM RECORDS ANALYSIS MANAGER Legal Sex Female 2:51 AM CDT Gender Identity Transgender Male 05/05/2019 1:23 PM CDT Sexual Orientation Pedraza 06/23/2023 10 :56 AM CDT documented as of this encounter Plan of Treatment Upcoming Encounters Date Type Department Care Team (Late st Contact Info) Description 04/21/2025 2:15 PM CDT Appointment [place] - [place] - Adolescent Clinic [address] [phone] Prashanth Martinez MD [address] [place] [address] 05/02/2025 8:40 AM CDT Appointment [facility] - Ophthalmology - Optometry [address] [phone] Danuta Golden OD [address] [place] [address] documented as of this encounter Visit Diagnoses Not on filedocumented in this encounter Additional Health Concerns Infection Onset Date Last Indicated Resolved Time COVID-19 09/28/2021 09/28/2021 10/28/2021 9:44 PM RECORDS ANALYSIS MANAGER Assessment Noted Time PHQ-9 Depression Total Score: 9 11/25/19 18 2:15 PM CDT PHQ-2 Depression Total Score: 4 11/25/19 18 2:15 PM CDT documented as of this encounter Care Teams Surgical Technologist Relationship Specialty Start Date End Date Che Williamson MD [address] [place] [address] PCP - General 08/27/12 03/20/22 Prashanth Martinez MD [address] [place] [address] PCP - General Pediatric Medicine 03/21/22 Lynda Skelton MD [address] [place] [address] Provider Team Family Practice 06/10/17 Franchesca Manley 12/09/17 12/07/18 Chelsea Hensley MD [address] [place] [address] Endocrinology 12/08/18 documented as of this encounter
--- OUTSIDE RECORDS SUMMARY | 2025-01-28 20:20 | XMS_ITS | Encounter Summary ---
Author Organization [facility] Care Address [address] [place] [address] Phone Care Team Providers Care Personnel Clerk Name Role Phone Che Williamson MD Primary Care Provider + [phone] Lynda Skelton MD Unavailable Franchesca Manley Unavailable Unavailable Chelsea Hensley MD Unavailable [phone] Prashanth Martinez MD Primary Care Provider [phone] Encounter Details Date Type Department Care Team (Late st Contact Info) Description 06/12/2018 Pharmacy Visit [facility] - Pharmacy - Specialty [address] [place] [address] Social History Tobacco Use Types Packs/Day Years Used Date Smoking Tobacco: Never Smokeless Tobacco: Never Alcohol Use Standard Drinks/Week Comments No 0 (1 standard drink = 0.6 oz pur e alcohol) Comments No Sex and Gender Information Value Date Recorded Sex Assigned at Female 07/13/2019 6:16 PM SHAKE LOADER Legal Sex Female 2:51 AM CDT Gender Identity Transgender Male 05/05/2019 1:23 PM CDT Sexual Orientation Pedraza 06/23/2023 10 :56 AM CDT documented as of this encounter Plan of Treatment Upcoming Encounters Date Type Department Care Team (Late st Contact Info) Description 04/21/2025 2:15 PM CDT Appointment [place] [facility] - Adolescent Clinic [address] [phone] Prashanth Martinez MD [address] [place] [address] 05/02/2025 8:40 AM CDT Appointment [facility] - Ophthalmology - Optometry [address] [phone] Danuta Golden OD [address] [place] [address] documented as of this encounter Visit Diagnoses Not on filedocumented in this encounter Additional Health Concerns Infection Onset Date Last Indicated Resolved Time COVID-19 09/28/2021 09/28/2021 10/28/2021 9:44 PM SHAKE LOADER Assessment Noted Time PHQ-9 Depression Total Score: 9 11/25/19 18 2:15 PM CDT PHQ-2 Depression Total Score: 4 11/25/19 18 2:15 PM CDT documented as of this encounter Care Teams Personnel Clerk Relationship Specialty Start Date End Date Che Williamson MD [address] [place] [address] PCP - General 08/27/12 03/20/22 Prashanth Martinez MD [address] [place] [address] PCP - General Pediatric Medicine 03/21/22 Lynda Skelton MD [address] [place] [address] Provider Team Family Practice 06/10/17 Franchesca Manley 12/09/17 12/07/18 Chelsea Hensley MD [address] [place] [address] Endocrinology 12/08/18 documented as of this encounter
--- OUTSIDE RECORDS SUMMARY | 2025-01-28 20:20 | XMS_ITS | Encounter Summary ---
Author Organization [facility] Care Address [address] [place] [address] Phone Care Team Providers Care Shank Sander Name Role Phone Che Williamson MD Primary Care Provider + [phone] Lynda Skelton MD Unavailable [phone] Franchesca Manley Unavailable Unavailable Chelsea Hensley MD Unavailable [phone] Prashanth Martinez MD Primary Care Provider [phone] Encounter Details Date Type Department Care Team (Late st Contact Info) Description 11/13/2017 Pharmacy Visit [facility] - Pharmacy - Business Office [address] [place] [address] Social History Tobacco Use Types Packs/Day Years Used Date Smoking Tobacco: Never Smokeless Tobacco: Never Alcohol Use Standard Drinks/Week Comments No 0 (1 standard drink = 0.6 oz pur e alcohol) Comments No Sex and Gender Information Value Date Recorded Sex Assigned at Female 07/13/2019 6:16 PM MINE PROMOTOR Legal Sex Female 2:51 AM CDT Gender Identity Transgender Male 05/05/2019 1:23 PM CDT Sexual Orientation Pedraza 06/23/2023 10 :56 AM CDT documented as of this encounter Plan of Treatment Upcoming Encounters Date Type Department Care Team (Late st Contact Info) Description 04/21/2025 2:15 PM CDT Appointment [place] - [place] - Adolescent Clinic [address] [phone] Prashanth Martinez MD [address] [place] [address] 05/02/2025 8:40 AM CDT Appointment [place] - [facility] - Ophthalmology - Optometry [address] [phone] Danuta Golden OD [address] [place] [address] documented as of this encounter Visit Diagnoses Not on filedocumented in this encounter Additional Health Concerns Infection Onset Date Last Indicated Resolved Time COVID-19 09/28/2021 09/28/2021 10/28/2021 9:44 PM MINE PROMOTOR Assessment Noted Time PHQ-2 Depression Total Score: 2 05/06/20 17 5:10 PM CDT documented as of this encounter Care Teams Shank Sander Relationship Specialty Start Date End Date Che Williamson MD [address] [place] [address] PCP - General 08/27/12 03/20/22 Prashanth Martinez MD [address] [place] [address] PCP - General Pediatric Medicine 03/21/22 Lynda Skelton MD [facility] [place] [address] Provider Team Family Practice 06/10/17 Franchesca Manley 12/09/17 12/07/18 Chelsea Hensley MD [address] [place] [address] Endocrinology 12/08/18 documented as of this encounter
--- OUTSIDE RECORDS SUMMARY | 2025-01-28 20:20 | XMS_ITS | Encounter Summary ---
Author Organization [facility] Care Address [address] [place] [address] Phone Care Team Providers Care Oxygen Equipment Aide Name Role Phone Che Williamson MD Primary Care Provider Lynda Skelton MD Unavailable Franchesca Manley Unavailable Unavailable Chelsea Hensley MD Unavailable [phone] Prashanth Martinez MD Primary Care Provider [phone] Encounter Details Date Type Department Care Team (Late st Contact Info) Description 05/29/2018 Pharmacy Visit [facility] - Pharmacy - Specialty [address] [place] [address] Social History Tobacco Use Types Packs/Day Years Used Date Smoking Tobacco: Never Smokeless Tobacco: Never Alcohol Use Standard Drinks/Week Comments No 0 (1 standard drink = 0.6 oz pur e alcohol) Comments No Sex and Gender Information Value Date Recorded Sex Assigned at Female 07/13/2019 6:16 PM RN CARDIOVASCULAR ICU Legal Sex Female 2:51 AM CDT Gender Identity Transgender Male 05/05/2019 1:23 PM CDT Sexual Orientation Pedraza 06/23/2023 10 :56 AM CDT documented as of this encounter Plan of Treatment Upcoming Encounters Date Type Department Care Team (Late st Contact Info) Description 04/21/2025 2:15 PM CDT Appointment [place] [facility] - Adolescent Clinic [address] [phone] Prashanth Martinez MD [address] [place] [address] 05/02/2025 8:40 AM CDT Appointment [facility] - Ophthalmology - Optometry [address] [phone] Danuta Golden OD [address] [place] [address] documented as of this encounter Visit Diagnoses Not on filedocumented in this encounter Additional Health Concerns Infection Onset Date Last Indicated Resolved Time COVID-19 09/28/2021 09/28/2021 10/28/2021 9:44 PM RN CARDIOVASCULAR ICU Assessment Noted Time PHQ-9 Depression Total Score: 9 11/25/19 18 2:15 PM CDT PHQ-2 Depression Total Score: 4 11/25/19 18 2:15 PM CDT documented as of this encounter Care Teams Oxygen Equipment Aide Relationship Specialty Start Date End Date Che Williamson MD [address] [place] [address] PCP - General 08/27/12 03/20/22 Prashanth Martinez MD [address] [place] [address] PCP - General Pediatric Medicine 03/21/22 Lynda Skelton MD [address] [place] [address] Provider Team Family Practice 06/10/17 Franchesca Manley 12/09/17 12/07/18 Chelsea Hensley MD [address] [place] [address] Endocrinology 12/08/18 documented as of this encounter
--- OUTSIDE RECORDS SUMMARY | 2025-01-28 20:20 | XMS_ITS | Encounter Summary ---
Author Organization [facility] Address [address] [place] [address] Phone Care Team Providers Care Mechanic And Welder Name Role Phone Che Williamson MD Primary Care Provider Lynda Skelton MD Unavailable Franchesca Manley Unavailable Unavailable Chelsea Hensley MD Unavailable [phone] Prashanth Martinez MD Primary Care Provider [phone] Encounter Details Date Type Department Care Team (Late st Contact Info) Description 05/06/2018 Pharmacy Visit [facility] - Pharmacy - Specialty [address] [place] [address] Social History Tobacco Use Types Packs/Day Years Used Date Smoking Tobacco: Never Smokeless Tobacco: Never Alcohol Use Standard Drinks/Week Comments No 0 (1 standard drink = 0.6 oz pur e alcohol) Comments No Sex and Gender Information Value Date Recorded Sex Assigned at Female 07/13/2019 6:16 PM EDGER TAILER Legal Sex Female 2:51 AM CDT Gender Identity Transgender Male 05/05/2019 1:23 PM CDT Sexual Orientation Pedraza 06/23/2023 10 :56 AM CDT documented as of this encounter Plan of Treatment Upcoming Encounters Date Type Department Care Team (Late st Contact Info) Description 04/21/2025 2:15 PM CDT Appointment [place] - [facility] - Adolescent Clinic [address] [phone] Prashanth Martinez MD [address] [place] [address] 05/02/2025 8:40 AM CDT Appointment [facility] - Ophthalmology - Optometry [address] [phone] Danuta Golden OD [address] [place] [address] documented as of this encounter Visit Diagnoses Not on filedocumented in this encounter Additional Health Concerns Infection Onset Date Last Indicated Resolved Time COVID-19 09/28/2021 09/28/2021 10/28/2021 9:44 PM EDGER TAILER Assessment Noted Time PHQ-9 Depression Total Score: 9 11/25/19 18 2:15 PM CDT PHQ-2 Depression Total Score: 4 11/25/19 18 2:15 PM CDT documented as of this encounter Care Teams Mechanic And Welder Relationship Specialty Start Date End Date Che Williamson MD [address] [place] [address] PCP - General 08/27/12 03/20/22 Prashanth Martinez MD [address] [place] [address] PCP - General Pediatric Medicine 03/21/22 Lynda Skelton MD [address] [place] [address] Provider Team Family Practice 06/10/17 Franchesca Manley 12/09/17 12/07/18 Chelsea Hensley MD [address] [place] [address] Endocrinology 12/08/18 documented as of this encounter
--- OUTSIDE RECORDS SUMMARY | 2025-01-28 20:20 | XMS_ITS | Encounter Summary ---
Author Organization [facility] Address [address] [place] [address] Phone Care Team Providers Care Reducer Name Role Phone Che Williamson MD Primary Care Provider + [phone] Lynda Skelton MD Unavailable [phone] Franchesca Manley Unavailable Unavailable Chelsea Hensley MD Unavailable [phone] Prashanth Martinez MD Primary Care Provider [phone] Encounter Details Date Type Department Care Team (Late st Contact Info) Description 06/26/2018 Pharmacy Visit [facility] - Pharmacy - Business Office [address] [place] [address] Social History Tobacco Use Types Packs/Day Years Used Date Smoking Tobacco: Never Smokeless Tobacco: Never Alcohol Use Standard Drinks/Week Comments No 0 (1 standard drink = 0.6 oz pur e alcohol) Comments No Sex and Gender Information Value Date Recorded Sex Assigned at Female 07/13/2019 6:16 PM CLINICAL TECHNICIAN Legal Sex Female 2:51 AM CDT Gender Identity Transgender Male 05/05/2019 1:23 PM CDT Sexual Orientation Pedraza 06/23/2023 10 :56 AM CDT documented as of this encounter Plan of Treatment Upcoming Encounters Date Type Department Care Team (Late st Contact Info) Description 04/21/2025 2:15 PM CDT Appointment [place] [facility] [address] [phone] Prashanth Martinez MD [address] [place] [address] 05/02/2025 8:40 AM CDT Appointment [facility] - Ophthalmology - Optometry [address] [phone] Danuta Golden OD [address] [place] [address] documented as of this encounter Visit Diagnoses Not on filedocumented in this encounter Additional Health Concerns Infection Onset Date Last Indicated Resolved Time COVID-19 09/28/2021 09/28/2021 10/28/2021 9:44 PM CLINICAL TECHNICIAN Assessment Noted Time PHQ-9 Depression Total Score: 9 11/25/19 18 2:15 PM CDT PHQ-2 Depression Total Score: 4 11/25/19 18 2:15 PM CDT documented as of this encounter Care Teams Reducer Relationship Specialty Start Date End Date Che Williamson MD [address] [place] [address] PCP - General 08/27/12 03/20/22 Prashanth Martinez MD [address] [place] [address] PCP - General Pediatric Medicine 03/21/22 Lynda Skelton MD [address] [place] [address] Provider Team Family Practice 06/10/17 Franchesca Manley 12/09/17 12/07/18 Chelsea Hensley MD [address] [place] [address] Endocrinology 12/08/18 documented as of this encounter
--- OUTSIDE RECORDS SUMMARY | 2025-01-28 20:20 | XMS_ITS | Encounter Summary ---
Author Organization [facility] Address [address] [place] [address] Phone Care Team Providers Care Network Design Architect Name Role Phone Che Williamson MD Primary Care Provider + [phone] Lynda Skelton MD Unavailable Franchesca Manley Unavailable Unavailable Chelsea Hensley MD Unavailable [phone] Prashanth Martinez MD Primary Care Provider [phone] Encounter Details Date Type Department Care Team (Late st Contact Info) Description 05/14/2018 Pharmacy Visit [facility] - Pharmacy - Specialty [address] [place] [address] Social History Tobacco Use Types Packs/Day Years Used Date Smoking Tobacco: Never Smokeless Tobacco: Never Alcohol Use Standard Drinks/Week Comments No 0 (1 standard drink = 0.6 oz pur e alcohol) Comments No Sex and Gender Information Value Date Recorded Sex Assigned at Female 07/13/2019 6:16 PM MANAGER SUPPLY CHAIN Legal Sex Female 2:51 AM CDT Gender Identity Transgender Male 05/05/2019 1:23 PM CDT Sexual Orientation Pedraza 06/23/2023 10 :56 AM CDT documented as of this encounter Plan of Treatment Upcoming Encounters Date Type Department Care Team (Late st Contact Info) Description 04/21/2025 2:15 PM CDT Appointment [place] - [facility] - Adolescent Clinic [address] [phone] Prashanth Martinez MD 200 [place] [address] 05/02/2025 8:40 AM CDT Appointment [facility] - Ophthalmology - Optometry [address] [phone] Danuta Golden OD [address] [place] [address] documented as of this encounter Visit Diagnoses Not on filedocumented in this encounter Additional Health Concerns Infection Onset Date Last Indicated Resolved Time COVID-19 09/28/2021 09/28/2021 10/28/2021 9:44 PM MANAGER SUPPLY CHAIN Assessment Noted Time PHQ-9 Depression Total Score: 9 11/25/19 18 2:15 PM CDT PHQ-2 Depression Total Score: 4 11/25/19 18 2:15 PM CDT documented as of this encounter Care Teams Network Design Architect Relationship Specialty Start Date End Date Che Williamson MD [address] [place] [address] PCP - General 08/27/12 03/20/22 Prashanth Martinez MD [address] [place] [address] PCP - General Pediatric Medicine 03/21/22 Lynda Skelton MD [address] [place] [address] Provider Team Family Practice 06/10/17 Franchesca Manley 12/09/17 12/07/18 Chelsea Hensley MD [address] [place] [address] Endocrinology 12/08/18 documented as of this encounter
--- OUTSIDE RECORDS SUMMARY | 2025-01-28 20:21 | XMS_ITS | Encounter Summary ---
Author Organization [facility] Address [address] [place] [address] Phone Care Team Providers Care Director Of Instructional Technology Name Role Phone Che Williamson MD Primary Care Provider + [phone] Lynda Skelton MD Unavailable Chelsea Hensley MD Unavailable [phone] Prashanth Martinez MD Primary Care Provider [phone] Encounter Details Date Type Department Care Team (Late st Contact Info) Description 12/10/2019 Pharmacy Visit [facility] - Pharmacy - Specialty [address] [place] [address] Social History Tobacco Use Types Packs/Day Years Used Date Smoking Tobacco: Never Smokeless Tobacco: Never Alcohol Use Standard Drinks/Week Comments No 0 (1 standard drink = 0.6 oz pur e alcohol) Comments No Sex and Gender Information Value Date Recorded Sex Assigned at Female 07/13/2019 6:16 PM NIGHTMAN Legal Sex Female 2:51 AM CDT Gender Identity Transgender Male 05/05/2019 1:23 PM CDT Sexual Orientation Pedraza 06/23/2023 10 :56 AM CDT documented as of this encounter Plan of Treatment Upcoming Encounters Date Type Department Care Team (Late st Contact Info) Description 04/21/2025 2:15 PM CDT Appointment [place] - [place] - [facility] Clinic [address] [phone] Prashanth Martinez MD 200 [place] [address] 05/02/2025 8:40 AM CDT Appointment [place] - [facility] - Ophthalmology - Optometry [address] [phone] Danuta Golden OD [address] [place] [address] documented as of this encounter Visit Diagnoses Not on filedocumented in this encounter Additional Health Concerns Infection Onset Date Last Indicated Resolved Time COVID-19 09/28/2021 09/28/2021 10/28/2021 9:44 PM NIGHTMAN Assessment Noted Time PHQ-9 Depression Total Score: 9 11/25/19 18 2:15 PM CDT A fall risk assessment has been complete d for the patient 12/10/2019 2:45 PM CDT PHQ-2 Depression Total Score: 2 12/10/19 20 2:50 PM CDT documented as of this encounter Care Teams Director Of Instructional Technology Relationship Specialty Start Date End Date Che Williamson MD [address] [place] [address] PCP - General 08/27/12 03/20/22 Prashanth Martinez MD [address] [place] [address] PCP - General Pediatric Medicine 03/21/22 Lynda Skelton MD [facility] [place] [address] Provider Team Family Practice 06/10/17 Chelsea Hensley MD [address] [place] [address] Endocrinology 12/08/18 documented as of this encounter
--- OUTSIDE RECORDS SUMMARY | 2025-01-28 20:21 | XMS_ITS | Encounter Summary ---
Author Organization [facility] Address [address] [place] [address] Phone Care Team Providers Care Police Officer Name Role Phone Che Williamson MD Primary Care Provider + [phone] Lynda Skelton MD Unavailable Franchesca Manley Unavailable Unavailable Chelsea Hensley MD Unavailable [phone] Prashanth Martinez MD Primary Care Provider [phone] Encounter Details Date Type Department Care Team (Late st Contact Info) Description 12/11/2017 Pharmacy Visit [facility] - Pharmacy - Specialty [address] [place] [address] Social History Tobacco Use Types Packs/Day Years Used Date Smoking Tobacco: Never Smokeless Tobacco: Never Alcohol Use Standard Drinks/Week Comments No 0 (1 standard drink = 0.6 oz pur e alcohol) Comments No Sex and Gender Information Value Date Recorded Sex Assigned at Female 07/13/2019 6:16 PM DIE CLEANER Legal Sex Female 2:51 AM CDT Gender Identity Transgender Male 05/05/2019 1:23 PM CDT Sexual Orientation Pedraza 06/23/2023 10 :56 AM CDT documented as of this encounter Plan of Treatment Upcoming Encounters Date Type Department Care Team (Late st Contact Info) Description 04/21/2025 2:15 PM CDT Appointment [place] [facility] [address] [phone] Prashanth Martinez MD [address] [place] [address] 05/02/2025 8:40 AM CDT Appointment [facility] - Ophthalmology - Optometry [address] [phone] Danuta Golden OD [address] [place] [address] documented as of this encounter Visit Diagnoses Not on filedocumented in this encounter Additional Health Concerns Infection Onset Date Last Indicated Resolved Time COVID-19 09/28/2021 09/28/2021 10/28/2021 9:44 PM DIE CLEANER Assessment Noted Time PHQ-9 Depression Total Score: 9 11/25/19 18 2:15 PM CDT PHQ-2 Depression Total Score: 4 11/25/19 18 2:15 PM CDT documented as of this encounter Care Teams Police Officer Relationship Specialty Start Date End Date Che Williamson MD [address] [place] [address] PCP - General 08/27/12 03/20/22 Prashanth Martinez MD [address] [place] [address] PCP - General Pediatric Medicine 03/21/22 Lynda Skelton MD [address] [place] [address] Provider Team Family Practice 06/10/17 Franchesca Manley 12/09/17 12/07/18 Chelsea Hensley MD [address] [place] [address] Endocrinology 12/08/18 documented as of this encounter
--- OUTSIDE RECORDS SUMMARY | 2025-01-28 20:21 | XMS_ITS | Encounter Summary ---
Author Organization [facility] Address [address] [place] [address] Phone Care Team Providers Care Lead Embedded Software Engineer Name Role Phone Che Williamson MD Primary Care Provider + [phone] Lynda Skelton MD Unavailable Chelsea Hensley MD Unavailable [phone] Prashanth Martinez MD Primary Care Provider [phone] Encounter Details Date Type Department Care Team (Late st Contact Info) Description 12/16/2019 Pharmacy Visit [facility] [address] [place] [address] Social History Tobacco Use Types Packs/Day Years Used Date Smoking Tobacco: Never Smokeless Tobacco: Never Alcohol Use Standard Drinks/Week Comments No 0 (1 standard drink = 0.6 oz pur e alcohol) Comments No Sex and Gender Information Value Date Recorded Sex Assigned at Female 07/13/2019 6:16 PM TIP INSERTER Legal Sex Female 2:51 AM CDT Gender Identity Transgender Male 05/05/2019 1:23 PM CDT Sexual Orientation Pedraza 06/23/2023 10 :56 AM CDT documented as of this encounter Plan of Treatment Upcoming Encounters Date Type Department Care Team (Late st Contact Info) Description 04/21/2025 2:15 PM CDT Appointment [place] - [place] - Adolescent Clinic [address] [phone] Prashanth Martinez MD [address] [place] [address] 05/02/2025 8:40 AM CDT Appointment [place] - [facility] - Ophthalmology - Optometry [address] [phone] Danuta Golden OD [address] [place] [address] documented as of this encounter Visit Diagnoses Not on filedocumented in this encounter Additional Health Concerns Infection Onset Date Last Indicated Resolved Time COVID-19 09/28/2021 09/28/2021 10/28/2021 9:44 PM TIP INSERTER Assessment Noted Time PHQ-9 Depression Total Score: 9 11/25/19 18 2:15 PM CDT A fall risk assessment has been complete d for the patient 12/13/2019 4:01 PM CDT PHQ-2 Depression Total Score: 2 12/10/19 20 2:50 PM CDT documented as of this encounter Care Teams Lead Embedded Software Engineer Relationship Specialty Start Date End Date Che Williamson MD [address] [place] [address] PCP - General 08/27/12 03/20/22 Prashanth Martinez MD [address] [place] [address] PCP - General Pediatric Medicine 03/21/22 Lynda Skelton MD [facility] [place] [place] [address] Provider Team Family Practice 06/10/17 Chelsea Hensley MD [address] [place] [address] Endocrinology 12/08/18 documented as of this encounter
--- OUTSIDE RECORDS SUMMARY | 2025-01-28 20:21 | XMS_ITS | Encounter Summary ---
Author Organization [facility] Address [address] [place] [address] Phone Care Team Providers Care R D Internship Name Role Phone Che Williamson MD Primary Care Provider Lynda Skelton MD Unavailable Franchesca Manley Unavailable Unavailable Chelsea Hensley MD Unavailable [phone] Prashanth Martinez MD Primary Care Provider [phone] Encounter Details Date Type Department Care Team (Late st Contact Info) Description 12/31/2017 Pharmacy Visit [facility] - Pharmacy - Specialty [address] [place] [address] Social History Tobacco Use Types Packs/Day Years Used Date Smoking Tobacco: Never Smokeless Tobacco: Never Alcohol Use Standard Drinks/Week Comments No 0 (1 standard drink = 0.6 oz pur e alcohol) Comments No Sex and Gender Information Value Date Recorded Sex Assigned at Female 07/13/2019 6:16 PM OUTER DIAMETER TECHNICIAN Legal Sex Female 2:51 AM CDT Gender Identity Transgender Male 05/05/2019 1:23 PM CDT Sexual Orientation Pedraza 06/23/2023 10 :56 AM CDT documented as of this encounter Plan of Treatment Upcoming Encounters Date Type Department Care Team (Late st Contact Info) Description 04/21/2025 2:15 PM CDT Appointment [place] - [facility] - Adolescent Clinic [address] [phone] Prashanth Martinez MD [address] [place] [address] 05/02/2025 8:40 AM CDT Appointment [facility] - Ophthalmology - Optometry [address] [phone] Danuta Golden OD [address] [place] [address] documented as of this encounter Visit Diagnoses Not on filedocumented in this encounter Additional Health Concerns Infection Onset Date Last Indicated Resolved Time COVID-19 09/28/2021 09/28/2021 10/28/2021 9:44 PM OUTER DIAMETER TECHNICIAN Assessment Noted Time PHQ-9 Depression Total Score: 9 11/25/19 18 2:15 PM CDT PHQ-2 Depression Total Score: 4 11/25/19 18 2:15 PM CDT documented as of this encounter Care Teams R D Internship Relationship Specialty Start Date End Date Che Williamson MD [address] [place] [address] PCP - General 08/27/12 03/20/22 Prashanth Martinez MD [address] [place] [address] PCP - General Pediatric Medicine 03/21/22 Lynda Skelton MD [address] [place] [address] Provider Team Family Practice 06/10/17 Franchecsa Manley 12/09/17 12/07/18 Chelsea Hensley MD [address] [place] [address] Endocrinology 12/08/18 documented as of this encounter
--- OUTSIDE RECORDS SUMMARY | 2025-01-28 20:21 | XMS_ITS | Encounter Summary ---
Author Organization [facility] Address [address] [place] [address] Phone Care Team Providers Care Straight Ruling Machine Operator Name Role Phone Che Williamson MD Primary Care Provider + [phone] Lynda Skelton MD Unavailable Franchesca Manley Unavailable Unavailable Chelsea Hensley MD Unavailable [phone] Prashanth Martinez MD Primary Care Provider [phone] Encounter Details Date Type Department Care Team (Late st Contact Info) Description 01/09/2018 Pharmacy Visit [facility] - Pharmacy - Specialty [address] [place] [address] Social History Tobacco Use Types Packs/Day Years Used Date Smoking Tobacco: Never Smokeless Tobacco: Never Alcohol Use Standard Drinks/Week Comments No 0 (1 standard drink = 0.6 oz pur e alcohol) Comments No Sex and Gender Information Value Date Recorded Sex Assigned at Female 07/13/2019 6:16 PM PHOTONICS TECHNICIAN Legal Sex Female 2:51 AM CDT Gender Identity Transgender Male 05/05/2019 1:23 PM CDT Sexual Orientation Pedraza 06/23/2023 10 :56 AM CDT documented as of this encounter Plan of Treatment Upcoming Encounters Date Type Department Care Team (Late st Contact Info) Description 04/21/2025 2:15 PM CDT Appointment [place] - [facility] - Adolescent Clinic [address] [phone] Prashanth Martinez MD [address] [place] [address] 05/02/2025 8:40 AM CDT Appointment [facility] - Ophthalmology - Optometry [address] [phone] Danuta Golden OD [address] [place] [address] documented as of this encounter Visit Diagnoses Not on filedocumented in this encounter Additional Health Concerns Infection Onset Date Last Indicated Resolved Time COVID-19 09/28/2021 09/28/2021 10/28/2021 9:44 PM PHOTONICS TECHNICIAN Assessment Noted Time PHQ-9 Depression Total Score: 9 11/25/19 18 2:15 PM CDT PHQ-2 Depression Total Score: 4 11/25/19 18 2:15 PM CDT documented as of this encounter Care Teams Straight Ruling Machine Operator Relationship Specialty Start Date End Date Che Williamson MD [address] [place] [address] PCP - General 08/27/12 03/20/22 Prashanth Martinez MD [address] [place] [address] PCP - General Pediatric Medicine 03/21/22 Lynda Skelton MD [address] [place] [address] Provider Team Family Practice 06/10/17 Franchesca Manley 12/09/17 12/07/18 Chelsea Hensley MD [address] [place] [address] Endocrinology 12/08/18 documented as of this encounter
--- OUTSIDE RECORDS SUMMARY | 2025-01-28 20:21 | XMS_ITS | Encounter Summary ---
Author Organization [facility] Address [address] [place] [address] Phone Care Team Providers Care Staffing Recruiter Name Role Phone Che Williamson MD Primary Care Provider Lynda Skelton MD Unavailable Franchesca Manley Unavailable Unavailable Chelsea Hensley MD Unavailable [phone] Prashanth Martinez MD Primary Care Provider [phone] Encounter Details Date Type Department Care Team (Late st Contact Info) Description 01/01/2018 Pharmacy Visit [facility] - Pharmacy - Specialty [address] [place] [address] Social History Tobacco Use Types Packs/Day Years Used Date Smoking Tobacco: Never Smokeless Tobacco: Never Alcohol Use Standard Drinks/Week Comments No 0 (1 standard drink = 0.6 oz pur e alcohol) Comments No Sex and Gender Information Value Date Recorded Sex Assigned at Female 07/13/2019 6:16 PM SEAFOOD PREPARER Legal Sex Female 2:51 AM CDT Gender Identity Transgender Male 05/05/2019 1:23 PM CDT Sexual Orientation Pedraza 06/23/2023 10 :56 AM CDT documented as of this encounter Plan of Treatment Upcoming Encounters Date Type Department Care Team (Late st Contact Info) Description 04/21/2025 2:15 PM CDT Appointment [place] - [facility] - Adolescent Clinic [address] [phone] Prashanth Martinez MD [address] [place] [address] 05/02/2025 8:40 AM CDT Appointment [facility] - Ophthalmology - Optometry [address] [phone] Danuta Golden OD [address] [place] [address] documented as of this encounter Visit Diagnoses Not on filedocumented in this encounter Additional Health Concerns Infection Onset Date Last Indicated Resolved Time COVID-19 09/28/2021 09/28/2021 10/28/2021 9:44 PM SEAFOOD PREPARER Assessment Noted Time PHQ-9 Depression Total Score: 9 11/25/19 18 2:15 PM CDT PHQ-2 Depression Total Score: 4 11/25/19 18 2:15 PM CDT documented as of this encounter Care Teams Staffing Recruiter Relationship Specialty Start Date End Date Che Williamson MD [address] [place] [address] PCP - General 08/27/12 03/20/22 Prashanth Martinez MD [address] [place] [address] PCP - General Pediatric Medicine 03/21/22 Lynda Skelton MD [address] [place] [address] Provider Team Family Practice 06/10/17 Franchesca Manley 12/09/17 12/07/18 Chelsea Hensley MD [address] [place] [address] Endocrinology 12/08/18 documented as of this encounter
--- OUTSIDE RECORDS SUMMARY | 2025-01-28 20:21 | XMS_ITS | Encounter Summary ---
Author Organization [facility] Care Address [address] [place] [address] Phone Care Team Providers Care Order Entry Specialist Name Role Phone Che Williamson MD Primary Care Provider + [phone] Lynda Skelton MD Unavailable Chelsea Hensley MD Unavailable [phone] Prashanth Martinez MD Primary Care Provider [phone] Encounter Details Date Type Department Care Team (Late st Contact Info) Description 12/01/2019 Pharmacy Visit [facility] - Pharmacy - Specialty 200 [place] [address] Social History Tobacco Use Types Packs/Day Years Used Date Smoking Tobacco: Never Smokeless Tobacco: Never Alcohol Use Standard Drinks/Week Comments No 0 (1 standard drink = 0.6 oz pur e alcohol) Comments No Sex and Gender Information Value Date Recorded Sex Assigned at Female 07/13/2019 6:16 PM PENETRATION TESTER Legal Sex Female 2:51 AM CDT Gender Identity Transgender Male 05/05/2019 1:23 PM CDT Sexual Orientation Pedraza 06/23/2023 10 :56 AM CDT documented as of this encounter Plan of Treatment Upcoming Encounters Date Type Department Care Team (Late st Contact Info) Description 04/21/2025 2:15 PM CDT Appointment [place] [facility] [address] [phone] Prashanth Martinez MD 200 [place] [address] 05/02/2025 8:40 AM CDT Appointment [place] - [facility] - Ophthalmology - Optometry [address] [phone] Danuta Golden OD 200 [place] [address] documented as of this encounter Visit Diagnoses Not on filedocumented in this encounter Additional Health Concerns Infection Onset Date Last Indicated Resolved Time COVID-19 09/28/2021 09/28/2021 10/28/2021 9:44 PM PENETRATION TESTER Assessment Noted Time PHQ-9 Depression Total Score: 9 11/25/19 18 2:15 PM CDT A fall risk assessment has been complete d for the patient 11/29/2019 2:35 PM CDT PHQ-2 Depression Total Score: 4 11/25/19 18 2:15 PM CDT documented as of this encounter Care Teams Order Entry Specialist Relationship Specialty Start Date End Date Che Williamson MD [address] [place] [address] PCP - General 08/27/12 03/20/22 Prashanth Martinez MD [address] [place] [address] PCP - General Pediatric Medicine 03/21/22 Lynda Skelton MD [id number] [place] [address] Provider Team Family Practice 06/10/17 Chelsea Hensley MD [address] [place] [address] Endocrinology 12/08/18 documented as of this encounter
--- OUTSIDE RECORDS SUMMARY | 2025-01-28 20:21 | XMS_ITS | Encounter Summary ---
Author Organization [facility] Care Address [address] [place] [address] Phone Care Team Providers Care Operator Assistant I Cementing Name Role Phone Che Williamson MD Primary Care Provider + [phone] Lynda Skelton MD Unavailable [phone] Franchesca Manley Unavailable Unavailable Chelsea Hensley MD Unavailable [phone] Prashanth Martniez MD Primary Care Provider [phone] Encounter Details Date Type Department Care Team (Late st Contact Info) Description 01/28/2018 Pharmacy Visit [facility] - Pharmacy - Business Office 200 [place] [address] Social History Tobacco Use Types Packs/Day Years Used Date Smoking Tobacco: Never Smokeless Tobacco: Never Alcohol Use Standard Drinks/Week Comments No 0 (1 standard drink = 0.6 oz pur e alcohol) Comments No Sex and Gender Information Value Date Recorded Sex Assigned at Female 07/13/2019 6:16 PM TRAFFIC SUPERVISOR Legal Sex Female 2:51 AM CDT Gender Identity Transgender Male 05/05/2019 1:23 PM CDT Sexual Orientation Pedraza 06/23/2023 10 :56 AM CDT documented as of this encounter Plan of Treatment Upcoming Encounters Date Type Department Care Team (Late st Contact Info) Description 04/21/2025 2:15 PM CDT Appointment [place] [facility] [address] [phone] Prashanth Martinez MD 200 [place] [address] 05/02/2025 8:40 AM CDT Appointment [facility] - Ophthalmology - Optometry [address] [phone] Danuta Golden OD 200 [place] [address] documented as of this encounter Visit Diagnoses Not on filedocumented in this encounter Additional Health Concerns Infection Onset Date Last Indicated Resolved Time COVID-19 09/28/2021 09/28/2021 10/28/2021 9:44 PM TRAFFIC SUPERVISOR Assessment Noted Time PHQ-9 Depression Total Score: 9 11/25/19 18 2:15 PM CDT PHQ-2 Depression Total Score: 4 11/25/19 18 2:15 PM CDT documented as of this encounter Care Teams Operator Assistant I Cementing Relationship Specialty Start Date End Date Che Williamson MD [address] [place] [address] PCP - General 08/27/12 03/20/22 Prashanth Martinez MD 200 [place] [address] PCP - General Pediatric Medicine 03/21/22 Lynda Skelton MD [address] [place] [address] Provider Team Family Practice 06/10/17 Franchesca Manley 12/09/17 12/07/18 Chelsea Hensley MD 200 [place] [address] Endocrinology 12/08/18 documented as of this encounter
--- OUTSIDE RECORDS SUMMARY | 2025-01-28 20:21 | XMS_ITS | Encounter Summary ---
Author Organization [facility] Care Address [address] [place] [address] Phone Care Team Providers Care Dental Prosthetist Name Role Phone Che Williamson MD Primary Care Provider Lydna Skelton MD Unavailable Franchesca Manley Unavailable Unavailable Chelsea Hensley MD Unavailable [phone] Prashanth Martinez MD Primary Care Provider [phone] Encounter Details Date Type Department Care Team (Late st Contact Info) Description 12/16/2017 Pharmacy Visit [facility] - Pharmacy - Specialty 200 [place] [address] Social History Tobacco Use Types Packs/Day Years Used Date Smoking Tobacco: Never Smokeless Tobacco: Never Alcohol Use Standard Drinks/Week Comments No 0 (1 standard drink = 0.6 oz pur e alcohol) Comments No Sex and Gender Information Value Date Recorded Sex Assigned at Female 07/13/2019 6:16 PM FRONT END LOADER OPERATOR Legal Sex Female 2:51 AM CDT Gender Identity Transgender Male 05/05/2019 1:23 PM CDT Sexual Orientation Pedraza 06/23/2023 10 :56 AM CDT documented as of this encounter Plan of Treatment Upcoming Encounters Date Type Department Care Team (Late st Contact Info) Description 04/21/2025 2:15 PM CDT Appointment [place] - [facility] - Adolescent Clinic [address] [phone] Prashanth Martinez MD 200 [place] [address] 05/02/2025 8:40 AM CDT Appointment [facility] - Ophthalmology - Optometry [address] [phone] Danuta Golden OD [address] [place] [address] documented as of this encounter Visit Diagnoses Not on filedocumented in this encounter Additional Health Concerns Infection Onset Date Last Indicated Resolved Time COVID-19 09/28/2021 09/28/2021 10/28/2021 9:44 PM FRONT END LOADER OPERATOR Assessment Noted Time PHQ-9 Depression Total Score: 9 11/25/19 18 2:15 PM CDT PHQ-2 Depression Total Score: 4 11/25/19 18 2:15 PM CDT documented as of this encounter Care Teams Dental Prosthetist Relationship Specialty Start Date End Date Che Williamson MD [address] [place] [address] PCP - General 08/27/12 03/20/22 Prashanth Martinez MD [address] [place] [address] PCP - General Pediatric Medicine 03/21/22 Lynda Skelton MD [address] [place] [address] Provider Team Family Practice 06/10/17 Franchesca Manley 12/09/17 12/07/18 Chelsea Hensley MD [address] [place] [address] Endocrinology 12/08/18 documented as of this encounter
--- OUTSIDE RECORDS SUMMARY | 2025-01-28 20:21 | XMS_ITS | Encounter Summary ---
Author Organization [facility] Care Address [address] [place] [address] Phone Care Team Providers Care In Flight Crew Member Name Role Phone Che Williamson MD Primary Care Provider + [phone] Lynda Skelton MD Unavailable [phone] Franchesca Manley Unavailable Unavailable Chelsea Hensley MD Unavailable [phone] Prashanth Martinez MD Primary Care Provider [phone] Encounter Details Date Type Department Care Team (Late st Contact Info) Description 12/09/2017 Pharmacy Visit [facility] 200 [place] [address] Social History Tobacco Use Types Packs/Day Years Used Date Smoking Tobacco: Never Smokeless Tobacco: Never Alcohol Use Standard Drinks/Week Comments No 0 (1 standard drink = 0.6 oz pur e alcohol) Comments No Sex and Gender Information Value Date Recorded Sex Assigned at Female 07/13/2019 6:16 PM WATER CONTROL SUPERVISOR Legal Sex Female 2:51 AM CDT Gender Identity Transgender Male 05/05/2019 1:23 PM CDT Sexual Orientation Pedraza 06/23/2023 10 :56 AM CDT documented as of this encounter Plan of Treatment Upcoming Encounters Date Type Department Care Team (Late st Contact Info) Description 04/21/2025 2:15 PM CDT Appointment [place] - [facility] - Adolescent Clinic [address] [phone] Prashanth Martinez MD 200 [place] [address] 05/02/2025 8:40 AM CDT Appointment [facility] - Ophthalmology - Optometry [address] [phone] Danuta Golden OD [address] [place] [address] documented as of this encounter Visit Diagnoses Not on filedocumented in this encounter Additional Health Concerns Infection Onset Date Last Indicated Resolved Time COVID-19 09/28/2021 09/28/2021 10/28/2021 9:44 PM WATER CONTROL SUPERVISOR Assessment Noted Time PHQ-9 Depression Total Score: 9 11/25/19 18 2:15 PM CDT PHQ-2 Depression Total Score: 4 11/25/19 18 2:15 PM CDT documented as of this encounter Care Teams In Flight Crew Member Relationship Specialty Start Date End Date Che Williamson MD [address] [place] [address] PCP - General 08/27/12 03/20/22 Prashanth Martinez MD [address] [place] [address] PCP - General Pediatric Medicine 03/21/22 Lynda Skelton MD [facility] [place] [address] Provider Team Family Practice 06/10/17 Franchesca Manley 12/09/17 12/07/18 Chelsea Hensley MD [address] [place], [place] [address] Endocrinology 12/08/18 documented as of this encounter
--- OUTSIDE RECORDS SUMMARY | 2025-01-28 20:21 | XMS_ITS | Encounter Summary ---
Author Organization [facility] Care Address [address] [place] [address] Phone Care Team Providers Care Director Of Preclinical Research Name Role Phone Che Williamson MD Primary Care Provider + [phone] Lynda Skelton MD Unavailable Chelsea Hensley MD Unavailable [phone] Prashanth Martinez MD Primary Care Provider [phone] Encounter Details Date Type Department Care Team (Late st Contact Info) Description 12/09/2019 Pharmacy Visit [facility] - Pharmacy - Specialty [address] [place] [address] Social History Tobacco Use Types Packs/Day Years Used Date Smoking Tobacco: Never Smokeless Tobacco: Never Alcohol Use Standard Drinks/Week Comments No 0 (1 standard drink = 0.6 oz pur e alcohol) Comments No Sex and Gender Information Value Date Recorded Sex Assigned at Female 07/13/2019 6:16 PM MARINE RAILWAY OPERATOR Legal Sex Female 2:51 AM CDT Gender Identity Transgender Male 05/05/2019 1:23 PM CDT Sexual Orientation Pedraza 06/23/2023 10 :56 AM CDT documented as of this encounter Plan of Treatment Upcoming Encounters Date Type Department Care Team (Late st Contact Info) Description 04/21/2025 2:15 PM CDT Appointment [place] - [facility] [address] [phone] Prahsanth Martinez MD 200 [place] [address] 05/02/2025 8:40 AM CDT Appointment [place] - [facility] - Ophthalmology - Optometry [address] [phone] Danuta Golden OD [address] [place] [address] documented as of this encounter Visit Diagnoses Not on filedocumented in this encounter Additional Health Concerns Infection Onset Date Last Indicated Resolved Time COVID-19 09/28/2021 09/28/2021 10/28/2021 9:44 PM MARINE RAILWAY OPERATOR Assessment Noted Time PHQ-9 Depression Total Score: 9 11/25/19 18 2:15 PM CDT A fall risk assessment has been complete d for the patient 11/29/2019 2:35 PM CDT PHQ-2 Depression Total Score: 4 11/25/19 18 2:15 PM CDT documented as of this encounter Care Teams Director Of Preclinical Research Relationship Specialty Start Date End Date Che Williamson MD [address] [place] [address] PCP - General 08/27/12 03/20/22 Prashanth Martinez MD [address] [place] [address] PCP - General Pediatric Medicine 03/21/22 Lynda Skelton MD [facility] [place] [address] Provider Team Family Practice 06/10/17 Chelsea Hensley MD [address] [place] [address] Endocrinology 12/08/18 documented as of this encounter
--- OUTSIDE RECORDS SUMMARY | 2025-01-28 20:21 | XMS_ITS | Encounter Summary ---
Author Organization [facility] Care Address [address] [place] [address] Phone Care Team Providers Care Merchandiser Name Role Phone Che Williamson MD Primary Care Provider + [phone] Lynda Skelton MD Unavailable Franchesca Manley Unavailable Unavailable Chelsea Hensley MD Unavailable [phone] Prashanth Martinez MD Primary Care Provider [phone] Encounter Details Date Type Department Care Team (Late st Contact Info) Description 12/12/2017 Pharmacy Visit [facility] - Pharmacy - Specialty [address] [place] [address] Social History Tobacco Use Types Packs/Day Years Used Date Smoking Tobacco: Never Smokeless Tobacco: Never Alcohol Use Standard Drinks/Week Comments No 0 (1 standard drink = 0.6 oz pur e alcohol) Comments No Sex and Gender Information Value Date Recorded Sex Assigned at Female 07/13/2019 6:16 PM APPLICATION SUPPORT INTERN Legal Sex Female 2:51 AM CDT Gender Identity Transgender Male 05/05/2019 1:23 PM CDT Sexual Orientation Pedraza 06/23/2023 10 :56 AM CDT documented as of this encounter Plan of Treatment Upcoming Encounters Date Type Department Care Team (Late st Contact Info) Description 04/21/2025 2:15 PM CDT Appointment [place] - [facility] - Adolescent Clinic [address] [phone] Prashanth Martinez MD 200 [place] [address] 05/02/2025 8:40 AM CDT Appointment [facility] - Ophthalmology - Optometry [address] [phone] Danuta Golden OD 200 [place] [address] documented as of this encounter Visit Diagnoses Not on filedocumented in this encounter Additional Health Concerns Infection Onset Date Last Indicated Resolved Time COVID-19 09/28/2021 09/28/2021 10/28/2021 9:44 PM APPLICATION SUPPORT INTERN Assessment Noted Time PHQ-9 Depression Total Score: 9 11/25/19 18 2:15 PM CDT PHQ-2 Depression Total Score: 4 11/25/19 18 2:15 PM CDT documented as of this encounter Care Teams Merchandiser Relationship Specialty Start Date End Date Che Williamson MD [address] [place] [address] PCP - General 08/27/12 03/20/22 Prashanth Martinez MD 200 [place] [address] PCP - General Pediatric Medicine 03/21/22 Lynda Skelton MD [address] [place] [address] Provider Team Family Practice 06/10/17 Franchesca Manley 12/09/17 12/07/18 Chelsea Hensley MD [address] [place] [address] Endocrinology 12/08/18 documented as of this encounter
--- OUTSIDE RECORDS SUMMARY | 2025-01-28 20:21 | XMS_ITS | Encounter Summary ---
Author Organization [facility] Care Address [address] [place] [address] Phone Care Team Providers Care Merchandising Manager Name Role Phone Che Williamson MD Primary Care Provider + [phone] Lynda Skelton MD Unavailable Franchesca Manley Unavailable Unavailable Chelsea Hensley MD Unavailable [phone] Prashanth Martinez MD Primary Care Provider [phone] Encounter Details Date Type Department Care Team (Late st Contact Info) Description 01/06/2018 Pharmacy Visit [facility] - Pharmacy - Specialty [address] [place] [address] Social History Tobacco Use Types Packs/Day Years Used Date Smoking Tobacco: Never Smokeless Tobacco: Never Alcohol Use Standard Drinks/Week Comments No 0 (1 standard drink = 0.6 oz pur e alcohol) Comments No Sex and Gender Information Value Date Recorded Sex Assigned at Female 07/13/2019 6:16 PM COMMUNITY DEVELOPMENT COORDINATOR Legal Sex Female 2:51 AM CDT Gender Identity Transgender Male 05/05/2019 1:23 PM CDT Sexual Orientation Pedraza 06/23/2023 10 :56 AM CDT documented as of this encounter Plan of Treatment Upcoming Encounters Date Type Department Care Team (Late st Contact Info) Description 04/21/2025 2:15 PM CDT Appointment [place] - [facility] - Adolescent Clinic [address] [phone] Prashanth Martinez MD 200 [place] [address] 05/02/2025 8:40 AM CDT Appointment [facility] - Ophthalmology - Optometry [address] [phone] Danuta Golden OD 200 [place] [address] documented as of this encounter Visit Diagnoses Not on filedocumented in this encounter Additional Health Concerns Infection Onset Date Last Indicated Resolved Time COVID-19 09/28/2021 09/28/2021 10/28/2021 9:44 PM COMMUNITY DEVELOPMENT COORDINATOR Assessment Noted Time PHQ-9 Depression Total Score: 9 11/25/19 18 2:15 PM CDT PHQ-2 Depression Total Score: 4 11/25/19 18 2:15 PM CDT documented as of this encounter Care Teams Merchandising Manager Relationship Specialty Start Date End Date Che Williamson MD [address] [place] [address] PCP - General 08/27/12 03/20/22 Prashanth Martinez MD [address] [place] [address] PCP - General Pediatric Medicine 03/21/22 Lynda Skelton MD [address] [place] [address] Provider Team Family Practice 06/10/17 Franchesca Manley 12/09/17 12/07/18 Chelsea Hensley MD [address] [place] [address] Endocrinology 12/08/18 documented as of this encounter
--- OUTSIDE RECORDS SUMMARY | 2025-01-28 20:21 | XMS_ITS | Encounter Summary ---
Author Organization [facility] Care Address [address] [place] [address] Phone Care Team Providers Care Radiator Fitter Name Role Phone Che Williamson MD Primary Care Provider + [phone] Lynda Skelton MD Unavailable Franchesca Manley Unavailable Unavailable Chelsea Hensley MD Unavailable [phone] Prashanth Martinez MD Primary Care Provider [phone] Encounter Details Date Type Department Care Team (Late st Contact Info) Description 01/07/2018 Pharmacy Visit [facility] - Pharmacy - Specialty [address] [place] [address] Social History Tobacco Use Types Packs/Day Years Used Date Smoking Tobacco: Never Smokeless Tobacco: Never Alcohol Use Standard Drinks/Week Comments No 0 (1 standard drink = 0.6 oz pur e alcohol) Comments No Sex and Gender Information Value Date Recorded Sex Assigned at Female 07/13/2019 6:16 PM INFORMATION AND REFERRAL DIRECTOR Legal Sex Female 2:51 AM CDT Gender Identity Transgender Male 05/05/2019 1:23 PM CDT Sexual Orientation Pedraza 06/23/2023 10 :56 AM CDT documented as of this encounter Plan of Treatment Upcoming Encounters Date Type Department Care Team (Late st Contact Info) Description 04/21/2025 2:15 PM CDT Appointment [place] [facility] - Adolescent Clinic [address] [phone] Prashanth aMrtinez MD 200 [place] [address] 05/02/2025 8:40 AM CDT Appointment [facility] - Ophthalmology - Optometry [address] [phone] Danuta Golden OD [address] [place] [address] documented as of this encounter Visit Diagnoses Not on filedocumented in this encounter Additional Health Concerns Infection Onset Date Last Indicated Resolved Time COVID-19 09/28/2021 09/28/2021 10/28/2021 9:44 PM INFORMATION AND REFERRAL DIRECTOR Assessment Noted Time PHQ-9 Depression Total Score: 9 11/25/19 18 2:15 PM CDT PHQ-2 Depression Total Score: 4 11/25/19 18 2:15 PM CDT documented as of this encounter Care Teams Radiator Fitter Relationship Specialty Start Date End Date Che Williamson MD [address] [place] [address] PCP - General 08/27/12 03/20/22 Prashanth Martinez MD [address] [place] [address] PCP - General Pediatric Medicine 03/21/22 Lynda Skelton MD [address] [place] [address] Provider Team Family Practice 06/10/17 Franchesca Manley 12/09/17 12/07/18 Chelsea Hensley MD [address] [place] [address] Endocrinology 12/08/18 documented as of this encounter
--- OUTSIDE RECORDS SUMMARY | 2025-01-28 20:21 | XMS_ITS | Encounter Summary ---
Author Organization [facility] Care Address [address] [place] [address] Phone Care Team Providers Care Movie Operator Name Role Phone Che Williamson MD Primary Care Provider + [phone] Lynda Skelton MD Unavailable Chelsea Hensley MD Unavailable [phone] Prashanth Martinez MD Primary Care Provider [phone] Encounter Details Date Type Department Care Team (Late st Contact Info) Description 12/13/2019 Pharmacy Visit [facility] 200 [place] [address] Social History Tobacco Use Types Packs/Day Years Used Date Smoking Tobacco: Never Smokeless Tobacco: Never Alcohol Use Standard Drinks/Week Comments No 0 (1 standard drink = 0.6 oz pur e alcohol) Comments No Sex and Gender Information Value Date Recorded Sex Assigned at Female 07/13/2019 6:16 PM HAUL TRUCK DRIVER Legal Sex Female 2:51 AM CDT Gender Identity Transgender Male 05/05/2019 1:23 PM CDT Sexual Orientation Pedraza 06/23/2023 10 :56 AM CDT documented as of this encounter Plan of Treatment Upcoming Encounters Date Type Department Care Team (Late st Contact Info) Description 04/21/2025 2:15 PM CDT Appointment [place] [facility] - [facility] Clinic [address] [phone] Prashanth Martinez MD 200 [place] [address] 05/02/2025 8:40 AM CDT Appointment [place] [facility] - [facility]mology - Optometry [address] [phone] Danuta Golden OD 200 [place] [address] documented as of this encounter Visit Diagnoses Not on filedocumented in this encounter Additional Health Concerns Infection Onset Date Last Indicated Resolved Time COVID-19 09/28/2021 09/28/2021 10/28/2021 9:44 PM HAUL TRUCK DRIVER Assessment Noted Time PHQ-9 Depression Total Score: 9 11/25/19 18 2:15 PM CDT A fall risk assessment has been complete d for the patient 12/13/2019 4:01 PM CDT PHQ-2 Depression Total Score: 2 12/10/19 20 2:50 PM CDT documented as of this encounter Care Teams Movie Operator Relationship Specialty Start Date End Date Che Williamson MD [address] [place] [address] PCP - General 08/27/12 03/20/22 Prashanth Martinez MD [address] [place] [address] PCP - General Pediatric Medicine 03/21/22 Lynda Skelton MD [facility] [place] [address] Provider Team Family Practice 06/10/17 Chelsea Hensley MD [address] [place] [address] Endocrinology 12/08/18 documented as of this encounter
--- OUTSIDE RECORDS SUMMARY | 2025-01-28 20:21 | XMS_ITS | Encounter Summary ---
Author Organization [facility] Care Address [address] [place] [address] Phone Care Team Providers Care Thiokol Operator Name Role Phone Che Williamson MD Primary Care Provider + [phone] Lynda Skelton MD Unavailable [phone] Chelsea Hensley MD Unavailable [phone] Prashanth Martinez MD Primary Care Provider [phone] Encounter Details Date Type Department Care Team (Late st Contact Info) Description 12/14/2019 Pharmacy Visit [facility] [address] [place] [address] Social History Tobacco Use Types Packs/Day Years Used Date Smoking Tobacco: Never Smokeless Tobacco: Never Alcohol Use Standard Drinks/Week Comments No 0 (1 standard drink = 0.6 oz pur e alcohol) Comments No Sex and Gender Information Value Date Recorded Sex Assigned at Female 07/13/2019 6:16 PM RESIDENT SERVICES COORDINATOR Legal Sex Female 2:51 AM CDT Gender Identity Transgender Male 05/05/2019 1:23 PM CDT Sexual Orientation Pedraza 06/23/2023 10 :56 AM CDT documented as of this encounter Plan of Treatment Upcoming Encounters Date Type Department Care Team (Late st Contact Info) Description 04/21/2025 2:15 PM CDT Appointment [place] [facility] [address] [phone] Prashanth Martinez MD 200 [place] [address] 05/02/2025 8:40 AM CDT Appointment [place] - [facility] - Ophthalmology - Optometry [address] [phone] Danuta Golden OD 200 [place] [address] documented as of this encounter Visit Diagnoses Not on filedocumented in this encounter Additional Health Concerns Infection Onset Date Last Indicated Resolved Time COVID-19 09/28/2021 09/28/2021 10/28/2021 9:44 PM RESIDENT SERVICES COORDINATOR Assessment Noted Time PHQ-9 Depression Total Score: 9 11/25/19 18 2:15 PM CDT A fall risk assessment has been complete d for the patient 12/13/2019 4:01 PM CDT PHQ-2 Depression Total Score: 2 12/10/19 20 2:50 PM CDT documented as of this encounter Care Teams Thiokol Operator Relationship Specialty Start Date End Date Che Williamson MD [address] [place] [address] PCP - General 08/27/12 03/20/22 Prashanth Martinez MD [address] [place] [address] PCP - General Pediatric Medicine 03/21/22 Lynda Skelton MD [facility] [place] [address] Provider Team Family Practice 06/10/17 Chelsea Hensley MD [address] [place] [address] Endocrinology 12/08/18 documented as of this encounter
--- OUTSIDE RECORDS SUMMARY | 2025-01-28 20:21 | XMS_ITS | Encounter Summary ---
Author Organization [facility] Care Address [address] [place] [address] Phone Care Team Providers Care Tier Lift Operator Name Role Phone Che Williamson MD Primary Care Provider Lynda Skelton MD Unavailable Franchesca Manley Unavailable Unavailable Chelsea Hensley MD Unavailable [phone] Prashanth Martinez MD Primary Care Provider [phone] Encounter Details Date Type Department Care Team (Late st Contact Info) Description 12/22/2017 Pharmacy Visit [facility] - Pharmacy - Specialty 200 [place] [address] Social History Tobacco Use Types Packs/Day Years Used Date Smoking Tobacco: Never Smokeless Tobacco: Never Alcohol Use Standard Drinks/Week Comments No 0 (1 standard drink = 0.6 oz pur e alcohol) Comments No Sex and Gender Information Value Date Recorded Sex Assigned at Female 07/13/2019 6:16 PM ASSISTANT SPA DIRECTOR Legal Sex Female 2:51 AM CDT Gender Identity Transgender Male 05/05/2019 1:23 PM CDT Sexual Orientation Pedraza 06/23/2023 10 :56 AM CDT documented as of this encounter Plan of Treatment Upcoming Encounters Date Type Department Care Team (Late st Contact Info) Description 04/21/2025 2:15 PM CDT Appointment [place] - [facility] - Adolescent Clinic [address] [phone] Prashanth Martinez MD 200 [place] [address] 05/02/2025 8:40 AM CDT Appointment [facility] - Ophthalmology - Optometry [address] [phone] Danuta Golden OD 200 [place] [address] documented as of this encounter Visit Diagnoses Not on filedocumented in this encounter Additional Health Concerns Infection Onset Date Last Indicated Resolved Time COVID-19 09/28/2021 09/28/2021 10/28/2021 9:44 PM ASSISTANT SPA DIRECTOR Assessment Noted Time PHQ-9 Depression Total Score: 9 11/25/19 18 2:15 PM CDT PHQ-2 Depression Total Score: 4 11/25/19 18 2:15 PM CDT documented as of this encounter Care Teams Tier Lift Operator Relationship Specialty Start Date End Date Che Williamson MD [address] [place] [address] PCP - General 08/27/12 03/20/22 Prashanth Martinez MD 200 [place] [address] PCP - General Pediatric Medicine 03/21/22 Lynda Skelton MD [address] [place] [address] Provider Team Family Practice 06/10/17 Franchesca Manley 12/09/17 12/07/18 Chelsea Hensley MD [address] [place] [address] Endocrinology 12/08/18 documented as of this encounter
--- OUTSIDE RECORDS SUMMARY | 2025-01-28 20:21 | XMS_ITS | Encounter Summary ---
Author Organization [facility] Care Address [address] [place] [address] Phone Care Team Providers Care Backhaul Driver Name Role Phone Che Williamson MD Primary Care Provider + [phone] Lynda Skelton MD Unavailable Chelsea Hensley MD Unavailable [phone] Prashanth Martinez MD Primary Care Provider [phone] Encounter Details Date Type Department Care Team (Late st Contact Info) Description 12/13/2019 Pharmacy Visit [facility] - Pharmacy - Specialty 200 [place] [address] Social History Tobacco Use Types Packs/Day Years Used Date Smoking Tobacco: Never Smokeless Tobacco: Never Alcohol Use Standard Drinks/Week Comments No 0 (1 standard drink = 0.6 oz pur e alcohol) Comments No Sex and Gender Information Value Date Recorded Sex Assigned at Female 07/13/2019 6:16 PM SIDE STITCHING MACHINE OPERATOR Legal Sex Female 2:51 AM CDT Gender Identity Transgender Male 05/05/2019 1:23 PM CDT Sexual Orientation Pedraza 06/23/2023 10 :56 AM CDT documented as of this encounter Plan of Treatment Upcoming Encounters Date Type Department Care Team (Late st Contact Info) Description 04/21/2025 2:15 PM CDT Appointment [place] - [facility] - [facility] [address] [phone] Prashanth Martinez MD 200 [place] [address] 05/02/2025 8:40 AM CDT Appointment [place] - [facility] - Ophthalmology - Optometry [address] [phone] Danuta Golden OD [address] [place] [address] documented as of this encounter Visit Diagnoses Not on filedocumented in this encounter Additional Health Concerns Infection Onset Date Last Indicated Resolved Time COVID-19 09/28/2021 09/28/2021 10/28/2021 9:44 PM SIDE STITCHING MACHINE OPERATOR Assessment Noted Time PHQ-9 Depression Total Score: 9 11/25/19 18 2:15 PM CDT A fall risk assessment has been complete d for the patient 12/13/2019 4:01 PM CDT PHQ-2 Depression Total Score: 2 12/10/19 20 2:50 PM CDT documented as of this encounter Care Teams Backhaul Driver Relationship Specialty Start Date End Date Che Williamson MD [address] [place] [address] PCP - General 08/27/12 03/20/22 Prashanth Martinez MD [address] [place] [address] PCP - General Pediatric Medicine 03/21/22 Lynda Skelton MD [facility] to [facility] [place] [address] Provider Team Family Practice 06/10/17 Chelsea Hensley MD 200 [place] [address] Endocrinology 12/08/18 documented as of this encounter
--- OUTSIDE RECORDS SUMMARY | 2025-01-28 20:21 | XMS_ITS | Encounter Summary ---
Author Organization [facility] Care Address [address] [place] [address] Phone Care Team Providers Care Hand Cementer Name Role Phone Che Williamson MD Primary Care Provider + [phone] Lynda Skelton MD Unavailable Chelsea Hensley MD Unavailable [phone] Prashanth Martinez MD Primary Care Provider [phone] Encounter Details Date Type Department Care Team (Late st Contact Info) Description 12/02/2019 Pharmacy Visit [facility] - Pharmacy - Specialty 200 [place] [address] Social History Tobacco Use Types Packs/Day Years Used Date Smoking Tobacco: Never Smokeless Tobacco: Never Alcohol Use Standard Drinks/Week Comments No 0 (1 standard drink = 0.6 oz pur e alcohol) Comments No Sex and Gender Information Value Date Recorded Sex Assigned at Female 07/13/2019 6:16 PM CROWN ASSEMBLY MACHINE OPERATOR Legal Sex Female 2:51 AM CDT Gender Identity Transgender Male 05/05/2019 1:23 PM CDT Sexual Orientation Pedraza 06/23/2023 10 :56 AM CDT documented as of this encounter Plan of Treatment Upcoming Encounters Date Type Department Care Team (Late st Contact Info) Description 04/21/2025 2:15 PM CDT Appointment [place] - [facility] - Adolescent Clinic [address] [phone] Prashanth Martinez MD 200 [place] [address] 05/02/2025 8:40 AM CDT Appointment [place] - [facility] - Ophthalmology - Optometry [address] [phone] Danuta Golden OD 200 [place] [address] documented as of this encounter Visit Diagnoses Not on filedocumented in this encounter Additional Health Concerns Infection Onset Date Last Indicated Resolved Time COVID-19 09/28/2021 09/28/2021 10/28/2021 9:44 PM CROWN ASSEMBLY MACHINE OPERATOR Assessment Noted Time PHQ-9 Depression Total Score: 9 11/25/19 18 2:15 PM CDT A fall risk assessment has been complete d for the patient 11/29/2019 2:35 PM CDT PHQ-2 Depression Total Score: 4 11/25/19 18 2:15 PM CDT documented as of this encounter Care Teams Hand Cementer Relationship Specialty Start Date End Date Che Williamson MD [address] [place] [address] PCP - General 08/27/12 03/20/22 Prashanth Martinez MD [address] [place] [address] PCP - General Pediatric Medicine 03/21/22 Lynda Skelton MD [facility] [place] [address] Provider Team Family Practice 06/10/17 Chelsea Hensley MD 200 [place] [address] Endocrinology 12/08/18 documented as of this encounter
--- OUTSIDE RECORDS SUMMARY | 2025-01-28 20:21 | XMS_ITS | Encounter Summary ---
Author Organization [facility] Care Address [address] [place] [address] Phone Care Team Providers Care District Customs Director Name Role Phone Che Williamson MD Primary Care Provider + [phone] Lynda Skelton MD Unavailable Chelsea Hensley MD Unavailable [phone] Prashanth Martinez MD Primary Care Provider [phone] Encounter Details Date Type Department Care Team (Late st Contact Info) Description 11/22/2019 Pharmacy Visit [facility] - Pharmacy - Specialty 200 [place] [address] Social History Tobacco Use Types Packs/Day Years Used Date Smoking Tobacco: Never Smokeless Tobacco: Never Alcohol Use Standard Drinks/Week Comments No 0 (1 standard drink = 0.6 oz pur e alcohol) Comments No Sex and Gender Information Value Date Recorded Sex Assigned at Female 07/13/2019 6:16 PM MUSHROOM PRESS OPERATOR Legal Sex Female 2:51 AM CDT Gender Identity Transgender Male 05/05/2019 1:23 PM CDT Sexual Orientation Pedraza 06/23/2023 10 :56 AM CDT documented as of this encounter Plan of Treatment Upcoming Encounters Date Type Department Care Team (Late st Contact Info) Description 04/21/2025 2:15 PM CDT Appointment [place] - [facility] - Adolescent Clinic [address] [phone] Prashanth Martinez MD [address] [place] [address] 05/02/2025 8:40 AM CDT Appointment [place] - [facility] - Ophthalmology - Optometry [address] [phone] Danuta Golden OD [address] [place] [address] documented as of this encounter Visit Diagnoses Not on filedocumented in this encounter Additional Health Concerns Infection Onset Date Last Indicated Resolved Time COVID-19 09/28/2021 09/28/2021 10/28/2021 9:44 PM MUSHROOM PRESS OPERATOR Assessment Noted Time PHQ-9 Depression Total Score: 9 11/25/19 18 2:15 PM CDT A fall risk assessment has been complete d for the patient 11/10/2019 10:30 AM MUSHROOM PRESS OPERATOR PHQ-2 Depression Total Score: 4 11/25/19 18 2:15 PM CDT documented as of this encounter Care Teams District Customs Director Relationship Specialty Start Date End Date Che Williamson MD [address] [place] [address] PCP - General 08/27/12 03/20/22 Prashanth Martinez MD [address] [place] [address] PCP - General Pediatric Medicine 03/21/22 Lynda Skelton MD [address] [place] [address] Provider Team Family Practice 06/10/17 Chelsea Hensley MD [address] [place] [address] Endocrinology 12/08/18 documented as of this encounter
--- OUTSIDE RECORDS SUMMARY | 2025-01-28 20:21 | XMS_ITS | Encounter Summary ---
Author Organization [facility] Care Address [address] [place] [address] Phone Care Team Providers Care Electrical Integrator Name Role Phone Che Williamson MD Primary Care Provider + [phone] Lynda Skelton MD Unavailable Chelsea Hensley MD Unavailable [phone] Prashanth Martinez MD Primary Care Provider [phone] Encounter Details Date Type Department Care Team (Late st Contact Info) Description 12/08/2019 Pharmacy Visit [facility] - Pharmacy - Specialty 200 [place] [address] Social History Tobacco Use Types Packs/Day Years Used Date Smoking Tobacco: Never Smokeless Tobacco: Never Alcohol Use Standard Drinks/Week Comments No 0 (1 standard drink = 0.6 oz pur e alcohol) Comments No Sex and Gender Information Value Date Recorded Sex Assigned at Female 07/13/2019 6:16 PM UNIFORM MAKER Legal Sex Female 2:51 AM CDT Gender Identity Transgender Male 05/05/2019 1:23 PM CDT Sexual Orientation Pedraza 06/23/2023 10 :56 AM CDT documented as of this encounter Plan of Treatment Upcoming Encounters Date Type Department Care Team (Late st Contact Info) Description 04/21/2025 2:15 PM CDT Appointment [place] - [facility] - Ad[facility]cent Clinic [address] [phone] Prashanth Martinez MD 200 [place] [address] 05/02/2025 8:40 AM CDT Appointment [place] - [facility] - Ophthalmology - Optometry [address] [phone] Danuta Golden OD 200 [place] [address] documented as of this encounter Visit Diagnoses Not on filedocumented in this encounter Additional Health Concerns Infection Onset Date Last Indicated Resolved Time COVID-19 09/28/2021 09/28/2021 10/28/2021 9:44 PM UNIFORM MAKER Assessment Noted Time PHQ-9 Depression Total Score: 9 11/25/19 18 2:15 PM CDT A fall risk assessment has been complete d for the patient 11/29/2019 2:35 PM CDT PHQ-2 Depression Total Score: 4 11/25/19 18 2:15 PM CDT documented as of this encounter Care Teams Electrical Integrator Relationship Specialty Start Date End Date Che Williamson MD [address] [place] [address] PCP - General 08/27/12 03/20/22 Prashanth Martinez MD [address] [place] [address] PCP - General Pediatric Medicine 03/21/22 Lynda Skelton MD [facility] [place] [address] Provider Team Family Practice 06/10/17 Chelsea Hensley MD [address] [place] [address] Endocrinology 12/08/18 documented as of this encounter
--- OUTSIDE RECORDS SUMMARY | 2025-01-28 20:21 | XMS_ITS | Encounter Summary ---
Author Organization [facility] Care Address [address] [place] [address] Phone Care Team Providers Care Gamb Cutter Name Role Phone Che Williamson MD Primary Care Provider + [phone] Lynda Skelton MD Unavailable Franchesca Manley Unavailable Unavailable Chelsea Hensley MD Unavailable [phone] Prashanth Martinez MD Primary Care Provider [phone] Encounter Details Date Type Department Care Team (Late st Contact Info) Description 01/05/2018 Pharmacy Visit [facility] - Pharmacy - Specialty [address] [place] [address] Social History Tobacco Use Types Packs/Day Years Used Date Smoking Tobacco: Never Smokeless Tobacco: Never Alcohol Use Standard Drinks/Week Comments No 0 (1 standard drink = 0.6 oz pur e alcohol) Comments No Sex and Gender Information Value Date Recorded Sex Assigned at Female 07/13/2019 6:16 PM HOOP PUNCH OPERATOR HELPER Legal Sex Female 2:51 AM CDT Gender Identity Transgender Male 05/05/2019 1:23 PM CDT Sexual Orientation Pedraza 06/23/2023 10 :56 AM CDT documented as of this encounter Plan of Treatment Upcoming Encounters Date Type Department Care Team (Late st Contact Info) Description 04/21/2025 2:15 PM CDT Appointment [place] - [facility] - Adolescent Clinic [address] [phone] Prashanth Martinez MD 200 [place] [address] 05/02/2025 8:40 AM CDT Appointment [facility] - Ophthalmology - Optometry [address] [phone] Danuta Golden OD [address] [place] [address] documented as of this encounter Visit Diagnoses Not on filedocumented in this encounter Additional Health Concerns Infection Onset Date Last Indicated Resolved Time COVID-19 09/28/2021 09/28/2021 10/28/2021 9:44 PM HOOP PUNCH OPERATOR HELPER Assessment Noted Time PHQ-9 Depression Total Score: 9 11/25/19 18 2:15 PM CDT PHQ-2 Depression Total Score: 4 11/25/19 18 2:15 PM CDT documented as of this encounter Care Teams Gamb Cutter Relationship Specialty Start Date End Date Che Williamson MD [address] [place] [address] PCP - General 08/27/12 03/20/22 Prashanth Martinez MD [address] [place] [address] PCP - General Pediatric Medicine 03/21/22 Lynda Skelton MD [address] [place] [address] Provider Team Family Practice 06/10/17 Franchesca Manley 12/09/17 12/07/18 Chelsea Hensley MD [address] [place] [address] Endocrinology 12/08/18 documented as of this encounter
--- OUTSIDE RECORDS SUMMARY | 2025-01-28 20:21 | XMS_ITS | Encounter Summary ---
Author Organization [facility] Care Address [address] [place] [address] Phone Care Team Providers Care Barrel Loader Name Role Phone Che Williamson MD Primary Care Provider + [phone] Lynda Skelton MD Unavailable Chelsea Hensley MD Unavailable [phone] Prashanth Martinez MD Primary Care Provider [phone] Encounter Details Date Type Department Care Team (Late st Contact Info) Description 12/10/2019 Pharmacy Visit [facility] 200 [place] [address] Social History Tobacco Use Types Packs/Day Years Used Date Smoking Tobacco: Never Smokeless Tobacco: Never Alcohol Use Standard Drinks/Week Comments No 0 (1 standard drink = 0.6 oz pur e alcohol) Comments No Sex and Gender Information Value Date Recorded Sex Assigned at Female 07/13/2019 6:16 PM TRACTOR DRILL OPERATOR Legal Sex Female 2:51 AM CDT Gender Identity Transgender Male 05/05/2019 1:23 PM CDT Sexual Orientation Pedraza 06/23/2023 10 :56 AM CDT documented as of this encounter Plan of Treatment Upcoming Encounters Date Type Department Care Team (Late st Contact Info) Description 04/21/2025 2:15 PM CDT Appointment [place] - [facility] - Adolescent Clinic [address] [phone] Prashanth Martinez MD 200 [place] [address] 05/02/2025 8:40 AM CDT Appointment [place] - [facility] - Ophthalmology - Optometry [address] [phone] Danuta Golden OD 200 [place] [address] documented as of this encounter Visit Diagnoses Not on filedocumented in this encounter Additional Health Concerns Infection Onset Date Last Indicated Resolved Time COVID-19 09/28/2021 09/28/2021 10/28/2021 9:44 PM TRACTOR DRILL OPERATOR Assessment Noted Time PHQ-9 Depression Total Score: 9 11/25/19 18 2:15 PM CDT A fall risk assessment has been complete d for the patient 12/10/2019 2:45 PM CDT PHQ-2 Depression Total Score: 2 12/10/19 20 2:50 PM CDT documented as of this encounter Care Teams Barrel Loader Relationship Specialty Start Date End Date Che Williamson MD [address] [place] [address] PCP - General 08/27/12 03/20/22 Prashanth Martinez MD [address] [place] [address] PCP - General Pediatric Medicine 03/21/22 Lynda Skelton MD [facility] [place] [address] Provider Team Family Practice 06/10/17 Chelsea Hensley MD [address] [place] [address] Endocrinology 12/08/18 documented as of this encounter
--- OUTSIDE RECORDS SUMMARY | 2025-01-28 20:21 | XMS_ITS | Encounter Summary ---
Author Organization [facility] Care Address [address] [place] [address] Phone Care Team Providers Care Car Shagger Name Role Phone Che Williamson MD Primary Care Provider Lynda Skelton MD Unavailable Franchesca Manley Unavailable Unavailable Chelsea Hensley MD Unavailable [phone] Prashanth Martinez MD Primary Care Provider [phone] Encounter Details Date Type Department Care Team (Late st Contact Info) Description 01/20/2018 Pharmacy Visit [facility] - Pharmacy - Specialty 200 [place] [address] Social History Tobacco Use Types Packs/Day Years Used Date Smoking Tobacco: Never Smokeless Tobacco: Never Alcohol Use Standard Drinks/Week Comments No 0 (1 standard drink = 0.6 oz pur e alcohol) Comments No Sex and Gender Information Value Date Recorded Sex Assigned at Female 07/13/2019 6:16 PM JACKSPOOLER Legal Sex Female 2:51 AM CDT Gender Identity Transgender Male 05/05/2019 1:23 PM CDT Sexual Orientation Pedraza 06/23/2023 10 :56 AM CDT documented as of this encounter Plan of Treatment Upcoming Encounters Date Type Department Care Team (Late st Contact Info) Description 04/21/2025 2:15 PM CDT Appointment [place] [facility] [address] [phone] Prashanth Martinez MD [address] [place] [address] 05/02/2025 8:40 AM CDT Appointment [facility] - Ophthalmology - Optometry [address] [phone] Danuta Golden OD [address] [place] [address] documented as of this encounter Visit Diagnoses Not on filedocumented in this encounter Additional Health Concerns Infection Onset Date Last Indicated Resolved Time COVID-19 09/28/2021 09/28/2021 10/28/2021 9:44 PM JACKSPOOLER Assessment Noted Time PHQ-9 Depression Total Score: 9 11/25/19 18 2:15 PM CDT PHQ-2 Depression Total Score: 4 11/25/19 18 2:15 PM CDT documented as of this encounter Care Teams Car Shagger Relationship Specialty Start Date End Date Che Williamson MD [address] [place] [address] PCP - General 08/27/12 03/20/22 Prashanth Martinez MD [address] [place] [address] PCP - General Pediatric Medicine 03/21/22 Lynda Skelton MD [address] [place] [address] Provider Team Family Practice 06/10/17 Franchesca Manley 12/09/17 12/07/18 Chelsea Hensley MD [address] [place] [address] Endocrinology 12/08/18 documented as of this encounter
--- OUTSIDE RECORDS SUMMARY | 2025-01-28 20:21 | XMS_ITS | Encounter Summary ---
Author Organization [facility] Care Address [address] [place] [address] Phone Care Team Providers Care Candy Waffle Assembler Name Role Phone Che Williamson MD Primary Care Provider + [phone] Lynda Skelton MD Unavailable Franchesca Manley Unavailable Unavailable Chelsea Hensley MD Unavailable [phone] Prashanth Martinez MD Primary Care Provider [phone] Encounter Details Date Type Department Care Team (Late st Contact Info) Description 12/15/2017 Pharmacy Visit [facility] - Pharmacy - Specialty 200 [place] [address] Social History Tobacco Use Types Packs/Day Years Used Date Smoking Tobacco: Never Smokeless Tobacco: Never Alcohol Use Standard Drinks/Week Comments No 0 (1 standard drink = 0.6 oz pur e alcohol) Comments No Sex and Gender Information Value Date Recorded Sex Assigned at Female 07/13/2019 6:16 PM POULTRY SCALDER Legal Sex Female 2:51 AM CDT Gender Identity Transgender Male 05/05/2019 1:23 PM CDT Sexual Orientation Pedraza 06/23/2023 10 :56 AM CDT documented as of this encounter Plan of Treatment Upcoming Encounters Date Type Department Care Team (Late st Contact Info) Description 04/21/2025 2:15 PM CDT Appointment [place] [facility] - Adolescent Clinic [address] [phone] Prashanth Martinez MD 200 [place] [address] 05/02/2025 8:40 AM CDT Appointment [facility] - Ophthalmology - Optometry [address] [phone] Danuta Golden OD 200 [place] [address] documented as of this encounter Visit Diagnoses Not on filedocumented in this encounter Additional Health Concerns Infection Onset Date Last Indicated Resolved Time COVID-19 09/28/2021 09/28/2021 10/28/2021 9:44 PM POULTRY SCALDER Assessment Noted Time PHQ-9 Depression Total Score: 9 11/25/19 18 2:15 PM CDT PHQ-2 Depression Total Score: 4 11/25/19 18 2:15 PM CDT documented as of this encounter Care Teams Candy Waffle Assembler Relationship Specialty Start Date End Date Che Williamson MD [address] [place] [address] PCP - General 08/27/12 03/20/22 Prashanth Martinez MD 200 [place] [address] PCP - General Pediatric Medicine 03/21/22 Lynda Skelton MD [address] [place] [address] Provider Team Family Practice 06/10/17 Franchesca Manley 12/09/17 12/07/18 Chelsea Hensley MD [address] [place] [address] Endocrinology 12/08/18 documented as of this encounter
--- OUTSIDE RECORDS SUMMARY | 2025-01-28 20:21 | XMS_ITS | Encounter Summary ---
Author Organization [facility] Care Address [address] [place] [address] Phone Care Team Providers Care Metal Smelter Name Role Phone Che Williamson MD Primary Care Provider + [phone] Lynda Skelton MD Unavailable [phone] Franchesca Manley Unavailable Unavailable Chelsea Hensley MD Unavailable [phone] Prashanth Martinez MD Primary Care Provider [phone] Encounter Details Date Type Department Care Team (Late st Contact Info) Description 12/18/2017 Pharmacy Visit [facility] - Pharmacy - Business Office [address] [place] [address] Social History Tobacco Use Types Packs/Day Years Used Date Smoking Tobacco: Never Smokeless Tobacco: Never Alcohol Use Standard Drinks/Week Comments No 0 (1 standard drink = 0.6 oz pur e alcohol) Comments No Sex and Gender Information Value Date Recorded Sex Assigned at Female 07/13/2019 6:16 PM NEW CAR MAKE READY WORKER Legal Sex Female 2:51 AM CDT Gender Identity Transgender Male 05/05/2019 1:23 PM CDT Sexual Orientation Pedraza 06/23/2023 10 :56 AM CDT documented as of this encounter Plan of Treatment Upcoming Encounters Date Type Department Care Team (Late st Contact Info) Description 04/21/2025 2:15 PM CDT Appointment [place] [facility] - [facility] [address] [phone] Prashanth Martinez MD [address] [place] [address] 05/02/2025 8:40 AM CDT Appointment [facility] - Ophthalmology - Optometry [address] [phone] Danuta Golden OD [address] [place] [address] documented as of this encounter Visit Diagnoses Not on filedocumented in this encounter Additional Health Concerns Infection Onset Date Last Indicated Resolved Time COVID-19 09/28/2021 09/28/2021 10/28/2021 9:44 PM NEW CAR MAKE READY WORKER Assessment Noted Time PHQ-9 Depression Total Score: 9 11/25/19 18 2:15 PM CDT PHQ-2 Depression Total Score: 4 11/25/19 18 2:15 PM CDT documented as of this encounter Care Teams Metal Smelter Relationship Specialty Start Date End Date Che Williamson MD [address] [place] [address] PCP - General 08/27/12 03/20/22 Prashanth Martinez MD [address] [place] [address] PCP - General Pediatric Medicine 03/21/22 Lynda Skelton MD [address] [place] [address] Provider Team Family Practice 06/10/17 Franchesca Manley 12/09/17 12/07/18 hCelsea Hensley MD [address] [place] [address] Endocrinology 12/08/18 documented as of this encounter
--- OUTSIDE RECORDS SUMMARY | 2025-01-28 20:21 | XMS_ITS | Encounter Summary ---
Author Organization [facility] Care Address [address] [place] [address] Phone Care Team Providers Care Credit Department Manager Name Role Phone Che Williamson MD Primary Care Provider + [phone] Lynda Skelton MD Unavailable Chelsea Hensley MD Unavailable [phone] Prashanth Martinez MD Primary Care Provider [phone] Encounter Details Date Type Department Care Team (Late st Contact Info) Description 12/06/2019 Pharmacy Visit [facility] - Pharmacy - Specialty [address] [place] [address] Social History Tobacco Use Types Packs/Day Years Used Date Smoking Tobacco: Never Smokeless Tobacco: Never Alcohol Use Standard Drinks/Week Comments No 0 (1 standard drink = 0.6 oz pur e alcohol) Comments No Sex and Gender Information Value Date Recorded Sex Assigned at Female 07/13/2019 6:16 PM BATTERY INSPECTOR Legal Sex Female 2:51 AM CDT Gender Identity Transgender Male 05/05/2019 1:23 PM CDT Sexual Orientation Pedraza 06/23/2023 10 :56 AM CDT documented as of this encounter Plan of Treatment Upcoming Encounters Date Type Department Care Team (Late st Contact Info) Description 04/21/2025 2:15 PM CDT Appointment [place] [facility] - [facility] [address] [phone] Prashanth Martinez MD 200 [place] [address] 05/02/2025 8:40 AM CDT Appointment [place] [facility] - [facility]ometry [address] [phone] Danuta Golden OD [address] [place] [address] documented as of this encounter Visit Diagnoses Not on filedocumented in this encounter Additional Health Concerns Infection Onset Date Last Indicated Resolved Time COVID-19 09/28/2021 09/28/2021 10/28/2021 9:44 PM BATTERY INSPECTOR Assessment Noted Time PHQ-9 Depression Total Score: 9 11/25/19 18 2:15 PM CDT A fall risk assessment has been complete d for the patient 11/29/2019 2:35 PM CDT PHQ-2 Depression Total Score: 4 11/25/19 18 2:15 PM CDT documented as of this encounter Care Teams Credit Department Manager Relationship Specialty Start Date End Date Che Williamson MD [address] [place] [address] PCP - General 08/27/12 03/20/22 Prashanth Martinez MD [address] [place] [address] PCP - General Pediatric Medicine 03/21/22 Lynda Skelton MD [facility] [place] [address] Provider Team Family Practice 06/10/17 Chelsea Hensley MD [address] [place] [address] Endocrinology 12/08/18 documented as of this encounter
--- OUTSIDE RECORDS SUMMARY | 2025-01-28 20:21 | XMS_ITS | Encounter Summary ---
Author Organization [facility] Care Address [address] [place] [address] Phone Care Team Providers Care Soap Inspector Name Role Phone Che Williamson MD Primary Care Provider + [phone] Lynda Skelton MD Unavailable Chelsea Hensley MD Unavailable [phone] Prashanth Martinez MD Primary Care Provider [phone] Encounter Details Date Type Department Care Team (Late st Contact Info) Description 11/12/2019 Pharmacy Visit [facility] - Pharmacy - Specialty [address] [place] [address] Social History Tobacco Use Types Packs/Day Years Used Date Smoking Tobacco: Never Smokeless Tobacco: Never Alcohol Use Standard Drinks/Week Comments No 0 (1 standard drink = 0.6 oz pur e alcohol) Comments No Sex and Gender Information Value Date Recorded Sex Assigned at Female 07/13/2019 6:16 PM RAIL SIGNAL DESIGNER Legal Sex Female 2:51 AM CDT Gender Identity Transgender Male 05/05/2019 1:23 PM CDT Sexual Orientation Pedraza 06/23/2023 10 :56 AM CDT documented as of this encounter Plan of Treatment Upcoming Encounters Date Type Department Care Team (Late st Contact Info) Description 04/21/2025 2:15 PM CDT Appointment [place] - [facility] - Adolescent Clinic [address] [phone] Prashanth Martinez MD [address] [place] [address] 05/02/2025 8:40 AM CDT Appointment [place] - [facility] - Ophthalmology - Optometry [address] [phone] Danuta Golden OD [address] [place] [address] documented as of this encounter Visit Diagnoses Not on filedocumented in this encounter Additional Health Concerns Infection Onset Date Last Indicated Resolved Time COVID-19 09/28/2021 09/28/2021 10/28/2021 9:44 PM RAIL SIGNAL DESIGNER Assessment Noted Time PHQ-9 Depression Total Score: 9 11/25/19 18 2:15 PM CDT A fall risk assessment has been complete d for the patient 11/10/2019 10:30 AM RAIL SIGNAL DESIGNER PHQ-2 Depression Total Score: 4 11/25/19 18 2:15 PM CDT documented as of this encounter Care Teams Soap Inspector Relationship Specialty Start Date End Date Che Williamson MD [address] [place] [address] PCP - General 08/27/12 03/20/22 Prashanth Martinez MD [address] [place] [address] PCP - General Pediatric Medicine 03/21/22 Lynda Skelton MD [address] [place] [address] Provider Team Family Practice 06/10/17 Chelsea Hensley MD [address] [place] [address] Endocrinology 12/08/18 documented as of this encounter
--- OUTSIDE RECORDS SUMMARY | 2025-01-28 20:21 | XMS_ITS | Encounter Summary ---
Author Organization [facility] Care Address [address] [place] [address] Phone Care Team Providers Care Mushroom Cutter Name Role Phone Che Williamson MD Primary Care Provider + [phone] Lynda Skelton MD Unavailable Chelsea Hensley MD Unavailable [phone] Prashanth Martinez MD Primary Care Provider [phone] Encounter Details Date Type Department Care Team (Late st Contact Info) Description 11/25/2019 Pharmacy Visit [facility] [address] [place] [address] Social History Tobacco Use Types Packs/Day Years Used Date Smoking Tobacco: Never Smokeless Tobacco: Never Alcohol Use Standard Drinks/Week Comments No 0 (1 standard drink = 0.6 oz pur e alcohol) Comments No Sex and Gender Information Value Date Recorded Sex Assigned at Female 07/13/2019 6:16 PM CAP INSPECTOR Legal Sex Female 2:51 AM CDT Gender Identity Transgender Male 05/05/2019 1:23 PM CDT Sexual Orientation Pedraza 06/23/2023 10 :56 AM CDT documented as of this encounter Plan of Treatment Upcoming Encounters Date Type Department Care Team (Late st Contact Info) Description 04/21/2025 2:15 PM CDT Appointment [place] - [facility] - Adolescent Clinic [address] [phone] Prashanth Martinez MD [address] [place] [address] 05/02/2025 8:40 AM CDT Appointment [place] [facility] - Ophthalmology - Optometry [address] [phone] Danuta Golden OD [address] [place] [address] documented as of this encounter Visit Diagnoses Not on filedocumented in this encounter Additional Health Concerns Infection Onset Date Last Indicated Resolved Time COVID-19 09/28/2021 09/28/2021 10/28/2021 9:44 PM CAP INSPECTOR Assessment Noted Time PHQ-9 Depression Total Score: 9 11/25/19 18 2:15 PM CDT A fall risk assessment has been complete d for the patient 11/10/2019 10:30 AM CAP INSPECTOR PHQ-2 Depression Total Score: 4 11/25/19 18 2:15 PM CDT documented as of this encounter Care Teams Mushroom Cutter Relationship Specialty Start Date End Date Che Williamson MD [address] [place] [address] PCP - General 08/27/12 03/20/22 Prashatnh Martinez MD [address] [place] [address] PCP - General Pediatric Medicine 03/21/22 Lynda Skelton MD [address] [place] [address] Provider Team Family Practice 06/10/17 Chelsea Hensley MD [address] [place] [address] Endocrinology 12/08/18 documented as of this encounter
--- OUTSIDE RECORDS SUMMARY | 2025-01-28 20:21 | XMS_ITS | Encounter Summary ---
Author Organization [facility] Care Address [address] [place] [address] Phone Care Team Providers Care World Designer Name Role Phone Che Williamson MD Primary Care Provider Lynda Skelton MD Unavailable Franchesca Manley Unavailable Unavailable Chelsea Hensley MD Unavailable [phone] Prashanth Martinez MD Primary Care Provider [phone] Encounter Details Date Type Department Care Team (Late st Contact Info) Description 01/19/2018 Pharmacy Visit [facility] - Pharmacy - Specialty [address] [place] [address] Social History Tobacco Use Types Packs/Day Years Used Date Smoking Tobacco: Never Smokeless Tobacco: Never Alcohol Use Standard Drinks/Week Comments No 0 (1 standard drink = 0.6 oz pur e alcohol) Comments No Sex and Gender Information Value Date Recorded Sex Assigned at Female 07/13/2019 6:16 PM PROPERTY CONTROLLER Legal Sex Female 2:51 AM CDT Gender Identity Transgender Male 05/05/2019 1:23 PM CDT Sexual Orientation Pedraza 06/23/2023 10 :56 AM CDT documented as of this encounter Plan of Treatment Upcoming Encounters Date Type Department Care Team (Late st Contact Info) Description 04/21/2025 2:15 PM CDT Appointment [place] [facility] - Adolescent Clinic [address] [phone] Prashanth Martinez MD [address] [place] [address] 05/02/2025 8:40 AM CDT Appointment [facility] - Ophthalmology - Optometry [address] [phone] Danuta Golden OD [address] [place] [address] documented as of this encounter Visit Diagnoses Not on filedocumented in this encounter Additional Health Concerns Infection Onset Date Last Indicated Resolved Time COVID-19 09/28/2021 09/28/2021 10/28/2021 9:44 PM PROPERTY CONTROLLER Assessment Noted Time PHQ-9 Depression Total Score: 9 11/25/19 18 2:15 PM CDT PHQ-2 Depression Total Score: 4 11/25/19 18 2:15 PM CDT documented as of this encounter Care Teams World Designer Relationship Specialty Start Date End Date Che Williamson MD [address] [place] [address] PCP - General 08/27/12 03/20/22 Prashanth Martinez MD [address] [place] [address] PCP - General Pediatric Medicine 03/21/22 Lynda Skelton MD [address] [place] [address] Provider Team Family Practice 06/10/17 Franchesca Manley 12/09/17 12/07/18 Chelsea Hensley MD [address] [place] [address] Endocrinology 12/08/18 documented as of this encounter
--- OUTSIDE RECORDS SUMMARY | 2025-01-28 20:21 | XMS_ITS | Encounter Summary ---
Author Organization [facility] Care Address [address] [place] [address] Phone Care Team Providers Care Executive Coordinator Name Role Phone Che Williamson MD Primary Care Provider + [phone] Lynda Skelton MD Unavailable Chelsea Hensley MD Unavailable [phone] Prashanth Martinez MD Primary Care Provider [phone] Encounter Details Date Type Department Care Team (Late st Contact Info) Description 11/16/2019 Pharmacy [facility] - Pharmacy - Specialty [address] [place] [address] Social History Tobacco Use Types Packs/Day Years Used Date Smoking Tobacco: Never Smokeless Tobacco: Never Alcohol Use Standard Drinks/Week Comments No 0 (1 standard drink = 0.6 oz pur e alcohol) Comments No Sex and Gender Information Value Date Recorded Sex Assigned at Female 07/13/2019 6:16 PM PROGRAM SUPERVISOR Legal Sex Female 2:51 AM CDT Gender Identity Transgender Male 05/05/2019 1:23 PM CDT Sexual Orientation Pedraza 06/23/2023 10 :56 AM CDT documented as of this encounter Plan of Treatment Upcoming Encounters Date Type Department Care Team (Late st Contact Info) Description 04/21/2025 2:15 PM CDT Appointment [place] - [facility] - Adolescent Clinic [address] [phone] Prashanth Martinez MD [address] [place] [address] 05/02/2025 8:40 AM CDT Appointment [place] - [facility] - Ophthalmology - Optometry [address] [phone] Danuta Golden OD [address] [place] [address] documented as of this encounter Visit Diagnoses Not on filedocumented in this encounter Additional Health Concerns Infection Onset Date Last Indicated Resolved Time COVID-19 09/28/2021 09/28/2021 10/28/2021 9:44 PM PROGRAM SUPERVISOR Assessment Noted Time PHQ-9 Depression Total Score: 9 11/25/19 18 2:15 PM CDT A fall risk assessment has been complete d for the patient 11/10/2019 10:30 AM PROGRAM SUPERVISOR PHQ-2 Depression Total Score: 4 11/25/19 18 2:15 PM CDT documented as of this encounter Care Teams Executive Coordinator Relationship Specialty Start Date End Date Che Williamson MD [address] [place] [address] PCP - General 08/27/12 03/20/22 Prashanth Martinez MD [address] [place] [address] PCP - General Pediatric Medicine 03/21/22 Lynda Skelton MD [address] [place] [address] Provider Team Family Practice 06/10/17 Chelsea Hensley MD [address] [place] [address] Endocrinology 12/08/18 documented as of this encounter
--- OUTSIDE RECORDS SUMMARY | 2025-01-28 20:21 | XMS_ITS | Encounter Summary ---
Author Organization [facility] Care Address [address] [place] [address] Phone Care Team Providers Care Card Lacer Jacquard Name Role Phone Che Williamson MD Primary Care Provider + [phone] Lynda Skelton MD Unavailable Franchesca Manley Unavailable Unavailable Chelsea Hensley MD Unavailable [phone] Prashanth Martinez MD Primary Care Provider [phone] Encounter Details Date Type Department Care Team (Late st Contact Info) Description 12/11/2017 Pharmacy Visit [facility] - Pharmacy [address] [place] [address] Social History Tobacco Use Types Packs/Day Years Used Date Smoking Tobacco: Never Smokeless Tobacco: Never Alcohol Use Standard Drinks/Week Comments No 0 (1 standard drink = 0.6 oz pur e alcohol) Comments No Sex and Gender Information Value Date Recorded Sex Assigned at Female 07/13/2019 6:16 PM COSMETIC MANAGER Legal Sex Female 2:51 AM CDT Gender Identity Transgender Male 05/05/2019 1:23 PM CDT Sexual Orientation Pedraza 06/23/2023 10 :56 AM CDT documented as of this encounter Plan of Treatment Upcoming Encounters Date Type Department Care Team (Late st Contact Info) Description 04/21/2025 2:15 PM CDT Appointment [place] - [facility] - Adolescent Clinic [address] [phone] Prashanth Martinez MD [address] [place] [address] 05/02/2025 8:40 AM CDT Appointment [facility] - Ophthalmology - Optometry [address] [phone] Danuta Golden OD [address] [place] [address] documented as of this encounter Visit Diagnoses Not on filedocumented in this encounter Additional Health Concerns Infection Onset Date Last Indicated Resolved Time COVID-19 09/28/2021 09/28/2021 10/28/2021 9:44 PM COSMETIC MANAGER Assessment Noted Time PHQ-9 Depression Total Score: 9 11/25/19 18 2:15 PM CDT PHQ-2 Depression Total Score: 4 11/25/19 18 2:15 PM CDT documented as of this encounter Care Teams Card Lacer Jacquard Relationship Specialty Start Date End Date Che Williamson MD [address] [place] [address] PCP - General 08/27/12 03/20/22 Prashanth Martinez MD [address] [place] [address] PCP - General Pediatric Medicine 03/21/22 Lynda Skelton MD [facility] [place] [address] Provider Team Family Practice 06/10/17 Franchesca Manley 12/09/17 12/07/18 Chelsea Hensley MD [address] [place], [place] [phone] Endocrinology 12/08/18 documented as of this encounter
--- OUTSIDE RECORDS SUMMARY | 2025-01-28 20:21 | XMS_ITS | Encounter Summary ---
Author Organization [facility] Care Address [address] [place] [address] Phone Care Team Providers Care Technician Inventory Specialist Name Role Phone Che Williamson MD Primary Care Provider Lynda Skelton MD Unavailable Franchesca Manley Unavailable Unavailable Chelsea Hensley MD Unavailable [phone] Prashanth Martinez MD Primary Care Provider [phone] Encounter Details Date Type Department Care Team (Late st Contact Info) Description 12/17/2017 Pharmacy Visit [facility] - Pharmacy - Specialty [address] [place] [address] Social History Tobacco Use Types Packs/Day Years Used Date Smoking Tobacco: Never Smokeless Tobacco: Never Alcohol Use Standard Drinks/Week Comments No 0 (1 standard drink = 0.6 oz pur e alcohol) Comments No Sex and Gender Information Value Date Recorded Sex Assigned at Female 07/13/2019 6:16 PM MERCHANT BANKER Legal Sex Female 2:51 AM CDT Gender Identity Transgender Male 05/05/2019 1:23 PM CDT Sexual Orientation Pedraza 06/23/2023 10 :56 AM CDT documented as of this encounter Plan of Treatment Upcoming Encounters Date Type Department Care Team (Late st Contact Info) Description 04/21/2025 2:15 PM CDT Appointment [place] [facility] - Adolescent Clinic [address] [phone] Prashanth Martinez MD [address] [place] [address] 05/02/2025 8:40 AM CDT Appointment [facility] - Ophthalmology - Optometry [address] [phone] Danuta Golden OD [address] [place] [address] documented as of this encounter Visit Diagnoses Not on filedocumented in this encounter Additional Health Concerns Infection Onset Date Last Indicated Resolved Time COVID-19 09/28/2021 09/28/2021 10/28/2021 9:44 PM MERCHANT BANKER Assessment Noted Time PHQ-9 Depression Total Score: 9 11/25/19 18 2:15 PM CDT PHQ-2 Depression Total Score: 4 11/25/19 18 2:15 PM CDT documented as of this encounter Care Teams Technician Inventory Specialist Relationship Specialty Start Date End Date Che Williamson MD [address] [place] [address] PCP - General 08/27/12 03/20/22 Prashanth Martinez MD [address] [place] [address] PCP - General Pediatric Medicine 03/21/22 Lynda Skelton MD [address] [place] [address] Provider Team Family Practice 06/10/17 Franchesca Manley 12/09/17 12/07/18 Chelsea Hensley MD [address] [place] [address] Endocrinology 12/08/18 documented as of this encounter
--- OUTSIDE RECORDS SUMMARY | 2025-01-28 20:21 | XMS_ITS | Encounter Summary ---
Author Organization [facility] Care Address [address] [place] [address] Phone Care Team Providers Care Culinary Manager Name Role Phone Che Williamson MD Primary Care Provider + [phone] Lynda Skelton MD Unavailable Chelsea Hensley MD Unavailable [phone] Prashanth Martinez MD Primary Care Provider [phone] Encounter Details Date Type Department Care Team (Late st Contact Info) Description 12/07/2019 Pharmacy Visit [facility] - Pharmacy - Specialty 200 [place] [address] Social History Tobacco Use Types Packs/Day Years Used Date Smoking Tobacco: Never Smokeless Tobacco: Never Alcohol Use Standard Drinks/Week Comments No 0 (1 standard drink = 0.6 oz pur e alcohol) Comments No Sex and Gender Information Value Date Recorded Sex Assigned at Female 07/13/2019 6:16 PM ELECTRICAL ACCESSORIES ASSEMBLER Legal Sex Female 2:51 AM CDT Gender Identity Transgender Male 05/05/2019 1:23 PM CDT Sexual Orientation Pedraza 06/23/2023 10 :56 AM CDT documented as of this encounter Plan of Treatment Upcoming Encounters Date Type Department Care Team (Late st Contact Info) Description 04/21/2025 2:15 PM CDT Appointment [place] [facility] [place] [facility] [address] [phone] Prashanth Martinez MD 200 [place] [address] 05/02/2025 8:40 AM CDT Appointment [place] [facility] - Ophthalmology - Optometry [address] [phone] Danuta Golden OD 200 [place] [address] documented as of this encounter Visit Diagnoses Not on filedocumented in this encounter Additional Health Concerns Infection Onset Date Last Indicated Resolved Time COVID-19 09/28/2021 09/28/2021 10/28/2021 9:44 PM ELECTRICAL ACCESSORIES ASSEMBLER Assessment Noted Time PHQ-9 Depression Total Score: 9 11/25/19 18 2:15 PM CDT A fall risk assessment has been complete d for the patient 11/29/2019 2:35 PM CDT PHQ-2 Depression Total Score: 4 11/25/19 18 2:15 PM CDT documented as of this encounter Care Teams Culinary Manager Relationship Specialty Start Date End Date Che Williamson MD [address] [place] [address] PCP - General 08/27/12 03/20/22 Prashanth Martinez MD [address] [place] [address] PCP - General Pediatric Medicine 03/21/22 Lynda Skelton MD [facility] [place] [address] Provider Team Family Practice 06/10/17 Chelsea Hensley MD [address] [place] [address] Endocrinology 12/08/18 documented as of this encounter
--- OUTSIDE RECORDS SUMMARY | 2025-01-28 20:22 | XMS_ITS | Encounter Summary ---
Author Organization [facility] Care Address [address] [place] [address] Phone Care Team Providers Care Assistant Quality Manager Name Role Phone Che Williamson MD Primary Care Provider + [phone] Lynda Skelton MD Unavailable Chelsea Hensley MD Unavailable [phone] Prashanth Martinez MD Primary Care Provider [phone] Encounter Details Date Type Department Care Team (Late st Contact Info) Description 09/22/2019 Pharmacy Visit [facility] 200 [place] [address] Social History Tobacco Use Types Packs/Day Years Used Date Smoking Tobacco: Never Smokeless Tobacco: Never Alcohol Use Standard Drinks/Week Comments No 0 (1 standard drink = 0.6 oz pur e alcohol) Comments No Sex and Gender Information Value Date Recorded Sex Assigned at Female 07/13/2019 6:16 PM CLINICAL SECRETARY Legal Sex Female 2:51 AM CDT Gender Identity Transgender Male 05/05/2019 1:23 PM CDT Sexual Orientation Pedraza 06/23/2023 10 :56 AM CDT documented as of this encounter Plan of Treatment Upcoming Encounters Date Type Department Care Team (Late st Contact Info) Description 04/21/2025 2:15 PM CDT Appointment [place] - [facility] [address] [phone] Prashanth Martinez MD 200 [place] [address] 05/02/2025 8:40 AM CDT Appointment [place] - [facility] - Ophthalmology - Optometry [address] [phone] Danuta Golden OD 200 [place] [address] documented as of this encounter Visit Diagnoses Not on filedocumented in this encounter Additional Health Concerns Infection Onset Date Last Indicated Resolved Time COVID-19 09/28/2021 09/28/2021 10/28/2021 9:44 PM CLINICAL SECRETARY Assessment Noted Time PHQ-9 Depression Total Score: 9 11/25/19 18 2:15 PM CDT A fall risk assessment has been complete d for the patient 08/19/2019 4:16 PM CLINICAL SECRETARY PHQ-2 Depression Total Score: 4 11/25/19 18 2:15 PM CDT documented as of this encounter Care Teams Assistant Quality Manager Relationship Specialty Start Date End Date Che Williamson MD [address] [place] [address] PCP - General 08/27/12 03/20/22 Prashanth Martinez MD [address] [place] [address] PCP - General Pediatric Medicine 03/21/22 Lynda Skelton MD [address] [place] [address] Provider Team Family Practice 06/10/17 Chelsea Hensley MD [address] [place] [address] Endocrinology 12/08/18 documented as of this encounter
--- OUTSIDE RECORDS SUMMARY | 2025-01-28 20:22 | XMS_ITS | Encounter Summary ---
Author Organization [facility] Care Address [address] [place] [address] Phone Care Team Providers Care Candy Maker Name Role Phone Che Williamson MD Primary Care Provider + [phone] Lynda Skelton MD Unavailable Franchesca Manley Unavailable Unavailable Chelsea Hensley MD Unavailable [phone] Prashanth Martinez MD Primary Care Provider [phone] Encounter Details Date Type Department Care Team (Late st Contact Info) Description 02/10/2018 Pharmacy Visit [facility] - Pharmacy - Specialty 200 [place] [address] Social History Tobacco Use Types Packs/Day Years Used Date Smoking Tobacco: Never Smokeless Tobacco: Never Alcohol Use Standard Drinks/Week Comments No 0 (1 standard drink = 0.6 oz pur e alcohol) Comments No Sex and Gender Information Value Date Recorded Sex Assigned at Female 07/13/2019 6:16 PM SENIOR SUPPORT ENGINEER Legal Sex Female 2:51 AM CDT Gender Identity Transgender Male 05/05/2019 1:23 PM CDT Sexual Orientation Pedraza 06/23/2023 10 :56 AM CDT documented as of this encounter Plan of Treatment Upcoming Encounters Date Type Department Care Team (Late st Contact Info) Description 04/21/2025 2:15 PM CDT Appointment [place] - [facility] - Adolescent Clinic [address] [phone] Prashanth Martinez MD [address] [place] [address] 05/02/2025 8:40 AM CDT Appointment [facility] - Ophthalmology - Optometry [address] [phone] Danuta Golden OD [address] [place] [address] documented as of this encounter Visit Diagnoses Not on filedocumented in this encounter Additional Health Concerns Infection Onset Date Last Indicated Resolved Time COVID-19 09/28/2021 09/28/2021 10/28/2021 9:44 PM SENIOR SUPPORT ENGINEER Assessment Noted Time PHQ-9 Depression Total Score: 9 11/25/19 18 2:15 PM CDT PHQ-2 Depression Total Score: 4 11/25/19 18 2:15 PM CDT documented as of this encounter Care Teams Candy Maker Relationship Specialty Start Date End Date Che Williamson MD [address] [place] [address] PCP - General 08/27/12 03/20/22 Prashanth Martinez MD [address] [place] [address] PCP - General Pediatric Medicine 03/21/22 Lynda Skelton MD [address] [place] [address] Provider Team Family Practice 06/10/17 Franchesca Manley 12/09/17 12/07/18 Chelsea Hensley MD [address] [place] [address] Endocrinology 12/08/18 documented as of this encounter
--- OUTSIDE RECORDS SUMMARY | 2025-01-28 20:22 | XMS_ITS | Encounter Summary ---
Author Organization [facility] Care Address [address] [place] [address] Phone Care Team Providers Care Document Preparer Microfilming Name Role Phone Che Williamson MD Primary Care Provider Lynda Skelton MD Unavailable Franchesca Manley Unavailable Unavailable Chelsea Hensley MD Unavailable [phone] Prashanth Martinez MD Primary Care Provider [phone] Encounter Details Date Type Department Care Team (Late st Contact Info) Description 10/08/2017 Pharmacy Visit [facility] - Pharmacy - Specialty [address] [place] [address] Social History Tobacco Use Types Packs/Day Years Used Date Smoking Tobacco: Never Smokeless Tobacco: Never Alcohol Use Standard Drinks/Week Comments No 0 (1 standard drink = 0.6 oz pur e alcohol) Comments No Sex and Gender Information Value Date Recorded Sex Assigned at Female 07/13/2019 6:16 PM METAL PATTERNMAKER APPRENTICE Legal Sex Female 2:51 AM CDT Gender Identity Transgender Male 05/05/2019 1:23 PM CDT Sexual Orientation Pedraza 06/23/2023 10 :56 AM CDT documented as of this encounter Plan of Treatment Upcoming Encounters Date Type Department Care Team (Late st Contact Info) Description 04/21/2025 2:15 PM CDT Appointment [place] - [facility] - Adolescent Clinic [address] [phone] Prashanth Martinez MD [address] [place] [address] 05/02/2025 8:40 AM CDT Appointment [facility] - Ophthalmology - Optometry [address] [phone] Danuta Golden OD [address] [place] [address] documented as of this encounter Visit Diagnoses Not on filedocumented in this encounter Additional Health Concerns Infection Onset Date Last Indicated Resolved Time COVID-19 09/28/2021 09/28/2021 10/28/2021 9:44 PM METAL PATTERNMAKER APPRENTICE Assessment Noted Time PHQ-2 Depression Total Score: 2 05/06/20 17 5:10 PM CDT documented as of this encounter Care Teams Document Preparer Microfilming Relationship Specialty Start Date End Date Che Williamson MD [address] [place] [address] PCP - General 08/27/12 03/20/22 Prashanth Martinez MD [address] [place] [address] PCP - General Pediatric Medicine 03/21/22 Lynda Skelton MD [address] [place] [address] Provider Team Family Practice 06/10/17 Franchesca Manley 12/09/17 12/07/18 Chelsea Hensley MD [address] [place] [address] Endocrinology 12/08/18 documented as of this encounter
--- OUTSIDE RECORDS SUMMARY | 2025-01-28 20:22 | XMS_ITS | Encounter Summary ---
Author Organization [facility] Care Address [address] [place] [address] Phone Care Team Providers Care Cement Sprayer Helper Name Role Phone Che Williamson MD Primary Care Provider + [phone] Lynda Skelton MD Unavailable Chelsea Hensley MD Unavailable [phone] Prashanth Martinez MD Primary Care Provider [phone] Encounter Details Date Type Department Care Team (Late st Contact Info) Description 12/23/2019 Pharmacy Visit [facility] - Pharmacy - Specialty [address] [place] [address] Social History Tobacco Use Types Packs/Day Years Used Date Smoking Tobacco: Never Smokeless Tobacco: Never Alcohol Use Standard Drinks/Week Comments No 0 (1 standard drink = 0.6 oz pur e alcohol) Comments No Sex and Gender Information Value Date Recorded Sex Assigned at Female 07/13/2019 6:16 PM SNOW REMOVING SUPERVISOR Legal Sex Female 2:51 AM CDT Gender Identity Transgender Male 05/05/2019 1:23 PM CDT Sexual Orientation Pedraza 06/23/2023 10 :56 AM CDT documented as of this encounter Plan of Treatment Upcoming Encounters Date Type Department Care Team (Late st Contact Info) Description 04/21/2025 2:15 PM CDT Appointment [place] - [place] [facility] [address] [phone] Prashanth Martinez MD 200 [place] [address] 05/02/2025 8:40 AM CDT Appointment [place] - [facility] - Ophthalmology - Optometry [address] [phone] Danuta Golden OD [address] [place] [address] documented as of this encounter Visit Diagnoses Not on filedocumented in this encounter Additional Health Concerns Infection Onset Date Last Indicated Resolved Time COVID-19 09/28/2021 09/28/2021 10/28/2021 9:44 PM SNOW REMOVING SUPERVISOR Assessment Noted Time PHQ-9 Depression Total Score: 9 11/25/19 18 2:15 PM CDT A fall risk assessment has been complete d for the patient 12/13/2019 4:01 PM CDT PHQ-2 Depression Total Score: 2 12/10/19 20 2:50 PM CDT documented as of this encounter Care Teams Cement Sprayer Helper Relationship Specialty Start Date End Date Che Williamson MD [address] [place] [address] PCP - General 08/27/12 03/20/22 Prashanth Martinez MD [address] [place] [address] PCP - General Pediatric Medicine 03/21/22 Lynda Skelton MD [facility]0 [place] [address] Provider Team Family Practice 06/10/17 Chelsea Hensley MD [address] [place] [address] Endocrinology 12/08/18 documented as of this encounter
--- OUTSIDE RECORDS SUMMARY | 2025-01-28 20:22 | XMS_ITS | Encounter Summary ---
Author Organization [facility] Care Address [address] [place] [address] Phone Care Team Providers Care Digital Solutions Architect Name Role Phone Che Williamson MD Primary Care Provider + [phone] Lynda Skelton MD Unavailable Franchesca Manley Unavailable Unavailable Chelsea Hensley MD Unavailable [phone] Prashanth Martinez MD Primary Care Provider [phone] Encounter Details Date Type Department Care Team (Late st Contact Info) Description 02/09/2018 Pharmacy Visit [facility] - Pharmacy - Specialty [address] [place] [address] Social History Tobacco Use Types Packs/Day Years Used Date Smoking Tobacco: Never Smokeless Tobacco: Never Alcohol Use Standard Drinks/Week Comments No 0 (1 standard drink = 0.6 oz pur e alcohol) Comments No Sex and Gender Information Value Date Recorded Sex Assigned at Female 07/13/2019 6:16 PM TRAVEL SERVICES PROFESSIONAL Legal Sex Female 2:51 AM CDT Gender Identity Transgender Male 05/05/2019 1:23 PM CDT Sexual Orientation Pedraza 06/23/2023 10 :56 AM CDT documented as of this encounter Plan of Treatment Upcoming Encounters Date Type Department Care Team (Late st Contact Info) Description 04/21/2025 2:15 PM CDT Appointment [place] - [facility] - Adolescent Clinic [address] [phone] Prashanth Martinez MD 200 [place] [address] 05/02/2025 8:40 AM CDT Appointment [facility] - Ophthalmology - Optometry [address] [phone] Danuta Golden OD 200 [place] [address] documented as of this encounter Visit Diagnoses Not on filedocumented in this encounter Additional Health Concerns Infection Onset Date Last Indicated Resolved Time COVID-19 09/28/2021 09/28/2021 10/28/2021 9:44 PM TRAVEL SERVICES PROFESSIONAL Assessment Noted Time PHQ-9 Depression Total Score: 9 11/25/19 18 2:15 PM CDT PHQ-2 Depression Total Score: 4 11/25/19 18 2:15 PM CDT documented as of this encounter Care Teams Digital Solutions Architect Relationship Specialty Start Date End Date Che Williamson MD [address] [place] [address] PCP - General 08/27/12 03/20/22 Prashanth Martinez MD [address] [place] [address] PCP - General Pediatric Medicine 03/21/22 Lynda Skelton MD [address] [place] [address] Provider Team Family Practice 06/10/17 Franchesca Manley 12/09/17 12/07/18 Chelsea Hensley MD [address] [place] [address] Endocrinology 12/08/18 documented as of this encounter
--- OUTSIDE RECORDS SUMMARY | 2025-01-28 20:22 | XMS_ITS | Encounter Summary ---
Author Organization [facility] Care Address [address] [place] [address] Phone Care Team Providers Care Housing Relocation Name Role Phone Che Williamson MD Primary Care Provider + [phone] Lynda Skelton MD Unavailable Chelsea Hensley MD Unavailable [phone] Prashanth Martinez MD Primary Care Provider [phone] Encounter Details Date Type Department Care Team (Late st Contact Info) Description 08/13/2019 Pharmacy [facility] - Pharmacy - Specialty [address] [place] [address] Social History Tobacco Use Types Packs/Day Years Used Date Smoking Tobacco: Never Smokeless Tobacco: Never Alcohol Use Standard Drinks/Week Comments No 0 (1 standard drink = 0.6 oz pur e alcohol) Comments No Sex and Gender Information Value Date Recorded Sex Assigned at Female 07/13/2019 6:16 PM DIRECTOR VACCINE Legal Sex Female 2:51 AM CDT Gender Identity Transgender Male 05/05/2019 1:23 PM CDT Sexual Orientation Pedraza 06/23/2023 10 :56 AM CDT documented as of this encounter Plan of Treatment Upcoming Encounters Date Type Department Care Team (Late st Contact Info) Description 04/21/2025 2:15 PM CDT Appointment [place] - [facility] - [facility] [address] [phone] Prashanth Martinez MD 200 [place] [address] 05/02/2025 8:40 AM CDT Appointment [place] - [facility] - Ophthalmology - Optometry [address] [phone] Danuta Golden OD [address] [place] [address] documented as of this encounter Visit Diagnoses Not on filedocumented in this encounter Additional Health Concerns Infection Onset Date Last Indicated Resolved Time COVID-19 09/28/2021 09/28/2021 10/28/2021 9:44 PM DIRECTOR VACCINE Assessment Noted Time PHQ-9 Depression Total Score: 9 11/25/19 18 2:15 PM CDT PHQ-2 Depression Total Score: 4 11/25/19 18 2:15 PM CDT documented as of this encounter Care Teams Housing Relocation Relationship Specialty Start Date End Date Che Williamson MD [address] [place] [address] PCP - General 08/27/12 03/20/22 Prashanth Martniez MD [address] [place] [address] PCP - General Pediatric Medicine 03/21/22 Lynda Skelton MD [address] [place] [address] Provider Team Family Practice 06/10/17 Chelsea Hensley MD [address] [place] [address] Endocrinology 12/08/18 documented as of this encounter
--- OUTSIDE RECORDS SUMMARY | 2025-01-28 20:22 | XMS_ITS | Encounter Summary ---
Author Organization [facility] Care Address [address] [place] [address] Phone Care Team Providers Care Toolmaker Helper Name Role Phone Che Williamson MD Primary Care Provider + [phone] Lynda Skelton MD Unavailable Chelsea Hensley MD Unavailable [phone] Prashanth Martinez MD Primary Care Provider [phone] Encounter Details Date Type Department Care Team (Late st Contact Info) Description 07/29/2019 Pharmacy [facility] - Pharmacy - Specialty [address] [place] [address] Social History Tobacco Use Types Packs/Day Years Used Date Smoking Tobacco: Never Smokeless Tobacco: Never Alcohol Use Standard Drinks/Week Comments No 0 (1 standard drink = 0.6 oz pur e alcohol) Comments No Sex and Gender Information Value Date Recorded Sex Assigned at Female 07/13/2019 6:16 PM SOLAR ENERGY SPECIALIST Legal Sex Female 2:51 AM CDT Gender Identity Transgender Male 05/05/2019 1:23 PM CDT Sexual Orientation Pedraza 06/23/2023 10 :56 AM CDT documented as of this encounter Plan of Treatment Upcoming Encounters Date Type Department Care Team (Late st Contact Info) Description 04/21/2025 2:15 PM CDT Appointment [place] - [place] - [facility] Clinic [address] [phone] Prashanth Martinez MD 200 [place] [address] 05/02/2025 8:40 AM CDT Appointment [place] - [facility] - Ophthalmology - Optometry [address] [phone] Danuta Golden OD 200 [place] [address] documented as of this encounter Visit Diagnoses Not on filedocumented in this encounter Additional Health Concerns Infection Onset Date Last Indicated Resolved Time COVID-19 09/28/2021 09/28/2021 10/28/2021 9:44 PM SOLAR ENERGY SPECIALIST Assessment Noted Time PHQ-9 Depression Total Score: 9 11/25/19 18 2:15 PM CDT PHQ-2 Depression Total Score: 4 11/25/19 18 2:15 PM CDT documented as of this encounter Care Teams Toolmaker Helper Relationship Specialty Start Date End Date Che Williamson MD [address] [place] [address] PCP - General 08/27/12 03/20/22 Prashanth Martinez MD [address] [place] [address] PCP - General Pediatric Medicine 03/21/22 Lynda Skelton MD [address] [place] [address] Provider Team Family Practice 06/10/17 Chelsea Hensley MD [address] [place] [address] Endocrinology 12/08/18 documented as of this encounter
--- OUTSIDE RECORDS SUMMARY | 2025-01-28 20:22 | XMS_ITS | Encounter Summary ---
Author Organization [facility] Care Address [address] [place] [address] Phone Care Team Providers Care Lap Regulator Name Role Phone Che Williamson MD Primary Care Provider + [phone] Lynda Skelton MD Unavailable Chelsea Hensley MD Unavailable [phone] Prashanth Martinez MD Primary Care Provider [phone] Encounter Details Date Type Department Care Team (Late st Contact Info) Description 08/19/2019 Pharmacy Visit [facility] - Pharmacy [address] [place] [address] Social History Tobacco Use Types Packs/Day Years Used Date Smoking Tobacco: Never Smokeless Tobacco: Never Alcohol Use Standard Drinks/Week Comments No 0 (1 standard drink = 0.6 oz pur e alcohol) Comments No Sex and Gender Information Value Date Recorded Sex Assigned at Female 07/13/2019 6:16 PM PRECISION THREAD GRINDER OPERATOR Legal Sex Female 2:51 AM CDT Gender Identity Transgender Male 05/05/2019 1:23 PM CDT Sexual Orientation Pedraza 06/23/2023 10 :56 AM CDT documented as of this encounter Plan of Treatment Upcoming Encounters Date Type Department Care Team (Late st Contact Info) Description 04/21/2025 2:15 PM CDT Appointment [place] - [place] - Ad[facility]cent Clinic [address] [phone] Prashanth Martinez MD 200 [place] [address] 05/02/2025 8:40 AM CDT Appointment [place] [facility] - Ophthalmology - Optometry [address] [phone] Danuta Golden OD [address] [place] [address] documented as of this encounter Visit Diagnoses Not on filedocumented in this encounter Additional Health Concerns Infection Onset Date Last Indicated Resolved Time COVID-19 09/28/2021 09/28/2021 10/28/2021 9:44 PM PRECISION THREAD GRINDER OPERATOR Assessment Noted Time PHQ-9 Depression Total Score: 9 11/25/19 18 2:15 PM CDT A fall risk assessment has been complete d for the patient 08/19/2019 4:16 PM PRECISION THREAD GRINDER OPERATOR PHQ-2 Depression Total Score: 4 11/25/19 18 2:15 PM CDT documented as of this encounter Care Teams Lap Regulator Relationship Specialty Start Date End Date Che Williamson MD [address] [place] [address] PCP - General 08/27/12 03/20/22 Prashanth Martinez MD [address] [place] [address] PCP - General Pediatric Medicine 03/21/22 Lynda Skelton MD [facility] [place] [address] Provider Team Family Practice 06/10/17 Chelsea Hensley MD [address] [place] [address] Endocrinology 12/08/18 documented as of this encounter
--- OUTSIDE RECORDS SUMMARY | 2025-01-28 20:22 | XMS_ITS | Encounter Summary ---
Author Organization [facility] Care Address [address] [place] [address] Phone Care Team Providers Care Bow Maker Machine Tender Name Role Phone Che Williamson MD Primary Care Provider + [phone] Lynda Skelton MD Unavailable Chelsea Hensley MD Unavailable [phone] Prashanth Martinez MD Primary Care Provider [phone] Encounter Details Date Type Department Care Team (Late st Contact Info) Description 08/18/2019 [facility]ty [address] [place] [address] Social History Tobacco Use Types Packs/Day Years Used Date Smoking Tobacco: Never Smokeless Tobacco: Never Alcohol Use Standard Drinks/Week Comments No 0 (1 standard drink = 0.6 oz pur e alcohol) Comments No Sex and Gender Information Value Date Recorded Sex Assigned at Female 07/13/2019 6:16 PM C JAVA DEVELOPER Legal Sex Female 2:51 AM CDT Gender Identity Transgender Male 05/05/2019 1:23 PM CDT Sexual Orientation Pedraza 06/23/2023 10 :56 AM CDT documented as of this encounter Plan of Treatment Upcoming Encounters Date Type Department Care Team (Late st Contact Info) Description 04/21/2025 2:15 PM CDT Appointment [place] [facility] [address] [phone] Prashanth Martinez MD 200 [place] [address] 05/02/2025 8:40 AM CDT Appointment [place] - [facility] - Ophthalmology - Optometry [address] [phone] Danuta Golden OD 200 [place] [address] documented as of this encounter Visit Diagnoses Not on filedocumented in this encounter Additional Health Concerns Infection Onset Date Last Indicated Resolved Time COVID-19 09/28/2021 09/28/2021 10/28/2021 9:44 PM C JAVA DEVELOPER Assessment Noted Time PHQ-9 Depression Total Score: 9 11/25/19 18 2:15 PM CDT PHQ-2 Depression Total Score: 4 11/25/19 18 2:15 PM CDT documented as of this encounter Care Teams Bow Maker Machine Tender Relationship Specialty Start Date End Date Che iWlliamson MD [address] [place] [address] PCP - General 08/27/12 03/20/22 Prashanth Martinez MD 200 [place] [address] PCP - General Pediatric Medicine 03/21/22 Lynda Skelton MD [address] [place] [address] Provider Team Family Practice 06/10/17 Chelsea Hensley MD [address] [place] [address] Endocrinology 12/08/18 documented as of this encounter
--- OUTSIDE RECORDS SUMMARY | 2025-01-28 20:22 | XMS_ITS | Encounter Summary ---
Author Organization [facility] Care Address [address] [place] [address] Phone Care Team Providers Care Parboiler Name Role Phone Che Williamson MD Primary Care Provider + [phone] Lynda Skelton MD Unavailable Chelsea Hensley MD Unavailable [phone] Prashanth Martinez MD Primary Care Provider [phone] Encounter Details Date Type Department Care Team (Late st Contact Info) Description 09/10/2019 Pharmacy Visit [facility] - Pharmacy - Specialty [address] [place] [address] Social History Tobacco Use Types Packs/Day Years Used Date Smoking Tobacco: Never Smokeless Tobacco: Never Alcohol Use Standard Drinks/Week Comments No 0 (1 standard drink = 0.6 oz pur e alcohol) Comments No Sex and Gender Information Value Date Recorded Sex Assigned at Female 07/13/2019 6:16 PM DATA ARCHITECT Legal Sex Female 2:51 AM CDT Gender Identity Transgender Male 05/05/2019 1:23 PM CDT Sexual Orientation Pedraza 06/23/2023 10 :56 AM CDT documented as of this encounter Plan of Treatment Upcoming Encounters Date Type Department Care Team (Late st Contact Info) Description 04/21/2025 2:15 PM CDT Appointment [place] - [facility] [address] [phone] Prashanth Martinez MD 200 [place] [address] 05/02/2025 8:40 AM CDT Appointment [place] - [facility] - Ophthalmology - Optometry [address] [phone] Danuta Golden OD [address] [place] [address] documented as of this encounter Visit Diagnoses Not on filedocumented in this encounter Additional Health Concerns Infection Onset Date Last Indicated Resolved Time COVID-19 09/28/2021 09/28/2021 10/28/2021 9:44 PM DATA ARCHITECT Assessment Noted Time PHQ-9 Depression Total Score: 9 11/25/19 18 2:15 PM CDT A fall risk assessment has been complete d for the patient 08/19/2019 4:16 PM DATA ARCHITECT PHQ-2 Depression Total Score: 4 11/25/19 18 2:15 PM CDT documented as of this encounter Care Teams Parboiler Relationship Specialty Start Date End Date Che Williamson MD [address] [place] [address] PCP - General 08/27/12 03/20/22 Prashanth Martinez MD [address] [place] [address] PCP - General Pediatric Medicine 03/21/22 Lynda Skelton MD [address] [place] [address] Provider Team Family Practice 06/10/17 Chelsea Hensley MD [address] [place] [address] Endocrinology 12/08/18 documented as of this encounter
--- OUTSIDE RECORDS SUMMARY | 2025-01-28 20:22 | XMS_ITS | Encounter Summary ---
Author Organization [facility] Care Address [address] [place] [address] Phone Care Team Providers Care Computer Peripheral Equipment Operator Name Role Phone Che Williamson MD Primary Care Provider + [phone] Lynda Skelton MD Unavailable Chelsea Hensley MD Unavailable [phone] Prashatnh Martinez MD Primary Care Provider [phone] Encounter Details Date Type Department Care Team (Late st Contact Info) Description 12/16/2019 Pharmacy Visit 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 HARDWARE ENGINEER Legal Sex Female 2:51 AM CDT Gender Identity Transgender Male 05/05/2019 1:23 PM CDT Sexual Orientation Pedraza 06/23/2023 10 :56 AM CDT documented as of this encounter Plan of Treatment Upcoming Encounters Date Type Department Care Team (Late st Contact Info) Description 04/21/2025 2:15 PM CDT Appointment [place] - [facility] [address] [phone] Prashanth Martinez MD 200 [place] [address] 05/02/2025 8:40 AM CDT Appointment [place] [facility] - [facility]ometry [address] [phone] Danuta Golden OD 200 [place] [address] documented as of this encounter Visit Diagnoses Not on filedocumented in this encounter Additional Health Concerns Infection Onset Date Last Indicated Resolved Time COVID-19 09/28/2021 09/28/2021 10/28/2021 9:44 PM SENIOR HARDWARE ENGINEER Assessment Noted Time PHQ-9 Depression Total Score: 9 11/25/19 18 2:15 PM CDT A fall risk assessment has been complete d for the patient 12/13/2019 4:01 PM CDT PHQ-2 Depression Total Score: 2 12/10/19 20 2:50 PM CDT documented as of this encounter Care Teams Computer Peripheral Equipment Operator Relationship Specialty Start Date End Date Che Williamson MD [address] [place] [address] PCP - General 08/27/12 03/20/22 Prashanth Martinez MD [address] [place] [address] PCP - General Pediatric Medicine 03/21/22 Lynda Skelton MD [facility] [place] [address] Provider Team Family Practice 06/10/17 Chelsea Hensley MD [address] [place] [address] Endocrinology 12/08/18 documented as of this encounter
--- OUTSIDE RECORDS SUMMARY | 2025-01-28 20:22 | XMS_ITS | Encounter Summary ---
Author Organization [facility] Care Address [address] [place] [address] Phone Care Team Providers Care Master Cosmetologist Name Role Phone Che Williamson MD Primary Care Provider + [phone] Lynda Skelton MD Unavailable Chelsea Hensley MD Unavailable [phone] Prashanth Martinez MD Primary Care Provider [phone] Encounter Details Date Type Department Care Team (Late st Contact Info) Description 08/16/2019 Pharmacy [facility] - Pharmacy - Specialty [address] [place] [address] Social History Tobacco Use Types Packs/Day Years Used Date Smoking Tobacco: Never Smokeless Tobacco: Never Alcohol Use Standard Drinks/Week Comments No 0 (1 standard drink = 0.6 oz pur e alcohol) Comments No Sex and Gender Information Value Date Recorded Sex Assigned at Female 07/13/2019 6:16 PM OPTICAL INSTRUMENT REPAIRER Legal Sex Female 2:51 AM CDT Gender Identity Transgender Male 05/05/2019 1:23 PM CDT Sexual Orientation Pedraza 06/23/2023 10 :56 AM CDT documented as of this encounter Plan of Treatment Upcoming Encounters Date Type Department Care Team (Late st Contact Info) Description 04/21/2025 2:15 PM CDT Appointment [place] - [facility] [address] [phone] Prashanth Martinez MD 200 [place] [address] 05/02/2025 8:40 AM CDT Appointment [place] - [facility] - Ophthalmology - Optometry [address] [phone] Danuta Golden OD [address] [place] [address] documented as of this encounter Visit Diagnoses Not on filedocumented in this encounter Additional Health Concerns Infection Onset Date Last Indicated Resolved Time COVID-19 09/28/2021 09/28/2021 10/28/2021 9:44 PM OPTICAL INSTRUMENT REPAIRER Assessment Noted Time PHQ-9 Depression Total Score: 9 11/25/19 18 2:15 PM CDT PHQ-2 Depression Total Score: 4 11/25/19 18 2:15 PM CDT documented as of this encounter Care Teams Master Cosmetologist Relationship Specialty Start Date End Date Che Williamson MD [address] [place] [address] PCP - General 08/27/12 03/20/22 Prashanth Martinez MD [address] [place] [address] PCP - General Pediatric Medicine 03/21/22 Lynda Skelton MD [address] [place] [address] Provider Team Family Practice 06/10/17 Chelsea Hensley MD [address] [place] [address] Endocrinology 12/08/18 documented as of this encounter
--- OUTSIDE RECORDS SUMMARY | 2025-01-28 20:22 | XMS_ITS | Encounter Summary ---
Author Organization [facility] Care Address [address] [place] [address] Phone Care Team Providers Care Sugar Laboratory Assistant Name Role Phone Che Williamson MD Primary Care Provider + [phone] Lynda Skelton MD Unavailable Chelsea Hensley MD Unavailable [phone] Prashanth Martinez MD Primary Care Provider [phone] Encounter Details Date Type Department Care Team (Late st Contact Info) Description 12/14/2019 Pharmacy Visit [facility] - Pharmacy - Specialty [address] [place] [address] Social History Tobacco Use Types Packs/Day Years Used Date Smoking Tobacco: Never Smokeless Tobacco: Never Alcohol Use Standard Drinks/Week Comments No 0 (1 standard drink = 0.6 oz pur e alcohol) Comments No Sex and Gender Information Value Date Recorded Sex Assigned at Female 07/13/2019 6:16 PM BUTTERMILK DRIER OPERATOR Legal Sex Female 2:51 AM CDT Gender Identity Transgender Male 05/05/2019 1:23 PM CDT Sexual Orientation Pedraza 06/23/2023 10 :56 AM CDT documented as of this encounter Plan of Treatment Upcoming Encounters Date Type Department Care Team (Late st Contact Info) Description 04/21/2025 2:15 PM CDT Appointment [place] - [facility] - [facility] [address] [phone] Prashanth Martinez MD 200 [place] [address] 05/02/2025 8:40 AM CDT Appointment [place] - [facility] - Ophthalmology - Optometry [address] [phone] Danuta Golden OD [address] [place] [address] documented as of this encounter Visit Diagnoses Not on filedocumented in this encounter Additional Health Concerns Infection Onset Date Last Indicated Resolved Time COVID-19 09/28/2021 09/28/2021 10/28/2021 9:44 PM BUTTERMILK DRIER OPERATOR Assessment Noted Time PHQ-9 Depression Total Score: 9 11/25/19 18 2:15 PM CDT A fall risk assessment has been complete d for the patient 12/13/2019 4:01 PM CDT PHQ-2 Depression Total Score: 2 12/10/19 20 2:50 PM CDT documented as of this encounter Care Teams Sugar Laboratory Assistant Relationship Specialty Start Date End Date Che Williamson MD [address] [place] [address] PCP - General 08/27/12 03/20/22 Prashanth Martinez MD [address] [place] [address] PCP - General Pediatric Medicine 03/21/22 Lynda Skelton MD [facility] [place] [address] Provider Team Family Practice 06/10/17 Chelsea Hensley MD [address] [place] [address] Endocrinology 12/08/18 documented as of this encounter
--- OUTSIDE RECORDS SUMMARY | 2025-01-28 20:22 | XMS_ITS | Encounter Summary ---
Author Organization [facility] Care Address [address] [place] [address] Phone Care Team Providers Care Wine Cellar Stock Clerk Name Role Phone Che Williamson MD Primary Care Provider + [phone] Lynda Skelton MD Unavailable Chelsea Hensley MD Unavailable [phone] Prashanth Martinez MD Primary Care Provider [phone] Encounter Details Date Type Department Care Team (Late st Contact Info) Description 10/05/2019 Pharmacy Visit [facility] - Pharmacy - Specialty [address] [place] [address] Social History Tobacco Use Types Packs/Day Years Used Date Smoking Tobacco: Never Smokeless Tobacco: Never Alcohol Use Standard Drinks/Week Comments No 0 (1 standard drink = 0.6 oz pur e alcohol) Comments No Sex and Gender Information Value Date Recorded Sex Assigned at Female 07/13/2019 6:16 PM CONDITIONING ROOM WORKER Legal Sex Female 2:51 AM CDT Gender Identity Transgender Male 05/05/2019 1:23 PM CDT Sexual Orientation Pedraza 06/23/2023 10 :56 AM CDT documented as of this encounter Plan of Treatment Upcoming Encounters Date Type Department Care Team (Late st Contact Info) Description 04/21/2025 2:15 PM CDT Appointment [place] - [facility] - [facility] [address] [phone] Prashanth Martinez MD 200 [place] [address] 05/02/2025 8:40 AM CDT Appointment [place] - [facility] - Ophthalmology - Optometry [address] [phone] Danuta Golden OD [address] [place] [address] documented as of this encounter Visit Diagnoses Not on filedocumented in this encounter Additional Health Concerns Infection Onset Date Last Indicated Resolved Time COVID-19 09/28/2021 09/28/2021 10/28/2021 9:44 PM CONDITIONING ROOM WORKER Assessment Noted Time PHQ-9 Depression Total Score: 9 11/25/19 18 2:15 PM CDT A fall risk assessment has been complete d for the patient 08/19/2019 4:16 PM CONDITIONING ROOM WORKER PHQ-2 Depression Total Score: 4 11/25/19 18 2:15 PM CDT documented as of this encounter Care Teams Wine Cellar Stock Clerk Relationship Specialty Start Date End Date Che Williamson MD [address] [place] [address] PCP - General 08/27/12 03/20/22 Prashanth Martinez MD [address] [place] [address] PCP - General Pediatric Medicine 03/21/22 Lynda Skelton MD [address] [place] [address] Provider Team Family Practice 06/10/17 Chelsea Hensley MD [address] [place] [address] Endocrinology 12/08/18 documented as of this encounter
--- OUTSIDE RECORDS SUMMARY | 2025-01-28 20:22 | XMS_ITS | Encounter Summary ---
Author Organization [facility] Care Address [address] [place] [address] Phone Care Team Providers Care Rocket Propellant Plant Supervisor Name Role Phone Che Williamson MD Primary Care Provider + [phone] Lynda Skelton MD Unavailable Chelsea Hensley MD Unavailable [phone] Prashanth Martinez MD Primary Care Provider [phone] Encounter Details Date Type Department Care Team (Late st Contact Info) Description 10/05/[address] [facility] [address] [place] [address] Social History Tobacco Use Types Packs/Day Years Used Date Smoking Tobacco: Never Smokeless Tobacco: Never Alcohol Use Standard Drinks/Week Comments No 0 (1 standard drink = 0.6 oz pur e alcohol) Comments No Sex and Gender Information Value Date Recorded Sex Assigned at Female 07/13/2019 6:16 PM AUTO BUMPER STRAIGHTENER Legal Sex Female 2:51 AM CDT Gender Identity Transgender Male 05/05/2019 1:23 PM CDT Sexual Orientation Pedraza 06/23/2023 10 :56 AM CDT documented as of this encounter Plan of Treatment Upcoming Encounters Date Type Department Care Team (Late st Contact Info) Description 04/21/2025 2:15 PM CDT Appointment [place] - [facility] - [facility] [address] [phone] Prashanth Martinez MD 200 [place] [address] 05/02/2025 8:40 AM CDT Appointment [place] - [facility] - Ophthalmology - Optometry [address] [phone] Danuta Golden OD [address] [place] [address] documented as of this encounter Visit Diagnoses Not on filedocumented in this encounter Additional Health Concerns Infection Onset Date Last Indicated Resolved Time COVID-19 09/28/2021 09/28/2021 10/28/2021 9:44 PM AUTO BUMPER STRAIGHTENER Assessment Noted Time PHQ-9 Depression Total Score: 9 11/25/19 18 2:15 PM CDT A fall risk assessment has been complete d for the patient 08/19/2019 4:16 PM AUTO BUMPER STRAIGHTENER PHQ-2 Depression Total Score: 4 11/25/19 18 2:15 PM CDT documented as of this encounter Care Teams Rocket Propellant Plant Supervisor Relationship Specialty Start Date End Date Che Williamson MD [address] [place] [address] PCP - General 08/27/12 03/20/22 Prashanth Martinez MD [address] [place] [address] PCP - General Pediatric Medicine 03/21/22 Lynda Skelton MD [address] [place] [address] Provider Team Family Practice 06/10/17 Chelsea Hensley MD [address] [place] [address] Endocrinology 12/08/18 documented as of this encounter
--- OUTSIDE RECORDS SUMMARY | 2025-01-28 20:22 | XMS_ITS | Encounter Summary ---
Author Organization [facility] Care Address [address] [place] [address] Phone Care Team Providers Care Aqueduct And Reservoir Keeper Name Role Phone Che Williamson MD Primary Care Provider + [phone] Lynda Skelton MD Unavailable Chelsea Hensley MD Unavailable [phone] Prashanth Martinez MD Primary Care Provider [phone] Encounter Details Date Type Department Care Team (Late st Contact Info) Description 08/18/2019 Pharmacy Visit [facility] 200 [place] [address] Social History Tobacco Use Types Packs/Day Years Used Date Smoking Tobacco: Never Smokeless Tobacco: Never Alcohol Use Standard Drinks/Week Comments No 0 (1 standard drink = 0.6 oz pur e alcohol) Comments No Sex and Gender Information Value Date Recorded Sex Assigned at Female 07/13/2019 6:16 PM HIDE EXAMINER Legal Sex Female 2:51 AM CDT Gender Identity Transgender Male 05/05/2019 1:23 PM CDT Sexual Orientation Pedraza 06/23/2023 10 :56 AM CDT documented as of this encounter Plan of Treatment Upcoming Encounters Date Type Department Care Team (Late st Contact Info) Description 04/21/2025 2:15 PM CDT Appointment [place] - [facility] - [facility] [address] [phone] Prashanth Martinez MD 200 [place] [address] 05/02/2025 8:40 AM CDT Appointment [place] - [facility] - Ophthalmology - Optometry [address] [phone] Danuta Golden OD [address] [place] [address] documented as of this encounter Visit Diagnoses Not on filedocumented in this encounter Additional Health Concerns Infection Onset Date Last Indicated Resolved Time COVID-19 09/28/2021 09/28/2021 10/28/2021 9:44 PM HIDE EXAMINER Assessment Noted Time PHQ-9 Depression Total Score: 9 11/25/19 18 2:15 PM CDT PHQ-2 Depression Total Score: 4 11/25/19 18 2:15 PM CDT documented as of this encounter Care Teams Aqueduct And Reservoir Keeper Relationship Specialty Start Date End Date Che Williamson MD [address] [place] [address] PCP - General 08/27/12 03/20/22 Prashanth Martinez MD [address] [place] [address] PCP - General Pediatric Medicine 03/21/22 Lynda Skelton MD [address] [place] [address] Provider Team Family Practice 06/10/17 Chelsea Hensley MD [address] [place] [address] Endocrinology 12/08/18 documented as of this encounter
--- OUTSIDE RECORDS SUMMARY | 2025-01-28 20:22 | XMS_ITS | Encounter Summary ---
Author Organization [facility] Care Address [address] [place] [address] Phone Care Team Providers Care Salesperson Wigs Name Role Phone Che Williamson MD Primary Care Provider + [phone] Lynda Skelton MD Unavailable Chelsea Hensley MD Unavailable [phone] Prashanth Martinez MD Primary Care Provider [phone] Encounter Details Date Type Department Care Team (Late st Contact Info) Description 12/21/2019 Pharmacy Visit [facility] - Pharmacy - Specialty [address] [place] [address] Social History Tobacco Use Types Packs/Day Years Used Date Smoking Tobacco: Never Smokeless Tobacco: Never Alcohol Use Standard Drinks/Week Comments No 0 (1 standard drink = 0.6 oz pur e alcohol) Comments No Sex and Gender Information Value Date Recorded Sex Assigned at Female 07/13/2019 6:[address] DRIVER Legal Sex Female 2:51 AM CDT Gender Identity Transgender Male 05/05/2019 1:23 PM CDT Sexual Orientation Pedraza 06/23/2023 10 :56 AM CDT documented as of this encounter Plan of Treatment Upcoming Encounters Date Type Department Care Team (Late st Contact Info) Description 04/21/2025 2:15 PM CDT Appointment [place] - [facility] [address] [phone] Prashanth Martinez MD [address] [place] [address] 05/02/2025 8:40 AM CDT Appointment [place] - [facility] - Ophthalmology - Optometry [address] [phone] Danuta Golden OD [address] [place] [address] documented as of this encounter Visit Diagnoses Not on filedocumented in this encounter Additional Health Concerns Infection Onset Date Last Indicated Resolved Time COVID-19 09/28/2021 09/28/2021 10/28/2021 9:[address]IVER Assessment Noted Time PHQ-9 Depression Total Score: 9 11/25/19 18 2:15 PM CDT A fall risk assessment has been complete d for the patient 12/13/2019 4:01 PM CDT PHQ-2 Depression Total Score: 2 12/10/19 20 2:50 PM CDT documented as of this encounter Care Teams Salesperson Wigs Relationship Specialty Start Date End Date Che Williamson MD [address] [place] [address] PCP - General 08/27/12 03/20/22 Prashanth Martinez MD [address] [place] [address] PCP - General Pediatric Medicine 03/21/22 Lynda Skelton MD [facility] [place] [address] Provider Team Family Practice 06/10/17 Chelsea Hensley MD [address] [place] [address] Endocrinology 12/08/18 documented as of this encounter
--- OUTSIDE RECORDS SUMMARY | 2025-01-28 20:22 | XMS_ITS | Encounter Summary ---
Author Organization [facility] Care Address [address] [place] [address] Phone Care Team Providers Care Blue Line Operator Name Role Phone Che Williamson MD Primary Care Provider + [phone] Lynda Skelton MD Unavailable Chelsea Hensley MD Unavailable [phone] Prashanth Martinez MD Primary Care Provider [phone] Encounter Details Date Type Department Care Team (Late st Contact Info) Description 12/17/2019 Pharmacy Visit [facility] - Pharmacy - Specialty [address] [place] [address] Social History Tobacco Use Types Packs/Day Years Used Date Smoking Tobacco: Never Smokeless Tobacco: Never Alcohol Use Standard Drinks/Week Comments No 0 (1 standard drink = 0.6 oz pur e alcohol) Comments No Sex and Gender Information Value Date Recorded Sex Assigned at Female 07/13/2019 6:16 PM BROWN SOURER Legal Sex Female 2:51 AM CDT Gender Identity Transgender Male 05/05/2019 1:23 PM CDT Sexual Orientation Pedraza 06/23/2023 10 :56 AM CDT documented as of this encounter Plan of Treatment Upcoming Encounters Date Type Department Care Team (Late st Contact Info) Description 04/21/2025 2:15 PM CDT Appointment [place] [facility] [address] [phone] Prashanth Martinez MD 200 [place] [address] 05/02/2025 8:40 AM CDT Appointment [place] - [facility] - Ophthalmology - Optometry [address] [phone] Danuta Golden OD [address] [place] [address] documented as of this encounter Visit Diagnoses Not on filedocumented in this encounter Additional Health Concerns Infection Onset Date Last Indicated Resolved Time COVID-19 09/28/2021 09/28/2021 10/28/2021 9:44 PM BROWN SOURER Assessment Noted Time PHQ-9 Depression Total Score: 9 11/25/19 18 2:15 PM CDT A fall risk assessment has been complete d for the patient 12/13/2019 4:01 PM CDT PHQ-2 Depression Total Score: 2 12/10/19 20 2:50 PM CDT documented as of this encounter Care Teams Blue Line Operator Relationship Specialty Start Date End Date Che Williamson MD [address] [place] [address] PCP - General 08/27/12 03/20/22 Prashanth Martinez MD [address] [place] [address] PCP - General Pediatric Medicine 03/21/22 Lynda Skelton MD [facility] [place] [address] Provider Team Family Practice 06/10/17 Chelsea Hensley MD [address] [place] [address] Endocrinology 12/08/18 documented as of this encounter
--- OUTSIDE RECORDS SUMMARY | 2025-01-28 20:22 | XMS_ITS | Encounter Summary ---
Author Organization [facility] Care Address [address] [place] [address] Phone Care Team Providers Care Art Therapist Name Role Phone Che Williamson MD Primary Care Provider + [phone] Lynda Skelton MD Unavailable Chelsea Hensley MD Unavailable [phone] Prashanth Martinez MD Primary Care Provider [phone] Encounter Details Date Type Department Care Team (Late st Contact Info) Description 09/15/2019 Pharmacy Visit [facility] - Pharmacy [address] [place] [address] Social History Tobacco Use Types Packs/Day Years Used Date Smoking Tobacco: Never Smokeless Tobacco: Never Alcohol Use Standard Drinks/Week Comments No 0 (1 standard drink = 0.6 oz pur e alcohol) Comments No Sex and Gender Information Value Date Recorded Sex Assigned at Female 07/13/2019 6:16 PM EGG CRATER Legal Sex Female 2:51 AM CDT Gender Identity Transgender Male 05/05/2019 1:23 PM CDT Sexual Orientation Pedraza 06/23/2023 10 :56 AM CDT documented as of this encounter Plan of Treatment Upcoming Encounters Date Type Department Care Team (Late st Contact Info) Description 04/21/2025 2:15 PM CDT Appointment [place] [facility] [address] [phone] Prashanth Martinez MD 200 [place] [address] 05/02/2025 8:40 AM CDT Appointment [place] - [facility] - Ophthalmology - Optometry [address] [phone] Danuta Golden OD [address] [place] [address] documented as of this encounter Visit Diagnoses Not on filedocumented in this encounter Additional Health Concerns Infection Onset Date Last Indicated Resolved Time COVID-19 09/28/2021 09/28/2021 10/28/2021 9:44 PM EGG CRATER Assessment Noted Time PHQ-9 Depression Total Score: 9 11/25/19 18 2:15 PM CDT A fall risk assessment has been complete d for the patient 08/19/2019 4:16 PM EGG CRATER PHQ-2 Depression Total Score: 4 11/25/19 18 2:15 PM CDT documented as of this encounter Care Teams Art Therapist Relationship Specialty Start Date End Date Che Williamson MD [address] [place] [address] PCP - General 08/27/12 03/20/22 Prashanth Martinez MD [address] [place] [address] PCP - General Pediatric Medicine 03/21/22 Lynda Skelton MD [facility] [place] [address] Provider Team Family Practice 06/10/17 Chelsea Hensley MD [address] [place] [address] Endocrinology 12/08/18 documented as of this encounter
--- OUTSIDE RECORDS SUMMARY | 2025-01-28 20:22 | XMS_ITS | Encounter Summary ---
Author Organization [facility] Care Address [address] [place] [address] Phone Care Team Providers Care Ingot Passer Name Role Phone Che Williamson MD Primary Care Provider + [phone] Lynda Skelton MD Unavailable Chelsea Hensley MD Unavailable [phone] Prashanth Martinez MD Primary Care Provider [phone] Encounter Details Date Type Department Care Team (Late st Contact Info) Description 09/13/2019 Pharmacy Visit [facility] - Pharmacy - Specialty [address] [place] [address] Social History Tobacco Use Types Packs/Day Years Used Date Smoking Tobacco: Never Smokeless Tobacco: Never Alcohol Use Standard Drinks/Week Comments No 0 (1 standard drink = 0.6 oz pur e alcohol) Comments No Sex and Gender Information Value Date Recorded Sex Assigned at Female 07/13/2019 6:16 PM LOGISTICS CENTER MANAGER Legal Sex Female 2:51 AM CDT Gender Identity Transgender Male 05/05/2019 1:23 PM CDT Sexual Orientation Pedraza 06/23/2023 10 :56 AM CDT documented as of this encounter Plan of Treatment Upcoming Encounters Date Type Department Care Team (Late st Contact Info) Description 04/21/2025 2:15 PM CDT Appointment [place] - [facility] [address] [phone] Prashanth Martinez MD 200 [place] [address] 05/02/2025 8:40 AM CDT Appointment [place] - [facility] - Ophthalmology - Optometry [address] [phone] Danuta Golden OD 200 [place] [address] documented as of this encounter Visit Diagnoses Not on filedocumented in this encounter Additional Health Concerns Infection Onset Date Last Indicated Resolved Time COVID-19 09/28/2021 09/28/2021 10/28/2021 9:44 PM LOGISTICS CENTER MANAGER Assessment Noted Time PHQ-9 Depression Total Score: 9 11/25/19 18 2:15 PM CDT A fall risk assessment has been complete d for the patient 08/19/2019 4:16 PM LOGISTICS CENTER MANAGER PHQ-2 Depression Total Score: 4 11/25/19 18 2:15 PM CDT documented as of this encounter Care Teams Ingot Passer Relationship Specialty Start Date End Date Che Williamson MD [address] [place] [address] PCP - General 08/27/12 03/20/22 Prashanth Martinez MD [address] [place] [address] PCP - General Pediatric Medicine 03/21/22 Lynda Skelton MD [address] [place] [address] Provider Team Family Practice 06/10/17 Chelsea Hensley MD [address] [place] [address] Endocrinology 12/08/18 documented as of this encounter
--- OUTSIDE RECORDS SUMMARY | 2025-01-28 20:22 | XMS_ITS | Encounter Summary ---
Author Organization [facility] Care Address [address] [place] [address] Phone Care Team Providers Care Automatic Buffing Wheel Former Name Role Phone Che Williamson MD Primary Care Provider + [phone] Lynda Skelton MD Unavailable Chelsea Hensley MD Unavailable [phone] Prashanth Martinez MD Primary Care Provider [phone] Encounter Details Date Type Department Care Team (Late st Contact Info) Description 09/23/2019 Pharmacy Visit [facility] 200 [place] [address] Social History Tobacco Use Types Packs/Day Years Used Date Smoking Tobacco: Never Smokeless Tobacco: Never Alcohol Use Standard Drinks/Week Comments No 0 (1 standard drink = 0.6 oz pur e alcohol) Comments No Sex and Gender Information Value Date Recorded Sex Assigned at Female 07/13/2019 6:16 PM MANIFOLD BUILDER Legal Sex Female 2:51 AM CDT Gender Identity Transgender Male 05/05/2019 1:23 PM CDT Sexual Orientation Pedraza 06/23/2023 10 :56 AM CDT documented as of this encounter Plan of Treatment Upcoming Encounters Date Type Department Care Team (Late st Contact Info) Description 04/21/2025 2:15 PM CDT Appointment [place] - [facility] [address] [phone] Prashanth Martinez MD 200 [place] [address] 05/02/2025 8:40 AM CDT Appointment [place] - [facility] - Ophthalmology - Optometry [address] [phone] Danuta Golden OD [address] [place] [address] documented as of this encounter Visit Diagnoses Not on filedocumented in this encounter Additional Health Concerns Infection Onset Date Last Indicated Resolved Time COVID-19 09/28/2021 09/28/2021 10/28/2021 9:44 PM MANIFOLD BUILDER Assessment Noted Time PHQ-9 Depression Total Score: 9 11/25/19 18 2:15 PM CDT A fall risk assessment has been complete d for the patient 08/19/2019 4:16 PM MANIFOLD BUILDER PHQ-2 Depression Total Score: 4 11/25/19 18 2:15 PM CDT documented as of this encounter Care Teams Automatic Buffing Wheel Former Relationship Specialty Start Date End Date Che Williamson MD [address] [place] [address] PCP - General 08/27/12 03/20/22 Prashanth Martinez MD [address] [place] [address] PCP - General Pediatric Medicine 03/21/22 Lynda Skelton MD [address] [place] [address] Provider Team Family Practice 06/10/17 Chelsea Hensley MD [address] [place] [address] Endocrinology 12/08/18 documented as of this encounter
--- OUTSIDE RECORDS SUMMARY | 2025-01-28 20:22 | XMS_ITS | Encounter Summary ---
Author Organization [facility] Care Address [address] [place] [address] Phone Care Team Providers Care Slurry Control Tender Name Role Phone Che Williamson MD Primary Care Provider + [phone] Lynda Skelton MD Unavailable Chelsea Hensley MD Unavailable [phone] Prashanth Martinez MD Primary Care Provider [phone] Encounter Details Date Type Department Care Team (Late st Contact Info) Description 08/03/2019 Pharmacy [facility] - Pharmacy - Specialty [address] [place] [address] Social History Tobacco Use Types Packs/Day Years Used Date Smoking Tobacco: Never Smokeless Tobacco: Never Alcohol Use Standard Drinks/Week Comments No 0 (1 standard drink = 0.6 oz pur e alcohol) Comments No Sex and Gender Information Value Date Recorded Sex Assigned at Female 07/13/2019 6:16 PM TRANSMISSION SYSTEM OPERATOR Legal Sex Female 2:51 AM CDT Gender Identity Transgender Male 05/05/2019 1:23 PM CDT Sexual Orientation Pedraza 06/23/2023 10 :56 AM CDT documented as of this encounter Plan of Treatment Upcoming Encounters Date Type Department Care Team (Late st Contact Info) Description 04/21/2025 2:15 PM CDT Appointment [place] - [facility] - [facility] [address] [phone] Prashanth Martinez MD 200 [place] [address] 05/02/2025 8:40 AM CDT Appointment [place] - [facility] - Ophthalmology - Optometry [address] [phone] Danuta Golden OD [address] [place] [address] documented as of this encounter Visit Diagnoses Not on filedocumented in this encounter Additional Health Concerns Infection Onset Date Last Indicated Resolved Time COVID-19 09/28/2021 09/28/2021 10/28/2021 9:44 PM TRANSMISSION SYSTEM OPERATOR Assessment Noted Time PHQ-9 Depression Total Score: 9 11/25/19 18 2:15 PM CDT PHQ-2 Depression Total Score: 4 11/25/19 18 2:15 PM CDT documented as of this encounter Care Teams Slurry Control Tender Relationship Specialty Start Date End Date Che Williamson MD [address] [place] [address] PCP - General 08/27/12 03/20/22 Prashanth Martinez MD [address] [place] [address] PCP - General Pediatric Medicine 03/21/22 Lynda Skelton MD [address] [place] [address] Provider Team Family Practice 06/10/17 Chelsea Hensley MD [address] [place] [address] Endocrinology 12/08/18 documented as of this encounter
--- OUTSIDE RECORDS SUMMARY | 2025-01-28 20:22 | XMS_ITS | Encounter Summary ---
Author Organization [facility] Care Address [address] [place] [address] Phone Care Team Providers Care Port Patrol Officer Name Role Phone Che Williamson MD Primary Care Provider + [phone] Lynda Skelton MD Unavailable [phone] Franchesca Manley Unavailable Unavailable Chelsea Hensley MD Unavailable [phone] Prashanth Martinez MD Primary Care Provider [phone] Encounter Details Date Type Department Care Team (Late st Contact Info) Description 09/19/2017 Pharmacy Visit [facility] - Pharmacy - Business Office 200 [place] [address] Social History Tobacco Use Types Packs/Day Years Used Date Smoking Tobacco: Never Smokeless Tobacco: Never Alcohol Use Standard Drinks/Week Comments No 0 (1 standard drink = 0.6 oz pur e alcohol) Comments No Sex and Gender Information Value Date Recorded Sex Assigned at Female 07/13/2019 6:16 PM CRIMPING MACHINE OPERATOR Legal Sex Female 2:51 AM CDT Gender Identity Transgender Male 05/05/2019 1:23 PM CDT Sexual Orientation Pedraza 06/23/2023 10 :56 AM CDT documented as of this encounter Plan of Treatment Upcoming Encounters Date Type Department Care Team (Late st Contact Info) Description 04/21/2025 2:15 PM CDT Appointment [place] - [facility] - [facility] [address] [phone] Prashanth Martinez MD [address] [place] [address] 05/02/2025 8:40 AM CDT Appointment [place] - [facility] - Ophthalmology - Optometry [address] [phone] Danuta Golden OD [address] [place] [address] documented as of this encounter Visit Diagnoses Not on filedocumented in this encounter Additional Health Concerns Infection Onset Date Last Indicated Resolved Time COVID-19 09/28/2021 09/28/2021 10/28/2021 9:44 PM CRIMPING MACHINE OPERATOR Assessment Noted Time PHQ-2 Depression Total Score: 2 05/06/20 17 5:10 PM CDT documented as of this encounter Care Teams Port Patrol Officer Relationship Specialty Start Date End Date Che Williamson MD 200 [place] [address] PCP - General 08/27/12 03/20/22 Prashanth Martinez MD [address] [place] [address] PCP - General Pediatric Medicine 03/21/22 Lynda Skelton MD [facility] [place] [address] Provider Team Family Practice 06/10/17 Franchesca Manley 12/09/17 12/07/18 Chelsea Hensley MD [address] [place] [address] Endocrinology 12/08/18 documented as of this encounter
--- OUTSIDE RECORDS SUMMARY | 2025-01-28 20:22 | XMS_ITS | Encounter Summary ---
Author Organization [facility] Care Address [address] [place] [address] Phone Care Team Providers Care Brand Specialist Name Role Phone Che Williamson MD Primary Care Provider + [phone] Lynda Skelton MD Unavailable Chelsea Hensley MD Unavailable [phone] Prashanth Martinez MD Primary Care Provider [phone] Encounter Details Date Type Department Care Team (Late st Contact Info) Description 07/22/2019 Pharmacy [facility] - Pharmacy - Specialty [address] [place] [address] Social History Tobacco Use Types Packs/Day Years Used Date Smoking Tobacco: Never Smokeless Tobacco: Never Alcohol Use Standard Drinks/Week Comments No 0 (1 standard drink = 0.6 oz pur e alcohol) Comments No Sex and Gender Information Value Date Recorded Sex Assigned at Female 07/13/2019 6:16 PM MILITARY TECHNOLOGY SPECIALIST Legal Sex Female 2:51 AM CDT Gender Identity Transgender Male 05/05/2019 1:23 PM CDT Sexual Orientation Pedraza 06/23/2023 10 :56 AM CDT documented as of this encounter Plan of Treatment Upcoming Encounters Date Type Department Care Team (Late st Contact Info) Description 04/21/2025 2:15 PM CDT Appointment [place] - [facility] - [facility] [address] [phone] Prashanth Martinez MD 200 [place] [address] 05/02/2025 8:40 AM CDT Appointment [place] - [facility] - Ophthalmology - Optometry [address] [phone] Danuta Golden OD [address] [place] [address] documented as of this encounter Visit Diagnoses Not on filedocumented in this encounter Additional Health Concerns Infection Onset Date Last Indicated Resolved Time COVID-19 09/28/2021 09/28/2021 10/28/2021 9:44 PM MILITARY TECHNOLOGY SPECIALIST Assessment Noted Time PHQ-9 Depression Total Score: 9 11/25/19 18 2:15 PM CDT PHQ-2 Depression Total Score: 4 11/25/19 18 2:15 PM CDT documented as of this encounter Care Teams Brand Specialist Relationship Specialty Start Date End Date Che Williamson MD [address] [place] [address] PCP - General 08/27/12 03/20/22 Prashanth Martinez MD [address] [place] [address] PCP - General Pediatric Medicine 03/21/22 Lynda Skelton MD [address] [place] [address] Provider Team Family Practice 06/10/17 Chelsea Hensley MD [address] [place] [address] Endocrinology 12/08/18 documented as of this encounter
--- OUTSIDE RECORDS SUMMARY | 2025-01-28 20:22 | XMS_ITS | Encounter Summary ---
Author Organization [facility] Care Address [address] [place] [address] Phone Care Team Providers Care Painter Helper Spray Name Role Phone Lynda Skelton MD Unavailable [phone] Chelsea Hensley MD Unavailable [phone] Prashanth Martinez MD Primary Care Provider Encounter Details Date Type Department Care Team (Late st Contact Info) Description 10/10/2022 Pharmacy Visit [facility] - Pharmacy - Business Office [address] [place] [address] Social History Tobacco Use Types Packs/Day Years Used Date Smoking Tobacco: Never Smokeless Tobacco: Never Alcohol Use Standard Drinks/Week Comments No 0 (1 standard drink = 0.6 oz pur e alcohol) Comments No Sex and Gender Information Value Date Recorded Sex Assigned at Female 07/13/2019 6:16 PM PRACTICAL NURSING TEACHER Legal Sex Female 2:51 AM CDT Gender Identity Transgender Male 05/05/2019 1:23 PM CDT Sexual Orientation Pedraza 06/23/2023 10 :56 AM CDT documented as of this encounter Plan of Treatment Upcoming Encounters Date Type Department Care Team (Late st Contact Info) Description 04/21/2025 2:15 PM CDT Appointment [facility] Adolescent [address] [phone] Prashanth Martinez MD [address] [place] [address] 05/02/2025 8:40 AM CDT Appointment [place] - [facility] - Ophthalmology - Optometry [address] [phone] Danuta Golden OD [address] [place] [address] documented as of this encounter Visit Diagnoses Not on filedocumented in this encounter Additional Health Concerns Assessment Noted Time PHQ-9 Depression Total Score: 14 021 2:38 PM CDT A fall risk assessment has been complete d for the patient 09/30/2022 10:57 AM PRACTICAL NURSING TEACHER PHQ-2 Depression Total Score: 5 01/25/20 21 2:38 PM CDT documented as of this encounter Care Teams Painter Helper Spray Relationship Specialty Start Date End Date Prashanth Martinez MD [address] [place] [address] PCP - General Pediatric Medicine 03/21/22 Lynda Skelton MD [address] [place] [address] Provider Team Family Practice 06/10/17 Chelsea Hensley MD [address] [place] [address] Endocrinology 12/08/18 documented as of this encounter
--- OUTSIDE RECORDS SUMMARY | 2025-01-28 20:22 | XMS_ITS | Encounter Summary ---
Author Organization [facility] Care Address [address] [place] [address] Phone Care Team Providers Care Hub Borer Name Role Phone Che Williamson MD Primary Care Provider + [phone] Lynda Skelton MD Unavailable Franchesca Manley Unavailable Unavailable Chelsea Hensley MD Unavailable [phone] Prashanth Martinez MD Primary Care Provider [phone] Encounter Details Date Type Department Care Team (Late st Contact Info) Description 02/13/2018 Pharmacy Visit [facility] - Pharmacy - Specialty [address] [place] [address] Social History Tobacco Use Types Packs/Day Years Used Date Smoking Tobacco: Never Smokeless Tobacco: Never Alcohol Use Standard Drinks/Week Comments No 0 (1 standard drink = 0.6 oz pur e alcohol) Comments No Sex and Gender Information Value Date Recorded Sex Assigned at Female 07/13/2019 6:16 PM CBX OPERATOR Legal Sex Female 2:51 AM CDT Gender Identity Transgender Male 05/05/2019 1:23 PM CDT Sexual Orientation Pedraza 06/23/2023 10 :56 AM CDT documented as of this encounter Plan of Treatment Upcoming Encounters Date Type Department Care Team (Late st Contact Info) Description 04/21/2025 2:15 PM CDT Appointment [place] - [facility] - Adolescent Clinic [address] [phone] Prashanth Martinez MD [address] [place] [address] 05/02/2025 8:40 AM CDT Appointment [facility] - Ophthalmology - Optometry [address] [phone] Danuta Golden OD [address] [place] [address] documented as of this encounter Visit Diagnoses Not on filedocumented in this encounter Additional Health Concerns Infection Onset Date Last Indicated Resolved Time COVID-19 09/28/2021 09/28/2021 10/28/2021 9:44 PM CBX OPERATOR Assessment Noted Time PHQ-9 Depression Total Score: 9 11/25/19 18 2:15 PM CDT PHQ-2 Depression Total Score: 4 11/25/19 18 2:15 PM CDT documented as of this encounter Care Teams Hub Borer Relationship Specialty Start Date End Date Che Williamson MD [address] [place] [address] PCP - General 08/27/12 03/20/22 Prashanth Martinez MD [address] [place] [address] PCP - General Pediatric Medicine 03/21/22 Lynda Skelton MD [address] [place] [address] Provider Team Family Practice 06/10/17 Franchesca Manley 12/09/17 12/07/18 Chelsea Hensley MD [address] [place] [address] Endocrinology 12/08/18 documented as of this encounter
--- OUTSIDE RECORDS SUMMARY | 2025-01-28 20:22 | XMS_ITS | Encounter Summary ---
Author Organization [facility] Care Address [address] [place] [address] Phone Care Team Providers Care Dam Tender Assistant Name Role Phone Che Williamson MD Primary Care Provider + [phone] Lynda Skelton MD Unavailable Chelsea Hensley MD Unavailable [phone] Prashanth Martinez MD Primary Care Provider [phone] Encounter Details Date Type Department Care Team (Late st Contact Info) Description 07/21/2019 Pharmacy [facility] - Pharmacy - Specialty [address] [place] [address] Social History Tobacco Use Types Packs/Day Years Used Date Smoking Tobacco: Never Smokeless Tobacco: Never Alcohol Use Standard Drinks/Week Comments No 0 (1 standard drink = 0.6 oz pur e alcohol) Comments No Sex and Gender Information Value Date Recorded Sex Assigned at Female 07/13/2019 6:16 PM MOTOR VEHICLE EXAMINER Legal Sex Female 2:51 AM CDT Gender Identity Transgender Male 05/05/2019 1:23 PM CDT Sexual Orientation Pedraza 06/23/2023 10 :56 AM CDT documented as of this encounter Plan of Treatment Upcoming Encounters Date Type Department Care Team (Late st Contact Info) Description 04/21/2025 2:15 PM CDT Appointment [place] [facility] [place] [facility] [address] [phone] Prashanth Martinez MD 200 [place] [address] 05/02/2025 8:40 AM CDT Appointment [place] - [facility] - Ophthalmology - Optometry [address] [phone] Danuta Golden OD [address] [place] [address] documented as of this encounter Visit Diagnoses Not on filedocumented in this encounter Additional Health Concerns Infection Onset Date Last Indicated Resolved Time COVID-19 09/28/2021 09/28/2021 10/28/2021 9:44 PM MOTOR VEHICLE EXAMINER Assessment Noted Time PHQ-9 Depression Total Score: 9 11/25/19 18 2:15 PM CDT PHQ-2 Depression Total Score: 4 11/25/19 18 2:15 PM CDT documented as of this encounter Care Teams Dam Tender Assistant Relationship Specialty Start Date End Date Che Williamson MD [address] [place] [address] PCP - General 08/27/12 03/20/22 Prashanth Martinez MD [address] [place] [address] PCP - General Pediatric Medicine 03/21/22 Lynda Skelton MD [address] [place] [address] Provider Team Family Practice 06/10/17 Chelsea Hensley MD [address] [place] [address] Endocrinology 12/08/18 documented as of this encounter
--- OUTSIDE RECORDS SUMMARY | 2025-01-28 20:22 | XMS_ITS | Encounter Summary ---
Author Organization [facility] Care Address [address] [place] [address] Phone Care Team Providers Care Automotive Diagnostic Technician Name Role Phone Che Williamson MD Primary Care Provider + [phone] Lynda Skelton MD Unavailable Chelsea Hensley MD Unavailable [phone] Prashanth Martinez MD Primary Care Provider [phone] Encounter Details Date Type Department Care Team (Late st Contact Info) Description 09/15/2019 Pharmacy Visit [facility] - Pharmacy - Specialty [address] [place] [address] Social History Tobacco Use Types Packs/Day Years Used Date Smoking Tobacco: Never Smokeless Tobacco: Never Alcohol Use Standard Drinks/Week Comments No 0 (1 standard drink = 0.6 oz pur e alcohol) Comments No Sex and Gender Information Value Date Recorded Sex Assigned at Female 07/13/2019 6:16 PM HIGH LIFT MULE OPERATOR Legal Sex Female 2:51 AM CDT Gender Identity Transgender Male 05/05/2019 1:23 PM CDT Sexual Orientation Pedraza 06/23/2023 10 :56 AM CDT documented as of this encounter Plan of Treatment Upcoming Encounters Date Type Department Care Team (Late st Contact Info) Description 04/21/2025 2:15 PM CDT Appointment [place] [facility] [address] [phone] Prashanth Martinez MD [address] [place] [address] 05/02/2025 8:40 AM CDT Appointment [place] - [facility] - Ophthalmology - Optometry [address] [phone] Danuta Golden OD [address] [place] [address] documented as of this encounter Visit Diagnoses Not on filedocumented in this encounter Additional Health Concerns Infection Onset Date Last Indicated Resolved Time COVID-19 09/28/2021 09/28/2021 10/28/2021 9:44 PM HIGH LIFT MULE OPERATOR Assessment Noted Time PHQ-9 Depression Total Score: 9 11/25/19 18 2:15 PM CDT A fall risk assessment has been complete d for the patient 08/19/2019 4:16 PM HIGH LIFT MULE OPERATOR PHQ-2 Depression Total Score: 4 11/25/19 18 2:15 PM CDT documented as of this encounter Care Teams Automotive Diagnostic Technician Relationship Specialty Start Date End Date Che Williamson MD [address] [place] [address] PCP - General 08/27/12 03/20/22 Prashanth Martinez MD [address] [place] [address] PCP - General Pediatric Medicine 03/21/22 Lynda Skelton MD [address] [place] [address] Provider Team Family Practice 06/10/17 Chelsea Hensley MD [address] [place] [address] Endocrinology 12/08/18 documented as of this encounter
--- OUTSIDE RECORDS SUMMARY | 2025-01-28 20:22 | XMS_ITS | Encounter Summary ---
Author Organization [facility] Care Address [address] [place] [address] Phone Care Team Providers Care Devulcanizer Loader Name Role Phone Che Williamson MD Primary Care Provider + [phone] Lynda Skelton MD Unavailable Chelsea Hensley MD Unavailable [phone] Prashanth Martinez MD Primary Care Provider [phone] Encounter Details Date Type Department Care Team (Late st Contact Info) Description 07/19/2019 Pharmacy [facility] - Pharmacy - Specialty [address] [place] [address] Social History Tobacco Use Types Packs/Day Years Used Date Smoking Tobacco: Never Smokeless Tobacco: Never Alcohol Use Standard Drinks/Week Comments No 0 (1 standard drink = 0.6 oz pur e alcohol) Comments No Sex and Gender Information Value Date Recorded Sex Assigned at Female 07/13/2019 6:16 PM HOSPITAL CHIEF EXECUTIVE OFFICER Legal Sex Female 2:51 AM CDT Gender Identity Transgender Male 05/05/2019 1:23 PM CDT Sexual Orientation Pedraza 06/23/2023 10 :56 AM CDT documented as of this encounter Plan of Treatment Upcoming Encounters Date Type Department Care Team (Late st Contact Info) Description 04/21/2025 2:15 PM CDT Appointment [place] - [facility] [address] [phone] Prashanth Martinez MD 200 [place] [address] 05/02/2025 8:40 AM CDT Appointment [place] - [facility] - Ophthalmology - Optometry [address] [phone] Danuta Golden OD [address] [place] [address] documented as of this encounter Visit Diagnoses Not on filedocumented in this encounter Additional Health Concerns Infection Onset Date Last Indicated Resolved Time COVID-19 09/28/2021 09/28/2021 10/28/2021 9:44 PM HOSPITAL CHIEF EXECUTIVE OFFICER Assessment Noted Time PHQ-9 Depression Total Score: 9 11/25/19 18 2:15 PM CDT PHQ-2 Depression Total Score: 4 11/25/19 18 2:15 PM CDT documented as of this encounter Care Teams Devulcanizer Loader Relationship Specialty Start Date End Date Che Williamson MD [address] [place] [address] PCP - General 08/27/12 03/20/22 Prashanth Martinez MD [address] [place] [address] PCP - General Pediatric Medicine 03/21/22 Lynda Skelton MD [address] [place] [address] Provider Team Family Practice 06/10/17 Chelsea Hensley MD [address] [place] [address] Endocrinology 12/08/18 documented as of this encounter
--- OUTSIDE RECORDS SUMMARY | 2025-01-28 20:22 | XMS_ITS | Encounter Summary ---
Author Organization [facility] Care Address [address] [place] [address] Phone Care Team Providers Care Pearl Fisherman Name Role Phone Che Williamson MD Primary Care Provider + [phone] Lynda Skelton MD Unavailable Franchesca Manley Unavailable Unavailable Chelsea Hensley MD Unavailable [phone] Prashanth Martinez MD Primary Care Provider [phone] Encounter Details Date Type Department Care Team (Late st Contact Info) Description 02/11/2018 Pharmacy Visit [facility] - Pharmacy - Specialty [address] [place] [address] Social History Tobacco Use Types Packs/Day Years Used Date Smoking Tobacco: Never Smokeless Tobacco: Never Alcohol Use Standard Drinks/Week Comments No 0 (1 standard drink = 0.6 oz pur e alcohol) Comments No Sex and Gender Information Value Date Recorded Sex Assigned at Female 07/13/2019 6:16 PM RADIOISOTOPE TECHNOLOGIST Legal Sex Female 2:51 AM CDT Gender Identity Transgender Male 05/05/2019 1:23 PM CDT Sexual Orientation Pedraza 06/23/2023 10 :56 AM CDT documented as of this encounter Plan of Treatment Upcoming Encounters Date Type Department Care Team (Late st Contact Info) Description 04/21/2025 2:15 PM CDT Appointment [place] - [facility] - Adolescent Clinic [address] [phone] Prashanth Martinez MD [address] [place] [address] 05/02/2025 8:40 AM CDT Appointment [facility] - Ophthalmology - Optometry [address] [phone] Danuta Golden OD [address] [place] [address] documented as of this encounter Visit Diagnoses Not on filedocumented in this encounter Additional Health Concerns Infection Onset Date Last Indicated Resolved Time COVID-19 09/28/2021 09/28/2021 10/28/2021 9:44 PM RADIOISOTOPE TECHNOLOGIST Assessment Noted Time PHQ-9 Depression Total Score: 9 11/25/19 18 2:15 PM CDT PHQ-2 Depression Total Score: 4 11/25/19 18 2:15 PM CDT documented as of this encounter Care Teams Pearl Fisherman Relationship Specialty Start Date End Date Che Williamson MD [address] [place] [address] PCP - General 08/27/12 03/20/22 Prashatnh Martinez MD [address] [place] [address] PCP - General Pediatric Medicine 03/21/22 Lynda Skelton MD [address] [place] [address] Provider Team Family Practice 06/10/17 Franchesca Manley 12/09/17 12/07/18 Chelsea Hensley MD [address] [place] [address] Endocrinology 12/08/18 documented as of this encounter
--- OUTSIDE RECORDS SUMMARY | 2025-01-28 20:22 | XMS_ITS | Encounter Summary ---
Author Organization [facility] Care Address [address] [place] [address] Phone Care Team Providers Care Laundry Equipment Operator Name Role Phone Che Williamson MD Primary Care Provider + [phone] Lynda Skelton MD Unavailable Chelsea Hensley MD Unavailable [phone] Prashanth Martinez MD Primary Care Provider [phone] Encounter Details Date Type Department Care Team (Late st Contact Info) Description 07/16/2019 Pharmacy Visit [facility] - Pharmacy - Specialty [address] [place] [address] Social History Tobacco Use Types Packs/Day Years Used Date Smoking Tobacco: Never Smokeless Tobacco: Never Alcohol Use Standard Drinks/Week Comments No 0 (1 standard drink = 0.6 oz pur e alcohol) Comments No Sex and Gender Information Value Date Recorded Sex Assigned at Female 07/13/2019 6:16 PM CONCRETE BUCKET LOADER Legal Sex Female 2:51 AM CDT Gender Identity Transgender Male 05/05/2019 1:23 PM CDT Sexual Orientation Pedraza 06/23/2023 10 :56 AM CDT documented as of this encounter Plan of Treatment Upcoming Encounters Date Type Department Care Team (Late st Contact Info) Description 04/21/2025 2:15 PM CDT Appointment [place] - [facility] - [facility] [address] [phone] Prashanth Martinez MD [address] [place] [address] 05/02/2025 8:40 AM CDT Appointment [place] - [facility] - Ophthalmology - Optometry [address] [phone] Danuta Golden OD [address] [place] [address] documented as of this encounter Visit Diagnoses Not on filedocumented in this encounter Additional Health Concerns Infection Onset Date Last Indicated Resolved Time COVID-19 09/28/2021 09/28/2021 10/28/2021 9:44 PM CONCRETE BUCKET LOADER Assessment Noted Time PHQ-9 Depression Total Score: 9 11/25/19 18 2:15 PM CDT PHQ-2 Depression Total Score: 4 11/25/19 18 2:15 PM CDT documented as of this encounter Care Teams Laundry Equipment Operator Relationship Specialty Start Date End Date Che Williamson MD [address] [place] [address] PCP - General 08/27/12 03/20/22 Prashanth Martinez MD [address] [place] [address] PCP - General Pediatric Medicine 03/21/22 Lynda Skelton MD [address] [place] [address] Provider Team Family Practice 06/10/17 Chelsea Hensley MD [address] [place] [address] Endocrinology 12/08/18 documented as of this encounter
--- OUTSIDE RECORDS SUMMARY | 2025-01-28 20:22 | XMS_ITS | Encounter Summary ---
Author Organization [facility] Care Address [address] [place] [address] Phone Care Team Providers Care Emergency Department Name Role Phone Che Williamson MD Primary Care Provider + [phone] Lynda Skelton MD Unavailable Chelsea Hensley MD Unavailable [phone] Prashanth Martinez MD Primary Care Provider [phone] Encounter Details Date Type Department Care Team (Late st Contact Info) Description 07/27/[address] [facility] - Pharmacy - Specialty [address] [place] [address] Social History Tobacco Use Types Packs/Day Years Used Date Smoking Tobacco: Never Smokeless Tobacco: Never Alcohol Use Standard Drinks/Week Comments No 0 (1 standard drink = 0.6 oz pur e alcohol) Comments No Sex and Gender Information Value Date Recorded Sex Assigned at Female 07/13/2019 6:16 PM TABLE GAMES DUAL RATE SUPERVISOR Legal Sex Female 2:51 AM CDT Gender Identity Transgender Male 05/05/2019 1:23 PM CDT Sexual Orientation Pedraza 06/23/2023 10 :56 AM CDT documented as of this encounter Plan of Treatment Upcoming Encounters Date Type Department Care Team (Late st Contact Info) Description 04/21/2025 2:15 PM CDT Appointment [place] - [facility] - [facility] [address] [phone] Prashanth Martinez MD [address] [place] [address] 05/02/2025 8:40 AM CDT Appointment [place] - [facility] - Ophthalmology - Optometry [address] [phone] Danuta Golden OD [address] [place] [address] documented as of this encounter Visit Diagnoses Not on filedocumented in this encounter Additional Health Concerns Infection Onset Date Last Indicated Resolved Time COVID-19 09/28/2021 09/28/2021 10/28/2021 9:44 PM TABLE GAMES DUAL RATE SUPERVISOR Assessment Noted Time PHQ-9 Depression Total Score: 9 11/25/19 18 2:15 PM CDT PHQ-2 Depression Total Score: 4 11/25/19 18 2:15 PM CDT documented as of this encounter Care Teams Emergency Department Relationship Specialty Start Date End Date Che Williamson MD [address] [place] [address] PCP - General 08/27/12 03/20/22 Prashanth Martinez MD [address] [place] [address] PCP - General Pediatric Medicine 03/21/22 Lynda Skelton MD [address] [place] [address] Provider Team Family Practice 06/10/17 Chelsea Hensley MD [address] [place] [address] Endocrinology 12/08/18 documented as of this encounter
--- OUTSIDE RECORDS SUMMARY | 2025-01-28 20:22 | XMS_ITS | Encounter Summary ---
Author Organization [facility] Care Address [address] [place] [address] Phone Care Team Providers Care Delivery Lead Name Role Phone Che Williamson MD Primary Care Provider + [phone] Lynda Skelton MD Unavailable Franchesca Manley Unavailable Unavailable Chelsea Hensley MD Unavailable [phone] Prashanth Martinez MD Primary Care Provider [phone] Encounter Details Date Type Department Care Team (Late st Contact Info) Description 02/13/2018 Pharmacy Visit [facility] - Pharmacy [address] [place] [address] Social History Tobacco Use Types Packs/Day Years Used Date Smoking Tobacco: Never Smokeless Tobacco: Never Alcohol Use Standard Drinks/Week Comments No 0 (1 standard drink = 0.6 oz pur e alcohol) Comments No Sex and Gender Information Value Date Recorded Sex Assigned at Female 07/13/2019 6:16 PM DRYWALL CONTRACTOR Legal Sex Female 2:51 AM CDT Gender Identity Transgender Male 05/05/2019 1:23 PM CDT Sexual Orientation Pedraza 06/23/2023 10 :56 AM CDT documented as of this encounter Plan of Treatment Upcoming Encounters Date Type Department Care Team (Late st Contact Info) Description 04/21/2025 2:15 PM CDT Appointment [place] - [facility] - Adolescent Clinic [address] [phone] Prashanth Martinez MD [address] [place] [address] 05/02/2025 8:40 AM CDT Appointment [facility] - Ophthalmology - Optometry [address] [phone] Danuta Golden OD [address] [place] [address] documented as of this encounter Visit Diagnoses Not on filedocumented in this encounter Additional Health Concerns Infection Onset Date Last Indicated Resolved Time COVID-19 09/28/2021 09/28/2021 10/28/2021 9:44 PM DRYWALL CONTRACTOR Assessment Noted Time PHQ-9 Depression Total Score: 9 11/25/19 18 2:15 PM CDT PHQ-2 Depression Total Score: 4 11/25/19 18 2:15 PM CDT documented as of this encounter Care Teams Delivery Lead Relationship Specialty Start Date End Date Che Williamson MD [address] [place] [address] PCP - General 08/27/12 03/20/22 Prashanth Martinez MD [address] [place] [address] PCP - General Pediatric Medicine 03/21/22 Lynda Skelton MD [facility] [place] [address] Provider Team Family Practice 06/10/17 Franchesca Manley 12/09/17 12/07/18 Chelsea Hensley MD [address] [place], [place] [phone] Endocrinology 12/08/18 documented as of this encounter
--- OUTSIDE RECORDS SUMMARY | 2025-01-28 20:22 | XMS_ITS | Encounter Summary ---
Author Organization [facility] Care Address [address] [place] [address] Phone Care Team Providers Care Jute Bag Clipper Name Role Phone Che Williamson MD Primary Care Provider + [phone] Lynda Skelton MD Unavailable Chelsea Hensley MD Unavailable [phone] Prashanth Martinez MD Primary Care Provider [phone] Encounter Details Date Type Department Care Team (Late st Contact Info) Description 09/16/2019 Pharmacy Visit [facility] [address] [place] [address] Social History Tobacco Use Types Packs/Day Years Used Date Smoking Tobacco: Never Smokeless Tobacco: Never Alcohol Use Standard Drinks/Week Comments No 0 (1 standard drink = 0.6 oz pur e alcohol) Comments No Sex and Gender Information Value Date Recorded Sex Assigned at Female 07/13/2019 6:16 PM TIER LIFT OPERATOR Legal Sex Female 2:51 AM CDT Gender Identity Transgender Male 05/05/2019 1:23 PM CDT Sexual Orientation Pedraza 06/23/2023 10 :56 AM CDT documented as of this encounter Plan of Treatment Upcoming Encounters Date Type Department Care Team (Late st Contact Info) Description 04/21/2025 2:15 PM CDT Appointment [place] - [place] - Ad[facility]cent Clinic [address] [phone] Prashanth Martinez MD [address] [place] [address] 05/02/2025 8:40 AM CDT Appointment [place] - [facility] - Ophthalmology - Optometry [address] [phone] Danuta Golden OD [address] [place] [address] documented as of this encounter Visit Diagnoses Not on filedocumented in this encounter Additional Health Concerns Infection Onset Date Last Indicated Resolved Time COVID-19 09/28/2021 09/28/2021 10/28/2021 9:44 PM TIER LIFT OPERATOR Assessment Noted Time PHQ-9 Depression Total Score: 9 11/25/19 18 2:15 PM CDT A fall risk assessment has been complete d for the patient 08/19/2019 4:16 PM TIER LIFT OPERATOR PHQ-2 Depression Total Score: 4 11/25/19 18 2:15 PM CDT documented as of this encounter Care Teams Jute Bag Clipper Relationship Specialty Start Date End Date Che Williamson MD [address] [place] [address] PCP - General 08/27/12 03/20/22 Prashanth Martinez MD [address] [place] [address] PCP - General Pediatric Medicine 03/21/22 Lynda Skelton MD [address] [place] [address] Provider Team Family Practice 06/10/17 Chelsea Hensley MD [address] [place] [address] Endocrinology 12/08/18 documented as of this encounter
--- OUTSIDE RECORDS SUMMARY | 2025-01-28 20:22 | XMS_ITS | Encounter Summary ---
Author Organization [facility] Care Address [address] [place] [address] Phone Care Team Providers Care Wireless Engineer Name Role Phone Che Williamson MD Primary Care Provider + [phone] Lynda Skelton MD Unavailable Chelsea Hensley MD Unavailable [phone] Prashanth Martinez MD Primary Care Provider [phone] Encounter Details Date Type Department Care Team (Late st Contact Info) Description 09/17/2019 Pharmacy [facility] - Pharmacy - Specialty [address] [place] [address] Social History Tobacco Use Types Packs/Day Years Used Date Smoking Tobacco: Never Smokeless Tobacco: Never Alcohol Use Standard Drinks/Week Comments No 0 (1 standard drink = 0.6 oz pur e alcohol) Comments No Sex and Gender Information Value Date Recorded Sex Assigned at Female 07/13/2019 6:16 PM WELL DIGGER Legal Sex Female 2:51 AM CDT Gender Identity Transgender Male 05/05/2019 1:23 PM CDT Sexual Orientation Pedraza 06/23/2023 10 :56 AM CDT documented as of this encounter Plan of Treatment Upcoming Encounters Date Type Department Care Team (Late st Contact Info) Description 04/21/2025 2:15 PM CDT Appointment [place] - [place] - Ad[facility]cent Clinic [address] [phone] Prashanth Martinez MD [address] [place] [address] 05/02/2025 8:40 AM CDT Appointment [place] - [facility] - Ophthalmology - Optometry [address] [phone] Danuta Golden OD [address] [place] [address] documented as of this encounter Visit Diagnoses Not on filedocumented in this encounter Additional Health Concerns Infection Onset Date Last Indicated Resolved Time COVID-19 09/28/2021 09/28/2021 10/28/2021 9:44 PM WELL DIGGER Assessment Noted Time PHQ-9 Depression Total Score: 9 11/25/19 18 2:15 PM CDT A fall risk assessment has been complete d for the patient 08/19/2019 4:16 PM WELL DIGGER PHQ-2 Depression Total Score: 4 11/25/19 18 2:15 PM CDT documented as of this encounter Care Teams Wireless Engineer Relationship Specialty Start Date End Date Che Williamson MD [address] [place] [address] PCP - General 08/27/12 03/20/22 Prashanth Martinez MD [address] [place] [address] PCP - General Pediatric Medicine 03/21/22 Lynda Skelton MD [address] [place] [address] Provider Team Family Practice 06/10/17 Chelsea Hensley MD [address] [place] [address] Endocrinology 12/08/18 documented as of this encounter
--- OUTSIDE RECORDS SUMMARY | 2025-01-28 20:22 | XMS_ITS | Encounter Summary ---
Author Organization [facility] Care Address [address] [place] [address] Phone Care Team Providers Care Recordist Name Role Phone Che Williamson MD Primary Care Provider + [phone] Lynda Skelton MD Unavailable Chelsea Hensley MD Unavailable [phone] Prashanth Martinez MD Primary Care Provider [phone] Encounter Details Date Type Department Care Team (Late st Contact Info) Description 07/20/2019 Pharmacy [facility] - Pharmacy - Specialty [address] [place] [address] Social History Tobacco Use Types Packs/Day Years Used Date Smoking Tobacco: Never Smokeless Tobacco: Never Alcohol Use Standard Drinks/Week Comments No 0 (1 standard drink = 0.6 oz pur e alcohol) Comments No Sex and Gender Information Value Date Recorded Sex Assigned at Female 07/13/2019 6:16 PM AEROSPACE MECHANIC Legal Sex Female 2:51 AM CDT Gender Identity Transgender Male 05/05/2019 1:23 PM CDT Sexual Orientation Pedraza 06/23/2023 10 :56 AM CDT documented as of this encounter Plan of Treatment Upcoming Encounters Date Type Department Care Team (Late st Contact Info) Description 04/21/2025 2:15 PM CDT Appointment [place] [facility] [address] [phone] Prashanth Martinez MD 200 [place] [address] 05/02/2025 8:40 AM CDT Appointment [place] - [facility] - Ophthalmology - Optometry [address] [phone] Danuta Golden OD [address] [place] [address] documented as of this encounter Visit Diagnoses Not on filedocumented in this encounter Additional Health Concerns Infection Onset Date Last Indicated Resolved Time COVID-19 09/28/2021 09/28/2021 10/28/2021 9:44 PM AEROSPACE MECHANIC Assessment Noted Time PHQ-9 Depression Total Score: 9 11/25/19 18 2:15 PM CDT PHQ-2 Depression Total Score: 4 11/25/19 18 2:15 PM CDT documented as of this encounter Care Teams Recordist Relationship Specialty Start Date End Date Che Williamson MD [address] [place] [address] PCP - General 08/27/12 03/20/22 Prashanth Martinez MD [address] [place] [address] PCP - General Pediatric Medicine 03/21/22 Lynda Skelton MD [address] [place] [address] Provider Team Family Practice 06/10/17 Chelsea Hensley MD [address] [place] [address] Endocrinology 12/08/18 documented as of this encounter
--- OUTSIDE RECORDS SUMMARY | 2025-01-28 20:22 | XMS_ITS | Encounter Summary ---
Author Organization [facility] Care Address [address] [place] [address] Phone Care Team Providers Care Movement Assembly Final Inspector Name Role Phone Che Williamson MD Primary Care Provider + [phone] Lynda Skelton MD Unavailable Chelsea Hensley MD Unavailable [phone] Prashanth Martinez MD Primary Care Provider [phone] Encounter Details Date Type Department Care Team (Late st Contact Info) Description 08/19/2019 Pharmacy [facility] - Pharmacy - Specialty [address] [place] [address] Social History Tobacco Use Types Packs/Day Years Used Date Smoking Tobacco: Never Smokeless Tobacco: Never Alcohol Use Standard Drinks/Week Comments No 0 (1 standard drink = 0.6 oz pur e alcohol) Comments No Sex and Gender Information Value Date Recorded Sex Assigned at Female 07/13/2019 6:16 PM TOW FEEDER Legal Sex Female 2:51 AM CDT Gender Identity Transgender Male 05/05/2019 1:23 PM CDT Sexual Orientation Pedraza 06/23/2023 10 :56 AM CDT documented as of this encounter Plan of Treatment Upcoming Encounters Date Type Department Care Team (Late st Contact Info) Description 04/21/2025 2:15 PM CDT Appointment [place] - [facility] [address] [phone] Prashanth Martinez MD 200 [place] [address] 05/02/2025 8:40 AM CDT Appointment [place] - [facility] - Ophthalmology - Optometry [address] [phone] Danuta Golden OD [address] [place] [address] documented as of this encounter Visit Diagnoses Not on filedocumented in this encounter Additional Health Concerns Infection Onset Date Last Indicated Resolved Time COVID-19 09/28/2021 09/28/2021 10/28/2021 9:44 PM TOW FEEDER Assessment Noted Time PHQ-9 Depression Total Score: 9 11/25/19 18 2:15 PM CDT A fall risk assessment has been complete d for the patient 08/19/2019 4:16 PM TOW FEEDER PHQ-2 Depression Total Score: 4 11/25/19 18 2:15 PM CDT documented as of this encounter Care Teams Movement Assembly Final Inspector Relationship Specialty Start Date End Date Che Williamson MD [address] [place] [address] PCP - General 08/27/12 03/20/22 Prashanth Martinez MD [address] [place] [address] PCP - General Pediatric Medicine 03/21/22 Lynda Skelton MD [address] [place] [address] Provider Team Family Practice 06/10/17 Chelsea Hensley MD [address] [place] [address] Endocrinology 12/08/18 documented as of this encounter
--- OUTSIDE RECORDS SUMMARY | 2025-01-28 20:23 | XMS_ITS | Encounter Summary ---
Author Organization [facility] Care Address [address] [place] [address] Phone Care Team Providers Care Manager Competitive Intelligence Name Role Phone Lynda Skelton MD Unavailable [phone] Chelsea Hensley MD Unavailable [phone] Prashanth Martinez MD Primary Care Provider [phone] Reason for Visit * Reason Comments Medication Refill Encounter Details Date Type Department Care Team (Late st Contact Info) Description 11/29/2024 Refill [facility] [address] [place] [address] Elis Pearl ARNP 200 [place] [address] Social History Tobacco Use Types Packs/Day Years Used Date Smoking Tobacco: Never Passive Smoke Exposure: Never Smokeless Tobacco: Never Alcohol Use Standard Drinks/Week Comments No 0 (1 standard drink = 0.6 oz pur e alcohol) PHQ-2 Answer Date Recorded Total score/PHQ-2 3 08/26/2024 PHQ-9 Answer Date Recorded Total Score (PHQ-9 includes PHQ-2 questions/scor e) 12 08/26/2024 Abuse Risk Answer Date Recorded Are you [...] you or your family? Not on file Are you currently being forc ed to [...] Sex Assigned at Female 07/13/2019 6:16 PM BILLET ASSEMBLER Legal Sex Female 2:51 AM CDT Gender Identity Transgender Male 05/05/2019 1:23 PM CDT Sexual Orientation Pedraza 06/23/2023 10 :56 AM CDT documented as of this encounter Miscellaneous Notes * Telephone Encounter - Elis Pearl ARNP - 11/29/2024 8:38 AM CDT 11/29/24 8:39 AM Requested Prescriptions Pending Prescriptions Disp Refills ARIPiprazole (ABILIFY) 2 mg tablet [Pharmacy Med Name: ARIPIPRAZOLE 2MG TABLETS] 90 tablet 1 Sig: TAKE 1 TABLET BY MOUTH DAILY, TAKE WITH ABILIFY 5 MG TABLET FOR A TOTAL OF 7 MG DAILY ARIPiprazole (ABILIFY) 5 mg tablet [Pharmacy Med Name: ARIPIPRAZOLE 5MG TABLETS] 90 tablet 1 Sig: TAKE 1 TABLET(5 MG) BY MOUTH DAILY Last Visit with LIP: 08/27/2024 Next Visit with LIP: 12/07/2024 Last Fill/ Refill Date (if available): 08/17/2024 Last/ Current Med Plan: Return in 4 months for a medication management appointment Additional Information: Moderate episode of recurrent major depressive disorder (HCC) This note was completed by: Ivett Gan LPN Refill for abilify sent to patient preferred pharmacy on 11/29/2024. Patient has a follow up appointment scheduled with this provider on 12/07/2024. BUDDY Rob documented in this encounter Plan of Treatment Upcoming Encounters Date Type Department Care Team (Late st Contact Info) Description 04/21/2025 2:15 PM CDT Appointment [place] - [facility] - Adolescent Clinic [address] [phone] Prashanth Martinez MD [address] [place] [phone] 05/02/2025 8:40 AM CDT Appointment [facility] - Ophthalmology - Optometry [address] [phone] Danuta Golden OD 200 [place], [place] [phone] documented as of this encounter Visit Diagnoses Diagnosis Moderate episode of recurrent major depressive disorder (HCC) documented in this encounter Additional Health Concerns Assessment Noted Time PHQ-9 Depression Total Score: 12 024 7:59 AM BILLET ASSEMBLER A fall risk assessment has been complete d for the patient 08/27/2024 10:33 AM BILLET ASSEMBLER PHQ-2 Depression Total Score: 3 08/26/20 24 7:59 AM BILLET ASSEMBLER documented as of this encounter Care Teams Manager Competitive Intelligence Relationship Specialty Start Date End Date Prashanth Martinez MD [address] [place] [address] PCP - General Pediatric Medicine 03/21/22 Lynda Skelton MD [address] [place] [address] Provider Team Family Practice 06/10/17 Chelsea Hensley MD [address] [place] [address] Endocrinology 12/08/18 documented as of this encounter
--- OUTSIDE RECORDS SUMMARY | 2025-01-28 20:23 | XMS_ITS | Encounter Summary ---
Author Organization [facility] Care Address [address] [place] [address] Phone Care Team Providers Care Kiln Placer Name Role Phone Che Williamson MD Primary Care Provider + [phone] Lynda Skelton MD Unavailable Chelsea Hensley MD Unavailable [phone] Prashanth Martinez MD Primary Care Provider [phone] Encounter Details Date Type Department Care Team (Late st Contact Info) Description 06/17/2019 Pharmacy [facility] - Pharmacy - Specialty [address] [place] [address] Social History Tobacco Use Types Packs/Day Years Used Date Smoking Tobacco: Never Smokeless Tobacco: Never Alcohol Use Standard Drinks/Week Comments No 0 (1 standard drink = 0.6 oz pur e alcohol) Comments No Sex and Gender Information Value Date Recorded Sex Assigned at Female 07/13/2019 6:16 PM ASSISTANT RESTAURANT GENERAL MANAGER Legal Sex Female 2:51 AM CDT Gender Identity Transgender Male 05/05/2019 1:23 PM CDT Sexual Orientation Pedraza 06/23/2023 10 :56 AM CDT documented as of this encounter Plan of Treatment Upcoming Encounters Date Type Department Care Team (Late st Contact Info) Description 04/21/2025 2:15 PM CDT Appointment [place] - [facility] [address] [phone] Prashanth Martinez MD 200 [place] [address] 05/02/2025 8:40 AM CDT Appointment [place] - [facility] - Ophthalmology - Optometry [address] [phone] Danuta Golden OD [address] [place] [address] documented as of this encounter Visit Diagnoses Not on filedocumented in this encounter Additional Health Concerns Infection Onset Date Last Indicated Resolved Time COVID-19 09/28/2021 09/28/2021 10/28/2021 9:44 PM ASSISTANT RESTAURANT GENERAL MANAGER Assessment Noted Time PHQ-9 Depression Total Score: 9 11/25/19 18 2:15 PM CDT PHQ-2 Depression Total Score: 4 11/25/19 18 2:15 PM CDT documented as of this encounter Care Teams Kiln Placer Relationship Specialty Start Date End Date Che Williamson MD [address] [place] [address] PCP - General 08/27/12 03/20/22 Prashanth Martinez MD [address] [place] [address] PCP - General Pediatric Medicine 03/21/22 Lydna Skelton MD [address] [place] [address] Provider Team Family Practice 06/10/17 Chelsea Hensley MD [address] [place] [address] Endocrinology 12/08/18 documented as of this encounter
--- OUTSIDE RECORDS SUMMARY | 2025-01-28 20:23 | XMS_ITS | Encounter Summary ---
Author Organization [facility] Care Address [address] [place] [address] Phone Care Team Providers Care Assembler Insulator Name Role Phone Che Williamson MD Primary Care Provider + [phone] Lynda Skelton MD Unavailable Chelsea Hensley MD Unavailable [phone] Prashanth Martinez MD Primary Care Provider [phone] Encounter Details Date Type Department Care Team (Late st Contact Info) Description 10/13/[address] [facility] - Pharmacy [address] [place] [address] Social History Tobacco Use Types Packs/Day Years Used Date Smoking Tobacco: Never Smokeless Tobacco: Never Alcohol Use Standard Drinks/Week Comments No 0 (1 standard drink = 0.6 oz pur e alcohol) Comments No Sex and Gender Information Value Date Recorded Sex Assigned at Female 07/13/2019 6:16 PM FIBER OPTIC SPLICER Legal Sex Female 2:51 AM CDT Gender Identity Transgender Male 05/05/2019 1:23 PM CDT Sexual Orientation Pedraza 06/23/2023 10 :56 AM CDT documented as of this encounter Plan of Treatment Upcoming Encounters Date Type Department Care Team (Late st Contact Info) Description 04/21/2025 2:15 PM CDT Appointment [place] - [facility] [address] [phone] Prashanth Martinez MD 200 [place] [address] 05/02/2025 8:40 AM CDT Appointment [place] - [facility] - Ophthalmology - Optometry [address] [phone] Danuta Golden OD [address] [place] [address] documented as of this encounter Visit Diagnoses Not on filedocumented in this encounter Additional Health Concerns Infection Onset Date Last Indicated Resolved Time COVID-19 09/28/2021 09/28/2021 10/28/2021 9:44 PM FIBER OPTIC SPLICER Assessment Noted Time PHQ-9 Depression Total Score: 9 11/25/19 18 2:15 PM CDT A fall risk assessment has been complete d for the patient 08/19/2019 4:16 PM FIBER OPTIC SPLICER PHQ-2 Depression Total Score: 4 11/25/19 18 2:15 PM CDT documented as of this encounter Care Teams Assembler Insulator Relationship Specialty Start Date End Date Che Williamson MD [address] [place] [address] PCP - General 08/27/12 03/20/22 Prashanth Martinez MD [address] [place] [address] PCP - General Pediatric Medicine 03/21/22 Lynda Skelton MD [facility] [place] [address] Provider Team Family Practice 06/10/17 Chelsea Hensley MD [address] [place] [address] Endocrinology 12/08/18 documented as of this encounter
--- OUTSIDE RECORDS SUMMARY | 2025-01-28 20:23 | XMS_ITS | Encounter Summary ---
Author Organization [facility] Care Address [address] [place] [address] Phone Care Team Providers Care Consultant Internship Name Role Phone Che Williamson MD Primary Care Provider + [phone] Lynda Skelton MD Unavailable Chelsea Hensley MD Unavailable [phone] Prashanth Martinez MD Primary Care Provider [phone] Encounter Details Date Type Department Care Team (Late st Contact Info) Description 09/28/2019 Pharmacy Visit [facility] 200 [place] [address] Social History Tobacco Use Types Packs/Day Years Used Date Smoking Tobacco: Never Smokeless Tobacco: Never Alcohol Use Standard Drinks/Week Comments No 0 (1 standard drink = 0.6 oz pur e alcohol) Comments No Sex and Gender Information Value Date Recorded Sex Assigned at Female 07/13/2019 6:16 PM MEDICAL DIRECTOR/HEAD TEAM PHYSICIAN Legal Sex Female 2:51 AM CDT Gender Identity Transgender Male 05/05/2019 1:23 PM CDT Sexual Orientation Pedraza 06/23/2023 10 :56 AM CDT documented as of this encounter Plan of Treatment Upcoming Encounters Date Type Department Care Team (Late st Contact Info) Description 04/21/2025 2:15 PM CDT Appointment [place] - [facility] - [facility] Clinic [address] [phone] Prashanth Martinez MD 200 [place] [address] 05/02/2025 8:40 AM CDT Appointment [place] - [facility] - Ophthalmology - Optometry [address] [phone] Danuta Golden OD [address] [place] [address] documented as of this encounter Visit Diagnoses Not on filedocumented in this encounter Additional Health Concerns Infection Onset Date Last Indicated Resolved Time COVID-19 09/28/2021 09/28/2021 10/28/2021 9:44 PM MEDICAL DIRECTOR/HEAD TEAM PHYSICIAN Assessment Noted Time PHQ-9 Depression Total Score: 9 11/25/19 18 2:15 PM CDT A fall risk assessment has been complete d for the patient 08/19/2019 4:16 PM MEDICAL DIRECTOR/HEAD TEAM PHYSICIAN PHQ-2 Depression Total Score: 4 11/25/19 18 2:15 PM CDT documented as of this encounter Care Teams Consultant Internship Relationship Specialty Start Date End Date Che Williamson MD [address] [place] [address] PCP - General 08/27/12 03/20/22 Prashanth Martinez MD [address] [place] [address] PCP - General Pediatric Medicine 03/21/22 Lynda Skelton MD [address] [place] [address] Provider Team Family Practice 06/10/17 Chelsea Hensley MD [address] [place] [address] Endocrinology 12/08/18 documented as of this encounter
--- OUTSIDE RECORDS SUMMARY | 2025-01-28 20:23 | XMS_ITS | Encounter Summary ---
Author Organization [facility] Care Address [address] [place] [address] Phone Care Team Providers Care Pad Extractor Tender Name Role Phone Che Williamson MD Primary Care Provider + [phone] Lynda Skelton MD Unavailable Franchesca Manley Unavailable Unavailable Chelsea Hensley MD Unavailable [phone] Prashanth Martinez MD Primary Care Provider [phone] Encounter Details Date Type Department Care Team (Late st Contact Info) Description 11/12/2017 Pharmacy Visit [facility] - Pharmacy - Specialty [address] [place] [address] Social History Tobacco Use Types Packs/Day Years Used Date Smoking Tobacco: Never Smokeless Tobacco: Never Alcohol Use Standard Drinks/Week Comments No 0 (1 standard drink = 0.6 oz pur e alcohol) Comments No Sex and Gender Information Value Date Recorded Sex Assigned at Female 07/13/2019 6:16 PM MANAGER EVENT Legal Sex Female 2:51 AM CDT Gender Identity Transgender Male 05/05/2019 1:23 PM CDT Sexual Orientation Pedraza 06/23/2023 10 :56 AM CDT documented as of this encounter Plan of Treatment Upcoming Encounters Date Type Department Care Team (Late st Contact Info) Description 04/21/2025 2:15 PM CDT Appointment [place] - [facility] - Adolescent Clinic [address] [phone] Prashanth Martinez MD 200 [place] [address] 05/02/2025 8:40 AM CDT Appointment [facility] - Ophthalmology - Optometry [address] [phone] Danuta Golden OD [address] [place] [address] documented as of this encounter Visit Diagnoses Not on filedocumented in this encounter Additional Health Concerns Infection Onset Date Last Indicated Resolved Time COVID-19 09/28/2021 09/28/2021 10/28/2021 9:44 PM MANAGER EVENT Assessment Noted Time PHQ-2 Depression Total Score: 2 05/06/20 17 5:10 PM CDT documented as of this encounter Care Teams Pad Extractor Tender Relationship Specialty Start Date End Date Che Williamson MD [address] [place] [address] PCP - General 08/27/12 03/20/22 Prashanth Martinez MD [address] [place] [address] PCP - General Pediatric Medicine 03/21/22 Lynda Skelton MD [address] [place] [address] Provider Team Family Practice 06/10/17 Franchesca Manley 12/09/17 12/07/18 Chelsea Hensley MD [address] [place] [address] Endocrinology 12/08/18 documented as of this encounter
--- OUTSIDE RECORDS SUMMARY | 2025-01-28 20:23 | XMS_ITS | Encounter Summary ---
Author Organization [facility] Care Address [address] [place] [address] Phone Care Team Providers Care Paralegal Instructor Name Role Phone Ceh Williamson MD Primary Care Provider + [phone] Lynda Skelton MD Unavailable Cheslea Hensley MD Unavailable [phone] Prashanth Martinez MD Primary Care Provider [phone] Encounter Details Date Type Department Care Team (Late st Contact Info) Description 06/15/2019 Pharmacy [facility] - Pharmacy - Specialty [address] [place] [address] Social History Tobacco Use Types Packs/Day Years Used Date Smoking Tobacco: Never Smokeless Tobacco: Never Alcohol Use Standard Drinks/Week Comments No 0 (1 standard drink = 0.6 oz pur e alcohol) Comments No Sex and Gender Information Value Date Recorded Sex Assigned at Female 07/13/2019 6:16 PM CHARTERED ACCOUNTANT Legal Sex Female 2:51 AM CDT Gender Identity Transgender Male 05/05/2019 1:23 PM CDT Sexual Orientation Pedraza 06/23/2023 10 :56 AM CDT documented as of this encounter Plan of Treatment Upcoming Encounters Date Type Department Care Team (Late st Contact Info) Description 04/21/2025 2:15 PM CDT Appointment [place] - [facility] [address] [phone] Prashanth Martinez MD 200 [place] [address] 05/02/2025 8:40 AM CDT Appointment [place] - [facility] - Ophthalmology - Optometry [address] [phone] Danuta Golden OD 200 [place] [address] documented as of this encounter Visit Diagnoses Not on filedocumented in this encounter Additional Health Concerns Infection Onset Date Last Indicated Resolved Time COVID-19 09/28/2021 09/28/2021 10/28/2021 9:44 PM CHARTERED ACCOUNTANT Assessment Noted Time PHQ-9 Depression Total Score: 9 11/25/19 18 2:15 PM CDT PHQ-2 Depression Total Score: 4 11/25/19 18 2:15 PM CDT documented as of this encounter Care Teams Paralegal Instructor Relationship Specialty Start Date End Date Che Williamson MD [address] [place] [address] PCP - General 08/27/12 03/20/22 Prashanth Martinez MD 200 [place] [address] PCP - General Pediatric Medicine 03/21/22 Lynda Skelton MD [address] [place] [address] Provider Team Family Practice 06/10/17 Chelsea Hensley MD [address] [place] [address] Endocrinology 12/08/18 documented as of this encounter
--- OUTSIDE RECORDS SUMMARY | 2025-01-28 20:23 | XMS_ITS | Encounter Summary ---
Author Organization [facility] Care Address [address] [place] [address] Phone Care Team Providers Care Media Supervisor Name Role Phone Che Williamson MD Primary Care Provider + [phone] Lynda Skelton MD Unavailable Chelsea Hensley MD Unavailable [phone] Prashanth Martinez MD Primary Care Provider [phone] Encounter Details Date Type Department Care Team (Late st Contact Info) Description 07/12/2019 Pharmacy Visit [facility] - Pharmacy - Specialty [address] [place] [address] Social History Tobacco Use Types Packs/Day Years Used Date Smoking Tobacco: Never Smokeless Tobacco: Never Alcohol Use Standard Drinks/Week Comments No 0 (1 standard drink = 0.6 oz pur e alcohol) Comments No Sex and Gender Information Value Date Recorded Sex Assigned at Female 07/13/2019 6:16 PM MEDICAL RECORDS AUDITOR Legal Sex Female 2:51 AM CDT Gender Identity Transgender Male 05/05/2019 1:23 PM CDT Sexual Orientation Pedraza 06/23/2023 10 :56 AM CDT documented as of this encounter Plan of Treatment Upcoming Encounters Date Type Department Care Team (Late st Contact Info) Description 04/21/2025 2:15 PM CDT Appointment [place] - [place] - [facility] [address] [phone] Prashanth Martinez MD 200 [place] [address] 05/02/2025 8:40 AM CDT Appointment [place] - [facility] - Ophthalmology - Optometry [address] [phone] Danuta Golden OD 200 [place] [address] documented as of this encounter Visit Diagnoses Not on filedocumented in this encounter Additional Health Concerns Infection Onset Date Last Indicated Resolved Time COVID-19 09/28/2021 09/28/2021 10/28/2021 9:44 PM MEDICAL RECORDS AUDITOR Assessment Noted Time PHQ-9 Depression Total Score: 9 11/25/19 18 2:15 PM CDT PHQ-2 Depression Total Score: 4 11/25/19 18 2:15 PM CDT documented as of this encounter Care Teams Media Supervisor Relationship Specialty Start Date End Date Che Williamson MD [address] [place] [address] PCP - General 08/27/12 03/20/22 Prashanth Martinez MD 200 [place] [address] PCP - General Pediatric Medicine 03/21/22 Lynda Skelton MD [address] [place] [address] Provider Team Family Practice 06/10/17 Chelsea Hensley MD [address] [place] [address] Endocrinology 12/08/18 documented as of this encounter
--- OUTSIDE RECORDS SUMMARY | 2025-01-28 20:23 | XMS_ITS | Encounter Summary ---
Author Organization [facility] Care Address [address] [place] [address] Phone Care Team Providers Care Dining Room Host Name Role Phone Che Williamson MD Primary Care Provider + [phone] Lynda Skelton MD Unavailable Chelsea Hensley MD Unavailable [phone] Prashanth Martinez MD Primary Care Provider [phone] Encounter Details Date Type Department Care Team (Late st Contact Info) Description 06/08/2019 Pharmacy [facility] - Pharmacy - Specialty [address] [place] [address] Social History Tobacco Use Types Packs/Day Years Used Date Smoking Tobacco: Never Smokeless Tobacco: Never Alcohol Use Standard Drinks/Week Comments No 0 (1 standard drink = 0.6 oz pur e alcohol) Comments No Sex and Gender Information Value Date Recorded Sex Assigned at Female 07/13/2019 6:16 PM DIRECTOR OF VIDEO ANALYTICS Legal Sex Female 2:51 AM CDT Gender Identity Transgender Male 05/05/2019 1:23 PM CDT Sexual Orientation Pedraza 06/23/2023 10 :56 AM CDT documented as of this encounter Plan of Treatment Upcoming Encounters Date Type Department Care Team (Late st Contact Info) Description 04/21/2025 2:15 PM CDT Appointment [place] [facility] [address] [phone] Prashanth Martinez MD [address] [place] [address] 05/02/2025 8:40 AM CDT Appointment [place] - [facility] - Ophthalmology - Optometry [address] [phone] Danuta Golden OD [address] [place] [address] documented as of this encounter Visit Diagnoses Not on filedocumented in this encounter Additional Health Concerns Infection Onset Date Last Indicated Resolved Time COVID-19 09/28/2021 09/28/2021 10/28/2021 9:44 PM DIRECTOR OF VIDEO ANALYTICS Assessment Noted Time PHQ-9 Depression Total Score: 9 11/25/19 18 2:15 PM CDT PHQ-2 Depression Total Score: 4 11/25/19 18 2:15 PM CDT documented as of this encounter Care Teams Dining Room Host Relationship Specialty Start Date End Date Che Williamson MD [address] [place] [address] PCP - General 08/27/12 03/20/22 Prashanth Martinez MD [address] [place] [address] PCP - General Pediatric Medicine 03/21/22 Lynda Skelton MD [address] [place] [address] Provider Team Family Practice 06/10/17 Chelsea Hensley MD [address] [place] [address] Endocrinology 12/08/18 documented as of this encounter
--- OUTSIDE RECORDS SUMMARY | 2025-01-28 20:23 | XMS_ITS | Encounter Summary ---
Author Organization [facility] Care Address [address] [place] [address] Phone Care Team Providers Care Rn Clinical Quality Name Role Phone Lynda Skelton MD Unavailable [phone] Chelsea Hensley MD Unavailable [phone] Prashanth Martinez MD Primary Care Provider [phone] Encounter Details Date Type Department Care Team (Late st Contact Info) Description 08/27/2024 Telephone [facility] General Pediatrics [address] [place] [address] Sergio Woodard [address] [place] [address] Social History Tobacco Use Types [...] Assigned at Female 07/13/2019 6:16 PM MOTOR BOSS Legal Sex Female 2:51 AM CDT Gender Identity Transgender Male 05/05/2019 1:23 PM CDT Sexual Orientation Pedraza 06/23/2023 10 :56 AM CDT documented as of this encounter Miscellaneous Notes * Telephone Encounter - Sergio Woodard - 08/27/2024 9:31 AM CST 08/27/2024 9:31 AM Prior Authorization completed for testosterone (VOGELXO) 1% (12.5 mg/1.25 g) per actuation topical gel pump [place] Number: [id number] Your request is approved from 08/27/2024 through 08/27/2025 or as long as your current health insurance plan remains in effect, whichever is shorter. If this prescription needs to be filled outside of this approved date range, a new request for prior authorization will need to be sent for review by your prescribing physician eSrgio Woodard, PCT IRL General Pediatrics R BOSS documented in this encounter Plan of Treatment Upcoming Encounters Date Type Department Care Team (Late st Contact Info) Description 04/21/2025 2:15 PM CDT Appointment [place] [facility] [address] [phone] Prashanth Martinez MD [address] [place] [address] 05/02/2025 8:40 AM CDT Appointment [place] - [facility] - Ophthalmology - Optometry [address] [phone] Danuta Golden OD [address] [place] [address] documented as of this encounter Visit Diagnoses Not on filedocumented in this encounter Additional Health Concerns Assessment Noted Time PHQ-9 Depression Total Score: 12 024 7:59 AM MOTOR BOSS A fall risk assessment has been complete d for the patient 08/27/2024 10:33 AM MOTOR BOSS PHQ-2 Depression Total Score: 3 08/26/20 24 7:59 AM MOTOR BOSS documented as of this encounter Care Teams Rn Clinical Quality Relationship Specialty Start Date End Date Prashanth Martinez MD [address] [place] [address] PCP - General Pediatric Medicine 03/21/22 Lydna Skelton MD [address] [place] [address] Provider Team Family Practice 06/10/17 Chelsea Hensley MD [address] [place] [address] Endocrinology 12/08/18 documented as of this encounter
--- OUTSIDE RECORDS SUMMARY | 2025-01-28 20:23 | XMS_ITS | Encounter Summary ---
Author Organization [facility] Care Address [address] [place] [address] Phone Care Team Providers Care Membership Sales Manager Name Role Phone Che Williamson MD Primary Care Provider + [phone] Lynda Skelton MD Unavailable [phone] Franchesca Manley Unavailable Unavailable Chelsea Hensley MD Unavailable [phone] Prashanth Martinez MD Primary Care Provider [phone] Encounter Details Date Type Department Care Team (Late st Contact Info) Description 09/23/2017 Pharmacy Visit [facility] - Pharmacy - Business Office [address] [place] [address] Social History Tobacco Use Types Packs/Day Years Used Date Smoking Tobacco: Never Smokeless Tobacco: Never Alcohol Use Standard Drinks/Week Comments No 0 (1 standard drink = 0.6 oz pur e alcohol) Comments No Sex and Gender Information Value Date Recorded Sex Assigned at Female 07/13/2019 6:16 PM PROOF READER Legal Sex Female 2:51 AM CDT Gender Identity Transgender Male 05/05/2019 1:23 PM CDT Sexual Orientation Pedraza 06/23/2023 10 :56 AM CDT documented as of this encounter Plan of Treatment Upcoming Encounters Date Type Department Care Team (Late st Contact Info) Description 04/21/2025 2:15 PM CDT Appointment [facility] [address] [phone] Prashanth Martinez MD [address] [place] [address] 05/02/2025 8:40 AM CDT Appointment [facility] - Ophthalmology - Optometry [address] [phone] Danuta Golden OD [address] [place] [address] documented as of this encounter Visit Diagnoses Not on filedocumented in this encounter Additional Health Concerns Infection Onset Date Last Indicated Resolved Time COVID-19 09/28/2021 09/28/2021 10/28/2021 9:44 PM PROOF READER Assessment Noted Time PHQ-2 Depression Total Score: 2 05/06/20 17 5:10 PM CDT documented as of this encounter Care Teams Membership Sales Manager Relationship Specialty Start Date End Date Che Williamson MD [address] [place] [address] PCP - General 08/27/12 03/20/22 Prashanth Martinez MD [address] [place] [address] PCP - General Pediatric Medicine 03/21/22 Lynda Skelton MD [facility] [place] [address] Provider Team Family Practice 06/10/17 Franchesca Manley 12/09/17 12/07/18 Chelsea Hensley MD [address] [place] [address] Endocrinology 12/08/18 documented as of this encounter
--- OUTSIDE RECORDS SUMMARY | 2025-01-28 20:23 | XMS_ITS | Encounter Summary ---
Author Organization [facility] Care Address [address] [place] [address] Phone Care Team Providers Care Rolling Machine Tender Name Role Phone Che Williamson MD Primary Care Provider + [phone] Lynda Skelton MD Unavailable Chelsea Hensley MD Unavailable [phone] Prashanth Martinez MD Primary Care Provider [phone] Encounter Details Date Type Department Care Team (Late st Contact Info) Description 06/16/2019 Pharmacy [facility] - Pharmacy - Specialty [address] [place] [address] Social History Tobacco Use Types Packs/Day Years Used Date Smoking Tobacco: Never Smokeless Tobacco: Never Alcohol Use Standard Drinks/Week Comments No 0 (1 standard drink = 0.6 oz pur e alcohol) Comments No Sex and Gender Information Value Date Recorded Sex Assigned at Female 07/13/2019 6:16 PM IMMUNOLOGY TEACHER Legal Sex Female 2:51 AM CDT Gender Identity Transgender Male 05/05/2019 1:23 PM CDT Sexual Orientation Pedraza 06/23/2023 10 :56 AM CDT documented as of this encounter Plan of Treatment Upcoming Encounters Date Type Department Care Team (Late st Contact Info) Description 04/21/2025 2:15 PM CDT Appointment [place] - [facility] [address] [phone] Prashanth Martinez MD [address] [place] [address] 05/02/2025 8:40 AM CDT Appointment [place] - [facility] - Ophthalmology - Optometry [address] [phone] Danuta Golden OD [address] [place] [address] documented as of this encounter Visit Diagnoses Not on filedocumented in this encounter Additional Health Concerns Infection Onset Date Last Indicated Resolved Time COVID-19 09/28/2021 09/28/2021 10/28/2021 9:44 PM IMMUNOLOGY TEACHER Assessment Noted Time PHQ-9 Depression Total Score: 9 11/25/19 18 2:15 PM CDT PHQ-2 Depression Total Score: 4 11/25/19 18 2:15 PM CDT documented as of this encounter Care Teams Rolling Machine Tender Relationship Specialty Start Date End Date Che Williamson MD [address] [place] [address] PCP - General 08/27/12 03/20/22 Prashanth Martinez MD [address] [place] [address] PCP - General Pediatric Medicine 03/21/22 Lynda Skelton MD [address] [place] [address] Provider Team Family Practice 06/10/17 Chelsea Hensley MD [address] [place] [address] Endocrinology 12/08/18 documented as of this encounter
--- OUTSIDE RECORDS SUMMARY | 2025-01-28 20:23 | XMS_ITS | Encounter Summary ---
Author Organization [facility] Care Address [address] [place] [address] Phone Care Team Providers Care Gasoline Power Shovel Operator Name Role Phone hCe Williamson MD Primary Care Provider + [phone] Lynda Skelton MD Unavailable Chelsea Hensley MD Unavailable [phone] Prashanth Martinez MD Primary Care Provider [phone] Encounter Details Date Type Department Care Team (Late st Contact Info) Description 06/11/2019 Pharmacy [facility] - Pharmacy - Specialty [address] [place] [address] Social History Tobacco Use Types Packs/Day Years Used Date Smoking Tobacco: Never Smokeless Tobacco: Never Alcohol Use Standard Drinks/Week Comments No 0 (1 standard drink = 0.6 oz pur e alcohol) Comments No Sex and Gender Information Value Date Recorded Sex Assigned at Female 07/13/2019 6:16 PM CALIBRATION ENGINEER Legal Sex Female 2:51 AM CDT Gender Identity Transgender Male 05/05/2019 1:23 PM CDT Sexual Orientation Pedraza 06/23/2023 10 :56 AM CDT documented as of this encounter Plan of Treatment Upcoming Encounters Date Type Department Care Team (Late st Contact Info) Description 04/21/2025 2:15 PM CDT Appointment [facility] - [facility] [address] [phone] Prashanth Martinez MD [address] [place] [address] 05/02/2025 8:40 AM CDT Appointment [facility] - Ophthalmology - Optometry [address] [phone] Danuta Golden OD [address] [place] [address] documented as of this encounter Visit Diagnoses Not on filedocumented in this encounter Additional Health Concerns Infection Onset Date Last Indicated Resolved Time COVID-19 09/28/2021 09/28/2021 10/28/2021 9:44 PM CALIBRATION ENGINEER Assessment Noted Time PHQ-9 Depression Total Score: 9 11/25/19 18 2:15 PM CDT PHQ-2 Depression Total Score: 4 11/25/19 18 2:15 PM CDT documented as of this encounter Care Teams Gasoline Power Shovel Operator Relationship Specialty Start Date End Date Che Williamson MD [address] [place] [address] PCP - General 08/27/12 03/20/22 Prashanth Martinez MD [address] [place] [address] PCP - General Pediatric Medicine 03/21/22 Lynda Skelton MD [address] [place] [address] Provider Team Family Practice 06/10/17 Chelsea Hensley MD [address] [place] [address] Endocrinology 12/08/18 documented as of this encounter
--- OUTSIDE RECORDS SUMMARY | 2025-01-28 20:23 | XMS_ITS | Encounter Summary ---
Author Organization [facility] Care Address [address] [place] [address] Phone Care Team Providers Care Mold Stacker Name Role Phone Che Williamson MD Primary Care Provider + [phone] Lynda Skelton MD Unavailable Chelsea Hensley MD Unavailable [phone] Prashanth Martinez MD Primary Care Provider [phone] Encounter Details Date Type Department Care Team (Late st Contact Info) Description 10/09/2019 Pharmacy Visit [facility] - Pharmacy - Specialty [address] [place] [address] Social History Tobacco Use Types Packs/Day Years Used Date Smoking Tobacco: Never Smokeless Tobacco: Never Alcohol Use Standard Drinks/Week Comments No 0 (1 standard drink = 0.6 oz pur e alcohol) Comments No Sex and Gender Information Value Date Recorded Sex Assigned at Female 07/13/2019 6:16 PM DETENTION ATTENDANT Legal Sex Female 2:51 AM CDT Gender Identity Transgender Male 05/05/2019 1:23 PM CDT Sexual Orientation Pedraza 06/23/2023 10 :56 AM CDT documented as of this encounter Plan of Treatment Upcoming Encounters Date Type Department Care Team (Late st Contact Info) Description 04/21/2025 2:15 PM CDT Appointment [place] - [facility] [address] [phone] Prashanth Martinez MD [address] [place] [address] 05/02/2025 8:40 AM CDT Appointment [place] - [facility] - Ophthalmology - Optometry [address] [phone] Danuta Golden OD [address] [place] [address] documented as of this encounter Visit Diagnoses Not on filedocumented in this encounter Additional Health Concerns Infection Onset Date Last Indicated Resolved Time COVID-19 09/28/2021 09/28/2021 10/28/2021 9:44 PM DETENTION ATTENDANT Assessment Noted Time PHQ-9 Depression Total Score: 9 11/25/19 18 2:15 PM CDT A fall risk assessment has been complete d for the patient 08/19/2019 4:16 PM DETENTION ATTENDANT PHQ-2 Depression Total Score: 4 11/25/19 18 2:15 PM CDT documented as of this encounter Care Teams Mold Stacker Relationship Specialty Start Date End Date Che Williamson MD [address] [place] [address] PCP - General 08/27/12 03/20/22 Prashanth Martinez MD [address] [place] [address] PCP - General Pediatric Medicine 03/21/22 Lynda Skelton MD [address] [place] [address] Provider Team Family Practice 06/10/17 Chelsea Hensley MD [address] [place] [address] Endocrinology 12/08/18 documented as of this encounter
--- OUTSIDE RECORDS SUMMARY | 2025-01-28 20:23 | XMS_ITS | Encounter Summary ---
Author Organization [facility] Care Address [address] [place] [address] Phone Care Team Providers Care Middle School Football Coach Name Role Phone Che Williamson MD Primary Care Provider + [phone] Lynda Skelton MD Unavailable Chelsea Hensley MD Unavailable [phone] Prashanth Martinez MD Primary Care Provider [phone] Encounter Details Date Type Department Care Team (Late st Contact Info) Description 10/11/2019 Pharmacy Visit [facility] - Pharmacy - Specialty [address] [place] [address] Social History Tobacco Use Types Packs/Day Years Used Date Smoking Tobacco: Never Smokeless Tobacco: Never Alcohol Use Standard Drinks/Week Comments No 0 (1 standard drink = 0.6 oz pur e alcohol) Comments No Sex and Gender Information Value Date Recorded Sex Assigned at Female 07/13/2019 6:16 PM CUSTOMER PROGRAM SPECIALIST Legal Sex Female 2:51 AM CDT Gender Identity Transgender Male 05/05/2019 1:23 PM CDT Sexual Orientation Pedraza 06/23/2023 10 :56 AM CDT documented as of this encounter Plan of Treatment Upcoming Encounters Date Type Department Care Team (Late st Contact Info) Description 04/21/2025 2:15 PM CDT Appointment [place] [facility] [address] [phone] Prashanth Martinez MD [address] [place] [address] 05/02/2025 8:40 AM CDT Appointment [place] [facility] - Ophthalmology - Optometry [address] [phone] Danuta Golden OD [address] [place] [address] documented as of this encounter Visit Diagnoses Not on filedocumented in this encounter Additional Health Concerns Infection Onset Date Last Indicated Resolved Time COVID-19 09/28/2021 09/28/2021 10/28/2021 9:44 PM CUSTOMER PROGRAM SPECIALIST Assessment Noted Time PHQ-9 Depression Total Score: 9 11/25/19 18 2:15 PM CDT A fall risk assessment has been complete d for the patient 08/19/2019 4:16 PM CUSTOMER PROGRAM SPECIALIST PHQ-2 Depression Total Score: 4 11/25/19 18 2:15 PM CDT documented as of this encounter Care Teams Middle School Football Coach Relationship Specialty Start Date End Date Che Williamson MD [address] [place] [address] PCP - General 08/27/12 03/20/22 Prashanth Martinez MD [address] [place] [address] PCP - General Pediatric Medicine 03/21/22 Lynda Skelton MD [address] [place] [address] Provider Team Family Practice 06/10/17 Chelsea Hensley MD [address] [place] [address] Endocrinology 12/08/18 documented as of this encounter
--- OUTSIDE RECORDS SUMMARY | 2025-01-28 20:23 | XMS_ITS | Encounter Summary ---
Author Organization [facility] Care Address [address] [place] [address] Phone Care Team Providers Care Supervisor Ditching Name Role Phone Che Williamson MD Primary Care Provider + [phone] Lynda Skelton MD Unavailable Chelsea Hensley MD Unavailable [phone] Prashanth Martinez MD Primary Care Provider [phone] Encounter Details Date Type Department Care Team (Late st Contact Info) Description 10/08/2019 Pharmacy Visit [facility] - Pharmacy - Specialty [address] [place] [address] Social History Tobacco Use Types Packs/Day Years Used Date Smoking Tobacco: Never Smokeless Tobacco: Never Alcohol Use Standard Drinks/Week Comments No 0 (1 standard drink = 0.6 oz pur e alcohol) Comments No Sex and Gender Information Value Date Recorded Sex Assigned at Female 07/13/2019 6:16 PM FOURTH GRADE TEACHER Legal Sex Female 2:51 AM CDT Gender Identity Transgender Male 05/05/2019 1:23 PM CDT Sexual Orientation Pedraza 06/23/2023 10 :56 AM CDT documented as of this encounter Plan of Treatment Upcoming Encounters Date Type Department Care Team (Late st Contact Info) Description 04/21/2025 2:15 PM CDT Appointment [place] - [facility] [address] [phone] Prasahnth Martinez MD [address] [place] [address] 05/02/2025 8:40 AM CDT Appointment [place] - [facility] - Ophthalmology - Optometry [address] [phone] Danuta Golden OD [address] [place] [address] documented as of this encounter Visit Diagnoses Not on filedocumented in this encounter Additional Health Concerns Infection Onset Date Last Indicated Resolved Time COVID-19 09/28/2021 09/28/2021 10/28/2021 9:44 PM FOURTH GRADE TEACHER Assessment Noted Time PHQ-9 Depression Total Score: 9 11/25/19 18 2:15 PM CDT A fall risk assessment has been complete d for the patient 08/19/2019 4:16 PM FOURTH GRADE TEACHER PHQ-2 Depression Total Score: 4 11/25/19 18 2:15 PM CDT documented as of this encounter Care Teams Supervisor Ditching Relationship Specialty Start Date End Date Che Williamson MD [address] [place] [address] PCP - General 08/27/12 03/20/22 Prashanth Martinez MD [address] [place] [address] PCP - General Pediatric Medicine 03/21/22 Lynda Skelton MD [address] [place] [address] Provider Team Family Practice 06/10/17 Chelsea Hensley MD [address] [place] [address] Endocrinology 12/08/18 documented as of this encounter
--- OUTSIDE RECORDS SUMMARY | 2025-01-28 20:23 | XMS_ITS | Encounter Summary ---
Author Organization [facility] Care Address [address] [place] [address] Phone Care Team Providers Care Drawstring Knotter Name Role Phone Lynda Skelton MD Unavailable Chelsea Hensley MD Unavailable [phone] Prashanth Martinez MD Primary Care Provider Reason for Visit * Reason Comments Medication Refill Encounter Details Date Type Department Care Team (Late st Contact Info) Description 07/29/2022 [facility] Psychiatry - Child [address] [place] [address] Elis Pearl ARNP [address] [place], [place] [id number] Social History Tobacco Use Types Packs/Day Years Used Date Smoking Tobacco: Never Smokeless Tobacco: Never Alcohol Use Standard Drinks/Week Comments No 0 (1 standard drink = 0.6 oz pur e alcohol) Comments No Sex and Gender Information Value Date Recorded Sex Assigned at Female 07/13/2019 6:16 PM REAL ESTATE DIRECTOR Legal Sex Female 2:51 AM CDT Gender Identity Transgender Male 05/05/2019 1:23 PM CDT Sexual Orientation Pedraza 06/23/2023 10 :56 AM CDT documented as of this encounter Plan of Treatment Upcoming Encounters Date Type Department Care Team (Late st Contact Info) Description 04/21/2025 2:15 PM CDT Appointment [facility] - Adolescent Clinic [address] [phone] Prashanth Martinez MD [address] [place] [address] 05/02/2025 8:40 AM CDT Appointment [facility] - Ophthalmology - Optometry [address] [phone] Danuta Golden OD [address] [place] [address] documented as of this encounter Visit Diagnoses Diagnosis Major depressive disorder, single episode, unspecified documented in this encounter Additional Health Concerns Assessment Noted Time PHQ-9 Depression Total Score: 14 021 2:38 PM CDT A fall risk assessment has been complete d for the patient 07/02/2022 10:06 AM CDT PHQ-2 Depression Total Score: 5 01/25/20 21 2:38 PM CDT documented as of this encounter Care Teams Drawstring Knotter Relationship Specialty Start Date End Date Prashanth Martinez MD [address] [place] [address] PCP - General Pediatric Medicine 03/21/22 Lynda Skelton MD [facility] [place] [address] Provider Team Family Practice 06/10/17 Chelsea Hensley MD [address] [place] [address] Endocrinology 12/08/18 documented as of this encounter
--- OUTSIDE RECORDS SUMMARY | 2025-01-28 20:23 | XMS_ITS | Encounter Summary ---
Author Organization [facility] Care Address [address] [place] [address] Phone Care Team Providers Care Surgery Scheduling Coordinator Name Role Phone Che Williamson MD Primary Care Provider + [phone] Lynda Skelton MD Unavailable Franchesca Manley Unavailable Unavailable Chelsea Hensley MD Unavailable [phone] Prashanth Martinez MD Primary Care Provider [phone] Encounter Details Date Type Department Care Team (Late st Contact Info) Description 10/14/2017 Pharmacy Visit [facility] - Pharmacy - Specialty [address] [place] [address] Social History Tobacco Use Types Packs/Day Years Used Date Smoking Tobacco: Never Smokeless Tobacco: Never Alcohol Use Standard Drinks/Week Comments No 0 (1 standard drink = 0.6 oz pur e alcohol) Comments No Sex and Gender Information Value Date Recorded Sex Assigned at Female 07/13/2019 6:16 PM ALL TERRAIN VEHICLE RACER Legal Sex Female 2:51 AM CDT Gender Identity Transgender Male 05/05/2019 1:23 PM CDT Sexual Orientation Pedraza 06/23/2023 10 :56 AM CDT documented as of this encounter Plan of Treatment Upcoming Encounters Date Type Department Care Team (Late st Contact Info) Description 04/21/2025 2:15 PM CDT Appointment [place] - [facility] - Adolescent Clinic [address] [phone] Prashanth Martinez MD 200 [place] [address] 05/02/2025 8:40 AM CDT Appointment [facility] - Ophthalmology - Optometry [address] [phone] Danuta Golden OD [address] [place] [address] documented as of this encounter Visit Diagnoses Not on filedocumented in this encounter Additional Health Concerns Infection Onset Date Last Indicated Resolved Time COVID-19 09/28/2021 09/28/2021 10/28/2021 9:44 PM ALL TERRAIN VEHICLE RACER Assessment Noted Time PHQ-2 Depression Total Score: 2 05/06/20 17 5:10 PM CDT documented as of this encounter Care Teams Surgery Scheduling Coordinator Relationship Specialty Start Date End Date Che Williamson MD [address] [place] [address] PCP - General 08/27/12 03/20/22 Prashanth Martinez MD [address] [place] [address] PCP - General Pediatric Medicine 03/21/22 Lynda Skelton MD [address] [place] [address] Provider Team Family Practice 06/10/17 Franchesca Manley 12/09/17 12/07/18 Chelsea Hensley MD [address] [place] [address] Endocrinology 12/08/18 documented as of this encounter
--- OUTSIDE RECORDS SUMMARY | 2025-01-28 20:23 | XMS_ITS | Encounter Summary ---
Author Organization [facility] Care Address [address] [place] [address] Phone Care Team Providers Care Cordwood Cutter Helper Name Role Phone Che Williamson MD Primary Care Provider + [phone] Lynda Skelton MD Unavailable Chelsea Hensley MD Unavailable [phone] Prashanth Martinez MD Primary Care Provider Encounter Details Date Type Department Care Team (Late st Contact Info) Description 02/08/[address] [facility] Psychiatry - Child [address] [place] [address] Kellie Stone [address] [place] [address] Social History Tobacco Use Types Packs/Day Years Used Date Smoking Tobacco: Never Smokeless Tobacco: Never Alcohol Use Standard Drinks/Week Comments No 0 (1 standard drink = 0.6 oz pur e alcohol) Comments No Sex and Gender Information Value Date Recorded Sex Assigned at Female 07/13/2019 6:16 PM TECHNOLOGY SALES SPECIALIST Legal Sex Female 2:51 AM CDT Gender Identity Transgender Male 05/05/2019 1:23 PM CDT Sexual Orientation Pedraza 06/23/2023 10 :56 AM CDT documented as of this encounter Miscellaneous Notes * Telephone Encounter - Halle Ford - 02/08/2022 12:54 PM CDT 02/08/2022 - Regular Packet mailed to: Nohemi Soriano(Mother) Mathew Escobar [facility] [address] Per referral triage. 02/20/2022 - Family Packet Received - KK documented in this encounter Plan of Treatment Upcoming Encounters Date Type Department Care Team (Late st Contact Info) Description 04/21/2025 2:15 PM CDT Appointment [place] - [facility] [address] [phone] Prashanth Martinez MD [address] [place] [address] 05/02/2025 8:40 AM CDT Appointment [facility] - Ophthalmology - Optometry [address] [address] Danuta Golden, DANNY [address] [place] [address] documented as of this encounter Visit Diagnoses Not on filedocumented in this encounter Additional Health Concerns Assessment Noted Time PHQ-9 Depression Total Score: 14 021 2:38 PM CDT A fall risk assessment has been complete d for the patient 02/07/2022 2:53 PM CDT PHQ-2 Depression Total Score: 5 01/25/20 21 2:38 PM CDT documented as of this encounter Care Teams Cordwood Cutter Helper Relationship Specialty Start Date End Date Che Williamson MD [address] [place] [address] PCP - General 08/27/12 03/20/22 Prashanth Martinez MD [address] [place] [address] PCP - General Pediatric Medicine 03/21/22 Lynda Skelton MD [address] [place] [address] Provider Team Family Practice 06/10/17 Chelsea Hensley MD [address] [place] [address] Endocrinology 12/08/18 documented as of this encounter
--- OUTSIDE RECORDS SUMMARY | 2025-01-28 20:23 | XMS_ITS | Encounter Summary ---
Author Organization [facility] Care Address [address] [place] [address] Phone Care Team Providers Care Convex Grinder Operator Name Role Phone Che Williamson MD Primary Care Provider Lynda Skelton MD Unavailable Franchesca Manley Unavailable Unavailable Chelsea Hensley MD Unavailable [phone] Prashanth Martinez MD Primary Care Provider [phone] Encounter Details Date Type Department Care Team (Late st Contact Info) Description 11/03/2017 Pharmacy Visit [facility] - Pharmacy - Specialty [address] [place] [address] Social History Tobacco Use Types Packs/Day Years Used Date Smoking Tobacco: Never Smokeless Tobacco: Never Alcohol Use Standard Drinks/Week Comments No 0 (1 standard drink = 0.6 oz pur e alcohol) Comments No Sex and Gender Information Value Date Recorded Sex Assigned at Female 07/13/2019 6:16 PM BANQUET SERVER Legal Sex Female 2:51 AM CDT Gender Identity Transgender Male 05/05/2019 1:23 PM CDT Sexual Orientation Pedraza 06/23/2023 10 :56 AM CDT documented as of this encounter Plan of Treatment Upcoming Encounters Date Type Department Care Team (Late st Contact Info) Description 04/21/2025 2:15 PM CDT Appointment [place] - [facility] - Adolescent Clinic [address] [phone] Prashanth Martinez MD [address] [place] [address] 05/02/2025 8:40 AM CDT Appointment [facility] - Ophthalmology - Optometry [address] [phone] Danuta Golden OD [address] [place] [address] documented as of this encounter Visit Diagnoses Not on filedocumented in this encounter Additional Health Concerns Infection Onset Date Last Indicated Resolved Time COVID-19 09/28/2021 09/28/2021 10/28/2021 9:44 PM BANQUET SERVER Assessment Noted Time PHQ-2 Depression Total Score: 2 05/06/20 17 5:10 PM CDT documented as of this encounter Care Teams Convex Grinder Operator Relationship Specialty Start Date End Date Che Williamson MD [address] [place] [address] PCP - General 08/27/12 03/20/22 Prashanth Martinez MD [address] [place] [address] PCP - General Pediatric Medicine 03/21/22 Lynda Skelton MD [address] [place] [address] Provider Team Family Practice 06/10/17 Franchesca Manley 12/09/17 12/07/18 Chelsea Hensley MD [address] [place] [address] Endocrinology 12/08/18 documented as of this encounter
--- OUTSIDE RECORDS SUMMARY | 2025-01-28 20:23 | XMS_ITS | Encounter Summary ---
Author Organization [facility] Care Address [address] [place] [address] Phone Care Team Providers Care Telecommunicator Supervisor Name Role Phone Che Williamson MD Primary Care Provider + [phone] Lynda Skelton MD Unavailable Franchesca Manley Unavailable Unavailable Chelsea Hensley MD Unavailable [phone] Prashanth Martinez MD Primary Care Provider [phone] Encounter Details Date Type Department Care Team (Late st Contact Info) Description 11/11/2017 Pharmacy Visit [facility] - Pharmacy - Specialty [address] [place] [address] Social History Tobacco Use Types Packs/Day Years Used Date Smoking Tobacco: Never Smokeless Tobacco: Never Alcohol Use Standard Drinks/Week Comments No 0 (1 standard drink = 0.6 oz pur e alcohol) Comments No Sex and Gender Information Value Date Recorded Sex Assigned at Female 07/13/2019 6:16 PM ATHLETIC TRAINING INTERNSHIP Legal Sex Female 2:51 AM CDT Gender Identity Transgender Male 05/05/2019 1:23 PM CDT Sexual Orientation Pedraza 06/23/2023 10 :56 AM CDT documented as of this encounter Plan of Treatment Upcoming Encounters Date Type Department Care Team (Late st Contact Info) Description 04/21/2025 2:15 PM CDT Appointment [place] - [facility] - Adolescent Clinic [address] [phone] Prashanth Martinez MD [address] [place] [address] 05/02/2025 8:40 AM CDT Appointment [facility] - Ophthalmology - Optometry [address] [phone] Danuta Golden OD [address] [place] [address] documented as of this encounter Visit Diagnoses Not on filedocumented in this encounter Additional Health Concerns Infection Onset Date Last Indicated Resolved Time COVID-19 09/28/2021 09/28/2021 10/28/2021 9:44 PM ATHLETIC TRAINING INTERNSHIP Assessment Noted Time PHQ-2 Depression Total Score: 2 05/06/20 17 5:10 PM CDT documented as of this encounter Care Teams Telecommunicator Supervisor Relationship Specialty Start Date End Date Che Williamson MD [address] [place] [address] PCP - General 08/27/12 03/20/22 Prashanth Martinez MD [address] [place] [address] PCP - General Pediatric Medicine 03/21/22 Lynda Skelton MD [address] [place] [address] Provider Team Family Practice 06/10/17 Franchesca Manley 12/09/17 12/07/18 Chelsea Hensley MD [address] [place] [address] Endocrinology 12/08/18 documented as of this encounter
--- OUTSIDE RECORDS SUMMARY | 2025-01-28 20:23 | XMS_ITS | Encounter Summary ---
Author Organization [facility] Care Address [address] [place] [address] Phone Care Team Providers Care Drill Operator Name Role Phone Che Williamson MD Primary Care Provider Lynda Skelton MD Unavailable Franchesca Manley Unavailable Unavailable Chelsea Hensley MD Unavailable [phone] Prashanth Martinez MD Primary Care Provider [phone] Encounter Details Date Type Department Care Team (Late st Contact Info) Description 10/17/2017 Pharmacy Visit [facility] - Pharmacy - Specialty [address] [place] [address] Social History Tobacco Use Types Packs/Day Years Used Date Smoking Tobacco: Never Smokeless Tobacco: Never Alcohol Use Standard Drinks/Week Comments No 0 (1 standard drink = 0.6 oz pur e alcohol) Comments No Sex and Gender Information Value Date Recorded Sex Assigned at Female 07/13/2019 6:16 PM BRIDGE TEACHER Legal Sex Female 2:51 AM CDT Gender Identity Transgender Male 05/05/2019 1:23 PM CDT Sexual Orientation Pedraza 06/23/2023 10 :56 AM CDT documented as of this encounter Plan of Treatment Upcoming Encounters Date Type Department Care Team (Late st Contact Info) Description 04/21/2025 2:15 PM CDT Appointment [place] - [facility] [place] - Adolescent Clinic [address] [phone] Prashanth Martinez MD [address] [place] [address] 05/02/2025 8:40 AM CDT Appointment [facility] - Ophthalmology - Optometry [address] [phone] Danuta Golden OD [address] [place] [address] documented as of this encounter Visit Diagnoses Not on filedocumented in this encounter Additional Health Concerns Infection Onset Date Last Indicated Resolved Time COVID-19 09/28/2021 09/28/2021 10/28/2021 9:44 PM BRIDGE TEACHER Assessment Noted Time PHQ-2 Depression Total Score: 2 05/06/20 17 5:10 PM CDT documented as of this encounter Care Teams Drill Operator Relationship Specialty Start Date End Date Che Williamson MD [address] [place] [address] PCP - General 08/27/12 03/20/22 Prashanth Martinez MD [address] [place] [address] PCP - General Pediatric Medicine 03/21/22 Lynda Skelton MD [address] [place] [address] Provider Team Family Practice 06/10/17 Franchesca Manley 12/09/17 12/07/18 Chelsea Hensley MD [address] [place] [address] Endocrinology 12/08/18 documented as of this encounter
--- OUTSIDE RECORDS SUMMARY | 2025-01-28 20:23 | XMS_ITS | Encounter Summary ---
Author Organization [facility] Care Address [address] [place] [address] Phone Care Team Providers Care Mass Communications Professor Name Role Phone Che Williamson MD Primary Care Provider Lynda Skelton MD Unavailable Franchesca Manley Unavailable Unavailable Chelsea Hensley MD Unavailable [phone] Prashanth Martinez MD Primary Care Provider [phone] Encounter Details Date Type Department Care Team (Late st Contact Info) Description 10/22/2017 Pharmacy Visit [facility] - Pharmacy - Specialty [address] [place] [address] Social History Tobacco Use Types Packs/Day Years Used Date Smoking Tobacco: Never Smokeless Tobacco: Never Alcohol Use Standard Drinks/Week Comments No 0 (1 standard drink = 0.6 oz pur e alcohol) Comments No Sex and Gender Information Value Date Recorded Sex Assigned at Female 07/13/2019 6:16 PM COMMERCIAL CREDIT PORTFOLIO MANAGER Legal Sex Female 2:51 AM CDT Gender Identity Transgender Male 05/05/2019 1:23 PM CDT Sexual Orientation Pedraza 06/23/2023 10 :56 AM CDT documented as of this encounter Plan of Treatment Upcoming Encounters Date Type Department Care Team (Late st Contact Info) Description 04/21/2025 2:15 PM CDT Appointment [place] - [facility] - Adolescent Clinic [address] [phone] Prashanth Martinez MD [address] [place] [address] 05/02/2025 8:40 AM CDT Appointment [facility] - Ophthalmology - Optometry [address] [phone] Danuta Golden OD [address] [place] [address] documented as of this encounter Visit Diagnoses Not on filedocumented in this encounter Additional Health Concerns Infection Onset Date Last Indicated Resolved Time COVID-19 09/28/2021 09/28/2021 10/28/2021 9:44 PM COMMERCIAL CREDIT PORTFOLIO MANAGER Assessment Noted Time PHQ-2 Depression Total Score: 2 05/06/20 17 5:10 PM CDT documented as of this encounter Care Teams Mass Communications Professor Relationship Specialty Start Date End Date Che Williamson MD [address] [place] [address] PCP - General 08/27/12 03/20/22 Prashanth Martinez MD [address] [place] [address] PCP - General Pediatric Medicine 03/21/22 Lynda Skelton MD [address] [place] [address] Provider Team Family Practice 06/10/17 Franchesca Manley 12/09/17 12/07/18 Chelsea Hensley MD [address] [place] [address] Endocrinology 12/08/18 documented as of this encounter
--- OUTSIDE RECORDS SUMMARY | 2025-01-28 20:23 | XMS_ITS | Encounter Summary ---
Author Organization [facility] Care Address [address] [place] [address] Phone Care Team Providers Care Social Service Worker Name Role Phone Che Williamson MD Primary Care Provider + [phone] Lynda Skelton MD Unavailable Chelsea Hensley MD Unavailable [phone] Prashanth Martinez MD Primary Care Provider [phone] Encounter Details Date Type Department Care Team (Late st Contact Info) Description 07/15/2019 Pharmacy Visit [facility] - Pharmacy - Specialty [address] [place] [address] Social History Tobacco Use Types Packs/Day Years Used Date Smoking Tobacco: Never Smokeless Tobacco: Never Alcohol Use Standard Drinks/Week Comments No 0 (1 standard drink = 0.6 oz pur e alcohol) Comments No Sex and Gender Information Value Date Recorded Sex Assigned at Female 07/13/2019 6:16 PM RESIDENTIAL CARPENTER Legal Sex Female 2:51 AM CDT Gender Identity Transgender Male 05/05/2019 1:23 PM CDT Sexual Orientation Pedraza 06/23/2023 10 :56 AM CDT documented as of this encounter Plan of Treatment Upcoming Encounters Date Type Department Care Team (Late st Contact Info) Description 04/21/2025 2:15 PM CDT Appointment [place] - [place] - Adolescent Clinic [address] [phone] Prashanth Martinez MD [address] [place] [address] 05/02/2025 8:40 AM CDT Appointment [place] - [facility] - Ophthalmology - Optometry [address] [phone] Danuta Golden OD [address] [place] [address] documented as of this encounter Visit Diagnoses Not on filedocumented in this encounter Additional Health Concerns Infection Onset Date Last Indicated Resolved Time COVID-19 09/28/2021 09/28/2021 10/28/2021 9:44 PM RESIDENTIAL CARPENTER Assessment Noted Time PHQ-9 Depression Total Score: 9 11/25/19 18 2:15 PM CDT PHQ-2 Depression Total Score: 4 11/25/19 18 2:15 PM CDT documented as of this encounter Care Teams Social Service Worker Relationship Specialty Start Date End Date Che Williamson MD [address] [place] [address] PCP - General 08/27/12 03/20/22 Prashanth Martinez MD [address] [place] [address] PCP - General Pediatric Medicine 03/21/22 Lynda Skelton MD [address] [place] [address] Provider Team Family Practice 06/10/17 Chelsea Hensley MD [address] [place] [address] Endocrinology 12/08/18 documented as of this encounter
--- OUTSIDE RECORDS SUMMARY | 2025-01-28 20:23 | XMS_ITS | Encounter Summary ---
Author Organization [facility] Care Address [address] [place] [address] Phone Care Team Providers Care Profiler Hand Name Role Phone Lynda Skelton MD Unavailable Chelsea Hensley MD Unavailable [phone] Prashanth Martinez MD Primary Care Provider Encounter Details Date Type Department Care Team (Late st Contact Info) Description 07/10/2022 [facility] [address] [place] [address] Elis Torres, RN [address] [place] [address] Social History Tobacco Use Types Packs/Day Years Used Date Smoking Tobacco: Never Smokeless Tobacco: Never Alcohol Use Standard Drinks/Week Comments No 0 (1 standard drink = 0.6 oz pur e alcohol) Comments No Sex and Gender Information Value Date Recorded Sex Assigned at Female 07/13/2019 6:16 PM LIP AND GATE BUILDER Legal Sex Female 2:51 AM CDT Gender Identity Transgender Male 05/05/2019 1:23 PM CDT Sexual Orientation Pedraza 06/23/2023 10 :56 AM CDT documented as of this encounter Miscellaneous Notes * Telephone Encounter - Elis Torres RN - 07/10/2022 11:34 AM CDT Received voice message from therapist, Heydi, at [facility] who is referring pt. For [facility]. Attempted to call Heydi back at [phone], reached , left message indicatingwe received the referral fax/clinical information and that the [facility] team will review and nursing will reach out to pt. About the program. documented in this encounter Plan of Treatment Upcoming Encounters Date Type Department Care Team (Late st Contact Info) Description 04/21/2025 2:15 PM CDT Appointment [place] - [facility] - Adolescent Clinic [address] [phone] Prashanth Martinez MD [address] [place], [place] [address] 05/02/2025 8:40 AM CDT Appointment [facility] - Ophthalmology - Optometry [address] [phone] Danuta Golden, DANNY [address] [place], [place] [phone] documented as of this encounter Visit Diagnoses Not on filedocumented in this encounter Additional Health Concerns Assessment Noted Time PHQ-9 Depression Total Score: 14 021 2:38 PM CDT A fall risk assessment has been complete d for the patient 07/02/2022 10:06 AM CDT PHQ-2 Depression Total Score: 5 01/25/20 21 2:38 PM CDT documented as of this encounter Care Teams Profiler Hand Relationship Specialty Start Date End Date Prashanth Martinez MD [address] [place], [place] [phone] PCP - General Pediatric Medicine 03/21/22 Lynda Skelton MD [address] [place] [address] Provider Team Family Practice 06/10/17 Chelsea Hensley MD [address] [place] [address] Endocrinology 12/08/18 documented as of this encounter
--- OUTSIDE RECORDS SUMMARY | 2025-01-28 20:23 | XMS_ITS | Encounter Summary ---
Author Organization [facility] Care Address [address] [place] [address] Phone Care Team Providers Care County Program Technician Name Role Phone Che Williamson MD Primary Care Provider + [phone] Lynda Skelton MD Unavailable Chelsea Hensley MD Unavailable [phone] Prashanth Martinez MD Primary Care Provider [phone] Encounter Details Date Type Department Care Team (Late st Contact Info) Description 06/10/2019 Pharmacy [facility] - Pharmacy - Specialty [address] [place] [address] Social History Tobacco Use Types Packs/Day Years Used Date Smoking Tobacco: Never Smokeless Tobacco: Never Alcohol Use Standard Drinks/Week Comments No 0 (1 standard drink = 0.6 oz pur e alcohol) Comments No Sex and Gender Information Value Date Recorded Sex Assigned at Female 07/13/2019 6:16 PM POWER SYSTEM DISPATCHER Legal Sex Female 2:51 AM CDT Gender Identity Transgender Male 05/05/2019 1:23 PM CDT Sexual Orientation Pedraza 06/23/2023 10 :56 AM CDT documented as of this encounter Plan of Treatment Upcoming Encounters Date Type Department Care Team (Late st Contact Info) Description 04/21/2025 2:15 PM CDT Appointment [place] - [facility] - Adolescent Clinic [address] [phone] Prashanth Martinez MD 200 [place] [address] 05/02/2025 8:40 AM CDT Appointment [place] - [facility] - Ophthalmology - Optometry [address] [phone] Danuta Golden OD [address] [place] [address] documented as of this encounter Visit Diagnoses Not on filedocumented in this encounter Additional Health Concerns Infection Onset Date Last Indicated Resolved Time COVID-19 09/28/2021 09/28/2021 10/28/2021 9:44 PM POWER SYSTEM DISPATCHER Assessment Noted Time PHQ-9 Depression Total Score: 9 11/25/19 18 2:15 PM CDT PHQ-2 Depression Total Score: 4 11/25/19 18 2:15 PM CDT documented as of this encounter Care Teams County Program Technician Relationship Specialty Start Date End Date Che Williamson MD [address] [place] [address] PCP - General 08/27/12 03/20/22 Prashanth Martinez MD [address] [place] [address] PCP - General Pediatric Medicine 03/21/22 Lynda Skelton MD [address] [place] [address] Provider Team Family Practice 06/10/17 Chelsea Hensley MD [address] [place] [address] Endocrinology 12/08/18 documented as of this encounter
--- OUTSIDE RECORDS SUMMARY | 2025-01-28 20:23 | XMS_ITS | Encounter Summary ---
Author Organization [facility] Address [address] [place] [address] Phone Care Team Providers Care Mortgage Consultant Name Role Phone Che Williamson MD Primary Care Provider + [phone] Lynda Skelton MD Unavailable Chelsea Hensley MD Unavailable [phone] Prashanth Martinez MD Primary Care Provider [phone] Encounter Details Date Type Department Care Team (Late st Contact Info) Description 10/07/2019 Pharmacy Visit [facility] - Pharmacy - Specialty [address] [place] [address] Social History Tobacco Use Types Packs/Day Years Used Date Smoking Tobacco: Never Smokeless Tobacco: Never Alcohol Use Standard Drinks/Week Comments No 0 (1 standard drink = 0.6 oz pur e alcohol) Comments No Sex and Gender Information Value Date Recorded Sex Assigned at Female 07/13/2019 6:16 PM BUNDLE TIER Legal Sex Female 2:51 AM CDT Gender Identity Transgender Male 05/05/2019 1:23 PM CDT Sexual Orientation Pedraza 06/23/2023 10 :56 AM CDT documented as of this encounter Plan of Treatment Upcoming Encounters Date Type Department Care Team (Late st Contact Info) Description 04/21/2025 2:15 PM CDT Appointment [place] [facility] [place] [facility] [address] [phone] Prashanth Martinez MD 200 [place] [address] 05/02/2025 8:40 AM CDT Appointment [place] - [facility] - Ophthalmology - Optometry [address] [phone] Danuta Golden OD [address] [place] [address] documented as of this encounter Visit Diagnoses Not on filedocumented in this encounter Additional Health Concerns Infection Onset Date Last Indicated Resolved Time COVID-19 09/28/2021 09/28/2021 10/28/2021 9:44 PM BUNDLE TIER Assessment Noted Time PHQ-9 Depression Total Score: 9 11/25/19 18 2:15 PM CDT A fall risk assessment has been complete d for the patient 08/19/2019 4:16 PM BUNDLE TIER PHQ-2 Depression Total Score: 4 11/25/19 18 2:15 PM CDT documented as of this encounter Care Teams Mortgage Consultant Relationship Specialty Start Date End Date Che Williamson MD [address] [place] [address] PCP - General 08/27/12 03/20/22 Prashanth Martinez MD [address] [place] [address] PCP - General Pediatric Medicine 03/21/22 Lynda Skelton MD [address] [place] [address] Provider Team Family Practice 06/10/17 Chelsea Hensley MD [address] [place] [address] Endocrinology 12/08/18 documented as of this encounter
--- OUTSIDE RECORDS SUMMARY | 2025-01-28 20:23 | XMS_ITS | Encounter Summary ---
Author Organization [facility] Address [address] [place] [address] Phone Care Team Providers Care Backup Operator Name Role Phone Che Williamson MD Primary Care Provider + [phone] Lynda Skelton MD Unavailable Franchesca Manley Unavailable Unavailable Chelsea Hensley MD Unavailable +[phone] Prashanth Martinez MD Primary Care Provider [phone] Encounter Details Date Type Department Care Team (Late st Contact Info) Description 11/10/2017 Pharmacy Visit [facility] - Pharmacy - Specialty [address] [place] [address] Social History Tobacco Use Types Packs/Day Years Used Date Smoking Tobacco: Never Smokeless Tobacco: Never Alcohol Use Standard Drinks/Week Comments No 0 (1 standard drink = 0.6 oz pur e alcohol) Comments No Sex and Gender Information Value Date Recorded Sex Assigned at Female 07/13/2019 6:16 PM ADVERTISING ANALYST Legal Sex Female 2:51 AM CDT Gender Identity Transgender Male 05/05/2019 1:23 PM CDT Sexual Orientation Pedraza 06/23/2023 10 :56 AM CDT documented as of this encounter Plan of Treatment Upcoming Encounters Date Type Department Care Team (Late st Contact Info) Description 04/21/2025 2:15 PM CDT Appointment [place] - [facility] - Adolescent Clinic [address] [phone] Prashanth Martinez MD [address] [place] [address] 05/02/2025 8:40 AM CDT Appointment [facility] - Ophthalmology - Optometry [address] [phone] Danuta Golden OD [address] [place] [address] documented as of this encounter Visit Diagnoses Not on filedocumented in this encounter Additional Health Concerns Infection Onset Date Last Indicated Resolved Time COVID-19 09/28/2021 09/28/2021 10/28/2021 9:44 PM ADVERTISING ANALYST Assessment Noted Time PHQ-2 Depression Total Score: 2 05/06/20 17 5:10 PM CDT documented as of this encounter Care Teams Backup Operator Relationship Specialty Start Date End Date Che Williamson MD [address] [place] [address] PCP - General 08/27/12 03/20/22 Prashanth Martinez MD [address] [place] [address] PCP - General Pediatric Medicine 03/21/22 Lynda Skelton MD [address] [place] [address] Provider Team Family Practice 06/10/17 Franchesca Manley 12/09/17 12/07/18 Chelsea Hensley MD [address] [place] [address] Endocrinology 12/08/18 documented as of this encounter
--- OUTSIDE RECORDS SUMMARY | 2025-01-28 20:23 | XMS_ITS | Encounter Summary ---
Author Organization [facility] Address [address] [place] [address] Phone Care Team Providers Care Political Geographer Name Role Phone Che Williamson MD Primary Care Provider + [phone] Lynda Skelton MD Unavailable [phone] Franchesca Manley Unavailable Unavailable Chelsea Hensley MD Unavailable [phone] Prashanth Martinez MD Primary Care Provider [phone] Encounter Details Date Type Department Care Team (Late st Contact Info) Description 11/10/2017 Pharmacy Visit [facility] Clinical [facility] [address] [place] [address] Social History Tobacco Use Types Packs/Day Years Used Date Smoking Tobacco: Never Smokeless Tobacco: Never Alcohol Use Standard Drinks/Week Comments No 0 (1 standard drink = 0.6 oz pur e alcohol) Comments No Sex and Gender Information Value Date Recorded Sex Assigned at Female 07/13/2019 6:16 PM LONG CHAIN BEAMER Legal Sex Female 2:51 AM CDT Gender Identity Transgender Male 05/05/2019 1:23 PM CDT Sexual Orientation Pedraza 06/23/2023 10 :56 AM CDT documented as of this encounter Plan of Treatment Upcoming Encounters Date Type Department Care Team (Late st Contact Info) Description 04/21/2025 2:15 PM CDT Appointment [place] - [facility] - Adolescent Clinic [address] [phone] Prashanth Martinez MD [address] [place] [address] 05/02/2025 8:40 AM CDT Appointment [facility] - Ophthalmology - Optometry [address] [phone] Danuta Golden OD [address] [place] [address] documented as of this encounter Visit Diagnoses Not on filedocumented in this encounter Additional Health Concerns Infection Onset Date Last Indicated Resolved Time COVID-19 09/28/2021 09/28/2021 10/28/2021 9:44 PM LONG CHAIN BEAMER Assessment Noted Time PHQ-2 Depression Total Score: 2 05/06/20 17 5:10 PM CDT documented as of this encounter Care Teams Political Geographer Relationship Specialty Start Date End Date Ceh Williamson MD [address] [place] [address] PCP - General 08/27/12 03/20/22 Prashanth Martinez MD [address] [place] [address] PCP - General Pediatric Medicine 03/21/22 Lynda Skelton MD [facility] [place] [address] Provider Team Family Practice 06/10/17 Franchesca Manley 12/09/17 12/07/18 Chelsea Hensley MD [address] [place] [address] Endocrinology 12/08/18 documented as of this encounter
--- OUTSIDE RECORDS SUMMARY | 2025-01-28 20:23 | XMS_ITS | Encounter Summary ---
Author Organization [facility] Care Address [address] [place] [address] Phone Care Team Providers Care Downstairs Maid Name Role Phone Che Williamson MD Primary Care Provider + [phone] Lynda Skelton MD Unavailable Chelsea Hensley MD Unavailable [phone] Prashanth Martinez MD Primary Care Provider [phone] Encounter Details Date Type Department Care Team (Late st Contact Info) Description 10/13/2019 Pharmacy Visit [facility] - Pharmacy - Specialty [address] [place] [address] Social History Tobacco Use Types Packs/Day Years Used Date Smoking Tobacco: Never Smokeless Tobacco: Never Alcohol Use Standard Drinks/Week Comments No 0 (1 standard drink = 0.6 oz pur e alcohol) Comments No Sex and Gender Information Value Date Recorded Sex Assigned at Female 07/13/2019 6:16 PM ELECTRIC CELL TENDER Legal Sex Female 2:51 AM CDT Gender Identity Transgender Male 05/05/2019 1:23 PM CDT Sexual Orientation Pedraza 06/23/2023 10 :56 AM CDT documented as of this encounter Plan of Treatment Upcoming Encounters Date Type Department Care Team (Late st Contact Info) Description 04/21/2025 2:15 PM CDT Appointment [place] - [place] [facility] [address] [phone] Prashanth Martinez MD [address] [place] [address] 05/02/2025 8:40 AM CDT Appointment [place] - [facility] - Ophthalmology - Optometry [address] [phone] Danuta Golden OD [address] [place] [address] documented as of this encounter Visit Diagnoses Not on filedocumented in this encounter Additional Health Concerns Infection Onset Date Last Indicated Resolved Time COVID-19 09/28/2021 09/28/2021 10/28/2021 9:44 PM ELECTRIC CELL TENDER Assessment Noted Time PHQ-9 Depression Total Score: 9 11/25/19 18 2:15 PM CDT A fall risk assessment has been complete d for the patient 08/19/2019 4:16 PM ELECTRIC CELL TENDER PHQ-2 Depression Total Score: 4 11/25/19 18 2:15 PM CDT documented as of this encounter Care Teams Downstairs Maid Relationship Specialty Start Date End Date Che Williamson MD [address] [place] [address] PCP - General 08/27/12 03/20/22 Prashanth Martinez MD [address] [place] [address] PCP - General Pediatric Medicine 03/21/22 Lynda Skelton MD [address] [place] [address] Provider Team Family Practice 06/10/17 Chelsea Hensley MD [address] [place] [address] Endocrinology 12/08/18 documented as of this encounter
--- OUTSIDE RECORDS SUMMARY | 2025-01-28 20:23 | XMS_ITS | Encounter Summary ---
Author Organization [facility] Address [address] [place] [address] Phone Care Team Providers Care Commercial Agent Name Role Phone Che Williamson MD Primary Care Provider + [phone] Lynda Skelton MD Unavailable Chelsea Hensley MD Unavailable [phone] Prashanth Martinez MD Primary Care Provider [phone] Encounter Details Date Type Department Care Team (Late st Contact Info) Description 10/07/2019 Pharmacy Visit [facility] [address] [place] [address] Social History Tobacco Use Types Packs/Day Years Used Date Smoking Tobacco: Never Smokeless Tobacco: Never Alcohol Use Standard Drinks/Week Comments No 0 (1 standard drink = 0.6 oz pur e alcohol) Comments No Sex and Gender Information Value Date Recorded Sex Assigned at Female 07/13/2019 6:16 PM BROADCAST METEOROLOGIST Legal Sex Female 2:51 AM CDT Gender Identity Transgender Male 05/05/2019 1:23 PM CDT Sexual Orientation Pedraza 06/23/2023 10 :56 AM CDT documented as of this encounter Plan of Treatment Upcoming Encounters Date Type Department Care Team (Late st Contact Info) Description 04/21/2025 2:15 PM CDT Appointment [place] - [place] - [facility] [address] [phone] Prashanth Martinez MD [address] [place] [address] 05/02/2025 8:40 AM CDT Appointment [place] - [facility] - Ophthalmology - Optometry [address] [phone] Danuta Golden OD [address] [place] [address] documented as of this encounter Visit Diagnoses Not on filedocumented in this encounter Additional Health Concerns Infection Onset Date Last Indicated Resolved Time COVID-19 09/28/2021 09/28/2021 10/28/2021 9:44 PM BROADCAST METEOROLOGIST Assessment Noted Time PHQ-9 Depression Total Score: 9 11/25/19 18 2:15 PM CDT A fall risk assessment has been complete d for the patient 08/19/2019 4:16 PM BROADCAST METEOROLOGIST PHQ-2 Depression Total Score: 4 11/25/19 18 2:15 PM CDT documented as of this encounter Care Teams Commercial Agent Relationship Specialty Start Date End Date Che Williamson MD [address] [place] [address] PCP - General 08/27/12 03/20/22 Prashanth Martinez MD [address] [place] [address] PCP - General Pediatric Medicine 03/21/22 Lynda Skelton MD [address] [place] [address] Provider Team Family Practice 06/10/17 Chelsea Henlsey MD [address] [place] [address] Endocrinology 12/08/18 documented as of this encounter
--- OUTSIDE RECORDS SUMMARY | 2025-01-28 20:23 | XMS_ITS | Encounter Summary ---
Author Organization [facility] Address [address] [place] [address] Phone Care Team Providers Care Animal Daycare Provider Name Role Phone Che Williamson MD Primary Care Provider + [phone] Lynda Skelton MD Unavailable [phone] Chelsea Hensley MD Unavailable [phone] Prashanth Martinez MD Primary Care Provider [phone] Encounter Details Date Type Department Care Team (Late st Contact Info) Description 10/11/2019 Pharmacy Visit [facility] Clinical Cancer Center [address] [place] [address] Social History Tobacco Use Types Packs/Day Years Used Date Smoking Tobacco: Never Smokeless Tobacco: Never Alcohol Use Standard Drinks/Week Comments No 0 (1 standard drink = 0.6 oz pur e alcohol) Comments No Sex and Gender Information Value Date Recorded Sex Assigned at Female 07/13/2019 6:16 PM REED POLISHER Legal Sex Female 2:51 AM CDT Gender Identity Transgender Male 05/05/2019 1:23 PM CDT Sexual Orientation Pedraza 06/23/2023 10 :56 AM CDT documented as of this encounter Plan of Treatment Upcoming Encounters Date Type Department Care Team (Late st Contact Info) Description 04/21/2025 2:15 PM CDT Appointment [place] - [facility] - Ad[facility]cent Clinic [address] [phone] Prashanth Martinez MD [address] [place] [address] 05/02/2025 8:40 AM CDT Appointment [place] - [facility] - Ophthalmology - Optometry [address] [phone] Danuta Golden OD [address] [place] [address] documented as of this encounter Visit Diagnoses Not on filedocumented in this encounter Additional Health Concerns Infection Onset Date Last Indicated Resolved Time COVID-19 09/28/2021 09/28/2021 10/28/2021 9:44 PM REED POLISHER Assessment Noted Time PHQ-9 Depression Total Score: 9 11/25/19 18 2:15 PM CDT A fall risk assessment has been complete d for the patient 08/19/2019 4:16 PM REED POLISHER PHQ-2 Depression Total Score: 4 11/25/19 18 2:15 PM CDT documented as of this encounter Care Teams Animal Daycare Provider Relationship Specialty Start Date End Date Che Williamson MD [address] [place] [address] PCP - General 08/27/12 03/20/22 Prashanth Martinez MD [address] [place] [address] PCP - General Pediatric Medicine 03/21/22 Lynda Skelton MD [facility] [place] [address] Provider Team Family Practice 06/10/17 Chelsea Hensley MD [address] [place] [address] Endocrinology 12/08/18 documented as of this encounter
--- OUTSIDE RECORDS SUMMARY | 2025-01-28 20:23 | XMS_ITS | Encounter Summary ---
Author Organization [facility] Address [address] [place] [address] Phone Care Team Providers Care Cardiograph Operator Name Role Phone Lynda Skelton MD Unavailable Chelsea Hensley MD Unavailable [phone] Prashanth Martinez MD Primary Care Provider Reason for Visit * Reason Comments Medication Refill Encounter Details Date Type Department Care Team (Late st Contact Info) Description 09/08/2022 [facility] - Psychiatry - Child [address] [place] [address] Elis Pearl ARNP [address] [place], [place] [phone] Social History Tobacco Use Types Packs/Day Years Used Date Smoking Tobacco: Never Smokeless Tobacco: Never Alcohol Use Standard Drinks/Week Comments No 0 (1 standard drink = 0.6 oz pur e alcohol) Comments No Sex and Gender Information Value Date Recorded Sex Assigned at Female 07/13/2019 6:16 PM SUPERVISOR OPEN HEARTH STOCKYARD Legal Sex Female 2:51 AM CDT Gender Identity Transgender Male 05/05/2019 1:23 PM CDT Sexual Orientation Pedraza 06/23/2023 10 :56 AM CDT documented as of this encounter Plan of Treatment Upcoming Encounters Date Type Department Care Team (Late st Contact Info) Description 04/21/2025 2:15 PM CDT Appointment [facility] - Adolescent Clinic [address] [phone] Prashanth Martinez MD [address] [place] [address] 05/02/2025 8:40 AM CDT Appointment [facility] - Ophthalmology - Optometry [address] [phone] Danuta Golden OD [address] [place], [place] [phone] documented as of this encounter Visit Diagnoses Diagnosis Moderate episode of recurrent major depressive disorder (HCC) Anxiety Anxiety state, unspecified documented in this encounter Additional Health Concerns Assessment Noted Time PHQ-9 Depression Total Score: 14 021 2:38 PM CDT A fall risk assessment has been complete d for the patient 08/12/2022 11:35 AM SUPERVISOR OPEN HEARTH STOCKYARD PHQ-2 Depression Total Score: 5 01/25/20 21 2:38 PM CDT documented as of this encounter Care Teams Cardiograph Operator Relationship Specialty Start Date End Date Prashanth Martinez MD [address] [place] [address] PCP - General Pediatric Medicine 03/21/22 Lynda Skelton MD [address] [place] [address] Provider Team Family Practice 06/10/17 Chelsea Hensley MD [address] [place], [place] [phone] Endocrinology 12/08/18 documented as of this encounter
--- OUTSIDE RECORDS SUMMARY | 2025-01-28 20:23 | XMS_ITS | Encounter Summary ---
Author Organization [facility] Address [address] [place] [address] Phone Care Team Providers Care Extension Service Advisor Name Role Phone Che Williamson MD Primary Care Provider + [phone] Lynda Skelton MD Unavailable Franchesca Manley Unavailable Unavailable Chelsea Hensley MD Unavailable [phone] Prashanth Martinez MD Primary Care Provider [phone] Encounter Details Date Type Department Care Team (Late st Contact Info) Description 10/16/2017 Pharmacy Visit [facility] - Pharmacy - Specialty [address] [place] [address] Social History Tobacco Use Types Packs/Day Years Used Date Smoking Tobacco: Never Smokeless Tobacco: Never Alcohol Use Standard Drinks/Week Comments No 0 (1 standard drink = 0.6 oz pur e alcohol) Comments No Sex and Gender Information Value Date Recorded Sex Assigned at Female 07/13/2019 6:16 PM INTERNATIONAL RELATIONS TEACHER Legal Sex Female 2:51 AM CDT Gender Identity Transgender Male 05/05/2019 1:23 PM CDT Sexual Orientation Pedraza 06/23/2023 10 :56 AM CDT documented as of this encounter Plan of Treatment Upcoming Encounters Date Type Department Care Team (Late st Contact Info) Description 04/21/2025 2:15 PM CDT Appointment [place] - [facility] - Adolescent Clinic [address] [phone] Prashanth Martinez MD [address] [place] [address] 05/02/2025 8:40 AM CDT Appointment [facility] - Ophthalmology - Optometry [address] [phone] Danuta Golden OD [address] [place] [address] documented as of this encounter Visit Diagnoses Not on filedocumented in this encounter Additional Health Concerns Infection Onset Date Last Indicated Resolved Time COVID-19 09/28/2021 09/28/2021 10/28/2021 9:44 PM INTERNATIONAL RELATIONS TEACHER Assessment Noted Time PHQ-2 Depression Total Score: 2 05/06/20 17 5:10 PM CDT documented as of this encounter Care Teams Extension Service Advisor Relationship Specialty Start Date End Date Che Williamson MD [address] [place] [address] PCP - General 08/27/12 03/20/22 Prashanth Martinez MD [address] [place] [address] PCP - General Pediatric Medicine 03/21/22 Lynda Skelton MD [address] [place] [address] Provider Team Family Practice 06/10/17 Franchesca Manley 12/09/17 12/07/18 Chelsea Hensley MD [address] [place] [address] Endocrinology 12/08/18 documented as of this encounter
--- OUTSIDE RECORDS SUMMARY | 2025-01-28 20:23 | XMS_ITS | Encounter Summary ---
Author Organization [facility] Care Address [address] [place] [address] Phone Care Team Providers Care Operations Officer Afloat Name Role Phone Che Williamson MD Primary Care Provider + [phone] Lynda Skelton MD Unavailable Chelsea Hensley MD Unavailable [phone] Prashanth Martinez MD Primary Care Provider [phone] Encounter Details Date Type Department Care Team (Late st Contact Info) Description 10/01/2019 Pharmacy Visit [facility] - Pharmacy - Specialty [address] [place] [address] Social History Tobacco Use Types Packs/Day Years Used Date Smoking Tobacco: Never Smokeless Tobacco: Never Alcohol Use Standard Drinks/Week Comments No 0 (1 standard drink = 0.6 oz pur e alcohol) Comments No Sex and Gender Information Value Date Recorded Sex Assigned at Female 07/13/2019 6:16 PM PLASTIC WORKER Legal Sex Female 2:51 AM CDT Gender Identity Transgender Male 05/05/2019 1:23 PM CDT Sexual Orientation Pedraza 06/23/2023 10 :56 AM CDT documented as of this encounter Plan of Treatment Upcoming Encounters Date Type Department Care Team (Late st Contact Info) Description 04/21/2025 2:15 PM CDT Appointment [place] - [facility] - Adolescent Clinic [address] [phone] Prashanth Martinez MD [address] [place] [address] 05/02/2025 8:40 AM CDT Appointment [place] - [facility] - Ophthalmology - Optometry [address] [phone] Danuta Golden OD [address] [place] [address] documented as of this encounter Visit Diagnoses Not on filedocumented in this encounter Additional Health Concerns Infection Onset Date Last Indicated Resolved Time COVID-19 09/28/2021 09/28/2021 10/28/2021 9:44 PM PLASTIC WORKER Assessment Noted Time PHQ-9 Depression Total Score: 9 11/25/19 18 2:15 PM CDT A fall risk assessment has been complete d for the patient 08/19/2019 4:16 PM PLASTIC WORKER PHQ-2 Depression Total Score: 4 11/25/19 18 2:15 PM CDT documented as of this encounter Care Teams Operations Officer Afloat Relationship Specialty Start Date End Date Che Williamson MD [address] [place] [address] PCP - General 08/27/12 03/20/22 Prashanth Martinez MD [address] [place] [address] PCP - General Pediatric Medicine 03/21/22 Lynda Skelton MD [address] [place] [address] Provider Team Family Practice 06/10/17 Chelsea Hensley MD [address] [place] [address] Endocrinology 12/08/18 documented as of this encounter
--- OUTSIDE RECORDS SUMMARY | 2025-01-28 20:23 | XMS_ITS | Encounter Summary ---
Author Organization [facility] Care Address [address] [place] [address] Phone Care Team Providers Care Human Resources Hr Generalist Name Role Phone Che Williamson MD Primary Care Provider Lynda Skelton MD Unavailable Franchesca Manley Unavailable Unavailable Chelsea Hensley MD Unavailable [phone] Prashanth Martinez MD Primary Care Provider [phone] Encounter Details Date Type Department Care Team (Late st Contact Info) Description 10/07/2017 Pharmacy Visit [facility] - Pharmacy - Specialty [address] [place] [address] Social History Tobacco Use Types Packs/Day Years Used Date Smoking Tobacco: Never Smokeless Tobacco: Never Alcohol Use Standard Drinks/Week Comments No 0 (1 standard drink = 0.6 oz pur e alcohol) Comments No Sex and Gender Information Value Date Recorded Sex Assigned at Female 07/13/2019 6:16 PM CHALK EXTRUDING MACHINE OPERATOR Legal Sex Female 2:51 AM CDT Gender Identity Transgender Male 05/05/2019 1:23 PM CDT Sexual Orientation Pedraza 06/23/2023 10 :56 AM CDT documented as of this encounter Plan of Treatment Upcoming Encounters Date Type Department Care Team (Late st Contact Info) Description 04/21/2025 2:15 PM CDT Appointment [place] - [facility] - Adolescent Clinic [address] [phone] Prashanth Martinez MD 200 [place] [address] 05/02/2025 8:40 AM CDT Appointment [facility] - Ophthalmology - Optometry [address] [phone] Danuta Golden OD 200 [place] [address] documented as of this encounter Visit Diagnoses Not on filedocumented in this encounter Additional Health Concerns Infection Onset Date Last Indicated Resolved Time COVID-19 09/28/2021 09/28/2021 10/28/2021 9:44 PM CHALK EXTRUDING MACHINE OPERATOR Assessment Noted Time PHQ-2 Depression Total Score: 2 05/06/20 17 5:10 PM CDT documented as of this encounter Care Teams Human Resources Hr Generalist Relationship Specialty Start Date End Date Che Williamson MD [address] [place] [address] PCP - General 08/27/12 03/20/22 Prashanth Martinez MD [address] [place] [address] PCP - General Pediatric Medicine 03/21/22 Lynda Skelton MD [address] [place] [address] Provider Team Family Practice 06/10/17 Franchesca Manley 12/09/17 12/07/18 Chelsea Hensley MD [address] [place] [address] Endocrinology 12/08/18 documented as of this encounter
--- OUTSIDE RECORDS SUMMARY | 2025-01-28 20:23 | XMS_ITS | Encounter Summary ---
Author Organization [facility] Address [address] [place] [address] Phone Care Team Providers Care Community Service Patrol Officer Name Role Phone Che Williamson MD Primary Care Provider + [phone] Lynda Skelton MD Unavailable Chelsea Hensley MD Unavailable [phone] Prashanth Martinez MD Primary Care Provider [phone] Encounter Details Date Type Department Care Team (Late st Contact Info) Description 10/12/2019 Pharmacy Visit [facility] - Pharmacy - Specialty [address] [place] [address] Social History Tobacco Use Types Packs/Day Years Used Date Smoking Tobacco: Never Smokeless Tobacco: Never Alcohol Use Standard Drinks/Week Comments No 0 (1 standard drink = 0.6 oz pur e alcohol) Comments No Sex and Gender Information Value Date Recorded Sex Assigned at Female 07/13/2019 6:16 PM CASINO PORTER Legal Sex Female 2:51 AM CDT Gender Identity Transgender Male 05/05/2019 1:23 PM CDT Sexual Orientation Pedraza 06/23/2023 10 :56 AM CDT documented as of this encounter Plan of Treatment Upcoming Encounters Date Type Department Care Team (Late st Contact Info) Description 04/21/2025 2:15 PM CDT Appointment [place] [facility] - [facility] [address] [phone] Prashanth Martinez MD [address] [place] [address] 05/02/2025 8:40 AM CDT Appointment [place] [facility] - Ophthalmology - Optometry [address] [phone] Danuta Golden OD [address] [place] [address] documented as of this encounter Visit Diagnoses Not on filedocumented in this encounter Additional Health Concerns Infection Onset Date Last Indicated Resolved Time COVID-19 09/28/2021 09/28/2021 10/28/2021 9:44 PM CASINO PORTER Assessment Noted Time PHQ-9 Depression Total Score: 9 11/25/19 18 2:15 PM CDT A fall risk assessment has been complete d for the patient 08/19/2019 4:16 PM CASINO PORTER PHQ-2 Depression Total Score: 4 11/25/19 18 2:15 PM CDT documented as of this encounter Care Teams Community Service Patrol Officer Relationship Specialty Start Date End Date Che Williamson MD [address] [place] [address] PCP - General 08/27/12 03/20/22 Prashanth Martinez MD [address] [place] [address] PCP - General Pediatric Medicine 03/21/22 Lynda Skelton MD [address] [place] [address] Provider Team Family Practice 06/10/17 Chelsea Hensley MD [address] [place] [address] Endocrinology 12/08/18 documented as of this encounter
--- OUTSIDE RECORDS SUMMARY | 2025-01-28 20:23 | XMS_ITS | Encounter Summary ---
Author Organization [facility] Care Address [address] [place] [address] Phone Care Team Providers Care Flower Pot Press Operator Name Role Phone Che Williamson MD Primary Care Provider + [phone] Lynda Skelton MD Unavailable Chelsea Hensley MD Unavailable [phone] Prashanth Martinez MD Primary Care Provider [phone] Encounter Details Date Type Department Care Team (Late st Contact Info) Description 07/07/2019 Pharmacy Visit [facility] 200 [place] [address] Social History Tobacco Use Types Packs/Day Years Used Date Smoking Tobacco: Never Smokeless Tobacco: Never Alcohol Use Standard Drinks/Week Comments No 0 (1 standard drink = 0.6 oz pur e alcohol) Comments No Sex and Gender Information Value Date Recorded Sex Assigned at Female 07/13/2019 6:16 PM EXTRUSION FORMER Legal Sex Female 2:51 AM CDT Gender Identity Transgender Male 05/05/2019 1:23 PM CDT Sexual Orientation Pedraza 06/23/2023 10 :56 AM CDT documented as of this encounter Plan of Treatment Upcoming Encounters Date Type Department Care Team (Late st Contact Info) Description 04/21/2025 2:15 PM CDT Appointment [place] [facility] - [facility] - Adolescent Clinic [address] [phone] Prashanth Martinez MD [address] [place] [address] 05/02/2025 8:40 AM CDT Appointment [facility] [facility] - Ophthalmology - Optometry [address] [phone] Danuta Golden OD [address] [place] [address] documented as of this encounter Visit Diagnoses Not on filedocumented in this encounter Additional Health Concerns Infection Onset Date Last Indicated Resolved Time COVID-19 09/28/2021 09/28/2021 10/28/2021 9:44 PM EXTRUSION FORMER Assessment Noted Time PHQ-9 Depression Total Score: 9 11/25/19 18 2:15 PM CDT PHQ-2 Depression Total Score: 4 11/25/19 18 2:15 PM CDT documented as of this encounter Care Teams Flower Pot Press Operator Relationship Specialty Start Date End Date Che Williamson MD [address] [place] [address] PCP - General 08/27/12 03/20/22 Prashanth Martinez MD [address] [place] [address] PCP - General Pediatric Medicine 03/21/22 Lynda Skelton MD [address] [place] [address] Provider Team Family Practice 06/10/17 Chelsea Hensley MD [address] [place] [address] Endocrinology 12/08/18 documented as of this encounter
--- OUTSIDE RECORDS SUMMARY | 2025-01-28 20:23 | XMS_ITS | Encounter Summary ---
Author Organization [facility] Care Address [address] [place] [address] Phone Care Team Providers Care Patient Access Registrar Name Role Phone Che Williamson MD Primary Care Provider + [phone] Lynda Skelton MD Unavailable Chelsea Hensley MD Unavailable [phone] Prashanth Martinez MD Primary Care Provider [phone] Encounter Details Date Type Department Care Team (Late st Contact Info) Description 06/14/2019 Pharmacy [facility] - Pharmacy - Specialty [address] [place] [address] Social History Tobacco Use Types Packs/Day Years Used Date Smoking Tobacco: Never Smokeless Tobacco: Never Alcohol Use Standard Drinks/Week Comments No 0 (1 standard drink = 0.6 oz pur e alcohol) Comments No Sex and Gender Information Value Date Recorded Sex Assigned at Female 07/13/2019 6:16 PM DIRECTOR FURNITURE Legal Sex Female 2:51 AM CDT Gender Identity Transgender Male 05/05/2019 1:23 PM CDT Sexual Orientation Pedraza 06/23/2023 10 :56 AM CDT documented as of this encounter Plan of Treatment Upcoming Encounters Date Type Department Care Team (Late st Contact Info) Description 04/21/2025 2:15 PM CDT Appointment [place] - [place] - Adolescent Clinic [address] [phone] Prashanth Martinez MD [address] [place] [address] 05/02/2025 8:40 AM CDT Appointment [place] - [facility] - Ophthalmology - Optometry [address] [phone] Danuta Golden OD 200 [place] [address] documented as of this encounter Visit Diagnoses Not on filedocumented in this encounter Additional Health Concerns Infection Onset Date Last Indicated Resolved Time COVID-19 09/28/2021 09/28/2021 10/28/2021 9:44 PM DIRECTOR FURNITURE Assessment Noted Time PHQ-9 Depression Total Score: 9 11/25/19 18 2:15 PM CDT PHQ-2 Depression Total Score: 4 11/25/19 18 2:15 PM CDT documented as of this encounter Care Teams Patient Access Registrar Relationship Specialty Start Date End Date Che Williamson MD [address] [place] [address] PCP - General 08/27/12 03/20/22 Prashanth Martinez MD [address] [place] [address] PCP - General Pediatric Medicine 03/21/22 Lynda Skelton MD [address] [place] [address] Provider Team Family Practice 06/10/17 Chelsea Hensley MD [address] [place] [address] Endocrinology 12/08/18 documented as of this encounter
--- OUTSIDE RECORDS SUMMARY | 2025-01-28 20:24 | XMS_ITS | Encounter Summary ---
Author Organization [facility] Care Address [address] [place] [address] Phone Care Team Providers Care Swine Extension Field Specialist Name Role Phone Che Williamson MD Primary Care Provider + [phone] Lynda Skelton MD Unavailable Franchesca Manley Unavailable Unavailable Chelsea Hensley MD Unavailable [phone] Prashanth Martinez MD Primary Care Provider [phone] Encounter Details Date Type Department Care Team (Late st Contact Info) Description 06/12/2017 Pharmacy Visit [facility] - Pharmacy - Specialty [address] [place] [address] Social History Tobacco Use Types Packs/Day Years Used Date Smoking Tobacco: Never Smokeless Tobacco: Never Alcohol Use Standard Drinks/Week Comments No 0 (1 standard drink = 0.6 oz pur e alcohol) Comments No Sex and Gender Information Value Date Recorded Sex Assigned at Female 07/13/2019 6:16 PM SHIPWRIGHT Legal Sex Female 2:51 AM CDT Gender Identity Transgender Male 05/05/2019 1:23 PM CDT Sexual Orientation Pedraza 06/23/2023 10 :56 AM CDT documented as of this encounter Plan of Treatment Upcoming Encounters Date Type Department Care Team (Late st Contact Info) Description 04/21/2025 2:15 PM CDT Appointment [place] - [facility] - Adolescent Clinic [address] [phone] Prashanth Martinez MD [address] [place] [address] 05/02/2025 8:40 AM CDT Appointment [facility] - Ophthalmology - Optometry [address] [phone] Danuta Golden OD [address] [place] [address] documented as of this encounter Visit Diagnoses Not on filedocumented in this encounter Additional Health Concerns Infection Onset Date Last Indicated Resolved Time COVID-19 09/28/2021 09/28/2021 10/28/2021 9:44 PM SHIPWRIGHT Assessment Noted Time PHQ-2 Depression Total Score: 2 05/06/20 17 5:10 PM CDT documented as of this encounter Care Teams Swine Extension Field Specialist Relationship Specialty Start Date End Date Che Williamson MD [address] [place] [address] PCP - General 08/27/12 03/20/22 Prashanth Martinez MD [address] [place] [address] PCP - General Pediatric Medicine 03/21/22 Lynda Skelton MD [address] [place] [address] Provider Team Family Practice 06/10/17 Franchesca Manley 12/09/17 12/07/18 Chelsea Hensley MD [address] [place] [address] Endocrinology 12/08/18 documented as of this encounter
--- OUTSIDE RECORDS SUMMARY | 2025-01-28 20:24 | XMS_ITS | Encounter Summary ---
Author Organization [facility] Care Address [address] [place] [address] Phone Care Team Providers Care Critical Care Transport Nurse Name Role Phone Che Williamson MD Primary Care Provider + [phone] Lynda Skelton MD Unavailable Franchesca Manley Unavailable Unavailable Chelsea Hensley MD Unavailable [phone] Prashanth Martinez MD Primary Care Provider [phone] Encounter Details Date Type Department Care Team (Late st Contact Info) Description 06/13/2017 Pharmacy Visit [facility] - Pharmacy [address] [place] [address] Social History Tobacco Use Types Packs/Day Years Used Date Smoking Tobacco: Never Smokeless Tobacco: Never Alcohol Use Standard Drinks/Week Comments No 0 (1 standard drink = 0.6 oz pur e alcohol) Comments No Sex and Gender Information Value Date Recorded Sex Assigned at Female 07/13/2019 6:16 PM PARKING WORKER Legal Sex Female 2:51 AM CDT Gender Identity Transgender Male 05/05/2019 1:23 PM CDT Sexual Orientation Pedraza 06/23/2023 10 :56 AM CDT documented as of this encounter Plan of Treatment Upcoming Encounters Date Type Department Care Team (Late st Contact Info) Description 04/21/2025 2:15 PM CDT Appointment [place] - [facility] - Adolescent Clinic [address] [phone] Prashanth Martinez MD [address] [place] [address] 05/02/2025 8:40 AM CDT Appointment [facility] - Ophthalmology - Optometry [address] [phone] Danuta Golden OD [address] [place] [address] documented as of this encounter Visit Diagnoses Not on filedocumented in this encounter Additional Health Concerns Infection Onset Date Last Indicated Resolved Time COVID-19 09/28/2021 09/28/2021 10/28/2021 9:44 PM PARKING WORKER Assessment Noted Time PHQ-2 Depression Total Score: 2 05/06/20 17 5:10 PM CDT documented as of this encounter Care Teams Critical Care Transport Nurse Relationship Specialty Start Date End Date Che Williamson MD [address] [place] [address] PCP - General 08/27/12 03/20/22 Prashanth Martinez MD [address] [place] [address] PCP - General Pediatric Medicine 03/21/22 Lynda Skelton MD [facility] [place] [address] Provider Team Family Practice 06/10/17 Franchesca Manley 12/09/17 12/07/18 Chelsea Hensley MD [address] [place] [address] Endocrinology 12/08/18 documented as of this encounter
--- OUTSIDE RECORDS SUMMARY | 2025-01-28 20:24 | XMS_ITS | Encounter Summary ---
Author Organization [facility] Care Address [address] [place] [address] Phone Care Team Providers Care Sewer Pipe Layer Name Role Phone Che Williamson MD Primary Care Provider + [phone] Lynda Skelton MD Unavailable Franchesca Manley Unavailable Unavailable Chelsea Hensley MD Unavailable [phone] Prashanth Martinez MD Primary Care Provider [phone] Encounter Details Date Type Department Care Team (Late st Contact Info) Description 08/15/[address] [facility] - Pharmacy - Specialty [address] [place] [address] Social History Tobacco Use Types Packs/Day Years Used Date Smoking Tobacco: Never Smokeless Tobacco: Never Alcohol Use Standard Drinks/Week Comments No 0 (1 standard drink = 0.6 oz pur e alcohol) Comments No Sex and Gender Information Value Date Recorded Sex Assigned at Female 07/13/2019 6:16 PM FLATWORK ASSEMBLER Legal Sex Female 2:51 AM CDT Gender Identity Transgender Male 05/05/2019 1:23 PM CDT Sexual Orientation Pedraza 06/23/2023 10 :56 AM CDT documented as of this encounter Plan of Treatment Upcoming Encounters Date Type Department Care Team (Late st Contact Info) Description 04/21/2025 2:15 PM CDT Appointment [place] - [facility] - Adolescent Clinic [address] [phone] Prashanth Martinez MD [address] [place] [address] 05/02/2025 8:40 AM CDT Appointment [facility] - Ophthalmology - Optometry [address] [phone] Danuta Golden OD [address] [place] [address] documented as of this encounter Visit Diagnoses Not on filedocumented in this encounter Additional Health Concerns Infection Onset Date Last Indicated Resolved Time COVID-19 09/28/2021 09/28/2021 10/28/2021 9:44 PM FLATWORK ASSEMBLER Assessment Noted Time PHQ-2 Depression Total Score: 2 05/06/20 17 5:10 PM CDT documented as of this encounter Care Teams Sewer Pipe Layer Relationship Specialty Start Date End Date Che Williamson MD [address] [place] [address] PCP - General 08/27/12 03/20/22 Prashanth Martinez MD [address] [place] [address] PCP - General Pediatric Medicine 03/21/22 Lynda Skelton MD [address] [place] [address] Provider Team Family Practice 06/10/17 Franchesca Manley 12/09/17 12/07/18 Chelsea Hensley MD [address] [place] [address] Endocrinology 12/08/18 documented as of this encounter
--- OUTSIDE RECORDS SUMMARY | 2025-01-28 20:24 | XMS_ITS | Encounter Summary ---
Author Organization [facility] Care Address [address] [place] [address] Phone Care Team Providers Care Travel Guide Name Role Phone Che Williamson MD Primary Care Provider Lynda Skelton MD Unavailable Franchesca Manley Unavailable Unavailable Chelsea Hensley MD Unavailable [phone] Prashanth Martinez MD Primary Care Provider [phone] Encounter Details Date Type Department Care Team (Late st Contact Info) Description 09/19/2017 Pharmacy Visit [facility] - Pharmacy - Specialty [address] [place] [address] Social History Tobacco Use Types Packs/Day Years Used Date Smoking Tobacco: Never Smokeless Tobacco: Never Alcohol Use Standard Drinks/Week Comments No 0 (1 standard drink = 0.6 oz pur e alcohol) Comments No Sex and Gender Information Value Date Recorded Sex Assigned at Female 07/13/2019 6:16 PM IN FLIGHT REFUELING OPERATOR Legal Sex Female 2:51 AM CDT Gender Identity Transgender Male 05/05/2019 1:23 PM CDT Sexual Orientation Pedraza 06/23/2023 10 :56 AM CDT documented as of this encounter Plan of Treatment Upcoming Encounters Date Type Department Care Team (Late st Contact Info) Description 04/21/2025 2:15 PM CDT Appointment [place] - [facility] - Adolescent Clinic [address] [phone] Prashanth Martinez MD [address] [place] [address] 05/02/2025 8:40 AM CDT Appointment [facility] - Ophthalmology - Optometry [address] [phone] Danuta Golden OD [address] [place] [address] documented as of this encounter Visit Diagnoses Not on filedocumented in this encounter Additional Health Concerns Infection Onset Date Last Indicated Resolved Time COVID-19 09/28/2021 09/28/2021 10/28/2021 9:44 PM IN FLIGHT REFUELING OPERATOR Assessment Noted Time PHQ-2 Depression Total Score: 2 05/06/20 17 5:10 PM CDT documented as of this encounter Care Teams Travel Guide Relationship Specialty Start Date End Date Che Williamson MD [address] [place] [address] PCP - General 08/27/12 03/20/22 Prashanth Martinez MD [address] [place] [address] PCP - General Pediatric Medicine 03/21/22 Lynda Skelton MD [address] [place] [address] Provider Team Family Practice 06/10/17 Franchesca Manley 12/09/17 12/07/18 Chelsea Hensley MD [address] [place] [address] Endocrinology 12/08/18 documented as of this encounter
--- OUTSIDE RECORDS SUMMARY | 2025-01-28 20:24 | XMS_ITS | Encounter Summary ---
Author Organization [facility] Care Address [address] [place] [address] Phone Care Team Providers Care Facilities Project Manager Name Role Phone Che Williamson MD Primary Care Provider + [phone] Lynda Skelton MD Unavailable Franchesca Manley Unavailable Unavailable Chelsea Hensley MD Unavailable [phone] Prashanth Martinez MD Primary Care Provider [phone] Encounter Details Date Type Department Care Team (Late st Contact Info) Description 07/11/2017 Pharmacy Visit [facility] - Pharmacy - Specialty [address] [place] [address] Social History Tobacco Use Types Packs/Day Years Used Date Smoking Tobacco: Never Smokeless Tobacco: Never Alcohol Use Standard Drinks/Week Comments No 0 (1 standard drink = 0.6 oz pur e alcohol) Comments No Sex and Gender Information Value Date Recorded Sex Assigned at Female 07/13/2019 6:16 PM INFORMATION AND DATA ARCHITECT ANALYST Legal Sex Female 2:51 AM CDT Gender Identity Transgender Male 05/05/2019 1:23 PM CDT Sexual Orientation Pedraza 06/23/2023 10 :56 AM CDT documented as of this encounter Plan of Treatment Upcoming Encounters Date Type Department Care Team (Late st Contact Info) Description 04/21/2025 2:15 PM CDT Appointment [place] [facility] [address] [phone] Prashanth Martinez MD [address] [place] [address] 05/02/2025 8:40 AM CDT Appointment [facility] - Ophthalmology - Optometry [address] [phone] Danuta Golden OD [address] [place] [address] documented as of this encounter Visit Diagnoses Not on filedocumented in this encounter Additional Health Concerns Infection Onset Date Last Indicated Resolved Time COVID-19 09/28/2021 09/28/2021 10/28/2021 9:44 PM INFORMATION AND DATA ARCHITECT ANALYST Assessment Noted Time PHQ-2 Depression Total Score: 2 05/06/20 17 5:10 PM CDT documented as of this encounter Care Teams Facilities Project Manager Relationship Specialty Start Date End Date Che Williamson MD [address] [place] [address] PCP - General 08/27/12 03/20/22 Prashanth Martinez MD [address] [place] [address] PCP - General Pediatric Medicine 03/21/22 Lynda Skelton MD [address] [place] [address] Provider Team Family Practice 06/10/17 Franchesca Manley 12/09/17 12/07/18 Chelsea Hensley MD [address] [place] [address] Endocrinology 12/08/18 documented as of this encounter
--- OUTSIDE RECORDS SUMMARY | 2025-01-28 20:24 | XMS_ITS | Encounter Summary ---
Author Organization [facility] Address [address] [place] [address] Phone Care Team Providers Care Programmer Numerical Control Name Role Phone Che Williamson MD Primary Care Provider + [phone] Lynda Skelton MD Unavailable Franchesca Manley Unavailable Unavailable Chelsea Hensley MD Unavailable [phone] Prashanth Martinez MD Primary Care Provider [phone] Encounter Details Date Type Department Care Team (Late st Contact Info) Description 09/16/2017 Pharmacy Visit [facility] - Pharmacy - Specialty [address] [place] [address] Social History Tobacco Use Types Packs/Day Years Used Date Smoking Tobacco: Never Smokeless Tobacco: Never Alcohol Use Standard Drinks/Week Comments No 0 (1 standard drink = 0.6 oz pur e alcohol) Comments No Sex and Gender Information Value Date Recorded Sex Assigned at Female 07/13/2019 6:16 PM UPHOLSTERY AUTO TRIMMER Legal Sex Female 2:51 AM CDT Gender Identity Transgender Male 05/05/2019 1:23 PM CDT Sexual Orientation Pedraza 06/23/2023 10 :56 AM CDT documented as of this encounter Plan of Treatment Upcoming Encounters Date Type Department Care Team (Late st Contact Info) Description 04/21/2025 2:15 PM CDT Appointment [place] - [facility] - Adolescent Clinic [address] [phone] Prashanth Martinez MD 200 [place] [address] 05/02/2025 8:40 AM CDT [place] [facility] [place] [address] [phone] Danuta Golden OD [address] [place] [address] documented as of this encounter Visit Diagnoses Not on filedocumented in this encounter Additional Health Concerns Infection Onset Date Last Indicated Resolved Time COVID-19 09/28/2021 09/28/2021 10/28/2021 9:44 PM UPHOLSTERY AUTO TRIMMER Assessment Noted Time PHQ-2 Depression Total Score: 2 05/06/20 17 5:10 PM CDT documented as of this encounter Care Teams Programmer Numerical Control Relationship Specialty Start Date End Date Che Williamson MD [address] [place] [address] PCP - General 08/27/12 03/20/22 Prashanth Martinez MD [address] [place] [address] PCP - General Pediatric Medicine 03/21/22 Lynda Skelton MD [address] [place] [address] Provider Team Family Practice 06/10/17 Franchesca Manley 12/09/17 12/07/18 Chelsea Hensley MD [address] [place] [address] Endocrinology 12/08/18 documented as of this encounter
--- OUTSIDE RECORDS SUMMARY | 2025-01-28 20:24 | XMS_ITS | Encounter Summary ---
Author Organization [facility] Care Address [address] [place] [address] Phone Care Team Providers Care Vegetable Preparer Name Role Phone Che Williamson MD Primary Care Provider + [phone] Lynda Skelton MD Unavailable [phone] Franchesca Manley Unavailable Unavailable Chelesa Hensley MD Unavailable [phone] Prashanth Martinez MD Primary Care Provider [phone] Encounter Details Date Type Department Care Team (Late st Contact Info) Description 07/14/2017 Pharmacy Visit [facility] - Pharmacy - Business Office [address] [place] [address] Social History Tobacco Use Types Packs/Day Years Used Date Smoking Tobacco: Never Smokeless Tobacco: Never Alcohol Use Standard Drinks/Week Comments No 0 (1 standard drink = 0.6 oz pur e alcohol) Comments No Sex and Gender Information Value Date Recorded Sex Assigned at Female 07/13/2019 6:16 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 Legal Sex Female 2:51 AM CDT Gender Identity Transgender Male 05/05/2019 1:23 PM CDT Sexual Orientation Pedraza 06/23/2023 10 :56 AM CDT documented as of this encounter Plan of Treatment Upcoming Encounters Date Type Department Care Team (Late st Contact Info) Description 04/21/2025 2:15 PM CDT Appointment [place] [facility] [place] - [facility] [address] [phone] Prashanth Martinez MD [address] [place] [address] 05/02/2025 8:40 AM CDT Appointment [place] - [facility] - Ophthalmology - Optometry [address] [phone] Danuta Golden OD [address] [place] [address] documented as of this encounter Visit Diagnoses Not on filedocumented in this encounter Additional Health Concerns Infection Onset Date Last Indicated Resolved Time COVID-19 09/28/2021 09/28/2021 10/28/2021 9:44 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 Assessment Noted Time PHQ-2 Depression Total Score: 2 05/06/20 17 5:10 PM CDT documented as of this encounter Care Teams Vegetable Preparer Relationship Specialty Start Date End Date Che Williamson MD [address] [place] [address] PCP - General 08/27/12 03/20/22 Prashanth Martinez MD [address] [place] [address] PCP - General Pediatric Medicine 03/21/22 Lynda Skelton MD [facility] [place] [address] Provider Team Family Practice 06/10/17 Franchesca Manley 12/09/17 12/07/18 Chelsea Hensley MD [address] [place] [address] Endocrinology 12/08/18 documented as of this encounter
--- OUTSIDE RECORDS SUMMARY | 2025-01-28 20:24 | XMS_ITS | Encounter Summary ---
Author Organization [facility] Address [address] [place] [address] Phone Care Team Providers Care Pastrycook'S Assistant Name Role Phone Che Williamson MD Primary Care Provider Lynda Skelton MD Unavailable Franchesca Manley Unavailable Unavailable Chelsea Hensley MD Unavailable [phone] Prashanth Martinez MD Primary Care Provider [phone] Encounter Details Date Type Department Care Team (Late st Contact Info) Description 06/05/2017 Pharmacy Visit [facility] - Pharmacy - Specialty [address] [place] [address] Social History Tobacco Use Types Packs/Day Years Used Date Smoking Tobacco: Never Smokeless Tobacco: Never Alcohol Use Standard Drinks/Week Comments No 0 (1 standard drink = 0.6 oz pur e alcohol) Comments No Sex and Gender Information Value Date Recorded Sex Assigned at Female 07/13/2019 6:16 PM LINING LAYER Legal Sex Female 2:51 AM CDT Gender Identity Transgender Male 05/05/2019 1:23 PM CDT Sexual Orientation Pedraza 06/23/2023 10 :56 AM CDT documented as of this encounter Plan of Treatment Upcoming Encounters Date Type Department Care Team (Late st Contact Info) Description 04/21/2025 2:15 PM CDT Appointment [place] [facility] - Adolescent Clinic [address] [phone] Prashanth Martinez MD [address] [place] [address] 05/02/2025 8:40 AM CDT Appointment [facility] - Ophthalmology - Optometry [address] [phone] Danuta Golden OD [address] [place] [address] documented as of this encounter Visit Diagnoses Not on filedocumented in this encounter Additional Health Concerns Infection Onset Date Last Indicated Resolved Time COVID-19 09/28/2021 09/28/2021 10/28/2021 9:44 PM LINING LAYER Assessment Noted Time PHQ-2 Depression Total Score: 2 05/06/20 17 5:10 PM CDT documented as of this encounter Care Teams Pastrycook'S Assistant Relationship Specialty Start Date End Date Che Williamson MD [address] [place] [address] PCP - General 08/27/12 03/20/22 Prashanth Martinez MD [address] [place] [address] PCP - General Pediatric Medicine 03/21/22 Lynda Skelton MD [address] [place] [address] Provider Team Family Practice 06/10/17 Franchesca Manley 12/09/17 12/07/18 Chelsea Hensley MD [address] [place] [address] Endocrinology 12/08/18 documented as of this encounter
--- OUTSIDE RECORDS SUMMARY | 2025-01-28 20:24 | XMS_ITS | Encounter Summary ---
Author Organization [facility] Address [address] [place] [address] Phone Care Team Providers Care Appliance Fixer Name Role Phone Che Williamson MD Primary Care Provider Lynda Skelton MD Unavailable Franchesca Manley Unavailable Unavailable Chelsea Hensley MD Unavailable [phone] Prashanth Martinez MD Primary Care Provider [phone] Encounter Details Date Type Department Care Team (Late st Contact Info) Description 08/19/2017 Pharmacy Visit [facility] - Pharmacy - Specialty [address] [place] [address] Social History Tobacco Use Types Packs/Day Years Used Date Smoking Tobacco: Never Smokeless Tobacco: Never Alcohol Use Standard Drinks/Week Comments No 0 (1 standard drink = 0.6 oz pur e alcohol) Comments No Sex and Gender Information Value Date Recorded Sex Assigned at Female 07/13/2019 6:16 PM LOG OPERATIONS COORDINATOR Legal Sex Female 2:51 AM CDT Gender Identity Transgender Male 05/05/2019 1:23 PM CDT Sexual Orientation Pedraza 06/23/2023 10 :56 AM CDT documented as of this encounter Plan of Treatment Upcoming Encounters Date Type Department Care Team (Late st Contact Info) Description 04/21/2025 2:15 PM CDT Appointment [place] - [facility] - Adolescent Clinic [address] [phone] Prashanth Martinez MD [address] [place] [address] 05/02/2025 8:40 AM CDT Appointment [facility] - Ophthalmology - Optometry [address] [phone] Danuta Golden OD [address] [place] [address] documented as of this encounter Visit Diagnoses Not on filedocumented in this encounter Additional Health Concerns Infection Onset Date Last Indicated Resolved Time COVID-19 09/28/2021 09/28/2021 10/28/2021 9:44 PM LOG OPERATIONS COORDINATOR Assessment Noted Time PHQ-2 Depression Total Score: 2 05/06/20 17 5:10 PM CDT documented as of this encounter Care Teams Appliance Fixer Relationship Specialty Start Date End Date Che Williamson MD [address] [place] [address] PCP - General 08/27/12 03/20/22 Prashanth Martinez MD [address] [place] [address] PCP - General Pediatric Medicine 03/21/22 Lynda Skelton MD [address] [place] [address] Provider Team Family Practice 06/10/17 Franchesca Manley 12/09/17 12/07/18 Chelsea Hensley MD [address] [place] [address] Endocrinology 12/08/18 documented as of this encounter
--- OUTSIDE RECORDS SUMMARY | 2025-01-28 20:24 | XMS_ITS | Encounter Summary ---
Author Organization [facility] Care Address [address] [place] [address] Phone Care Team Providers Care Criminal Justice Teacher Name Role Phone Che Williamson MD Primary Care Provider Lynda Skelton MD Unavailable Franchesca Manley Unavailable Unavailable Chelsea Hensley MD Unavailable [phone] Prashanth Martinez MD Primary Care Provider [phone] Encounter Details Date Type Department Care Team (Late st Contact Info) Description 07/09/2017 Pharmacy Visit [facility] - Pharmacy - Specialty [address] [place] [address] Social History Tobacco Use Types Packs/Day Years Used Date Smoking Tobacco: Never Smokeless Tobacco: Never Alcohol Use Standard Drinks/Week Comments No 0 (1 standard drink = 0.6 oz pur e alcohol) Comments No Sex and Gender Information Value Date Recorded Sex Assigned at Female 07/13/2019 6:16 PM RN TRIAGE Legal Sex Female 2:51 AM CDT Gender Identity Transgender Male 05/05/2019 1:23 PM CDT Sexual Orientation Pedraza 06/23/2023 10 :56 AM CDT documented as of this encounter Plan of Treatment Upcoming Encounters Date Type Department Care Team (Late st Contact Info) Description 04/21/2025 2:15 PM CDT Appointment [place] - [facility] - Adolescent Clinic [address] [phone] Prashanth Martinez MD [address] [place] [address] 05/02/2025 8:40 AM CDT Appointment [facility] - Ophthalmology - Optometry [address] [phone] Danuta Golden OD [address] [place] [address] documented as of this encounter Visit Diagnoses Not on filedocumented in this encounter Additional Health Concerns Infection Onset Date Last Indicated Resolved Time COVID-19 09/28/2021 09/28/2021 10/28/2021 9:44 PM RN TRIAGE Assessment Noted Time PHQ-2 Depression Total Score: 2 05/06/20 17 5:10 PM CDT documented as of this encounter Care Teams Criminal Justice Teacher Relationship Specialty Start Date End Date Che Williamson MD [address] [place] [address] PCP - General 08/27/12 03/20/22 Prashanth Martinez MD [address] [place] [address] PCP - General Pediatric Medicine 03/21/22 Lynda Skelton MD [address] [place] [address] Provider Team Family Practice 06/10/17 Franchesca Manley 12/09/17 12/07/18 Chelsea Hensley MD [address] [place] [address] Endocrinology 12/08/18 documented as of this encounter
--- OUTSIDE RECORDS SUMMARY | 2025-01-28 20:24 | XMS_ITS | Encounter Summary ---
Author Organization [facility] Address [address] [place] [address] Phone Care Team Providers Care Abrading Machine Tender Name Role Phone Che Williamson MD Primary Care Provider Lynda Skelton MD Unavailable Franchesca Manley Unavailable Unavailable Chelsea Hensley MD Unavailable [phone] Prashanth Martinez MD Primary Care Provider [phone] Encounter Details Date Type Department Care Team (Late st Contact Info) Description 07/07/2017 Pharmacy Visit [facility] - Pharmacy - Specialty [address] [place] [address] Social History Tobacco Use Types Packs/Day Years Used Date Smoking Tobacco: Never Smokeless Tobacco: Never Alcohol Use Standard Drinks/Week Comments No 0 (1 standard drink = 0.6 oz pur e alcohol) Comments No Sex and Gender Information Value Date Recorded Sex Assigned at Female 07/13/2019 6:16 PM SENIOR WIND TURBINE TECHNICIAN Legal Sex Female 2:51 AM CDT Gender Identity Transgender Male 05/05/2019 1:23 PM CDT Sexual Orientation Pedraza 06/23/2023 10 :56 AM CDT documented as of this encounter Plan of Treatment Upcoming Encounters Date Type Department Care Team (Late st Contact Info) Description 04/21/2025 2:15 PM CDT Appointment [place] - [facility] - Adolescent Clinic [address] [phone] Prashanth Martinez MD [address] [place] [address] 05/02/2025 8:40 AM CDT Appointment [facility] - Ophthalmology - Optometry [address] [phone] Danuta Golden OD [address] [place] [address] documented as of this encounter Visit Diagnoses Not on filedocumented in this encounter Additional Health Concerns Infection Onset Date Last Indicated Resolved Time COVID-19 09/28/2021 09/28/2021 10/28/2021 9:44 PM SENIOR WIND TURBINE TECHNICIAN Assessment Noted Time PHQ-2 Depression Total Score: 2 05/06/20 17 5:10 PM CDT documented as of this encounter Care Teams Abrading Machine Tender Relationship Specialty Start Date End Date Che Williamson MD [address] [place] [address] PCP - General 08/27/12 03/20/22 Prashanth Martinez MD [address] [place] [address] PCP - General Pediatric Medicine 03/21/22 Lynda Skelton MD [address] [place] [address] Provider Team Family Practice 06/10/17 Franchesca Manley 12/09/17 12/07/18 Chelsea Hensley MD [address] [place] [address] Endocrinology 12/08/18 documented as of this encounter
--- OUTSIDE RECORDS SUMMARY | 2025-01-28 20:24 | XMS_ITS | Encounter Summary ---
Author Organization [facility] Care Address [address] [place] [address] Phone Care Team Providers Care Studio Operations Manager Name Role Phone Che Williamson MD Primary Care Provider + [phone] Lynda Skelton MD Unavailable Franchesca Manley Unavailable Unavailable Chelsea Hensley MD Unavailable [phone] Prashanth Martinez MD Primary Care Provider [phone] Encounter Details Date Type Department Care Team (Late st Contact Info) Description 09/10/2017 Pharmacy Visit [facility] - Pharmacy - Specialty [address] [place] [address] Social History Tobacco Use Types Packs/Day Years Used Date Smoking Tobacco: Never Smokeless Tobacco: Never Alcohol Use Standard Drinks/Week Comments No 0 (1 standard drink = 0.6 oz pur e alcohol) Comments No Sex and Gender Information Value Date Recorded Sex Assigned at Female 07/13/2019 6:16 PM ELECTRICIAN OUTSIDE Legal Sex Female 2:51 AM CDT Gender Identity Transgender Male 05/05/2019 1:23 PM CDT Sexual Orientation Pedraza 06/23/2023 10 :56 AM CDT documented as of this encounter Plan of Treatment Upcoming Encounters Date Type Department Care Team (Late st Contact Info) Description 04/21/2025 2:15 PM CDT Appointment [place] - [facility] - Adolescent Clinic [address] [phone] Prashanth Martinez MD [address] [place] [address] 05/02/2025 8:40 AM CDT Appointment [facility] - Ophthalmology - Optometry [address] [phone] Danuta Golden OD [address] [place] [address] documented as of this encounter Visit Diagnoses Not on filedocumented in this encounter Additional Health Concerns Infection Onset Date Last Indicated Resolved Time COVID-19 09/28/2021 09/28/2021 10/28/2021 9:44 PM ELECTRICIAN OUTSIDE Assessment Noted Time PHQ-2 Depression Total Score: 2 05/06/20 17 5:10 PM CDT documented as of this encounter Care Teams Studio Operations Manager Relationship Specialty Start Date End Date Che Williamson MD [address] [place] [address] PCP - General 08/27/12 03/20/22 Prashanth Martinez MD [address] [place] [address] PCP - General Pediatric Medicine 03/21/22 Lynda Skelton MD [address] [place] [address] Provider Team Family Practice 06/10/17 Franchesca Manley 12/09/17 12/07/18 Chelsea Hensley MD [address] [place] [address] Endocrinology 12/08/18 documented as of this encounter
--- OUTSIDE RECORDS SUMMARY | 2025-01-28 20:24 | XMS_ITS | Encounter Summary ---
Author Organization [facility] Care Address [address] [place] [address] Phone Care Team Providers Care President Of [place] Name Role Phone Che Williamson MD Primary Care Provider Lynda Skelton MD Unavailable Franchesca Manley Unavailable Unavailable Chelsea Hensley MD Unavailable [phone] Prashanth Martinez MD Primary Care Provider [phone] Encounter Details Date Type Department Care Team (Late st Contact Info) Description 06/03/2017 Pharmacy Visit [facility] - Pharmacy - Specialty [address] [place] [address] Social History Tobacco Use Types Packs/Day Years Used Date Smoking Tobacco: Never Smokeless Tobacco: Never Alcohol Use Standard Drinks/Week Comments No 0 (1 standard drink = 0.6 oz pur e alcohol) Comments No Sex and Gender Information Value Date Recorded Sex Assigned at Female 07/13/2019 6:16 PM OFFSET LABEL REWINDER Legal Sex Female 2:51 AM CDT Gender Identity Transgender Male 05/05/2019 1:23 PM CDT Sexual Orientation Pedraza 06/23/2023 10 :56 AM CDT documented as of this encounter Plan of Treatment Upcoming Encounters Date Type Department Care Team (Late st Contact Info) Description 04/21/2025 2:15 PM CDT Appointment [place] [facility] - Adolescent Clinic [address] [phone] Prashanth Martinez MD [address] [place] [address] 05/02/2025 8:40 AM CDT Appointment [facility] - Ophthalmology - Optometry [address] [phone] Danuta Golden OD [address] [place] [address] documented as of this encounter Visit Diagnoses Not on filedocumented in this encounter Additional Health Concerns Infection Onset Date Last Indicated Resolved Time COVID-19 09/28/2021 09/28/2021 10/28/2021 9:44 PM OFFSET LABEL REWINDER Assessment Noted Time PHQ-2 Depression Total Score: 2 05/06/20 17 5:10 PM CDT documented as of this encounter Care Teams President Of [place] Relationship Specialty Start Date End Date Che Williamson MD [address] [place] [address] PCP - General 08/27/12 03/20/22 Prashanth Martinez MD [address] [place] [address] PCP - General Pediatric Medicine 03/21/22 Lynda Skelton MD [address] [place] [address] Provider Team Family Practice 06/10/17 Franchesca Manley 12/09/17 12/07/18 Chelsea Hensley MD [address] [place] [address] Endocrinology 12/08/18 documented as of this encounter
--- OUTSIDE RECORDS SUMMARY | 2025-01-28 20:24 | XMS_ITS | Encounter Summary ---
Author Organization [facility] Care Address [address] [place] [address] Phone Care Team Providers Care Tower Crane Operator Name Role Phone Che Williamson MD Primary Care Provider + [phone] Lynda Skelton MD Unavailable Franchesca Manley Unavailable Unavailable Chelsea Hensley MD Unavailable [phone] Prashanth Martinez MD Primary Care Provider [phone] Encounter Details Date Type Department Care Team (Late st Contact Info) Description 07/14/2017 Pharmacy Visit [facility] - Pharmacy - Specialty [address] [place] [address] Social History Tobacco Use Types Packs/Day Years Used Date Smoking Tobacco: Never Smokeless Tobacco: Never Alcohol Use Standard Drinks/Week Comments No 0 (1 standard drink = 0.6 oz pur e alcohol) Comments No Sex and Gender Information Value Date Recorded Sex Assigned at Female 07/13/2019 6:16 PM SOCIAL STAFF WORKER Legal Sex Female 2:51 AM CDT Gender Identity Transgender Male 05/05/2019 1:23 PM CDT Sexual Orientation Pedraza 06/23/2023 10 :56 AM CDT documented as of this encounter Plan of Treatment Upcoming Encounters Date Type Department Care Team (Late st Contact Info) Description 04/21/2025 2:15 PM CDT Appointment [place] - [facility] - Adolescent Clinic [address] [phone] Prashanth Martinez MD [address] [place] [address] 05/02/2025 8:40 AM CDT Appointment [facility] - Ophthalmology - Optometry [address] [phone] Danuta Golden OD [address] [place] [address] documented as of this encounter Visit Diagnoses Not on filedocumented in this encounter Additional Health Concerns Infection Onset Date Last Indicated Resolved Time COVID-19 09/28/2021 09/28/2021 10/28/2021 9:44 PM SOCIAL STAFF WORKER Assessment Noted Time PHQ-2 Depression Total Score: 2 05/06/20 17 5:10 PM CDT documented as of this encounter Care Teams Tower Crane Operator Relationship Specialty Start Date End Date Che Williamson MD [address] [place] [address] PCP - General 08/27/12 03/20/22 Prashanth Martinez MD [address] [place] [address] PCP - General Pediatric Medicine 03/21/22 Lynda Skelton MD [address] [place] [address] Provider Team Family Practice 06/10/17 Franchesca Manley 12/09/17 12/07/18 Chelsea Hensley MD [address] [place] [address] Endocrinology 12/08/18 documented as of this encounter
--- OUTSIDE RECORDS SUMMARY | 2025-01-28 20:24 | XMS_ITS | Encounter Summary ---
Author Organization [facility] Care Address [address] [place] [address] Phone Care Team Providers Care Prison Keeper Name Role Phone Che Williamson MD Primary Care Provider + [phone] Lynda Skelton MD Unavailable Franchesca Manley Unavailable Unavailable Chelsea Hensley MD Unavailable [phone] Prashanth Martinez MD Primary Care Provider [phone] Encounter Details Date Type Department Care Team (Late st Contact Info) Description 09/12/2017 Pharmacy Visit [facility] - Pharmacy - Specialty [address] [place] [address] Social History Tobacco Use Types Packs/Day Years Used Date Smoking Tobacco: Never Smokeless Tobacco: Never Alcohol Use Standard Drinks/Week Comments No 0 (1 standard drink = 0.6 oz pur e alcohol) Comments No Sex and Gender Information Value Date Recorded Sex Assigned at Female 07/13/2019 6:16 PM RESOLUTION SPECIALIST Legal Sex Female 2:51 AM CDT Gender Identity Transgender Male 05/05/2019 1:23 PM CDT Sexual Orientation Pedraza 06/23/2023 10 :56 AM CDT documented as of this encounter Plan of Treatment Upcoming Encounters Date Type Department Care Team (Late st Contact Info) Description 04/21/2025 2:15 PM CDT Appointment [place] - [facility] - Adolescent Clinic [address] [phone] Prashanth Martinez MD 200 [place] [address] 05/02/2025 8:40 AM CDT Appointment [facility] - Ophthalmology - Optometry [address] [phone] Danuta Golden OD 200 [place] [address] documented as of this encounter Visit Diagnoses Not on filedocumented in this encounter Additional Health Concerns Infection Onset Date Last Indicated Resolved Time COVID-19 09/28/2021 09/28/2021 10/28/2021 9:44 PM RESOLUTION SPECIALIST Assessment Noted Time PHQ-2 Depression Total Score: 2 05/06/20 17 5:10 PM CDT documented as of this encounter Care Teams Prison Keeper Relationship Specialty Start Date End Date Che Williamson MD [address] [place] [address] PCP - General 08/27/12 03/20/22 Prashanth Martinez MD [address] [place] [address] PCP - General Pediatric Medicine 03/21/22 Lynda Skelton MD [address] [place] [address] Provider Team Family Practice 06/10/17 Franchesca Manley 12/09/17 12/07/18 Chelsea Hensley MD 200 [place] [address] Endocrinology 12/08/18 documented as of this encounter
--- OUTSIDE RECORDS SUMMARY | 2025-01-28 20:24 | XMS_ITS | Encounter Summary ---
Author Organization [facility] Care Address [address] [place] [address] Phone Care Team Providers Care Radio Announcer Name Role Phone Che Williamson MD Primary Care Provider + [phone] Lynda Skelton MD Unavailable [phone] Franchesca Manley Unavailable Unavailable Chelsea Hensley MD Unavailable [phone] Prashanth Martinez MD Primary Care Provider [phone] Encounter Details Date Type Department Care Team (Late st Contact Info) Description 08/21/2017 Pharmacy Visit [facility] - Pharmacy - Business Office [address] [place] [address] Social History Tobacco Use Types Packs/Day Years Used Date Smoking Tobacco: Never Smokeless Tobacco: Never Alcohol Use Standard Drinks/Week Comments No 0 (1 standard drink = 0.6 oz pur e alcohol) Comments No Sex and Gender Information Value Date Recorded Sex Assigned at Female 07/13/2019 6:16 PM HEATER OPERATOR Legal Sex Female 2:51 AM CDT Gender Identity Transgender Male 05/05/2019 1:23 PM CDT Sexual Orientation Pedraza 06/23/2023 10 :56 AM CDT documented as of this encounter Plan of Treatment Upcoming Encounters Date Type Department Care Team (Late st Contact Info) Description 04/21/2025 2:15 PM CDT Appointment [place] [facility] - Adolescent Clinic [address] [phone] Prashanth Martinez MD 200 [place] [address] 05/02/2025 8:40 AM CDT Appointment [place] - [facility] - Ophthalmology - Optometry [address] [phone] Danuta Golden OD [address] [place] [address] documented as of this encounter Visit Diagnoses Not on filedocumented in this encounter Additional Health Concerns Infection Onset Date Last Indicated Resolved Time COVID-19 09/28/2021 09/28/2021 10/28/2021 9:44 PM HEATER OPERATOR Assessment Noted Time PHQ-2 Depression Total Score: 2 05/06/20 17 5:10 PM CDT documented as of this encounter Care Teams Radio Announcer Relationship Specialty Start Date End Date Che Williamson MD 200 [place] [address] PCP - General 08/27/12 03/20/22 Prashanth Martinez MD [address] [place] [address] PCP - General Pediatric Medicine 03/21/22 Lynda Skelton MD [facility] [place] [address] Provider Team Family Practice 06/10/17 Franchesca Manley 12/09/17 12/07/18 Chelsea Hensley MD [address] [place] [address] Endocrinology 12/08/18 documented as of this encounter
--- OUTSIDE RECORDS SUMMARY | 2025-01-28 20:24 | XMS_ITS | Encounter Summary ---
Author Organization [facility] Care Address [address] [place] [address] Phone Care Team Providers Care Machined Parts Quality Inspector Name Role Phone Che Williamson MD Primary Care Provider Lynda Skelton MD Unavailable Franchesca Manley Unavailable Unavailable Chelsea Hensley MD Unavailable [phone] Prashanth Martinez MD Primary Care Provider [phone] Encounter Details Date Type Department Care Team (Late st Contact Info) Description 07/03/2017 Pharmacy Visit [facility] - Pharmacy - Specialty [address] [place] [address] Social History Tobacco Use Types Packs/Day Years Used Date Smoking Tobacco: Never Smokeless Tobacco: Never Alcohol Use Standard Drinks/Week Comments No 0 (1 standard drink = 0.6 oz pur e alcohol) Comments No Sex and Gender Information Value Date Recorded Sex Assigned at Female 07/13/2019 6:16 PM SURGICAL INSTRUMENT MAKER Legal Sex Female 2:51 AM CDT Gender Identity Transgender Male 05/05/2019 1:23 PM CDT Sexual Orientation Pedraza 06/23/2023 10 :56 AM CDT documented as of this encounter Plan of Treatment Upcoming Encounters Date Type Department Care Team (Late st Contact Info) Description 04/21/2025 2:15 PM CDT Appointment [place] [facility] - Adolescent Clinic [address] [phone] Prashanth Martinez MD 200 [place] [address] 05/02/2025 8:[address] [facility] - Ophthalmology - Optometry [address] [phone] Danuta Golden OD [address] [place] [address] documented as of this encounter Visit Diagnoses Not on filedocumented in this encounter Additional Health Concerns Infection Onset Date Last Indicated Resolved Time COVID-19 09/28/2021 09/28/2021 10/28/2021 9:44 PM SURGICAL INSTRUMENT MAKER Assessment Noted Time PHQ-2 Depression Total Score: 2 05/06/20 17 5:10 PM CDT documented as of this encounter Care Teams Machined Parts Quality Inspector Relationship Specialty Start Date End Date Che Williamson MD [address] [place] [address] PCP - General 08/27/12 03/20/22 Prashanth Martinez MD [address] [place] [address] PCP - General Pediatric Medicine 03/21/22 Lynda Skelton MD [address] [place] [address] Provider Team Family Practice 06/10/17 Franchesca Manley 12/09/17 12/07/18 Chelsea Hensley MD [address] [place] [address] Endocrinology 12/08/18 documented as of this encounter
--- OUTSIDE RECORDS SUMMARY | 2025-01-28 20:24 | XMS_ITS | Encounter Summary ---
Author Organization [facility] Care Address [address] [place] [address] Phone Care Team Providers Care Air Compressor Engineer Name Role Phone Che Williamson MD Primary Care Provider Lynda Skelton MD Unavailable Franchesca Manley Unavailable Unavailable Chelsea Hensley MD Unavailable [phone] Prasahnth Martinez MD Primary Care Provider [phone] Encounter Details Date Type Department Care Team (Late st Contact Info) Description 08/07/2017 Pharmacy Visit [facility] - Pharmacy - Specialty [address] [place] [address] Social History Tobacco Use Types Packs/Day Years Used Date Smoking Tobacco: Never Smokeless Tobacco: Never Alcohol Use Standard Drinks/Week Comments No 0 (1 standard drink = 0.6 oz pur e alcohol) Comments No Sex and Gender Information Value Date Recorded Sex Assigned at Female 07/13/2019 6:16 PM REGISTRY NP Legal Sex Female 2:51 AM CDT Gender Identity Transgender Male 05/05/2019 1:23 PM CDT Sexual Orientation Pedraza 06/23/2023 10 :56 AM CDT documented as of this encounter Plan of Treatment Upcoming Encounters Date Type Department Care Team (Late st Contact Info) Description 04/21/2025 2:15 PM CDT Appointment [place] - [facility] - Adolescent Clinic [address] [phone] Prashanth Martinez MD 200 [place] [address] 05/02/2025 8:40 AM CDT Appointment [facility] - Ophthalmology - Optometry [address] [phone] Danuta Golden OD 200 [place] [address] documented as of this encounter Visit Diagnoses Not on filedocumented in this encounter Additional Health Concerns Infection Onset Date Last Indicated Resolved Time COVID-19 09/28/2021 09/28/2021 10/28/2021 9:44 PM REGISTRY NP Assessment Noted Time PHQ-2 Depression Total Score: 2 05/06/20 17 5:10 PM CDT documented as of this encounter Care Teams Air Compressor Engineer Relationship Specialty Start Date End Date Che Williamson MD [address] [place] [address] PCP - General 08/27/12 03/20/22 Prashanth Martinez MD [address] [place] [address] PCP - General Pediatric Medicine 03/21/22 Lynda Skelton MD [address] [place] [address] Provider Team Family Practice 06/10/17 Franchesca Manley 12/09/17 12/07/18 Chelsea Hensley MD [address] [place] [address] Endocrinology 12/08/18 documented as of this encounter
--- OUTSIDE RECORDS SUMMARY | 2025-01-28 20:24 | XMS_ITS | Encounter Summary ---
Author Organization [facility] Care Address [address] [place] [address] Phone Care Team Providers Care Educational Coordinator Name Role Phone Che Williamson MD Primary Care Provider Lynda Skelton MD Unavailable Franchesca Manley Unavailable Unavailable Chelsea Hensley MD Unavailable [phone] Prashanth Martinez MD Primary Care Provider [phone] Encounter Details Date Type Department Care Team (Late st Contact Info) Description 09/05/2017 [facility]acy - Specialty [address] [place] [address] Social History Tobacco Use Types Packs/Day Years Used Date Smoking Tobacco: Never Smokeless Tobacco: Never Alcohol Use Standard Drinks/Week Comments No 0 (1 standard drink = 0.6 oz pur e alcohol) Comments No Sex and Gender Information Value Date Recorded Sex Assigned at Female 07/13/2019 6:16 PM PAN DEVULCANIZER Legal Sex Female 2:51 AM CDT Gender Identity Transgender Male 05/05/2019 1:23 PM CDT Sexual Orientation Pedraza 06/23/2023 10 :56 AM CDT documented as of this encounter Plan of Treatment Upcoming Encounters Date Type Department Care Team (Late st Contact Info) Description 04/21/2025 2:15 PM CDT Appointment [place] - [facility] - Adolescent Clinic [address] [phone] Prashanth Martinez MD 200 [place] [address] 05/02/2025 8:40 AM CDT Appointment [facility] - Ophthalmology - Optometry [address] [phone] Danuta Golden OD [address] [place] [address] documented as of this encounter Visit Diagnoses Not on filedocumented in this encounter Additional Health Concerns Infection Onset Date Last Indicated Resolved Time COVID-19 09/28/2021 09/28/2021 10/28/2021 9:44 PM PAN DEVULCANIZER Assessment Noted Time PHQ-2 Depression Total Score: 2 05/06/20 17 5:10 PM CDT documented as of this encounter Care Teams Educational Coordinator Relationship Specialty Start Date End Date Che Williamson MD [address] [place] [address] PCP - General 08/27/12 03/20/22 Prashanth Martinez MD [address] [place] [address] PCP - General Pediatric Medicine 03/21/22 Lynda Skelton MD [address] [place] [address] Provider Team Family Practice 06/10/17 Franchesca Manlye 12/09/17 12/07/18 Chelsea Hensley MD [address] [place] [address] Endocrinology 12/08/18 documented as of this encounter
--- OUTSIDE RECORDS SUMMARY | 2025-01-28 20:24 | XMS_ITS | Encounter Summary ---
Author Organization [facility] Care Address [address] [place] [address] Phone Care Team Providers Care Hull Line Crew Member Name Role Phone Che Williamson MD Primary Care Provider + [phone] Lynda Skelton MD Unavailable [phone] Franchesca Manley Unavailable Unavailable Chelsea Hensley MD Unavailable [phone] Prashanth Martinez MD Primary Care Provider [phone] Encounter Details Date Type Department Care Team (Late st Contact Info) Description 08/29/2017 Pharmacy Visit [facility] - Pharmacy - Business Office [address] [place] [address] Social History Tobacco Use Types Packs/Day Years Used Date Smoking Tobacco: Never Smokeless Tobacco: Never Alcohol Use Standard Drinks/Week Comments No 0 (1 standard drink = 0.6 oz pur e alcohol) Comments No Sex and Gender Information Value Date Recorded Sex Assigned at Female 07/13/2019 6:16 PM SAVINGS TELLER Legal Sex Female 2:51 AM CDT Gender Identity Transgender Male 05/05/2019 1:23 PM CDT Sexual Orientation Pedraza 06/23/2023 10 :56 AM CDT documented as of this encounter Plan of Treatment Upcoming Encounters Date Type Department Care Team (Late st Contact Info) Description 04/21/2025 2:15 PM CDT Appointment [place] - [facility] - Adolescent Clinic [address] [phone] Prashanth Martinez MD [address] [place] [address] 05/02/2025 8:40 AM CDT Appointment [place] - [facility] - Ophthalmology - Optometry [address] [phone] Danuta Golden OD [address] [place] [address] documented as of this encounter Visit Diagnoses Not on filedocumented in this encounter Additional Health Concerns Infection Onset Date Last Indicated Resolved Time COVID-19 09/28/2021 09/28/2021 10/28/2021 9:44 PM SAVINGS TELLER Assessment Noted Time PHQ-2 Depression Total Score: 2 05/06/20 17 5:10 PM CDT documented as of this encounter Care Teams Hull Line Crew Member Relationship Specialty Start Date End Date Che Williamson MD 200 [place] [address] PCP - General 08/27/12 03/20/22 Prashanth Martinez MD [address] [place] [address] PCP - General Pediatric Medicine 03/21/22 Lynda Skelton MD [facility] [place] [address] Provider Team Family Practice 06/10/17 Franchesca Manley 12/09/17 12/07/18 Chelsea Hensley MD [address] [place] [address] Endocrinology 12/08/18 documented as of this encounter
--- OUTSIDE RECORDS SUMMARY | 2025-01-28 20:24 | XMS_ITS | Encounter Summary ---
Author Organization [facility] Care Address [address] [place] [address] Phone Care Team Providers Care Telecom Sales Consultant Name Role Phone Che Williamson MD Primary Care Provider Lynda Skelton MD Unavailable Franchesca Manley Unavailable Unavailable Chelsea Hensley MD Unavailable [phone] Prashanth Martinez MD Primary Care Provider [phone] Encounter Details Date Type Department Care Team (Late st Contact Info) Description 09/04/2017 Pharmacy Visit [facility] - Pharmacy - Specialty [address] [place] [address] Social History Tobacco Use Types Packs/Day Years Used Date Smoking Tobacco: Never Smokeless Tobacco: Never Alcohol Use Standard Drinks/Week Comments No 0 (1 standard drink = 0.6 oz pur e alcohol) Comments No Sex and Gender Information Value Date Recorded Sex Assigned at Female 07/13/2019 6:16 PM PARKING METER SERVICER Legal Sex Female 2:51 AM CDT Gender Identity Transgender Male 05/05/2019 1:23 PM CDT Sexual Orientation Pedraza 06/23/2023 10 :56 AM CDT documented as of this encounter Plan of Treatment Upcoming Encounters Date Type Department Care Team (Late st Contact Info) Description 04/21/2025 2:15 PM CDT Appointment [place] - [facility] - Adolescent Clinic [address] [phone] Prashanth Martinez MD [address] [place] [address] 05/02/2025 8:40 AM CDT Appointment [facility] - Ophthalmology - Optometry [address] [phone] Danuta Golden OD [address] [place] [address] documented as of this encounter Visit Diagnoses Not on filedocumented in this encounter Additional Health Concerns Infection Onset Date Last Indicated Resolved Time COVID-19 09/28/2021 09/28/2021 10/28/2021 9:44 PM PARKING METER SERVICER Assessment Noted Time PHQ-2 Depression Total Score: 2 05/06/20 17 5:10 PM CDT documented as of this encounter Care Teams Telecom Sales Consultant Relationship Specialty Start Date End Date Che Williamson MD [address] [place] [address] PCP - General 08/27/12 03/20/22 Prashanth Martinez MD [address] [place] [address] PCP - General Pediatric Medicine 03/21/22 Lynda Skelton MD [address] [place] [address] Provider Team Family Practice 06/10/17 Franchesca Manley 12/09/17 12/07/18 Chelsea Hensley MD [address] [place] [address] Endocrinology 12/08/18 documented as of this encounter
--- OUTSIDE RECORDS SUMMARY | 2025-01-28 20:24 | XMS_ITS | Encounter Summary ---
Author Organization [facility] Care Address [address] [place] [address] Phone Care Team Providers Care Windows Deployment Technician Name Role Phone Che Williamson MD Primary Care Provider + [phone] Lynda Skelton MD Unavailable [phone] Franchesca Manley Unavailable Unavailable Chelsea Hensley MD Unavailable [phone] Prashanth Martinez MD Primary Care Provider [phone] Encounter Details Date Type Department Care Team (Late st Contact Info) Description 08/14/2017 Pharmacy Visit [facility] [address] [place] [address] Social History Tobacco Use Types Packs/Day Years Used Date Smoking Tobacco: Never Smokeless Tobacco: Never Alcohol Use Standard Drinks/Week Comments No 0 (1 standard drink = 0.6 oz pur e alcohol) Comments No Sex and Gender Information Value Date Recorded Sex Assigned at Female 07/13/2019 6:16 PM SONAR TECHNICIAN Legal Sex Female 2:51 AM CDT Gender Identity Transgender Male 05/05/2019 1:23 PM CDT Sexual Orientation Pedraza 06/23/2023 10 :56 AM CDT documented as of this encounter Plan of Treatment Upcoming Encounters Date Type Department Care Team (Late st Contact Info) Description 04/21/2025 2:15 PM CDT Appointment [place] - [facility] - Adolescent Clinic [address] [phone] Prashanth Martinez MD [address] [place] [address] 05/02/2025 8:40 AM CDT Appointment [facility] - Ophthalmology - Optometry [address] [phone] Danuta Golden OD [address] [place] [address] documented as of this encounter Visit Diagnoses Not on filedocumented in this encounter Additional Health Concerns Infection Onset Date Last Indicated Resolved Time COVID-19 09/28/2021 09/28/2021 10/28/2021 9:44 PM SONAR TECHNICIAN Assessment Noted Time PHQ-2 Depression Total Score: 2 05/06/20 17 5:10 PM CDT documented as of this encounter Care Teams Windows Deployment Technician Relationship Specialty Start Date End Date Che Williamson MD [address] [place] [address] PCP - General 08/27/12 03/20/22 Prashanth Martinez MD [address] [place] [address] PCP - General Pediatric Medicine 03/21/22 Lynda Skelton MD [facility] [place] [address] Provider Team Family Practice 06/10/17 Franchesca Manley 12/09/17 12/07/18 Chelsea Hensley MD [address] [place] [address] Endocrinology 12/08/18 documented as of this encounter
--- OUTSIDE RECORDS SUMMARY | 2025-01-28 20:24 | XMS_ITS | Encounter Summary ---
Author Organization [facility] Care Address [address] [place] [address] Phone Care Team Providers Care Primary Counselor Name Role Phone Che Williamson MD Primary Care Provider Lynda Skelton MD Unavailable Franchesca Manley Unavailable Unavailable Chelsea Hensley MD Unavailable [phone] Prashanth Martinez MD Primary Care Provider [phone] Encounter Details Date Type Department Care Team (Late st Contact Info) Description 07/21/2017 Pharmacy Visit [facility] - Pharmacy - Specialty [address] [place] [address] Social History Tobacco Use Types Packs/Day Years Used Date Smoking Tobacco: Never Smokeless Tobacco: Never Alcohol Use Standard Drinks/Week Comments No 0 (1 standard drink = 0.6 oz pur e alcohol) Comments No Sex and Gender Information Value Date Recorded Sex Assigned at Female 07/13/2019 6:16 PM ESCROW PROCESSOR Legal Sex Female 2:51 AM CDT Gender Identity Transgender Male 05/05/2019 1:23 PM CDT Sexual Orientation Pedraza 06/23/2023 10 :56 AM CDT documented as of this encounter Plan of Treatment Upcoming Encounters Date Type Department Care Team (Late st Contact Info) Description 04/21/2025 2:15 PM CDT Appointment [place] - [facility] - Adolescent Clinic [address] [phone] Prashanth Martinez MD [address] [place] [address] 05/02/2025 8:40 AM CDT Appointment [facility] - Ophthalmology - Optometry [address] [phone] Danuta Golden OD [address] [place] [address] documented as of this encounter Visit Diagnoses Not on filedocumented in this encounter Additional Health Concerns Infection Onset Date Last Indicated Resolved Time COVID-19 09/28/2021 09/28/2021 10/28/2021 9:44 PM ESCROW PROCESSOR Assessment Noted Time PHQ-2 Depression Total Score: 2 05/06/20 17 5:10 PM CDT documented as of this encounter Care Teams Primary Counselor Relationship Specialty Start Date End Date Che Williamson MD [address] [place] [address] PCP - General 08/27/12 03/20/22 Prashanth Martinez MD [address] [place] [address] PCP - General Pediatric Medicine 03/21/22 Lynda Skelton MD [address] [place] [address] Provider Team Family Practice 06/10/17 Franchesca Manley 12/09/17 12/07/18 Chelsea Hensley MD [address] [place] [address] Endocrinology 12/08/18 documented as of this encounter
--- OUTSIDE RECORDS SUMMARY | 2025-01-28 20:24 | XMS_ITS | Encounter Summary ---
Author Organization [facility] Care Address [address] [place] [address] Phone Care Team Providers Care Network Support Name Role Phone Che Williamson MD Primary Care Provider Lynda Skelton MD Unavailable Franchesca Manley Unavailable Unavailable Chelsea Hensley MD Unavailable [phone] Prashanth Martinez MD Primary Care Provider [phone] Encounter Details Date Type Department Care Team (Late st Contact Info) Description 09/09/2017 Pharmacy Visit [facility] - Pharmacy - Specialty [address] [place] [address] Social History Tobacco Use Types Packs/Day Years Used Date Smoking Tobacco: Never Smokeless Tobacco: Never Alcohol Use Standard Drinks/Week Comments No 0 (1 standard drink = 0.6 oz pur e alcohol) Comments No Sex and Gender Information Value Date Recorded Sex Assigned at Female 07/13/2019 6:16 PM DEVELOPMENT ADVISOR Legal Sex Female 2:51 AM CDT Gender Identity Transgender Male 05/05/2019 1:23 PM CDT Sexual Orientation Pedraza 06/23/2023 10 :56 AM CDT documented as of this encounter Plan of Treatment Upcoming Encounters Date Type Department Care Team (Late st Contact Info) Description 04/21/2025 2:15 PM CDT Appointment [place] [facility] - Adolescent Clinic [address] [phone] Prashanth Martinez MD 200 [place] [address] 05/02/2025 8:40 AM CDT Appointment [facility] - Ophthalmology - Optometry [address] [phone] Danuta Golden OD [address] [place] [address] documented as of this encounter Visit Diagnoses Not on filedocumented in this encounter Additional Health Concerns Infection Onset Date Last Indicated Resolved Time COVID-19 09/28/2021 09/28/2021 10/28/2021 9:44 PM DEVELOPMENT ADVISOR Assessment Noted Time PHQ-2 Depression Total Score: 2 05/06/20 17 5:10 PM CDT documented as of this encounter Care Teams Network Support Relationship Specialty Start Date End Date Che Williamson MD [address] [place] [address] PCP - General 08/27/12 03/20/22 Prashanth Martinez MD [address] [place] [address] PCP - General Pediatric Medicine 03/21/22 Lynda Skelton MD [address] [place] [address] Provider Team Family Practice 06/10/17 Franchesca Manley 12/09/17 12/07/18 Chelsea Hensley MD [address] [place] [address] Endocrinology 12/08/18 documented as of this encounter
--- OUTSIDE RECORDS SUMMARY | 2025-01-28 20:24 | XMS_ITS | Encounter Summary ---
Author Organization [facility] Care Address [address] [place] [address] Phone Care Team Providers Care Production Operations Inspector Name Role Phone Che Williamson MD Primary Care Provider + [phone] Lynda Skelton MD Unavailable [phone] Franchesca Manley Unavailable Unavailable Chelsea Hensley MD Unavailable [phone] Prashanth Martinez MD Primary Care Provider [phone] Encounter Details Date Type Department Care Team (Late st Contact Info) Description 06/13/2017 Pharmacy Visit [facility] [address] [place] [address] Social History Tobacco Use Types Packs/Day Years Used Date Smoking Tobacco: Never Smokeless Tobacco: Never Alcohol Use Standard Drinks/Week Comments No 0 (1 standard drink = 0.6 oz pur e alcohol) Comments No Sex and Gender Information Value Date Recorded Sex Assigned at Female 07/13/2019 6:16 PM TUTORIAL LABORATORY SUPERVISOR Legal Sex Female 2:51 AM CDT Gender Identity Transgender Male 05/05/2019 1:23 PM CDT Sexual Orientation Pedraza 06/23/2023 10 :56 AM CDT documented as of this encounter Plan of Treatment Upcoming Encounters Date Type Department Care Team (Late st Contact Info) Description 04/21/2025 2:15 PM CDT Appointment [place] [facility] - Adolescent Clinic [address] [phone] Prashanth Martinez MD 200 [place] [address] 05/02/2025 8:40 AM CDT Appointment [facility] - Ophthalmology - Optometry [address] [phone] Danuta Golden OD [address] [place] [address] documented as of this encounter Visit Diagnoses Not on filedocumented in this encounter Additional Health Concerns Infection Onset Date Last Indicated Resolved Time COVID-19 09/28/2021 09/28/2021 10/28/2021 9:44 PM TUTORIAL LABORATORY SUPERVISOR Assessment Noted Time PHQ-2 Depression Total Score: 2 05/06/20 17 5:10 PM CDT documented as of this encounter Care Teams Production Operations Inspector Relationship Specialty Start Date End Date Che Williamson MD [address] [place] [address] PCP - General 08/27/12 03/20/22 Prashanth Martinez MD [address] [place] [address] PCP - General Pediatric Medicine 03/21/22 Lynda Skelton MD [facility] [place] [address] Provider Team Family Practice 06/10/17 Franchesca Manley 12/09/17 12/07/18 Chelsea Hensley MD [address] [place] [address] Endocrinology 12/08/18 documented as of this encounter
--- OUTSIDE RECORDS SUMMARY | 2025-01-28 20:24 | XMS_ITS | Encounter Summary ---
Author Organization [facility] Care Address [address] [place] [address] Phone Care Team Providers Care Garnett Feeder Name Role Phone Che Williamson MD Primary Care Provider + [phone] Lynda Skelton MD Unavailable Franchesca Manley Unavailable Unavailable Chelsea Hensley MD Unavailable [phone] Prashanth Martinez MD Primary Care Provider [phone] Encounter Details Date Type Department Care Team (Late st Contact Info) Description 07/10/2017 Pharmacy Visit [facility] - Pharmacy [address] [place] [address] Social History Tobacco Use Types Packs/Day Years Used Date Smoking Tobacco: Never Smokeless Tobacco: Never Alcohol Use Standard Drinks/Week Comments No 0 (1 standard drink = 0.6 oz pur e alcohol) Comments No Sex and Gender Information Value Date Recorded Sex Assigned at Female 07/13/2019 6:16 PM OIL ANALYST Legal Sex Female 2:51 AM CDT Gender Identity Transgender Male 05/05/2019 1:23 PM CDT Sexual Orientation Pedraza 06/23/2023 10 :56 AM CDT documented as of this encounter Plan of Treatment Upcoming Encounters Date Type Department Care Team (Late st Contact Info) Description 04/21/2025 2:15 PM CDT Appointment [place] - [facility] - Adolescent Clinic [address] [phone] Prashanth Martinez MD [address] [place] [address] 05/02/2025 8:40 AM CDT Appointment [facility] - Ophthalmology - Optometry [address] [phone] Danuta Golden OD [address] [place] [address] documented as of this encounter Visit Diagnoses Not on filedocumented in this encounter Additional Health Concerns Infection Onset Date Last Indicated Resolved Time COVID-19 09/28/2021 09/28/2021 10/28/2021 9:44 PM OIL ANALYST Assessment Noted Time PHQ-2 Depression Total Score: 2 05/06/20 17 5:10 PM CDT documented as of this encounter Care Teams Garnett Feeder Relationship Specialty Start Date End Date Che Williamson MD [address] [place] [address] PCP - General 08/27/12 03/20/22 Prashanth Martinez MD [address] [place] [address] PCP - General Pediatric Medicine 03/21/22 Lynda Skelton MD [facility]0 [place] [address] Provider Team Family Practice 06/10/17 Franchesca Manley 12/09/17 12/07/18 Chelsea Hensley MD [address] [place] [address] Endocrinology 12/08/18 documented as of this encounter
--- OUTSIDE RECORDS SUMMARY | 2025-01-28 20:24 | XMS_ITS | Encounter Summary ---
Author Organization [facility] Care Address [address] [place] [address] Phone Care Team Providers Care Alley Tender Name Role Phone Che Williamson MD Primary Care Provider Lynda Skelton MD Unavailable Franchesca Manley Unavailable Unavailable Chelsea Hensley MD Unavailable [phone] Prashanth Martinez MD Primary Care Provider [phone] Encounter Details Date Type Department Care Team (Late st Contact Info) Description 07/23/2017 Pharmacy Visit [facility] - Pharmacy - Specialty [address] [place] [address] Social History Tobacco Use Types Packs/Day Years Used Date Smoking Tobacco: Never Smokeless Tobacco: Never Alcohol Use Standard Drinks/Week Comments No 0 (1 standard drink = 0.6 oz pur e alcohol) Comments No Sex and Gender Information Value Date Recorded Sex Assigned at Female 07/13/2019 6:16 PM WEIGHT LOSS PHYSICIAN Legal Sex Female 2:51 AM CDT Gender Identity Transgender Male 05/05/2019 1:23 PM CDT Sexual Orientation Pedraza 06/23/2023 10 :56 AM CDT documented as of this encounter Plan of Treatment Upcoming Encounters Date Type Department Care Team (Late st Contact Info) Description 04/21/2025 2:15 PM CDT Appointment [place] - [facility] - Adolescent Clinic [address] [phone] Prashanth Martinez MD [address] [place] [address] 05/02/2025 8:40 AM CDT Appointment [facility] - Ophthalmology - Optometry [address] [phone] Danuta Golden OD [address] [place] [address] documented as of this encounter Visit Diagnoses Not on filedocumented in this encounter Additional Health Concerns Infection Onset Date Last Indicated Resolved Time COVID-19 09/28/2021 09/28/2021 10/28/2021 9:44 PM WEIGHT LOSS PHYSICIAN Assessment Noted Time PHQ-2 Depression Total Score: 2 05/06/20 17 5:10 PM CDT documented as of this encounter Care Teams Alley Tender Relationship Specialty Start Date End Date Che Williamson MD [address] [place] [address] PCP - General 08/27/12 03/20/22 Prashanth Martinez MD [address] [place] [address] PCP - General Pediatric Medicine 03/21/22 Lynda Skelton MD [address] [place] [address] Provider Team Family Practice 06/10/17 Franchesca Manley 12/09/17 12/07/18 Chelsea Hensley MD [address] [place] [address] Endocrinology 12/08/18 documented as of this encounter
--- OUTSIDE RECORDS SUMMARY | 2025-01-28 20:24 | XMS_ITS | Encounter Summary ---
Author Organization [facility] Care Address [address] [place] [address] Phone Care Team Providers Care University Librarian Name Role Phone Che Williamson MD Primary Care Provider Lynda Skelton MD Unavailable Franchesca Manley Unavailable Unavailable Chelsea Hensley MD Unavailable [phone] Prashanth Martinez MD Primary Care Provider [phone] Encounter Details Date Type Department Care Team (Late st Contact Info) Description 08/11/2017 Pharmacy Visit [facility] - Pharmacy - Specialty [address] [place] [address] Social History Tobacco Use Types Packs/Day Years Used Date Smoking Tobacco: Never Smokeless Tobacco: Never Alcohol Use Standard Drinks/Week Comments No 0 (1 standard drink = 0.6 oz pur e alcohol) Comments No Sex and Gender Information Value Date Recorded Sex Assigned at Female 07/13/2019 6:16 PM DIRECTOR MARKET RESEARCH Legal Sex Female 2:51 AM CDT Gender Identity Transgender Male 05/05/2019 1:23 PM CDT Sexual Orientation Pedraza 06/23/2023 10 :56 AM CDT documented as of this encounter Plan of Treatment Upcoming Encounters Date Type Department Care Team (Late st Contact Info) Description 04/21/2025 2:15 PM CDT Appointment [place] [facility] - Adolescent Clinic [address] [phone] Prashanth Martinez MD [address] [place] [address] 05/02/2025 8:40 AM CDT Appointment [facility] - Ophthalmology - Optometry [address] [phone] Danuta Golden OD [address] [place] [address] documented as of this encounter Visit Diagnoses Not on filedocumented in this encounter Additional Health Concerns Infection Onset Date Last Indicated Resolved Time COVID-19 09/28/2021 09/28/2021 10/28/2021 9:44 PM DIRECTOR MARKET RESEARCH Assessment Noted Time PHQ-2 Depression Total Score: 2 05/06/20 17 5:10 PM CDT documented as of this encounter Care Teams University Librarian Relationship Specialty Start Date End Date Che Williamson MD [address] [place] [address] PCP - General 08/27/12 03/20/22 Prashanth Martinez MD [address] [place] [address] PCP - General Pediatric Medicine 03/21/22 Lynda Skelton MD [address] [place] [address] Provider Team Family Practice 06/10/17 Franchesca Manley 12/09/17 12/07/18 Chelsea Hensley MD [address] [place] [address] Endocrinology 12/08/18 documented as of this encounter
--- OUTSIDE RECORDS SUMMARY | 2025-01-28 20:24 | XMS_ITS | Encounter Summary ---
Author Organization [facility] Care Address [address] [place] [address] Phone Care Team Providers Care Bladder Blower Name Role Phone Che Williamson MD Primary Care Provider + [phone] Lynda Skelton MD Unavailable Franchesca Manley Unavailable Unavailable Chelsea Hensley MD Unavailable [phone] Prashanth Martinez MD Primary Care Provider [phone] Encounter Details Date Type Department Care Team (Late st Contact Info) Description 07/10/2017 Pharmacy Visit [facility] - Pharmacy - Specialty [address] [place] [address] Social History Tobacco Use Types Packs/Day Years Used Date Smoking Tobacco: Never Smokeless Tobacco: Never Alcohol Use Standard Drinks/Week Comments No 0 (1 standard drink = 0.6 oz pur e alcohol) Comments No Sex and Gender Information Value Date Recorded Sex Assigned at Female 07/13/2019 6:16 PM PSYCHOLOGY PROFESSOR Legal Sex Female 2:51 AM CDT Gender Identity Transgender Male 05/05/2019 1:23 PM CDT Sexual Orientation Pedraza 06/23/2023 10 :56 AM CDT documented as of this encounter Plan of Treatment Upcoming Encounters Date Type Department Care Team (Late st Contact Info) Description 04/21/2025 2:15 PM CDT Appointment [place] - [facility] - Adolescent Clinic [address] [phone] Prashanth Martinez MD [address] [place] [address] 05/02/2025 8:40 AM CDT Appointment [facility] - Ophthalmology - Optometry [address] [phone] Danuta Golden OD [address] [place] [address] documented as of this encounter Visit Diagnoses Not on filedocumented in this encounter Additional Health Concerns Infection Onset Date Last Indicated Resolved Time COVID-19 09/28/2021 09/28/2021 10/28/2021 9:44 PM PSYCHOLOGY PROFESSOR Assessment Noted Time PHQ-2 Depression Total Score: 2 05/06/20 17 5:10 PM CDT documented as of this encounter Care Teams Bladder Blower Relationship Specialty Start Date End Date Che Williamson MD [address] [place] [address] PCP - General 08/27/12 03/20/22 Prashanth Martinez MD [address] [place] [address] PCP - General Pediatric Medicine 03/21/22 Lynda Skelton MD [address] [place] [address] Provider Team Family Practice 06/10/17 Franchesca Manley 12/09/17 12/07/18 Chelsea Hensley MD [address] [place] [address] Endocrinology 12/08/18 documented as of this encounter
--- OUTSIDE RECORDS SUMMARY | 2025-01-28 20:24 | XMS_ITS | Encounter Summary ---
Author Organization [facility] Care Address [address] [place] [address] Phone Care Team Providers Care Site Supervisor Name Role Phone Che Williamson MD Primary Care Provider Lynda Skelton MD Unavailable Franchesca Manley Unavailable Unavailable Chelsea Hensley MD Unavailable [phone] Prashanth Martinez MD Primary Care Provider [phone] Encounter Details Date Type Department Care Team (Late st Contact Info) Description 07/04/2017 [facility] [address] [place] [address] Social History Tobacco Use Types Packs/Day Years Used Date Smoking Tobacco: Never Smokeless Tobacco: Never Alcohol Use Standard Drinks/Week Comments No 0 (1 standard drink = 0.6 oz pur e alcohol) Comments No Sex and Gender Information Value Date Recorded Sex Assigned at Female 07/13/2019 6:16 PM AWNING HANGER SUPERVISOR Legal Sex Female 2:51 AM CDT Gender Identity Transgender Male 05/05/2019 1:23 PM CDT Sexual Orientation Pedraza 06/23/2023 10 :56 AM CDT documented as of this encounter Plan of Treatment Upcoming Encounters Date Type Department Care Team (Late st Contact Info) Description 04/21/2025 2:15 PM CDT Appointment [place] [facility] - Adolescent Clinic [address] [phone] Prashanth Martinez MD [address] [place] [address] 05/02/2025 8:40 AM CDT Appointment [facility] - Ophthalmology - Optometry [address] [phone] Danuta Golden OD [address] [place] [address] documented as of this encounter Visit Diagnoses Not on filedocumented in this encounter Additional Health Concerns Infection Onset Date Last Indicated Resolved Time COVID-19 09/28/2021 09/28/2021 10/28/2021 9:44 PM AWNING HANGER SUPERVISOR Assessment Noted Time PHQ-2 Depression Total Score: 2 05/06/20 17 5:10 PM CDT documented as of this encounter Care Teams Site Supervisor Relationship Specialty Start Date End Date Che Williamson MD [address] [place] [address] PCP - General 08/27/12 03/20/22 Prashanth Martinez MD [address] [place] [address] PCP - General Pediatric Medicine 03/21/22 Lynda Skelton MD [address] [place] [address] Provider Team Family Practice 06/10/17 Franchesca Manley 12/09/17 12/07/18 Chelsea Hensley MD [address] [place] [address] Endocrinology 12/08/18 documented as of this encounter
--- OUTSIDE RECORDS SUMMARY | 2025-01-28 20:24 | XMS_ITS | Encounter Summary ---
Author Organization [facility] Care Address [address] [place] [address] Phone Care Team Providers Care Hand Printed Circuit Board Assembler Name Role Phone Che Williamson MD Primary Care Provider + [phone] Lynda Skelton MD Unavailable [phone] Franchesca Manley Unavailable Unavailable Chelsea Hensley MD Unavailable [phone] Prashanth Martinez MD Primary Care Provider [phone] Encounter Details Date Type Department Care Team (Late st Contact Info) Description 09/12/2017 Pharmacy Visit [facility] - Pharmacy - Business Office [address] [place] [address] Social History Tobacco Use Types Packs/Day Years Used Date Smoking Tobacco: Never Smokeless Tobacco: Never Alcohol Use Standard Drinks/Week Comments No 0 (1 standard drink = 0.6 oz pur e alcohol) Comments No Sex and Gender Information Value Date Recorded Sex Assigned at Female 07/13/2019 6:16 PM SUPERVISOR TELEPHONE ANSWERING SERVICE Legal Sex Female 2:51 AM CDT Gender Identity Transgender Male 05/05/2019 1:23 PM CDT Sexual Orientation Pedraza 06/23/2023 10 :56 AM CDT documented as of this encounter Plan of Treatment Upcoming Encounters Date Type Department Care Team (Late st Contact Info) Description 04/21/2025 2:15 PM CDT Appointment [place] [facility] [place] - Adolescent Clinic [address] [phone] Prashanth Martinez MD [address] [place] [address] 05/02/2025 8:40 AM CDT Appointment [place] [facility] - Optometry [address] [phone] Danuta Golden OD [address] [place] [address] documented as of this encounter Visit Diagnoses Not on filedocumented in this encounter Additional Health Concerns Infection Onset Date Last Indicated Resolved Time COVID-19 09/28/2021 09/28/2021 10/28/2021 9:44 PM SUPERVISOR TELEPHONE ANSWERING SERVICE Assessment Noted Time PHQ-2 Depression Total Score: 2 05/06/20 17 5:10 PM CDT documented as of this encounter Care Teams Hand Printed Circuit Board Assembler Relationship Specialty Start Date End Date Che Williamson MD [address] [place] [address] PCP - General 08/27/12 03/20/22 Prashanth Martinez MD [address] [place] [address] PCP - General Pediatric Medicine 03/21/22 Lynda Skelton MD [facility] [place] [address] Provider Team Family Practice 06/10/17 Franchesca Manley 12/09/17 12/07/18 Chelsea Hensley MD [address] [place] [address] Endocrinology 12/08/18 documented as of this encounter
--- OUTSIDE RECORDS SUMMARY | 2025-01-28 20:24 | XMS_ITS | Encounter Summary ---
Author Organization [facility] Care Address [address] [place] [address] Phone Care Team Providers Care Production Crew Supervisor Name Role Phone Che Williamson MD Primary Care Provider Lynda Skelton MD Unavailable Franchesca Manley Unavailable Unavailable Chelsea Hensley MD Unavailable [phone] Prashanth Martinez MD Primary Care Provider [phone] Encounter Details Date Type Department Care Team (Late st Contact Info) Description 08/13/2017 Pharmacy Visit [facility] - Pharmacy - Specialty [address] [place] [address] Social History Tobacco Use Types Packs/Day Years Used Date Smoking Tobacco: Never Smokeless Tobacco: Never Alcohol Use Standard Drinks/Week Comments No 0 (1 standard drink = 0.6 oz pur e alcohol) Comments No Sex and Gender Information Value Date Recorded Sex Assigned at Female 07/13/2019 6:16 PM AMUSEMENT PARK WORKER Legal Sex Female 2:51 AM CDT Gender Identity Transgender Male 05/05/2019 1:23 PM CDT Sexual Orientation Pedraza 06/23/2023 10 :56 AM CDT documented as of this encounter Plan of Treatment Upcoming Encounters Date Type Department Care Team (Late st Contact Info) Description 04/21/2025 2:15 PM CDT Appointment [place] - [facility] - Adolescent Clinic [address] [phone] Prashanth Martinez MD [address] [place] [address] 05/02/2025 8:40 AM CDT Appointment [facility] - Ophthalmology - Optometry [address] [phone] Danuta Golden OD [address] [place] [address] documented as of this encounter Visit Diagnoses Not on filedocumented in this encounter Additional Health Concerns Infection Onset Date Last Indicated Resolved Time COVID-19 09/28/2021 09/28/2021 10/28/2021 9:44 PM AMUSEMENT PARK WORKER Assessment Noted Time PHQ-2 Depression Total Score: 2 05/06/20 17 5:10 PM CDT documented as of this encounter Care Teams Production Crew Supervisor Relationship Specialty Start Date End Date Che Williamson MD [address] [place] [address] PCP - General 08/27/12 03/20/22 Prashanth Martinez MD [address] [place] [address] PCP - General Pediatric Medicine 03/21/22 Lynda Skelton MD [address] [place] [address] Provider Team Family Practice 06/10/17 Franchesca Manley 12/09/17 12/07/18 Chelsea Hensley MD [address] [place] [address] Endocrinology 12/08/18 documented as of this encounter
--- OUTSIDE RECORDS SUMMARY | 2025-01-28 20:24 | XMS_ITS | Encounter Summary ---
Author Organization [facility] Address [address] [place] [address] Phone Care Team Providers Care Medical Secretary Name Role Phone Che Williamson MD Primary Care Provider Lynda Skelton MD Unavailable Franchesca Manley Unavailable Unavailable Chelsea Hensley MD Unavailable [phone] Prashanth Martinez MD Primary Care Provider [phone] Encounter Details Date Type Department Care Team (Late st Contact Info) Description 06/02/2017 Pharmacy Visit [facility] - Pharmacy - Specialty 200 [place] [address] Social History Tobacco Use Types Packs/Day Years Used Date Smoking Tobacco: Never Smokeless Tobacco: Never Alcohol Use Standard Drinks/Week Comments No 0 (1 standard drink = 0.6 oz pur e alcohol) Comments No Sex and Gender Information Value Date Recorded Sex Assigned at Female 07/13/2019 6:16 PM FHA UNDERWRITER Legal Sex Female 2:51 AM CDT Gender Identity Transgender Male 05/05/2019 1:23 PM CDT Sexual Orientation Pedraza 06/23/2023 10 :56 AM CDT documented as of this encounter Plan of Treatment Upcoming Encounters Date Type Department Care Team (Late st Contact Info) Description 04/21/2025 2:15 PM CDT Appointment [place] - [facility] - Adolescent Clinic [address] [phone] Prashanth Martinez MD 200 [place] [address] 05/02/2025 8:40 AM CDT Appointment [facility] - Ophthalmology - Optometry [address] [phone] Danuta Golden OD 200 [place] [address] documented as of this encounter Visit Diagnoses Not on filedocumented in this encounter Additional Health Concerns Infection Onset Date Last Indicated Resolved Time COVID-19 09/28/2021 09/28/2021 10/28/2021 9:44 PM FHA UNDERWRITER Assessment Noted Time PHQ-2 Depression Total Score: 2 05/06/20 17 5:10 PM CDT documented as of this encounter Care Teams Medical Secretary Relationship Specialty Start Date End Date Che Williamson MD [address] [place] [address] PCP - General 08/27/12 03/20/22 Prashanth Martinez MD [address] [place] [address] PCP - General Pediatric Medicine 03/21/22 Lynda Skelton MD [address] [place] [address] Provider Team Family Practice 06/10/17 Franchesca Manley 12/09/17 12/07/18 Chelsea Hensley MD [address] [place] [address] Endocrinology 12/08/18 documented as of this encounter
--- OUTSIDE RECORDS SUMMARY | 2025-01-28 20:24 | XMS_ITS | Encounter Summary ---
Author Organization [facility] Address [address] [place] [address] Phone Care Team Providers Care Information Systems Architect Name Role Phone Che Williamson MD Primary Care Provider Lynda Skelton MD Unavailable Franchesca Manley Unavailable Unavailable Chelsea Hensley MD Unavailable [phone] Prashanth Martinez MD Primary Care Provider [phone] Encounter Details Date Type Department Care Team (Late st Contact Info) Description 08/14/2017 Pharmacy Visit [facility] - Pharmacy - Specialty [address] [place] [address] Social History Tobacco Use Types Packs/Day Years Used Date Smoking Tobacco: Never Smokeless Tobacco: Never Alcohol Use Standard Drinks/Week Comments No 0 (1 standard drink = 0.6 oz pur e alcohol) Comments No Sex and Gender Information Value Date Recorded Sex Assigned at Female 07/13/2019 6:16 PM CUSHION INSTALLER Legal Sex Female 2:51 AM CDT Gender Identity Transgender Male 05/05/2019 1:23 PM CDT Sexual Orientation Pedraza 06/23/2023 10 :56 AM CDT documented as of this encounter Plan of Treatment Upcoming Encounters Date Type Department Care Team (Late st Contact Info) Description 04/21/2025 2:15 PM CDT Appointment [place] - [facility] - Adolescent Clinic [address] [phone] Prashanth Martinez MD 200 [place] [address] 05/02/2025 8:40 AM CDT Appointment [facility] - Ophthalmology - Optometry [address] [phone] Danuta Golden OD [address] [place] [address] documented as of this encounter Visit Diagnoses Not on filedocumented in this encounter Additional Health Concerns Infection Onset Date Last Indicated Resolved Time COVID-19 09/28/2021 09/28/2021 10/28/2021 9:44 PM CUSHION INSTALLER Assessment Noted Time PHQ-2 Depression Total Score: 2 05/06/20 17 5:10 PM CDT documented as of this encounter Care Teams Information Systems Architect Relationship Specialty Start Date End Date Che Williamson MD [address] [place] [address] PCP - General 08/27/12 03/20/22 Prashanth Martinez MD [address] [place] [address] PCP - General Pediatric Medicine 03/21/22 Lynda Skelton MD [address] [place] [address] Provider Team Family Practice 06/10/17 Franchesca Manley 12/09/17 12/07/18 Chelsea Hensley MD [address] [place] [address] Endocrinology 12/08/18 documented as of this encounter
--- OUTSIDE RECORDS SUMMARY | 2025-01-28 20:24 | XMS_ITS | Encounter Summary ---
Author Organization [facility] Address [address] [place] [address] Phone Care Team Providers Care Professor Of History Name Role Phone Che Williamson MD Primary Care Provider Lynda Skelton MD Unavailable Franchesca Manley Unavailable Unavailable Chelsea Hensley MD Unavailable [phone] Prashanth Martinez MD Primary Care Provider [phone] Encounter Details Date Type Department Care Team (Late st Contact Info) Description 07/22/2017 Pharmacy Visit [facility] - Pharmacy - Specialty [address] [place] [address] Social History Tobacco Use Types Packs/Day Years Used Date Smoking Tobacco: Never Smokeless Tobacco: Never Alcohol Use Standard Drinks/Week Comments No 0 (1 standard drink = 0.6 oz pur e alcohol) Comments No Sex and Gender Information Value Date Recorded Sex Assigned at Female 07/13/2019 6:16 PM SIDE LASTER Legal Sex Female 2:51 AM CDT Gender Identity Transgender Male 05/05/2019 1:23 PM CDT Sexual Orientation Pedraza 06/23/2023 10 :56 AM CDT documented as of this encounter Plan of Treatment Upcoming Encounters Date Type Department Care Team (Late st Contact Info) Description 04/21/2025 2:15 PM CDT Appointment [place] - [facility] - Adolescent Clinic [address] [phone] Prashanth Martinez MD 200 [place] [address] 05/02/2025 8:40 AM CDT Appointment [facility] - Ophthalmology - Optometry [address] [phone] Danuta Golden OD [address] [place] [address] documented as of this encounter Visit Diagnoses Not on filedocumented in this encounter Additional Health Concerns Infection Onset Date Last Indicated Resolved Time COVID-19 09/28/2021 09/28/2021 10/28/2021 9:44 PM SIDE LASTER Assessment Noted Time PHQ-2 Depression Total Score: 2 05/06/20 17 5:10 PM CDT documented as of this encounter Care Teams Professor Of History Relationship Specialty Start Date End Date Che Williamson MD [address] [place] [address] PCP - General 08/27/12 03/20/22 Prashanth Martinez MD [address] [place] [address] PCP - General Pediatric Medicine 03/21/22 Lynda Skelton MD [address] [place] [address] Provider Team Family Practice 06/10/17 Franchesca Manley 12/09/17 12/07/18 Chelsea Hensley MD [address] [place] [address] Endocrinology 12/08/18 documented as of this encounter
--- OUTSIDE RECORDS SUMMARY | 2025-01-28 20:24 | XMS_ITS | Encounter Summary ---
Author Organization [facility] Address [address] [place] [address] Phone Care Team Providers Care Tablet Tester Name Role Phone Che Williamson MD Primary Care Provider [phone] Lynda Skelton MD Unavailable Franchesca Manley Unavailable Unavailable Chelsea Hensley MD Unavailable Prashanth Martinez MD Primary Care Provider Encounter Details Date Type Department Care Team (Late st Contact Info) Description 01/21/2017 [facility] [address] [place] [address] Lynda Nelson 200 [place] [address] Social History Tobacco Use Types Packs/Day Years Used Date Smoking Tobacco: Never Smokeless Tobacco: Never Comments Unknown Sex and Gender Information Value Date Recorded Sex Assigned at Female 07/13/2019 6:16 PM FORGING DIES FINAL FINISHER Legal Sex Female 2:51 AM CDT Gender Identity Transgender Male 05/05/2019 1:23 PM CDT Sexual Orientation Pedraza 06/23/2023 10 :56 AM CDT documented as of this encounter Miscellaneous Notes * Telephone Encounter - Lynda Nelson - 01/21/2017 2:45 PM CDT 01/21/17 - Regular Packet Mailed to Nohemi Soriano (mother) Mathew Escobar [facility] [address] Per FINA Shin (via MyChart request) - referral shell made 01/28/17 - Family Packet Received - KL documented in this encounter Plan of Treatment Upcoming Encounters Date Type Department Care Team (Late st Contact Info) Description 04/21/2025 2:15 PM CDT Appointment [place] - Adolescent Clinic [address] [phone] Prashanth Martinez MD 200 [place], [place] [id number] 05/02/2025 8:40 AM CDT Appointment [facility] - Ophthalmology - Optometry [address] [phone] Danuta Golden, DANNY [address] [place], [place] [phone] documented as of this encounter Visit Diagnoses Not on filedocumented in this encounter Additional Health Concerns Infection Onset Date Last Indicated Resolved Time COVID-19 09/28/2021 09/28/2021 10/28/2021 9:44 PM FORGING DIES FINAL FINISHER documented as of this encounter Care Teams Tablet Tester Relationship Specialty Start Date End Date Che Williamson MD [address] [place] [address] PCP - General 08/27/12 03/20/22 Prashanth Martinez MD [address] [place] [address] PCP - General Pediatric Medicine 03/21/22 Lynda Skelton MD [facility] [place] [address] Provider Team Family Practice 06/10/17 Franchesca Manley 12/09/17 12/07/18 Chelsea Hensley MD [address] [place] [id number] Endocrinology 12/08/18 documented as of this encounter
--- OUTSIDE RECORDS SUMMARY | 2025-01-28 20:24 | XMS_ITS | Encounter Summary ---
Author Organization [facility] Address [address] [place] [address] Phone Care Team Providers Care Agile Scrum Coach Name Role Phone Che Williamson MD Primary Care Provider + [phone] Lynda Skelton MD Unavailable Franchesca Manley Unavailable Unavailable Chelsea Hensley MD Unavailable [phone] Prashanth Martinez MD Primary Care Provider [phone] Encounter Details Date Type Department Care Team (Late st Contact Info) Description 06/16/2017 Pharmacy Visit [facility] - Pharmacy - Specialty [address] [place] [address] Social History Tobacco Use Types Packs/Day Years Used Date Smoking Tobacco: Never Smokeless Tobacco: Never Alcohol Use Standard Drinks/Week Comments No 0 (1 standard drink = 0.6 oz pur e alcohol) Comments No Sex and Gender Information Value Date Recorded Sex Assigned at Female 07/13/2019 6:16 PM INSPECTOR SUBASSEMBLY Legal Sex Female 2:51 AM CDT Gender Identity Transgender Male 05/05/2019 1:23 PM CDT Sexual Orientation Pedraza 06/23/2023 10 :56 AM CDT documented as of this encounter Plan of Treatment Upcoming Encounters Date Type Department Care Team (Late st Contact Info) Description 04/21/2025 2:15 PM CDT Appointment [place] - [facility] - Adolescent Clinic [address] [phone] Prashanth Martinez MD 200 [place] [address] 05/02/2025 8:40 AM CDT Appointment [facility] - Ophthalmology - Optometry [address] [phone] Danuta Golden OD [address] [place] [address] documented as of this encounter Visit Diagnoses Not on filedocumented in this encounter Additional Health Concerns Infection Onset Date Last Indicated Resolved Time COVID-19 09/28/2021 09/28/2021 10/28/2021 9:44 PM INSPECTOR SUBASSEMBLY Assessment Noted Time PHQ-2 Depression Total Score: 2 05/06/20 17 5:10 PM CDT documented as of this encounter Care Teams Agile Scrum Coach Relationship Specialty Start Date End Date Che Williamson MD [address] [place] [address] PCP - General 08/27/12 03/20/22 Prashanth Martinez MD [address] [place] [address] PCP - General Pediatric Medicine 03/21/22 Lynda Skelton MD [address] [place] [address] Provider Team Family Practice 06/10/17 Franchesca Manley 12/09/17 12/07/18 Chelsea Hensley MD [address] [place] [address] Endocrinology 12/08/18 documented as of this encounter
--- OUTSIDE RECORDS SUMMARY | 2025-01-28 20:24 | XMS_ITS | Encounter Summary ---
Author Organization [facility] Address [address] [place] [address] Phone Care Team Providers Care Manager Regional Name Role Phone Che Williamson MD Primary Care Provider + [phone] Lynda Skelton MD Unavailable Franchesca Manley Unavailable Unavailable Chelsea Hensley MD Unavailable [phone] Prashanth Martinez MD Primary Care Provider [phone] Encounter Details Date Type Department Care Team (Late st Contact Info) Description 08/12/2017 Pharmacy Visit [facility] - Pharmacy - Specialty [address] [place] [address] Social History Tobacco Use Types Packs/Day Years Used Date Smoking Tobacco: Never Smokeless Tobacco: Never Alcohol Use Standard Drinks/Week Comments No 0 (1 standard drink = 0.6 oz pur e alcohol) Comments No Sex and Gender Information Value Date Recorded Sex Assigned at Female 07/13/2019 6:16 PM COUNTY AGRICULTURAL AGENT Legal Sex Female 2:51 AM CDT Gender Identity Transgender Male 05/05/2019 1:23 PM CDT Sexual Orientation Pedraza 06/23/2023 10 :56 AM CDT documented as of this encounter Plan of Treatment Upcoming Encounters Date Type Department Care Team (Late st Contact Info) Description 04/21/2025 2:15 PM CDT Appointment [place] [facility] - Adolescent Clinic [address] [phone] Prashanth Martinez MD [address] [place] [address] 05/02/2025 8:40 AM CDT Appointment [facility] - Ophthalmology - Optometry [address] [phone] Danuta Golden OD [address] [place] [address] documented as of this encounter Visit Diagnoses Not on filedocumented in this encounter Additional Health Concerns Infection Onset Date Last Indicated Resolved Time COVID-19 09/28/2021 09/28/2021 10/28/2021 9:44 PM COUNTY AGRICULTURAL AGENT Assessment Noted Time PHQ-2 Depression Total Score: 2 05/06/20 17 5:10 PM CDT documented as of this encounter Care Teams Manager Regional Relationship Specialty Start Date End Date Che Williamson MD [address] [place] [address] PCP - General 08/27/12 03/20/22 Prashanth Martinez MD [address] [place] [address] PCP - General Pediatric Medicine 03/21/22 Lynda Skelton MD [address] [place] [address] Provider Team Family Practice 06/10/17 Franchesca Manley 12/09/17 12/07/18 Chelsea Hensley MD [address] [place] [address] Endocrinology 12/08/18 documented as of this encounter
--- OUTSIDE RECORDS SUMMARY | 2025-01-28 20:25 | XMS_ITS | Encounter Summary ---
Author Organization [facility] Address [address] [place] [address] Phone Care Team Providers Care Vineyard Worker Name Role Phone Che Williamson MD Primary Care Provider + [phone] Lynda Skelton MD Unavailable Chelsea Hensley MD Unavailable [phone] Prashanth Martinez MD Primary Care Provider [phone] Encounter Details Date Type Department Care Team (Late st Contact Info) Description 05/13/2019 Pharmacy Visit [facility] - Pharmacy [address] [place] [address] Social History Tobacco Use Types Packs/Day Years Used Date Smoking Tobacco: Never Smokeless Tobacco: Never Alcohol Use Standard Drinks/Week Comments No 0 (1 standard drink = 0.6 oz pur e alcohol) Comments No Sex and Gender Information Value Date Recorded Sex Assigned at Female 07/13/2019 6:16 PM GOVERNMENT CONTRACTS MANAGER Legal Sex Female 2:51 AM CDT Gender Identity Transgender Male 05/05/2019 1:23 PM CDT Sexual Orientation Pedraza 06/23/2023 10 :56 AM CDT documented as of this encounter Plan of Treatment Upcoming Encounters Date Type Department Care Team (Late st Contact Info) Description 04/21/2025 2:15 PM CDT Appointment [place] - [place] - Adolescent Clinic [address] [phone] Prashanth Martinez MD [address] [place] [address] 05/02/2025 8:40 AM CDT Appointment [facility] - Ophthalmology - Optometry [address] [phone] Danuta Golden OD [address] [place] [address] documented as of this encounter Visit Diagnoses Not on filedocumented in this encounter Additional Health Concerns Infection Onset Date Last Indicated Resolved Time COVID-19 09/28/2021 09/28/2021 10/28/2021 9:44 PM GOVERNMENT CONTRACTS MANAGER Assessment Noted Time PHQ-9 Depression Total Score: 9 11/25/19 18 2:15 PM CDT PHQ-2 Depression Total Score: 4 11/25/19 18 2:15 PM CDT documented as of this encounter Care Teams Vineyard Worker Relationship Specialty Start Date End Date Che Williamson MD [address] [place] [address] PCP - General 08/27/12 03/20/22 Prashanth Martinez MD [address] [place] [address] PCP - General Pediatric Medicine 03/21/22 Lynda Skelton MD [address] [place] [address] Provider Team Family Practice 06/10/17 Chelsea Hensley MD [address] [place] [address] Endocrinology 12/08/18 documented as of this encounter
--- OUTSIDE RECORDS SUMMARY | 2025-01-28 20:25 | XMS_ITS | Encounter Summary ---
Author Organization [facility] Address [address] [place] [address] Phone Care Team Providers Care Terrazzo Finisher Name Role Phone Che Williamson MD Primary Care Provider + [phone] Lynda Skelton MD Unavailable Chelsea Hensley MD Unavailable [phone] Prashanth Martinez MD Primary Care Provider [phone] Encounter Details Date Type Department Care Team (Late st Contact Info) Description 05/06/2019 Pharmacy [facility] - Pharmacy - Specialty [address] [place] [address] Social History Tobacco Use Types Packs/Day Years Used Date Smoking Tobacco: Never Smokeless Tobacco: Never Alcohol Use Standard Drinks/Week Comments No 0 (1 standard drink = 0.6 oz pur e alcohol) Comments No Sex and Gender Information Value Date Recorded Sex Assigned at Female 07/13/2019 6:16 PM BURR FILER Legal Sex Female 2:51 AM CDT Gender Identity Transgender Male 05/05/2019 1:23 PM CDT Sexual Orientation Pedraza 06/23/2023 10 :56 AM CDT documented as of this encounter Plan of Treatment Upcoming Encounters Date Type Department Care Team (Late st Contact Info) Description 04/21/2025 2:15 PM CDT Appointment [place] - [place] - Adolescent Clinic [address] [phone] Prashanth Martinez MD [address] [place] [address] 05/02/2025 8:40 AM CDT Appointment [place] - [facility] - Ophthalmology - Optometry [address] [phone] Danuta Golden OD [address] [place] [address] documented as of this encounter Visit Diagnoses Not on filedocumented in this encounter Additional Health Concerns Infection Onset Date Last Indicated Resolved Time COVID-19 09/28/2021 09/28/2021 10/28/2021 9:44 PM BURR FILER Assessment Noted Time PHQ-9 Depression Total Score: 9 11/25/19 18 2:15 PM CDT PHQ-2 Depression Total Score: 4 11/25/19 18 2:15 PM CDT documented as of this encounter Care Teams Terrazzo Finisher Relationship Specialty Start Date End Date Che Williamson MD [address] [place] [address] PCP - General 08/27/12 03/20/22 Prashanth Martinez MD [address] [place] [address] PCP - General Pediatric Medicine 03/21/22 Lynda Skelton MD [address] [place] [address] Provider Team Family Practice 06/10/17 Chelsea Hensley MD [address] [place] [address] Endocrinology 12/08/18 documented as of this encounter
--- OUTSIDE RECORDS SUMMARY | 2025-01-28 20:25 | XMS_ITS | Encounter Summary ---
Author Organization [facility] Address [address] [place] [address] Phone Care Team Providers Care Construction Estimator Name Role Phone Che Williamson MD Primary Care Provider + [phone] Lynda Skelton MD Unavailable Chelsea Hensley MD Unavailable [phone] Prashanth Martinez MD Primary Care Provider [phone] Encounter Details Date Type Department Care Team (Late st Contact Info) Description 04/28/2019 Pharmacy [facility] - Pharmacy - Specialty [address] [place] [address] Social History Tobacco Use Types Packs/Day Years Used Date Smoking Tobacco: Never Smokeless Tobacco: Never Alcohol Use Standard Drinks/Week Comments No 0 (1 standard drink = 0.6 oz pur e alcohol) Comments No Sex and Gender Information Value Date Recorded Sex Assigned at Female 07/13/2019 6:16 PM STOCK SPECULATOR Legal Sex Female 2:51 AM CDT Gender Identity Transgender Male 05/05/2019 1:23 PM CDT Sexual Orientation Pedraza 06/23/2023 10 :56 AM CDT documented as of this encounter Plan of Treatment Upcoming Encounters Date Type Department Care Team (Late st Contact Info) Description 04/21/2025 2:15 PM CDT Appointment [place] - [place] - Adolescent Clinic [address] [phone] Prashanth Martinez MD [address] [place] [address] 05/02/2025 8:40 AM CDT Appointment [place] - [facility] - Ophthalmology - Optometry [address] [phone] Danuta Golden OD [address] [place] [address] documented as of this encounter Visit Diagnoses Not on filedocumented in this encounter Additional Health Concerns Infection Onset Date Last Indicated Resolved Time COVID-19 09/28/2021 09/28/2021 10/28/2021 9:44 PM STOCK SPECULATOR Assessment Noted Time PHQ-9 Depression Total Score: 9 11/25/19 18 2:15 PM CDT PHQ-2 Depression Total Score: 4 11/25/19 18 2:15 PM CDT documented as of this encounter Care Teams Construction Estimator Relationship Specialty Start Date End Date Che Williamson MD [address] [place] [address] PCP - General 08/27/12 03/20/22 Prashanth Martinez MD [address] [place] [address] PCP - General Pediatric Medicine 03/21/22 Lynda Skelton MD [address] [place] [address] Provider Team Family Practice 06/10/17 Chelsea Hensley MD [address] [place] [address] Endocrinology 12/08/18 documented as of this encounter
--- OUTSIDE RECORDS SUMMARY | 2025-01-28 20:25 | XMS_ITS | Encounter Summary ---
Author Organization [facility] Care Address [address] [place] [address] Phone Care Team Providers Care Chute Greaser Name Role Phone Che Williamson MD Primary Care Provider + [phone] Lynda Skelton MD Unavailable Chelsea Hensley MD Unavailable [phone] Prashanth Martinez MD Primary Care Provider [phone] Encounter Details Date Type Department Care Team (Late st Contact Info) Description 05/21/2019 Pharmacy Visit [facility] 200 [place] [address] Social History Tobacco Use Types Packs/Day Years Used Date Smoking Tobacco: Never Smokeless Tobacco: Never Alcohol Use Standard Drinks/Week Comments No 0 (1 standard drink = 0.6 oz pur e alcohol) Comments No Sex and Gender Information Value Date Recorded Sex Assigned at Female 07/13/2019 6:16 PM ECONOMICS LECTURER Legal Sex Female 2:51 AM CDT Gender Identity Transgender Male 05/05/2019 1:23 PM CDT Sexual Orientation Pedraza 06/23/2023 10 :56 AM CDT documented as of this encounter Plan of Treatment Upcoming Encounters Date Type Department Care Team (Late st Contact Info) Description 04/21/2025 2:15 PM CDT Appointment [place] [facility] [place] [facility] [address] [phone] Prashanth Martinez MD [address] [place] [address] 05/02/2025 8:40 AM CDT Appointment [place] - [facility] - Ophthalmology - Optometry [address] [phone] Danuta Golden OD [address] [place] [address] documented as of this encounter Visit Diagnoses Not on filedocumented in this encounter Additional Health Concerns Infection Onset Date Last Indicated Resolved Time COVID-19 09/28/2021 09/28/2021 10/28/2021 9:44 PM ECONOMICS LECTURER Assessment Noted Time PHQ-9 Depression Total Score: 9 11/25/19 18 2:15 PM CDT PHQ-2 Depression Total Score: 4 11/25/19 18 2:15 PM CDT documented as of this encounter Care Teams Chute Greaser Relationship Specialty Start Date End Date Che Williamson MD [address] [place] [address] PCP - General 08/27/12 03/20/22 Prashanth Martinez MD [address] [place] [address] PCP - General Pediatric Medicine 03/21/22 Lynda Skelton MD [address] [place] [address] Provider Team Family Practice 06/10/17 Chelsea Hensley MD [address] [place] [address] Endocrinology 12/08/18 documented as of this encounter
--- OUTSIDE RECORDS SUMMARY | 2025-01-28 20:25 | XMS_ITS | Encounter Summary ---
Author Organization [facility] Care Address [address] [place] [address] Phone Care Team Providers Care Automation Tester Name Role Phone Che Williamson MD Primary Care Provider + [phone] Lynda Skelton MD Unavailable Chelsea Hensley MD Unavailable [phone] Prashanth Martinez MD Primary Care Provider [phone] Encounter Details Date Type Department Care Team (Late st Contact Info) Description 04/08/2019 Pharmacy [facility] - Pharmacy - Specialty [address] [place] [address] Social History Tobacco Use Types Packs/Day Years Used Date Smoking Tobacco: Never Smokeless Tobacco: Never Alcohol Use Standard Drinks/Week Comments No 0 (1 standard drink = 0.6 oz pur e alcohol) Comments No Sex and Gender Information Value Date Recorded Sex Assigned at Female 07/13/2019 6:16 PM GLASS CARRIER Legal Sex Female 2:51 AM CDT Gender Identity Transgender Male 05/05/2019 1:23 PM CDT Sexual Orientation Pedraza 06/23/2023 10 :56 AM CDT documented as of this encounter Plan of Treatment Upcoming Encounters Date Type Department Care Team (Late st Contact Info) Description 04/21/2025 2:15 PM CDT Appointment [place] [facility] [address] [phone] Prashanth Martinez MD 200 [place] [address] 05/02/2025 8:40 AM CDT Appointment [place] - [facility] - Ophthalmology - Optometry [address] [phone] Danuta Golden OD [address] [place] [address] documented as of this encounter Visit Diagnoses Not on filedocumented in this encounter Additional Health Concerns Infection Onset Date Last Indicated Resolved Time COVID-19 09/28/2021 09/28/2021 10/28/2021 9:44 PM GLASS CARRIER Assessment Noted Time PHQ-9 Depression Total Score: 9 11/25/19 18 2:15 PM CDT PHQ-2 Depression Total Score: 4 11/25/19 18 2:15 PM CDT documented as of this encounter Care Teams Automation Tester Relationship Specialty Start Date End Date Che Williamson MD [address] [place] [address] PCP - General 08/27/12 03/20/22 Prashanth Martinez MD [address] [place] [address] PCP - General Pediatric Medicine 03/21/22 Lynda Skelton MD [address] [place] [address] Provider Team Family Practice 06/10/17 Chelsea Hensley MD [address] [place] [address] Endocrinology 12/08/18 documented as of this encounter
--- OUTSIDE RECORDS SUMMARY | 2025-01-28 20:25 | XMS_ITS | Encounter Summary ---
Author Organization [facility] Care Address [address] [place] [address] Phone Care Team Providers Care Incinerator Plant Supervisor Name Role Phone Che Williamson MD Primary Care Provider + [phone] Lynda Skelton MD Unavailable Chelsea Hensley MD Unavailable [phone] Prashanth Martinez MD Primary Care Provider [phone] Encounter Details Date Type Department Care Team (Late st Contact Info) Description 05/12/2019 Pharmacy [facility] - Pharmacy - Specialty 200 [place] [address] Social History Tobacco Use Types Packs/Day Years Used Date Smoking Tobacco: Never Smokeless Tobacco: Never Alcohol Use Standard Drinks/Week Comments No 0 (1 standard drink = 0.6 oz pur e alcohol) Comments No Sex and Gender Information Value Date Recorded Sex Assigned at Female 07/13/2019 6:16 PM MAINTENANCE SCHEDULER Legal Sex Female 2:51 AM CDT Gender Identity Transgender Male 05/05/2019 1:23 PM CDT Sexual Orientation Pedraza 06/23/2023 10 :56 AM CDT documented as of this encounter Plan of Treatment Upcoming Encounters Date Type Department Care Team (Late st Contact Info) Description 04/21/2025 2:15 PM CDT Appointment [place] [facility] [address] [phone] Prashanth Martinez MD 200 [place] [address] 05/02/2025 8:40 AM CDT Appointment [place] - [facility] - Ophthalmology - Optometry [address] [phone] Danuta Golden OD [address] [place] [address] documented as of this encounter Visit Diagnoses Not on filedocumented in this encounter Additional Health Concerns Infection Onset Date Last Indicated Resolved Time COVID-19 09/28/2021 09/28/2021 10/28/2021 9:44 PM MAINTENANCE SCHEDULER Assessment Noted Time PHQ-9 Depression Total Score: 9 11/25/19 18 2:15 PM CDT PHQ-2 Depression Total Score: 4 11/25/19 18 2:15 PM CDT documented as of this encounter Care Teams Incinerator Plant Supervisor Relationship Specialty Start Date End Date Che Williamson MD [address] [place] [address] PCP - General 08/27/12 03/20/22 Prashanth Martinez MD [address] [place] [address] PCP - General Pediatric Medicine 03/21/22 Lynda Skelton MD [address] [place] [address] Provider Team Family Practice 06/10/17 Chelsea Hensley MD [address] [place] [address] Endocrinology 12/08/18 documented as of this encounter
--- OUTSIDE RECORDS SUMMARY | 2025-01-28 20:25 | XMS_ITS | Encounter Summary ---
Author Organization [facility] Care Address [address] [place] [address] Phone Care Team Providers Care Account Financial Manager Name Role Phone Che Williamson MD Primary Care Provider + [phone] Lynda Skelton MD Unavailable Chelsea Hensley MD Unavailable [phone] Prashanth Martinez MD Primary Care Provider [phone] Encounter Details Date Type Department Care Team (Late st Contact Info) Description 04/26/2019 Pharmacy [facility] - Pharmacy - Specialty [address] [place] [address] Social History Tobacco Use Types Packs/Day Years Used Date Smoking Tobacco: Never Smokeless Tobacco: Never Alcohol Use Standard Drinks/Week Comments No 0 (1 standard drink = 0.6 oz pur e alcohol) Comments No Sex and Gender Information Value Date Recorded Sex Assigned at Female 07/13/2019 6:16 PM PICK UP MAN Legal Sex Female 2:51 AM CDT Gender Identity Transgender Male 05/05/2019 1:23 PM CDT Sexual Orientation Pedraza 06/23/2023 10 :56 AM CDT documented as of this encounter Plan of Treatment Upcoming Encounters Date Type Department Care Team (Late st Contact Info) Description 04/21/2025 2:15 PM CDT Appointment [place] - [facility] [address] [phone] Prashanth Martinez MD 200 [place] [address] 05/02/2025 8:40 AM CDT Appointment [place] - [facility] - Ophthalmology - Optometry [address] [phone] Danuta Golden OD 200 [place] [address] documented as of this encounter Visit Diagnoses Not on filedocumented in this encounter Additional Health Concerns Infection Onset Date Last Indicated Resolved Time COVID-19 09/28/2021 09/28/2021 10/28/2021 9:44 PM PICK UP MAN Assessment Noted Time PHQ-9 Depression Total Score: 9 11/25/19 18 2:15 PM CDT PHQ-2 Depression Total Score: 4 11/25/19 18 2:15 PM CDT documented as of this encounter Care Teams Account Financial Manager Relationship Specialty Start Date End Date Che Williamson MD [address] [place] [address] PCP - General 08/27/12 03/20/22 Prashanth Martinez MD [address] [place] [address] PCP - General Pediatric Medicine 03/21/22 Lynda Skelton MD [address] [place] [address] Provider Team Family Practice 06/10/17 Chelsea Hensley MD [address] [place] [address] Endocrinology 12/08/18 documented as of this encounter
--- OUTSIDE RECORDS SUMMARY | 2025-01-28 20:25 | XMS_ITS | Encounter Summary ---
Author Organization [facility] Care Address [address] [place] [address] Phone Care Team Providers Care Service Delivery Consultant Name Role Phone Che Williamson MD Primary Care Provider Lynda Skelton MD Unavailable Franchesca Manley Unavailable Unavailable Chelsea Hensley MD Unavailable [phone] Prashanth Martinez MD Primary Care Provider [phone] Encounter Details Date Type Department Care Team (Late st Contact Info) Description 06/24/2017 Pharmacy Visit [facility] - Pharmacy - Specialty [address] [place] [address] Social History Tobacco Use Types Packs/Day Years Used Date Smoking Tobacco: Never Smokeless Tobacco: Never Alcohol Use Standard Drinks/Week Comments No 0 (1 standard drink = 0.6 oz pur e alcohol) Comments No Sex and Gender Information Value Date Recorded Sex Assigned at Female 07/13/2019 6:16 PM BIBLE TEACHER Legal Sex Female 2:51 AM CDT Gender Identity Transgender Male 05/05/2019 1:23 PM CDT Sexual Orientation Pedraza 06/23/2023 10 :56 AM CDT documented as of this encounter Plan of Treatment Upcoming Encounters Date Type Department Care Team (Late st Contact Info) Description 04/21/2025 2:15 PM CDT Appointment [place] - [facility] - Adolescent Clinic [address] [phone] Prashanth Martinez MD 200 [place] [address] 05/02/2025 8:40 AM CDT Appointment [facility] - Ophthalmology - Optometry [address] [phone] Danuta Golden OD 200 [place] [address] documented as of this encounter Visit Diagnoses Not on filedocumented in this encounter Additional Health Concerns Infection Onset Date Last Indicated Resolved Time COVID-19 09/28/2021 09/28/2021 10/28/2021 9:44 PM BIBLE TEACHER Assessment Noted Time PHQ-2 Depression Total Score: 2 05/06/20 17 5:10 PM CDT documented as of this encounter Care Teams Service Delivery Consultant Relationship Specialty Start Date End Date Che Williamson MD [address] [place] [address] PCP - General 08/27/12 03/20/22 Prashanth Martinez MD [address] [place] [address] PCP - General Pediatric Medicine 03/21/22 Lynda Skelton MD [address] [place] [address] Provider Team Family Practice 06/10/17 Franchesca Manley 12/09/17 12/07/18 Chelsea Hensley MD [address] [place] [address] Endocrinology 12/08/18 documented as of this encounter
--- OUTSIDE RECORDS SUMMARY | 2025-01-28 20:25 | XMS_ITS | Encounter Summary ---
Author Organization [facility] Care Address [address] [place] [address] Phone Care Team Providers Care Tight Barrel Inspector Name Role Phone Che Williamson MD Primary Care Provider + [phone] Lynda Skelton MD Unavailable Chelsea Hensley MD Unavailable [phone] Prashanth Martinez MD Primary Care Provider [phone] Encounter Details Date Type Department Care Team (Late st Contact Info) Description 05/13/2019 Pharmacy [facility] - Pharmacy - Specialty [address] [place] [address] Social History Tobacco Use Types Packs/Day Years Used Date Smoking Tobacco: Never Smokeless Tobacco: Never Alcohol Use Standard Drinks/Week Comments No 0 (1 standard drink = 0.6 oz pur e alcohol) Comments No Sex and Gender Information Value Date Recorded Sex Assigned at Female 07/13/2019 6:16 PM LINING IRONER Legal Sex Female 2:51 AM CDT Gender Identity Transgender Male 05/05/2019 1:23 PM CDT Sexual Orientation Pedraza 06/23/2023 10 :56 AM CDT documented as of this encounter Plan of Treatment Upcoming Encounters Date Type Department Care Team (Late st Contact Info) Description 04/21/2025 2:15 PM CDT Appointment [place] - [place] [facility] [address] [phone] Prashanth Martinez MD 200 [place] [address] 05/02/2025 8:40 AM CDT Appointment [place] - [facility] - Ophthalmology - Optometry [address] [phone] Danuta Golden OD 200 [place] [address] documented as of this encounter Visit Diagnoses Not on filedocumented in this encounter Additional Health Concerns Infection Onset Date Last Indicated Resolved Time COVID-19 09/28/2021 09/28/2021 10/28/2021 9:44 PM LINING IRONER Assessment Noted Time PHQ-9 Depression Total Score: 9 11/25/19 18 2:15 PM CDT PHQ-2 Depression Total Score: 4 11/25/19 18 2:15 PM CDT documented as of this encounter Care Teams Tight Barrel Inspector Relationship Specialty Start Date End Date Che Williamson MD [address] [place] [address] PCP - General 08/27/12 03/20/22 Prashanth Martinez MD [address] [place] [address] PCP - General Pediatric Medicine 03/21/22 Lynda Skelton MD [address] [place] [address] Provider Team Family Practice 06/10/17 Chelsea Hensley MD [address] [place] [address] Endocrinology 12/08/18 documented as of this encounter
--- OUTSIDE RECORDS SUMMARY | 2025-01-28 20:25 | XMS_ITS | Encounter Summary ---
Author Organization [facility] Care Address [address] [place] [address] Phone Care Team Providers Care Reception Agent Name Role Phone Che Williamson MD Primary Care Provider Lynda Skelton MD Unavailable Franchesca Manley Unavailable Unavailable Chelsea Hensley MD Unavailable [phone] Prashanth Martinez MD Primary Care Provider [phone] Encounter Details Date Type Department Care Team (Late st Contact Info) Description 06/20/2017 Pharmacy Visit [facility] - Pharmacy - Specialty [address] [place] [address] Social History Tobacco Use Types Packs/Day Years Used Date Smoking Tobacco: Never Smokeless Tobacco: Never Alcohol Use Standard Drinks/Week Comments No 0 (1 standard drink = 0.6 oz pur e alcohol) Comments No Sex and Gender Information Value Date Recorded Sex Assigned at Female 07/13/2019 6:16 PM SURGICAL TECHNICIAN Legal Sex Female 2:51 AM CDT Gender Identity Transgender Male 05/05/2019 1:23 PM CDT Sexual Orientation Pedraza 06/23/2023 10 :56 AM CDT documented as of this encounter Plan of Treatment Upcoming Encounters Date Type Department Care Team (Late st Contact Info) Description 04/21/2025 2:15 PM CDT Appointment [place] - [facility] - Adolescent Clinic [address] [phone] Prashanth Martinez MD 200 [place] [address] 05/02/2025 8:40 AM CDT Appointment [facility] - Ophthalmology - Optometry [address] [phone] Danuta Golden OD 200 [place] [address] documented as of this encounter Visit Diagnoses Not on filedocumented in this encounter Additional Health Concerns Infection Onset Date Last Indicated Resolved Time COVID-19 09/28/2021 09/28/2021 10/28/2021 9:44 PM SURGICAL TECHNICIAN Assessment Noted Time PHQ-2 Depression Total Score: 2 05/06/20 17 5:10 PM CDT documented as of this encounter Care Teams Reception Agent Relationship Specialty Start Date End Date Che Williamson MD [address] [place] [address] PCP - General 08/27/12 03/20/22 Prashanth Martinez MD [address] [place] [address] PCP - General Pediatric Medicine 03/21/22 Lynda Skelton MD [address] [place] [address] Provider Team Family Practice 06/10/17 Franchesca Manley 12/09/17 12/07/18 Chelsea Hensley MD [address] [place] [address] Endocrinology 12/08/18 documented as of this encounter
--- OUTSIDE RECORDS SUMMARY | 2025-01-28 20:25 | XMS_ITS | Encounter Summary ---
Author Organization [facility] Care Address [address] [place] [address] Phone Care Team Providers Care Nursing Techn Name Role Phone Che Williamson MD Primary Care Provider + [phone] Lynda Skelton MD Unavailable Chelsea Hensley MD Unavailable [phone] Prashanth Martinez MD Primary Care Provider [phone] Encounter Details Date Type Department Care Team (Late st Contact Info) Description 04/09/2019 Pharmacy [facility] - Pharmacy - Specialty [address] [place] [address] Social History Tobacco Use Types Packs/Day Years Used Date Smoking Tobacco: Never Smokeless Tobacco: Never Alcohol Use Standard Drinks/Week Comments No 0 (1 standard drink = 0.6 oz pur e alcohol) Comments No Sex and Gender Information Value Date Recorded Sex Assigned at Female 07/13/2019 6:16 PM TIRE CENTER MANAGER Legal Sex Female 2:51 AM CDT Gender Identity Transgender Male 05/05/2019 1:23 PM CDT Sexual Orientation Pedraza 06/23/2023 10 :56 AM CDT documented as of this encounter Plan of Treatment Upcoming Encounters Date Type Department Care Team (Late st Contact Info) Description 04/21/2025 2:15 PM CDT Appointment [place] - [facility] - [facility] [address] [phone] Prashanth Martinez MD 200 [place] [address] 05/02/2025 8:40 AM CDT Appointment [place] - [facility] - Ophthalmology - Optometry [address] [phone] Danuta Golden OD [address] [place] [address] documented as of this encounter Visit Diagnoses Not on filedocumented in this encounter Additional Health Concerns Infection Onset Date Last Indicated Resolved Time COVID-19 09/28/2021 09/28/2021 10/28/2021 9:44 PM TIRE CENTER MANAGER Assessment Noted Time PHQ-9 Depression Total Score: 9 11/25/19 18 2:15 PM CDT PHQ-2 Depression Total Score: 4 11/25/19 18 2:15 PM CDT documented as of this encounter Care Teams Nursing Techn Relationship Specialty Start Date End Date Che Williamson MD [address] [place] [address] PCP - General 08/27/12 03/20/22 Prashanth Martinez MD 200 [place] [address] PCP - General Pediatric Medicine 03/21/22 Lynda Skelton MD [address] [place] [address] Provider Team Family Practice 06/10/17 Chelsea Hensley MD [address] [place] [address] Endocrinology 12/08/18 documented as of this encounter
--- OUTSIDE RECORDS SUMMARY | 2025-01-28 20:25 | XMS_ITS | Encounter Summary ---
Author Organization [facility] Care Address [address] [place] [address] Phone Care Team Providers Care Electrical And Instrumentation Manager Name Role Phone Che Williamson MD Primary Care Provider + [phone] Lynda Skelton MD Unavailable Chelsea Hensley MD Unavailable [phone] Prashanth Martinez MD Primary Care Provider [phone] Encounter Details Date Type Department Care Team (Late st Contact Info) Description 04/25/2019 Pharmacy Visit [facility] - Pharmacy [address] [place] [address] Social History Tobacco Use Types Packs/Day Years Used Date Smoking Tobacco: Never Smokeless Tobacco: Never Alcohol Use Standard Drinks/Week Comments No 0 (1 standard drink = 0.6 oz pur e alcohol) Comments No Sex and Gender Information Value Date Recorded Sex Assigned at Female 07/13/2019 6:16 PM SCHEDULER CONVEYOR Legal Sex Female 2:51 AM CDT Gender Identity Transgender Male 05/05/2019 1:23 PM CDT Sexual Orientation Pedraza 06/23/2023 10 :56 AM CDT documented as of this encounter Plan of Treatment Upcoming Encounters Date Type Department Care Team (Late st Contact Info) Description 04/21/2025 2:15 PM CDT Appointment [place] - [facility] - Ad[facility] [address] [phone] Prashanth Martinez MD 200 [place] [address] 05/02/2025 8:40 AM CDT Appointment [facility] - Ophthalmology - Optometry [address] [phone] Danuta Golden OD 200 [place] [address] documented as of this encounter Visit Diagnoses Not on filedocumented in this encounter Additional Health Concerns Infection Onset Date Last Indicated Resolved Time COVID-19 09/28/2021 09/28/2021 10/28/2021 9:44 PM SCHEDULER CONVEYOR Assessment Noted Time PHQ-9 Depression Total Score: 9 11/25/19 18 2:15 PM CDT PHQ-2 Depression Total Score: 4 11/25/19 18 2:15 PM CDT documented as of this encounter Care Teams Electrical And Instrumentation Manager Relationship Specialty Start Date End Date Che Williamson MD [address] [place] [address] PCP - General 08/27/12 03/20/22 Prashanth Martinez MD [address] [place] [address] PCP - General Pediatric Medicine 03/21/22 Lynda Skelton MD [address] [place] [address] Provider Team Family Practice 06/10/17 Chelsea Hensley MD [address] [place] [address] Endocrinology 12/08/18 documented as of this encounter
--- OUTSIDE RECORDS SUMMARY | 2025-01-28 20:25 | XMS_ITS | Encounter Summary ---
Author Organization [facility] Care Address [address] [place] [address] Phone Care Team Providers Care Supervisor Ship Maintenance Services Name Role Phone Che Williamson MD Primary Care Provider + [phone] Lynda Skelton MD Unavailable Chelsea Hensley MD Unavailable [phone] Prashanth Martinez MD Primary Care Provider [phone] Encounter Details Date Type Department Care Team (Late st Contact Info) Description 05/11/2019 Pharmacy [facility] - Pharmacy - Specialty [address] [place] [address] Social History Tobacco Use Types Packs/Day Years Used Date Smoking Tobacco: Never Smokeless Tobacco: Never Alcohol Use Standard Drinks/Week Comments No 0 (1 standard drink = 0.6 oz pur e alcohol) Comments No Sex and Gender Information Value Date Recorded Sex Assigned at Female 07/13/2019 6:16 PM CODING MANAGER Legal Sex Female 2:51 AM CDT Gender Identity Transgender Male 05/05/2019 1:23 PM CDT Sexual Orientation Pedraza 06/23/2023 10 :56 AM CDT documented as of this encounter Plan of Treatment Upcoming Encounters Date Type Department Care Team (Late st Contact Info) Description 04/21/2025 2:15 PM CDT Appointment [place] - [facility] [address] [phone] Prashanth Martinez MD 200 [place] [address] 05/02/2025 8:40 AM CDT Appointment [place] - [facility] - Ophthalmology - Optometry [address] [phone] Danuta Golden OD [address] [place] [address] documented as of this encounter Visit Diagnoses Not on filedocumented in this encounter Additional Health Concerns Infection Onset Date Last Indicated Resolved Time COVID-19 09/28/2021 09/28/2021 10/28/2021 9:44 PM CODING MANAGER Assessment Noted Time PHQ-9 Depression Total Score: 9 11/25/19 18 2:15 PM CDT PHQ-2 Depression Total Score: 4 11/25/19 18 2:15 PM CDT documented as of this encounter Care Teams Supervisor Ship Maintenance Services Relationship Specialty Start Date End Date Che Williamson MD [address] [place] [address] PCP - General 08/27/12 03/20/22 Prashanth Martinez MD [address] [place] [address] PCP - General Pediatric Medicine 03/21/22 Lynda Skelton MD [address] [place] [address] Provider Team Family Practice 06/10/17 Chelsea Hensley MD [address] [place] [address] Endocrinology 12/08/18 documented as of this encounter
--- OUTSIDE RECORDS SUMMARY | 2025-01-28 20:25 | XMS_ITS | Encounter Summary ---
Author Organization [facility] Care Address [address] [place] [address] Phone Care Team Providers Care Fur Coat Sewer Name Role Phone Che Williamson MD Primary Care Provider + [phone] Lynda Skelton MD Unavailable Chelsea Hensley MD Unavailable [phone] Prashanth Martinez MD Primary Care Provider [phone] Encounter Details Date Type Department Care Team (Late st Contact Info) Description 05/21/2019 Pharmacy [facility] - Pharmacy - Specialty [address] [place] [address] Social History Tobacco Use Types Packs/Day Years Used Date Smoking Tobacco: Never Smokeless Tobacco: Never Alcohol Use Standard Drinks/Week Comments No 0 (1 standard drink = 0.6 oz pur e alcohol) Comments No Sex and Gender Information Value Date Recorded Sex Assigned at Female 07/13/2019 6:16 PM BOTTLE BLOWING MACHINE TENDER Legal Sex Female 2:51 AM CDT Gender Identity Transgender Male 05/05/2019 1:23 PM CDT Sexual Orientation Pedraza 06/23/2023 10 :56 AM CDT documented as of this encounter Plan of Treatment Upcoming Encounters Date Type Department Care Team (Late st Contact Info) Description 04/21/2025 2:15 PM CDT Appointment [place] [facility] [address] [phone] Prashanth Martinez MD 200 [place] [address] 05/02/2025 8:40 AM CDT Appointment [place] - [facility] - Ophthalmology - Optometry [address] [phone] Danuta Golden OD [address] [place] [address] documented as of this encounter Visit Diagnoses Not on filedocumented in this encounter Additional Health Concerns Infection Onset Date Last Indicated Resolved Time COVID-19 09/28/2021 09/28/2021 10/28/2021 9:44 PM BOTTLE BLOWING MACHINE TENDER Assessment Noted Time PHQ-9 Depression Total Score: 9 11/25/19 18 2:15 PM CDT PHQ-2 Depression Total Score: 4 11/25/19 18 2:15 PM CDT documented as of this encounter Care Teams Fur Coat Sewer Relationship Specialty Start Date End Date Che Williamson MD [address] [place] [address] PCP - General 08/27/12 03/20/22 Prashanth Martinez MD [address] [place] [address] PCP - General Pediatric Medicine 03/21/22 Lynda Skelton MD [address] [place] [address] Provider Team Family Practice 06/10/17 Chelsea Hensley MD [address] [place] [address] Endocrinology 12/08/18 documented as of this encounter
--- OUTSIDE RECORDS SUMMARY | 2025-01-28 20:25 | XMS_ITS | Encounter Summary ---
Author Organization [facility] Care Address [address] [place] [address] Phone Care Team Providers Care Sports Team Manager Name Role Phone Che Williamson MD Primary Care Provider + [phone] Lynda Skelton MD Unavailable Chelsea Hensley MD Unavailable [phone] Prashanth Martinez MD Primary Care Provider [phone] Encounter Details Date Type Department Care Team (Late st Contact Info) Description 05/13/2019 Pharmacy Visit [facility] 200 [place] [address] Social History Tobacco Use Types Packs/Day Years Used Date Smoking Tobacco: Never Smokeless Tobacco: Never Alcohol Use Standard Drinks/Week Comments No 0 (1 standard drink = 0.6 oz pur e alcohol) Comments No Sex and Gender Information Value Date Recorded Sex Assigned at Female 07/13/2019 6:16 PM DEVIL DOG Legal Sex Female 2:51 AM CDT Gender Identity Transgender Male 05/05/2019 1:23 PM CDT Sexual Orientation Pedraza 06/23/2023 10 :56 AM CDT documented as of this encounter Plan of Treatment Upcoming Encounters Date Type Department Care Team (Late st Contact Info) Description 04/21/2025 2:15 PM CDT Appointment [place] - [facility] [address] [phone] Prashanth Martinez MD 200 [place] [address] 05/02/2025 8:40 AM CDT Appointment [place] - [facility] - Ophthalmology - Optometry [address] [phone] Danuta Golden OD [address] [place] [address] documented as of this encounter Visit Diagnoses Not on filedocumented in this encounter Additional Health Concerns Infection Onset Date Last Indicated Resolved Time COVID-19 09/28/2021 09/28/2021 10/28/2021 9:44 PM DEVIL DOG Assessment Noted Time PHQ-9 Depression Total Score: 9 11/25/19 18 2:15 PM CDT PHQ-2 Depression Total Score: 4 11/25/19 18 2:15 PM CDT documented as of this encounter Care Teams Sports Team Manager Relationship Specialty Start Date End Date Che Williamson MD [address] [place] [address] PCP - General 08/27/12 03/20/22 Prashanth Martinez MD [address] [place] [address] PCP - General Pediatric Medicine 03/21/22 Lynda Skelton MD [address] [place] [address] Provider Team Family Practice 06/10/17 Chelsea Hensley MD [address] [place] [address] Endocrinology 12/08/18 documented as of this encounter
--- OUTSIDE RECORDS SUMMARY | 2025-01-28 20:25 | XMS_ITS | Encounter Summary ---
Author Organization [facility] Care Address [address] [place] [address] Phone Care Team Providers Care Doll Surgeon Name Role Phone Che Williamson MD Primary Care Provider Lynda Skelton MD Unavailable Franchesca Manley Unavailable Unavailable Chelsea Hensley MD Unavailable [phone] Prashanth Martinez MD Primary Care Provider [phone] Encounter Details Date Type Department Care Team (Late st Contact Info) Description 07/01/2017 Pharmacy Visit [facility] - Pharmacy - Specialty [address] [place] [address] Social History Tobacco Use Types Packs/Day Years Used Date Smoking Tobacco: Never Smokeless Tobacco: Never Alcohol Use Standard Drinks/Week Comments No 0 (1 standard drink = 0.6 oz pur e alcohol) Comments No Sex and Gender Information Value Date Recorded Sex Assigned at Female 07/13/2019 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 Legal Sex Female 2:51 AM CDT Gender Identity Transgender Male 05/05/2019 1:23 PM CDT Sexual Orientation Pedraza 06/23/2023 10 :56 AM CDT documented as of this encounter Plan of Treatment Upcoming Encounters Date Type Department Care Team (Late st Contact Info) Description 04/21/2025 2:15 PM CDT Appointment [place] - [facility] - Adolescent Clinic [address] [phone] Prashanth Martinez MD 200 [place] [address] 05/02/2025 8:40 AM CDT Appointment [facility] - Ophthalmology - Optometry [address] [phone] Danuta Golden OD 200 [place] [address] documented as of this encounter Visit Diagnoses Not on filedocumented in this encounter Additional Health Concerns Infection Onset Date Last Indicated Resolved Time COVID-19 09/28/2021 09/28/2021 10/28/2021 9:44 PM SUPERVISOR FURNACE PROCESS Assessment Noted Time PHQ-2 Depression Total Score: 2 05/06/20 17 5:10 PM CDT documented as of this encounter Care Teams Doll Surgeon Relationship Specialty Start Date End Date Che Williamson MD [address] [place] [address] PCP - General 08/27/12 03/20/22 Prashanth Martinez MD [address] [place] [address] PCP - General Pediatric Medicine 03/21/22 Lynda Skelton MD [address] [place] [address] Provider Team Family Practice 06/10/17 Franchesca Manley 12/09/17 12/07/18 Chelsea Hensley MD [address] [place] [address] Endocrinology 12/08/18 documented as of this encounter
--- OUTSIDE RECORDS SUMMARY | 2025-01-28 20:25 | XMS_ITS | Encounter Summary ---
Author Organization [facility] Care Address [address] [place] [address] Phone Care Team Providers Care Newspaper Photo Editor Name Role Phone Che iWlliamson MD Primary Care Provider + [phone] Lynda Skelton MD Unavailable Chelsea Hensley MD Unavailable [phone] Prashanth Martinez MD Primary Care Provider [phone] Encounter Details Date Type Department Care Team (Late st Contact Info) Description 04/27/2019 Pharmacy Visit [facility] [address] [place] [address] Social History Tobacco Use Types Packs/Day Years Used Date Smoking Tobacco: Never Smokeless Tobacco: Never Alcohol Use Standard Drinks/Week Comments No 0 (1 standard drink = 0.6 oz pur e alcohol) Comments No Sex and Gender Information Value Date Recorded Sex Assigned at Female 07/13/2019 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 Legal Sex Female 2:51 AM CDT Gender Identity Transgender Male 05/05/2019 1:23 PM CDT Sexual Orientation Pedraza 06/23/2023 10 :56 AM CDT documented as of this encounter Plan of Treatment Upcoming Encounters Date Type Department Care Team (Late st Contact Info) Description 04/21/2025 2:15 PM CDT Appointment [place] - [facility] - [facility] [address] [phone] Prashanth Martinez MD [address] [place] [address] 05/02/2025 8:40 AM CDT Appointment [place] - [facility] - Ophthalmology - Optometry [address] [phone] Danuta Golden OD [address] [place] [address] documented as of this encounter Visit Diagnoses Not on filedocumented in this encounter Additional Health Concerns Infection Onset Date Last Indicated Resolved Time COVID-19 09/28/2021 09/28/2021 10/28/2021 9:44 PM ROOM SERVICE RUNNER Assessment Noted Time PHQ-9 Depression Total Score: 9 11/25/19 18 2:15 PM CDT PHQ-2 Depression Total Score: 4 11/25/19 18 2:15 PM CDT documented as of this encounter Care Teams Newspaper Photo Editor Relationship Specialty Start Date End Date Ceh Williamson MD [address] [place] [address] PCP - General 08/27/12 03/20/22 Prashanth Martinez MD [address] [place] [address] PCP - General Pediatric Medicine 03/21/22 Lynda Skelton MD [address] [place] [address] Provider Team Family Practice 06/10/17 Chelsea Hensley MD [address] [place] [address] Endocrinology 12/08/18 documented as of this encounter
--- OUTSIDE RECORDS SUMMARY | 2025-01-28 20:25 | XMS_ITS | Encounter Summary ---
Author Organization [facility] Care Address [address] [place] [address] Phone Care Team Providers Care Product Builder Name Role Phone Che Williamson MD Primary Care Provider + [phone] Lynda Skelton MD Unavailable Chelsea Hensley MD Unavailable [phone] Prashanth Martinez MD Primary Care Provider [phone] Encounter Details Date Type Department Care Team (Late st Contact Info) Description 04/29/2019 Pharmacy [facility] - Pharmacy - Specialty [address] [place] [address] Social History Tobacco Use Types Packs/Day Years Used Date Smoking Tobacco: Never Smokeless Tobacco: Never Alcohol Use Standard Drinks/Week Comments No 0 (1 standard drink = 0.6 oz pur e alcohol) Comments No Sex and Gender Information Value Date Recorded Sex Assigned at Female 07/13/2019 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 Legal Sex Female 2:51 AM CDT Gender Identity Transgender Male 05/05/2019 1:23 PM CDT Sexual Orientation Pedraza 06/23/2023 10 :56 AM CDT documented as of this encounter Plan of Treatment Upcoming Encounters Date Type Department Care Team (Late st Contact Info) Description 04/21/2025 2:15 PM CDT Appointment [place] - [facility] - [facility] [address] [phone] Prashanth Martinez MD [address] [place] [address] 05/02/2025 8:40 AM CDT Appointment [place] - [facility] - Ophthalmology - Optometry [address] [phone] Danuta Golden OD [address] [place] [address] documented as of this encounter Visit Diagnoses Not on filedocumented in this encounter Additional Health Concerns Infection Onset Date Last Indicated Resolved Time COVID-19 09/28/2021 09/28/2021 10/28/2021 9:44 PM LEGAL STENOGRAPHER Assessment Noted Time PHQ-9 Depression Total Score: 9 11/25/19 18 2:15 PM CDT PHQ-2 Depression Total Score: 4 11/25/19 18 2:15 PM CDT documented as of this encounter Care Teams Product Builder Relationship Specialty Start Date End Date Che Williamson MD [address] [place] [address] PCP - General 08/27/12 03/20/22 Prashanth Martinez MD [address] [place] [address] PCP - General Pediatric Medicine 03/21/22 Lynda Skelton MD [address] [place] [address] Provider Team Family Practice 06/10/17 Chelsea Hensley MD [address] [place] [address] Endocrinology 12/08/18 documented as of this encounter
[2025-01-28 20:26] VITALS: BP 119/84; PULSE 86; RESP 20; TEMP 36.2; O2SAT 98; BMI 40.2
[2025-01-28 20:51] LABS: Appearance Urine Clear (Clear); Bilirubin Urine Negative (Negative); Blood Urine 2+ (Negative); Color Urine Yellow (Yellow); Glucose Urine Negative (Negative); Ketones Urine 1+ (Negative); Leukocyte Esterase Urine Negative (Negative); Nitrite Urine Negative (Negative); Protein Urine Negative (Negative); Specific Gravity Urine >= 1.030 (1.000-1.030); Urobilinogen Urine 0.2 (0.2-1.0); pH Urine 5.5 (5.0-8.5)
[2025-01-28 20:52] LABS: Bacteria Urine Few; WBC Urine 0-2 (0-5)
[2025-01-28 20:53] LABS: Ur HCG Qualitative* Negative (Negative)
--- NOTE | 2025-01-28 21:00 | ED_ITS ---
HPI - General Adult General Chief complaint: Psychiatric Problem/Disorder Stated complaint: Mental Health Time Seen by Provider: 01/28/25 20:21 Source: patient Mode of arrival: ambulatory Limitations: no limitations History of Present Illness HPI narrative: Patient is a 19-year-old transgender male presenting today with suicidal ideation. Patient had a troubling interaction with a friend today who told him that she did not want a see him anymore. He states that he has been ?spiraling? for couple of weeks now in today was the last straw. He called the help line at school who then called an ambulance for him to bring him to the hospital. States that this made him feel overwhelmed he did not appreciate it. He is not sure if he has to be here or not. He does have a plan of overdosing on his medications. Patient has been hospitalized for suicidal ideation in the past. She is set to leave school and go back home to [place] tomorrow. His parents are on their way up here right now. Patient is currently not seeing therapist, last therapy session was in August. Continues to take his Lexapro and Abilify as prescribed. Denies any substance use today. Related Data Home Medications ?Medication ?Instructions ?Recorded ?Confirmed aripiprazole 5 mg tablet (Abilify) 7 mg PO DAILY 10/2411/15/24 escitalopram oxalate 20 mg tablet 30 mg PO DAILY 10/2411/15/24 (Lexapro) buspirone 10 mg tablet mg PO DAILY PRN 11/15/2407/02 doxycycline monohydrate 100 mg mg PO PRN 11/15/2411/06 tablet emtricitabine 200 mg-tenofovir 1 tab PO DAILY 11/15/24 11/15/24 disoproxil fumarate 300 mg tablet Allergies Allergy/AdvReac Type Severity Reaction Status Date / Time cephalexin Allergy Intermediate Hives Verified 10/24/23 15:42 sulfamethoxazole (From Allergy Intermediate Hives Verified 10/24/23 15:42 Bactrim) trimethoprim (From Bactrim) Allergy Intermediate Hives Verified 10/24/23 15:42 Review of Systems Status of ROS: Reports: 10 or more systems reviewed and unremarkable except as noted in History and below [facility] Medical History Anxiety ?F41.9 - Anxiety disorder, unspecified (ICD-10) Depression ?F32.A - Depression, unspecified (ICD-10) Social History Smoking Status: Never smoker Do you use any of these nicotine containing products: None Second hand tobacco smoke exposure: No How often do you have a drink containing alcohol: never How often do you have six or more drinks on one occasion: Never AUDIT-C Alcohol total score: 0 Non-prescribed substance use: denies use service: No Exam Narrative: Exam Narrative: Well-nourished well-developed patient in no acute distress. Alert and oriented. Answers questions appropriately. Mood and affect are appropriate. Thoughts are goal oriented and rational. No tangential or magical thinking noted. Patient speaks in full sentences without needing to catch his breath. HEENT: Normocephalic atraumatic. Pupils are equally round reactive to light. Extraocular muscles are intact. Conjunctivae are moist without any icterus noted. Moist mucous membranes. Uvula Cardiovascular: Heart is regular rate and rhythm S1 and S2 are present without any murmurs. Lungs: Clear to auscultation bilaterally no wheezes rhonchi or rales are appreciated. Patient takes deep breaths without any discomfort. Extremities: Bilateral lower extremities are without edema. Skin: Well perfused without any obvious rashes. Const: Vital Signs, click to edit/add: Vital Signs - 24 hr 01/28/25 20:26 Temperature 97.1 F L Pulse Rate [Left P ulse Oximeter] 86 Respiratory Rate 20 Blood Pressure [Ri ght Upper Arm] 119/84 Pulse Oximetry 98 Oxygen Delivery Me thod Room Air Course Course ED Course: Mental health assessment ordered. Labs drawn. CBC unremarkable. New line chemistries are normal. LFTs are normal. UA shows microscopic hematuria. Urine drug screen positive for marijuana. Per Karri - Patient able to contract for safety, feels like he has good coping mechanisms. Parents en route to hospital and parents comfortable taking him home tonight once they arrive. Patient will go home to [place] tomorrow and feels like he will do better with his parents and at home. Vital Signs Vital signs: Initial Vital Signs Temperature 97.1 F L 01/28/25 20:26 Temperature Source Temporal Artery Scan 01/28/25 20:26 Pulse Rate 86 01/28/25 20:26 Respiratory Rate 20 01/28/25 20:26 Blood Pressure 119/84 01/28/25 20:26 Blood Pressure Mean 95 01/28/25 20:26 Blood Pressure Position Sitting 01/28/25 20:26 Pulse Oximetry 98 01/28/25 20:26 Oxygen Delivery Method Room Air 01/28/25 20:26 Vital Signs Temperature 97.1 F L 01/28/25 20:26 Pulse Rate 86 01/28/25 20:26 Respiratory Rate 20 01/28/25 20:26 Blood Pressure 119/84 01/28/25 20:26 Pulse Oximetry 98 01/28/25 20:26 Oxygen Delivery Method Room Air 01/28/25 20: Temperature 97.1 F L 01/28/25 20: Pulse Rate 86 01/28/25 20:26 Respiratory Rate 20 01/28/25 20:26 Blood Pressure 119/84 01/28/25 20:26 Pulse Oximetry 98 01/28/25 20:26 Oxygen Delivery Method Room Air 01/28/25 20:26 Medical Decision Making MDM Narrative Medical decision making narrative: 19-year-old transgender male presenting with suicidal ideation. Plan will be to discharge the patient to his parent's care. Follow-up as recommended. Lab Data Lab results reviewed: Yes I reviewed the patient's lab results Labs: Lab Results 01/28/25 01/28/25 Range/Units 08:55 20:49 WBC 11.65 H (4.50-11.00) K/uL RBC 5.17 (4.00-5.20) m/uL Hgb 14.3 (12.0-16.0) gm/dL Hct 43.7 (33.0-51.0) % MCV 85 (80-100) fL MCH 28 (26-34) pg MCHC 33 (32-36) gm/dL RDW Coeff of Trudi 12.2 (11.5-15.5) % Plt Count 350 (140-440) K/uL Neut % (Auto) 69.0 (42.0-72.0) % Lymph % (Auto) 24.2 (20-44) % Phillips % (Auto) 5.9 (0.0-11.0) % Eos % (Auto) 0.1 (0.0-7.0) % Baso % (Auto) 0.5 (0.0-3.0) % Neut # (Auto) 8.00 H (1.7-7.0) K/uL Lymph # (Auto) 2.80 (0.90-2.90) K/uL Phillips # (Auto) 0.70 (0.00-0.90) K/UL Eos # (Auto) 0.00 (0.00-0.50) K/uL Baso # (Auto) 0.10 (0.00-0.30) K/uL Abs Immat Gran (auto) 0.00 (0.00-0.30) K/uL Imm/Tot Granulo (auto) 0.3 % Sodium 140 (135-149) mmol/L Potassium 4.3 (3.6-5.1) mmol/L Chloride 104 (96-114) mmol/L Carbon Dioxide 26 (20-32) mmol/L Anion Gap 10 (7-15) mEq/L BUN 19 (5-24) mg/dL Creatinine 0.7 (0.5-1.5) mg/dL Estimated Creat Clear 138.63 Estimated GFR 127 ml/min Glucose 88 (60-115) mg/dL Calcium 9.6 (8.4-10.6) mg/dL Total Bilirubin 0.5 (0.1-1.5) mg/dL Direct Bilirubin 0.3 (0.0-0.5) mg/dL AST 34 (12-35) U/L ALT 33 (4-35) U/L Alkaline Phosphatase 60 (40-150) U/L Total Protein 8.2 (6.0-8.3) g/dL Albumin 4.6 (3.3-5.0) g/dL TSH 3.370 (0.270-4.20) uIU/mL Urine Color Yellow (Yellow) Urine Appearance Clear (Clear) Urine pH 5.5 (5.0-8.5) Ur Specific [place] >= 1.030 (1.000-1.030) Urine Protein Negative (Negative) Urine Glucose (UA) Negative (Negative) Urine Ketones 1+ A (Negative) Urine Blood 2+ A (Negative) Urine Nitrite Negative (Negative) Urine Bilirubin Negative (Negative) Urine Urobilinogen 0.2 (0.2-1.0) Ur Leukocyte Esterase Negative (Negative) Urine RBC 2-5 A (0-2) Urine WBC 0-2 (0-5) Ur Squamous Epith Cells None (None-Few) Urine Bacteria Few A (None) Urine HCG, Qual Negative (Negative) Urine Opiates Screen Negative (Negative) Ur Oxycodone Screen Negative (Negative) Urine Methadone Screen Negative (Negative) Acetaminophen < 10.0 (10.0-30.0) ug/mL Ur Barbiturates Screen Negative (Negative) U Tricyclic Antidepress Negative (Negative) Ur Phencyclidine Scrn Negative (Negative) Ur Amphetamines Screen Negative (Negative) U Methamphetamines Scrn Negative (Negative) U Benzodiazepines Scrn Negative (Negative) Urine Cocaine Screen Negative (Negative) U Marijuana (THC) Screen POSITIVE A (Negative) Ur Drug Screen Comment See Note Ethyl Alcohol < 0.01 (0.01-0.03) % Discharge Plan Discharge Clinical Impression: Suicidal ideation Patient Disposition: Home w/ Parent or Adult Condition: Stable Additional Instructions: Follow-up as recommended. Establish care with therapist. Return to the emergency department if you do not feel safe. In your workup today there was a very small amount of blood in the urine. You should follow-up with your primary care provider to have a repeat urine analysis done at your convenience. Prescriptions: No Action emtricitabine-tenofovir (TDF) 200-300 mg tablet 1 tab PO DAILY doxycycline monohydrate 100 mg tablet PO PRN buspirone 10 mg tablet PO DAILY PRN aripiprazole [Abilify] 5 mg tablet 7 mg PO DAILY escitalopram oxalate [Lexapro] 20 mg tablet 30 mg PO DAILY Follow Up/Referrals: Provider,Not a Local [Primary Care Provider, Family Practice] Stand Alone Forms: MyHealth Info Instructions
[2025-01-28 21:01] LABS: Amphetamine Screen Urine Negative (Negative); Barbiturate Screen Urine Negative (Negative); Benzodiazepines Screen Urine Negative (Negative); Cannabinoid Screen Urine POSITIVE (Negative); Cocaine Screen Urine Negative (Negative); Methadone Screen Urine Negative (Negative); Methamphetamines Screen Urine Negative (Negative); Opiate Screen Urine Negative (Negative); Oxycodone Screen Urine Negative (Negative); Phencyclidine Screen Urine Negative (Negative); Tricyclic Antidepressant Urine Negative (Negative)
--- OUTSIDE RECORDS SUMMARY | 2025-01-28 21:02 | XMS_ITS | Encounter Summary ---
Author Organization [facility] Care Address [address] [place] [address] Phone Care Team Providers Care Reports Developer Name Role Phone Che Williamson MD Primary Care Provider + [phone] Lynda Skelton MD Unavailable [phone] Franchesca Manley Unavailable Unavailable Chelsea Hensley MD Unavailable [phone] Prashanth Martinez MD Primary Care Provider [phone] Encounter Details Date Type Department Care Team (Late st Contact Info) Description 05/07/2018 Pharmacy Visit [facility] - Pharmacy - Business Office [address] [place] [address] Social History Tobacco Use Types Packs/Day Years Used Date Smoking Tobacco: Never Smokeless Tobacco: Never Alcohol Use Standard Drinks/Week Comments No 0 (1 standard drink = 0.6 oz pur e alcohol) Comments No Sex and Gender Information Value Date Recorded Sex Assigned at Female 07/13/2019 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 Legal Sex Female 2:51 AM CDT Gender Identity Transgender Male 05/05/2019 1:23 PM CDT Sexual Orientation Pedraza 06/23/2023 10 :56 AM CDT documented as of this encounter Plan of Treatment Upcoming Encounters Date Type Department Care Team (Late st Contact Info) Description 04/21/2025 2:15 PM CDT Appointment [place] - [facility] - Ad[facility] [address] [phone] Prashanth Martinez MD [address] [place] [address] 05/02/2025 8:40 AM CDT Appointment [facility] - Ophthalmology - Optometry [address] [phone] Danuta Golden OD [address] [place] [address] documented as of this encounter Visit Diagnoses Not on filedocumented in this encounter Additional Health Concerns Infection Onset Date Last Indicated Resolved Time COVID-19 09/28/2021 09/28/2021 10/28/2021 9:44 PM HOGSHEAD ROLLER Assessment Noted Time PHQ-9 Depression Total Score: 9 11/25/19 18 2:15 PM CDT PHQ-2 Depression Total Score: 4 11/25/19 18 2:15 PM CDT documented as of this encounter Care Teams Reports Developer Relationship Specialty Start Date End Date Che Williamson MD [address] [place] [address] PCP - General 08/27/12 03/20/22 Prashanth Martinez MD [address] [place] [address] PCP - General Pediatric Medicine 03/21/22 Lynda Skelton MD [address] [place] [address] Provider Team Family Practice 06/10/17 Franchesca Manley 12/09/17 12/07/18 Chelsea Hensley MD [address] [place] [address] Endocrinology 12/08/18 documented as of this encounter
--- OUTSIDE RECORDS SUMMARY | 2025-01-28 21:04 | XMS_ITS | Encounter Summary ---
Author Organization [facility] Care Address [address] [place] [address] Phone Care Team Providers Care Sas Programmer Name Role Phone Che Williamson MD Primary Care Provider + [phone] Lynda Skelton MD Unavailable Chelsea Hensley MD Unavailable [phone] Prashanth Martinez MD Primary Care Provider [phone] Encounter Details Date Type Department Care Team (Late st Contact Info) Description 12/20/2019 Pharmacy Visit [facility] - Pharmacy - Specialty [address] [place] [address] Social History Tobacco Use Types Packs/Day Years Used Date Smoking Tobacco: Never Smokeless Tobacco: Never Alcohol Use Standard Drinks/Week Comments No 0 (1 standard drink = 0.6 oz pur e alcohol) Comments No Sex and Gender Information Value Date Recorded Sex Assigned at Female 07/13/2019 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 Legal Sex Female 2:51 AM CDT Gender Identity Transgender Male 05/05/2019 1:23 PM CDT Sexual Orientation Pedraza 06/23/2023 10 :56 AM CDT documented as of this encounter Plan of Treatment Upcoming Encounters Date Type Department Care Team (Late st Contact Info) Description 04/21/2025 2:15 PM CDT Appointment [place] [facility] [place] [facility] [address] [phone] Prashanth Martinez MD [address] [place] [address] 05/02/2025 8:40 AM CDT Appointment [place] [facility] - Ophthalmology - Optometry [address] [phone] Danuta Golden OD [address] [place] [address] documented as of this encounter Visit Diagnoses Not on filedocumented in this encounter Additional Health Concerns Infection Onset Date Last Indicated Resolved Time COVID-19 09/28/2021 09/28/2021 10/28/2021 9:44 PM COLLET DRILLER Assessment Noted Time PHQ-9 Depression Total Score: 9 11/25/19 18 2:15 PM CDT A fall risk assessment has been complete d for the patient 12/13/2019 4:01 PM CDT PHQ-2 Depression Total Score: 2 12/10/19 20 2:50 PM CDT documented as of this encounter Care Teams Sas Programmer Relationship Specialty Start Date End Date Che Williamson MD [address] [place] [id number] PCP - General 08/27/12 03/20/22 Prashanth Martinez MD [address] [place] [address] PCP - General Pediatric Medicine 03/21/22 Lynda Skelton MD [facility] [place] [address] Provider Team Family Practice 06/10/17 Chelsea Hensley MD [address] [place] [address] Endocrinology 12/08/18 documented as of this encounter
[2025-01-28 21:06] LABS: Basophils Percent Auto 0.5 % (0.0-3.0); Eosinophils Percent Auto 0.1 % (0.0-7.0); Hematocrit 43.7 % (33.0-51.0); Hemoglobin* 14.3 gm/dL (12.0-16.0); Immature Granulocytes Pct Auto 0.3 %; Lymphocytes Percent Auto 24.2 % (20-44); Mean Corpuscular HGB Conc 33 gm/dL (32-36); Mean Corpuscular Hemoglobin 28 pg (26-34); Mean Corpuscular Volume 85 fL (80-100); Monocytes Percent Auto 5.9 % (0.0-11.0); Platelet Count* 350 K/uL (140-440); RDW Coefficient of Variation % 12.2 % (11.5-15.5); Red Blood Count 5.17 m/uL (4.00-5.20); White Blood Count* 11.65 K/uL (4.50-11.00)
[2025-01-28 21:07] LABS: Slide Review Reflex No
--- OUTSIDE RECORDS SUMMARY | 2025-01-28 21:07 | XMS_ITS | Encounter Summary ---
Author Organization [facility] Care Address [address] [place] [address] Phone Care Team Providers Care Scheduling Administrator Name Role Phone Che Williamson MD Primary Care Provider + [phone] Lynda Skelton MD Unavailable Franchesca Manley Unavailable Unavailable Chelsea Hensley MD Unavailable [phone] Prashanth Martinez MD Primary Care Provider [phone] Encounter Details Date Type Department Care Team (Late st Contact Info) Description 06/13/2017 Pharmacy Visit [facility] - Pharmacy - Specialty [address] [place] [address] Social History Tobacco Use Types Packs/Day Years Used Date Smoking Tobacco: Never Smokeless Tobacco: Never Alcohol Use Standard Drinks/Week Comments No 0 (1 standard drink = 0.6 oz pur e alcohol) Comments No Sex and Gender Information Value Date Recorded Sex Assigned at Female 07/13/2019 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 Legal Sex Female 2:51 AM CDT Gender Identity Transgender Male 05/05/2019 1:23 PM CDT Sexual Orientation Pedraza 06/23/2023 10 :56 AM CDT documented as of this encounter Plan of Treatment Upcoming Encounters Date Type Department Care Team (Late st Contact Info) Description 04/21/2025 2:15 PM CDT Appointment [place] - [facility] - Adolescent Clinic [address] [phone] Prashanth Martinez MD [address] [place] [address] 05/02/2025 8:40 AM CDT Appointment [facility] - Ophthalmology - Optometry [address] [phone] Danuta Golden OD [address] [place] [address] documented as of this encounter Visit Diagnoses Not on filedocumented in this encounter Additional Health Concerns Infection Onset Date Last Indicated Resolved Time COVID-19 09/28/2021 09/28/2021 10/28/2021 9:44 PM PEANUT GRADER Assessment Noted Time PHQ-2 Depression Total Score: 2 05/06/20 17 5:10 PM CDT documented as of this encounter Care Teams Scheduling Administrator Relationship Specialty Start Date End Date Che Williamson MD [address] [place] [id number] PCP - General 08/27/12 03/20/22 Prashanth Martinez MD [address] [place] [address] PCP - General Pediatric Medicine 03/21/22 Lynda Skelton MD [address] [place] [address] Provider Team Family Practice 06/10/17 Franchesca Manley 12/09/17 12/07/18 Chelsea Hensley MD [address] [place] [address] Endocrinology 12/08/18 documented as of this encounter
[2025-01-28 21:23] LABS: Albumin* 4.6 g/dL (3.3-5.0); Chloride* 104 mmol/L (96-114); Potassium* 4.3 mmol/L (3.6-5.1); Sodium* 140 mmol/L (135-149)
[2025-01-28 21:26] LABS: Alanine Aminotransferase* 33 U/L (4-35); Alkaline Phosphatase* 60 U/L (40-150); Anion Gap 10 mEq/L (7-15); Aspartate Amino Transferase* 34 U/L (12-35); Bilirubin Direct* 0.3 mg/dL (0.0-0.5); Bilirubin Total* 0.5 mg/dL (0.1-1.5); Blood Urea Nitrogen* 19 mg/dL (5-24); Calcium* 9.6 mg/dL (8.4-10.6); Carbon Dioxide* 26 mmol/L (20-32); Creatinine* 0.7 mg/dL (0.5-1.5); Est. Creatinine Clearance* 138.63; Estimated Glomerular Filt Rate 127 ml/min; Glucose* 88 mg/dL (60-115); Total Protein* 8.2 g/dL (6.0-8.3)
[2025-01-28 21:35] LABS: Acetaminophen* < 10.0 ug/mL (10.0-30.0); Ethanol* < 0.01 % (0.01-0.03)
== END 2025-01-29 01:00 | disposition home or self-care (01) ==
PROVIDERS: Emergency Provider Family Medicine
DX: R45.851 Suicidal ideations (principal); F64.0 Transsexualism; Z79.899 Other long term (current) drug therapy
CPT/HCPCS: 36415; 80048; 80076; 80143; 80306; 81001; 81025; 82077; 84443; 85025; 87086; 99283; 99284